=== PATIENT | female | born 1940 | race Caucasian/White ===

== ENCOUNTER 2016-08-23 17:13 | Emergency (ER) | payer OTHER, MEDICARE ==
[~2016-08-23] VITALS: Ht 160 cm; Wt 78.9 kg
[~2016-08-23 17:13] MED LIST: ADVIL200 M2 PO; ALTACE10 M2 PO; CENTRUM COMPLE1 EACH PO; EYE VITAMIN-MI1 EACH PO; LANTUS100 UNIT/1 SC; LASIX20 M1 PO; LASIX40 M1 PO; METFORMIN HCL1000 M1 PO; MUCINEX600 M1 PO; SYMBICORT 16010.2 GM INH; SYNTHROID150 MCG PO; VITAMIN D31000 UNI1 PO
--- NOTE | 2016-08-23 17:43 | ED UPPER/LOWER EXTREMITY COMPL ---
History of Present Illness General Chief Complaint: Lower Extremity Injury Stated Complaint: L TOE NAIL INFECTED/ SWOLLEN L LEG Source: patient Exam Limitations: no limitations Allergies Coded Allergies: oxycodone (From PERCOCET) (Intermediate, NAUSEA 08/23/16) Reconcile Medications Budesonide/Formoterol Fumarate (Symbicort 160-4.5 Mcg Inhaler) 10.2 GM HFA.AER.AD 2 PUF INH BID COPD (Reported) Cholecalciferol (Vitamin D3) (Vitamin D3) 1,000 UNIT CAPSULE 1 CAP PO DAILY SUPPLEMENT (Reported) Doxycycline Hyclate 100 MG TABLET 1 TAB PO BID toe infection Furosemide (Lasix) 40 MG TABLET 1 TAB PO DAILY [facility] Guaifenesin (Mucinex) 600 MG TAB.ER.12H 1 TAB PO BID Mucus plug Insulin-Lantus (Lantus) 100 UNIT/1 ML VIAL 24 UNIT SC QPM DIABETES (Reported) Levothyroxine Sodium (Synthroid) 150 MCG TABLET 1 TAB PO DAILY THYROID ( Reported) Metformin HCl 1,000 MG TABLET 1 TAB PO BID DIABETES (Reported) Ramipril (Altace) 10 MG CAPSULE 1 CAP PO QPM BP (Reported) Vit A/C/E AC/Znox/Cupric Oxide (Eye Vitamin-Minerals Tablet) 1 EACH TABLET 1 TAB PO BID SUPPLEMENT (Reported) Triage Note: PT TO ED WITH C/O LOWER LEG EDEMA, LEFT WORSE ALSO C/O TOENAIL COMING OFF ON LEFT FOOT. Triage Nurses Notes Reviewed? yes Onset: Abrupt Duration: day(s):, constant, getting worse Timing: recent history Severity: moderate, severe Pain/Injury Location: Left: Leg. No Modifying Factors: none HPI: 76-YEAR-OLD FEMALE COMES INTO EMERGENCY ROOM FOR FURTHER EVALUATION OF LEFT LEG SWELLING WELL infection to left toenail. Patient reports the toenail fell off and she's had some discharge. Patient reports that her entire leg is swollen. He denies any chest pain shortness of breath. Significant cardiac history with CHF as well as COPD. Denies being on any anticoagulants. Denies any fever chills. Patient saw her primary care doctor for here for further evaluation of possible cellulitis. Patient is on oxygen chronically 4 L. (ANGELY SINCLAIR) Vital Signs & Intake/Output Vital Signs & Intake/Output Vital Signs Date Time Temp Pulse Resp B/P Pulse O2 O2 Flow FiO2 Ox Delivery Rate 08/24 2155 102 20 76 Nasal 4.0L Cannula 08/23 2152 88 162/75 08/23 2128 97.1 97 20 140/65 08/236 84 Nasal 4.0L Cannula 08/23 1729 96.4 106 20 148/75 95 Nasal 4.0L Cannula Past History Travel History Traveled to [place] past 21 day No Medical History Any Pertinent Medical History? see below for history Neurological: NONE EENT: CATARACTS (R) MACULAR DEGENERATION (L) Cardiovascular: CHF, hypertension Respiratory: COPD Gastrointestinal: NONE Hepatic: NONE Renal: NONE Musculoskeletal: NONE Psychiatric: NONE Endocrine: diabetes, hypothyroidism Blood Disorders: NONE, IRON DEF/TAKES PROCRIT Cancer(s): NONE REAL ESTATE INTERN/Reproductive: NONE History of MRSA: No History of VRE: No History of CDIFF: No Surgical History Surgical History: cholecystectomy, hip replacement Psychosocial History Who do you live with Patient/Self Services at Home Oxygen What is your primary language Tajik Tobacco Use: Quit >30 days ago ETOH Use: denies use Illicit Drug Use: denies illicit drug use Family History Family History, If Any: MOTHER (Diabetes mellitus Stroke in 70s). SISTER (Diabetes mellitus). Hx Contributory? No (ANGELY SINCLAIR) Review of Systems Review of Systems Constitutional: Reports: no symptoms. EENTM: Reports: no symptoms. Respiratory: Reports: no symptoms. Cardiovascular: Reports: no symptoms. Gastrointestinal/Abdominal: Reports: no symptoms. Genitourinary: Reports: no symptoms. Musculoskeletal: Reports: no symptoms. Skin: Reports: see HPI. Neurological/Psychological: Reports: no symptoms. Hematologic/Endocrine: Reports: no symptoms. Immunological: Reports: no symptoms. All Other Systems: Reviewed and Negative (ANGELY SINCLAIR) Physical Exam Physical Exam General Appearance: well developed/nourished, no apparent distress, alert, awake Head: atraumatic Eyes: Bilateral: normal appearance. Ears, Nose, Throat: normal ENT inspection, hearing grossly normal Neck: normal inspection, supple Cardiovascular/Respiratory: normal breath sounds, regular rate/rhythm, no respiratory distress, tachycardia Gastrointestinal: soft Back: normal inspection Neurologic/Tendon: normal sensation, normal motor functions, normal tendon functions, responds to pain, no evidence tendon injury, no pulse deficit Skin: intact, normal color, warm/dry Lymphatic: no anterior cervical dominick (ANGELY SINCLAIR) Progress Differential Diagnosis: arterial insufficiency, cellulitis, CHF, compartment syndrome, contusion, dislocation, DVT, fracture, gout, septic arthritis, sprain, tendon injury, pulmonary embolism, CHF, NH, Comments: 08/23/2016 6:53:44 PM Apparently the nurse noticed that when she moved she had desatted to the high 60s on for 4 L of oxygen. Patient denies any complaints of chest pain or shortness of breath still. Patient's O2 saturation monitor now is in the low 80s. She reports that she normally runs in the high 80s. Nurse reports that there was a good waveform with the O2 saturation in the high 60s initially and she bumped her up to 5 L. Due to the fact that the patient has swelling in the leg pulmonary embolism is currently on the differential diagnosis in waiting on ultrasound to come back 08/23/2016 10:21:23 PM There is no evidence of pulmonary embolism. Patient can follow-up with primary care doctor. Patient was seen and evaluated by Dr. gomez. Patient is chronically short of breath with chronic hypoxia. She does not feel short of breath beyond her baseline at this time and does not appear to be in any type of wrist or distress. Case management set up for some home health aide. Patient referred to pulmonology. Return if any other concerns worsening symptoms. Patient was told to double up on her Lasix for 3 days but then to resume normal dose for fluid in left lower leg. There is no evidence of DVT. Patient understands and agrees with plan of care. Shared decision making. Patient does not want to stay here in the hospital. Patient reevaluated multiple times here in the emergency room and continued to remain in no apparent distress. (ANGELY SINCLAIR) Plan of Care: Orders Procedure Date/time Status Heart Healthy Diet 08/24 B Active TROPONIN LEVEL 08/23 1822 Complete COMPREHENSIVE METABOLIC PANEL 08/23 1822 Complete CBC WITHOUT DIFFERENTIAL 08/23 1822 Complete B-TYPE NATRIURETIC PEP (BNP) 08/23 1822 Complete EKG 08/23 1822 Active Laboratory Tests 08/23/16 1827: Anion Gap 11, Estimated GFR 40 L, BUN/Creatinine Ratio 25.4 H, Glucose 95, Calcium 9.8, Total Bilirubin 0.9, AST 23, ALT 29, Alkaline Phosphatase 80, Troponin I < 0.01, Hsi-A-Cdwaqsbjhvs Pept 62060 H, Total Protein 6.9, Albumin 4.0, Globulin 2.9, Albumin/Globulin Ratio 1.4, CBC w Diff NO MAN DIFF REQ, RBC 3.29 L, MCV 105.9 H, MCH 33.5 H, RDW 21.2 H, MPV 8.8, Gran % 77.4 H, Lymphocytes % 10.8 L, Monocytes % 7.3, Eosinophils % 3.5, Basophils % 1.0, Absolute Granulocytes 5.8, Absolute Lymphocytes 0.8 L, Absolute Monocytes 0.5, Absolute Eosinophils 0.3, Absolute Basophils 0.1, PUBS MCHC 31.6 L Departure Departure Disposition: STILL A PATIENT Condition: Stable Clinical Impression Primary Impression: Leg swelling Secondary Impressions: Chronic respiratory failure with hypoxia, Toe infection Referrals: MERRICK MAHMOOD,MARIA ESTHER WILLIS MD,BRAD Holloway (PCP/Family) ESTELLE SANTACRUZ MD Additional Instructions: Take doxycycline as prescribed. Increase her Lasix to 20 mg twice a day for the next 3 days. Contact her trouble lineman primary care doctor. Follow-up with farmworker brooder farm provided. Return to the emergency room immediately if any shortness of breath chest pain. Return if any other concerns worsening symptoms. Dr. Santacruz his farmworker brooder farm. Dr. Walters is magazine repairer. Warm soaks with Epsom salts with toe. Please go over all results of today's visit with your primary care doctor. Contact your primary care doctor to let them know you were here in the emergency room. There may be nonspecific findings which may not be related to your visit today here in the emergency room but may require further evaluation and chronic monitoring by your primary care doctor. If you had a laceration today the chance of foreign body always remains. You should follow-up with your primary care doctor for recheck in 3-5 days for a wound check. If you had an x-ray done there is a chance that a fracture could have been missed on initial read and you should follow-up with your primary care doctor for repeat x-rays if symptoms persist. If your blood pressure was elevated here in the emergency room please have rechecked by her primary care doctor within the next 48 hours by your primary care doctor. If you were prescribed a narcotic here in the emergency room or any type of controlled substances you're not allowed to drive while taking this medication or operate any type of heavy machinery. Narcotics can make you feel lightheaded dizziness nausea and can cause constipation. You may need to pick up operator a stool softener. Thank you for choosing [facility] emergency room. Please return to the emergency room immediately if you have any other concerns worsening of symptoms. Departure Forms: Customer Survey General Discharge Information Prescriptions: Current Visit Scripts Doxycycline Hyclate 1 TAB PO BID #14 TAB (ANGELY SINCLAIR) PA/TELETYPE INSTALLER Co-Sign Statement Statement: ED Attending supervision documentation- [X] I saw and evaluated the patient. I have also reviewed all the pertinent lab results and diagnostic results. I agree with the findings and the plan of care as documented in the PA's/TELETYPE INSTALLER's documentation. [X] I have reviewed the ED Record and agree with the PA's/TELETYPE INSTALLER's documentation. [] Additions or exceptions (if any) to the PAs/TELETYPE INSTALLER's note and plan are summarized below: [] (EDYTA THOMPSON,CYNTHIA)
[2016-08-23 18:40] LABS: ABSOLUTE BASOPHIL COUNT 0.1 /CUMM (0.0-0.2); ABSOLUTE EOSINOPHIL COUNT 0.3 /CUMM (0.0-0.7); ABSOLUTE GRANULOCYTE CT 5.8 /CUMM (1.4-6.5); ABSOLUTE LYMPH COUNT 0.8 /CUMM (1.2-3.4); ABSOLUTE MONOCYTE COUNT 0.5 /CUMM (0.10-0.60); EOSINOPHIL % 3.5 % (0-5); GRANULOCYTE % 77.4 % (42.2-75.2); HEMATOCRIT 34.9 % (37-47); MEAN CORPUSCULAR HGB 33.5 PG (27.0-31.0); MEAN CORPUSCULAR HGB CONC 31.6 G/DL (33.0-37.0); MEAN CORPUSCULAR VOLUME 105.9 FL (81.0-99.0); MEAN PLATELET VOLUME 8.8 FL (7.4-10.4); PLATELET COUNT 243 /CUMM (130-400); RBC DISTRIBUTION WIDTH 21.2 % (11.5-14.5); RED BLOOD CELL CT 3.29 /CUMM (4.20-5.40); WHITE BLOOD CELL COUNT 7.5 /CUMM (4.8-10.8)
--- NOTE | 2016-08-23 18:47 | RADIOLOGY REPORT ---
EXAMINATION: XR PORTABLE CHEST CLINICAL INFORMATION: Shortness of breath. COMPARISON: Chest x-ray 10/29/[address] chest 11/03/2015 TECHNIQUE: Portable AP portable view of the chest was obtained. 6:27 PM FINDINGS: Lungs are clear. No pulmonary vascular congestion. No infiltrate or pleural effusion. The heart size is normal. The cardiac and mediastinal contours are normal. There are calcifications of the thoracic aorta. There are multilevel degenerative changes of dorsal spine. IMPRESSION: No acute abnormality of the chest.
--- NOTE | 2016-08-23 19:37 | ULTRASOUND REPORT ---
EXAMINATION: BILATERAL TRIPLEX SCANNING OF THE LOWER EXTREMITIES CLINICAL INFORMATION: Lower extremity swelling. COMPARISON: None. TECHNIQUE: Color-flow triplex imaging with spectral analysis and compression Doppler were performed on the lower extremities. FINDINGS: Respiratory variation, normal compression and augmented flow are noted throughout the lower extremities. The visualized common femoral vein, superficial femoral vein, profunda femoral vein, popliteal vein and mid calf peroneal and posterior tibial venous segments show no evidence of deep venous thrombosis. There is no Hernandez's cyst. IMPRESSION: Normal triplex scan without evidence of deep venous thrombosis involving the lower extremities.
--- NOTE | 2016-08-23 21:24 | CT SCAN REPORT ---
EXAMINATION: CT ANGIOGRAM OF THE CHEST WITH AND WITHOUT CONTRAST (CT PULMONARY ANGIOGRAM FOR PE) CLINICAL INFORMATION: Hypoxia COMPARISON: CT chest 11/03/2015 TECHNIQUE: Prior to contrast administration, noncontrast localization images were obtained. Subsequently, multidetector volumetric imaging was performed from the thoracic inlet to below the diaphragms following the administration of 87 mL Optiray 350 intravenous contrast. No contrast reaction reported Sagittal, coronal, and MIP oblique sagittal reformatted images were obtained on the CT workstation, uploaded to PACS, and reviewed. Total exam dose-length product 509.83 mGy-cm FINDINGS: QUALITY OF STUDY/CONTRAST BOLUS: Satisfactory. PULMONARY ARTERIES: No central or segmental pulmonary emboli. THORACIC AORTA: Atherosclerotic vascular wall calcifications of aorta without aneurysm. LUNG: No focal consolidation, nodules or masses. PLEURA: No pleural effusion or pneumothorax. MEDIASTINUM: No change in the 1.4 cm precarinal lymph node since prior CAT scan. Subcentimeter lymph nodes at the AP window and right hilum unchanged since prior study. No evidence of septal bowing or right heart strain. CHEST WALL/AXILLA: No axillary or internal mammary lymphadenopathy. OSSEOUS STRUCTURES: Multilevel degenerative change of the spine with endplate spurs UPPER ABDOMEN: Spleen is prominent measuring 15 cm AP. 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 IMPRESSION: 1. No evidence of pulmonary embolism. No acute abnormality CT chest. 2. Stable borderline enlarged mediastinal lymph nodes. 3. 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
[2016-08-23] MEDS ORDERED: DOXYCYCLINE HY100 M4 PO (21:37)
[2016-08-23 21:53] VITALS: BP 162/75
--- NOTE | 2016-08-24 11:55 | NUR ---
08/24 CASE MGMT- CALL FROM [facility] REQUESTING PT PCP NOT CORRECT- SPOKE WITH PT AND CONFIRMED PT PCP IS COLLIN WILLIS IN [facility], [facility] JENNY MADE AWARE.
== END 2016-08-23 22:36 ==
LOC: ERH 17:13
PROVIDERS: Physician Assistant Medical
DX: L08.9 Local infection of the skin and subcutaneous tissue, unspecified (principal); M79.89 Other specified soft tissue disorders; J96.11 Chronic respiratory failure with hypoxia; Z87.891 Personal history of nicotine dependence
CPT/HCPCS: 93005; 93010; 93970

== ENCOUNTER 2016-10-19 18:36 | Inpatient (IN) | payer OTHER, MEDICARE ==
[~2016-10-19] VITALS: Ht 160 cm; Wt 78.9 kg
[~2016-10-19 18:36] MED LIST changes: +DOXYCYCLINE HY100 M4 PO
--- NOTE | 2016-10-19 18:45 | NUR ---
PT BIBA FROM HOME C/O GENERALIZED WEAKNESS AND POOR PO INTAKE SINCE YESTERDAY. C/O CHILLS, RIGORS, AND FEELING SOB ON EXERTION. PMH OF COPD, IS ON 4L NC AT BASELINE. FINGERSTICK BY EMS 108. HAS PRE HOSP 20G RFA. O2 SAT 80% ON EMS ARRIVAL ON BASELINE 4L. RECEIVED DUO NEB WHILE ENROUTE, O2 SAT 90-92% DURING TREATMENT. O2 SAT 86% ON 4L NC AFTER TREATMENT. O2 INCREASED TO 6L/MIN, O2 SAT TO 89-90%. TEMP 99.6. PT SPEAKING IN FULL SENTENCES. PT DENIES PAIN.
--- NOTE | 2016-10-19 19:08 | NUR ---
O2 SAT 91% ON 6L/NC. PT TO XRAY VIA STRETCHER
[2016-10-19 19:12] LABS: ABSOLUTE BASOPHIL COUNT 0 /CUMM (0.0-0.2); ABSOLUTE EOSINOPHIL COUNT 0.2 /CUMM (0.0-0.7); ABSOLUTE GRANULOCYTE CT 16.2 /CUMM (1.4-6.5); ABSOLUTE LYMPH COUNT 0.5 /CUMM (1.2-3.4); ABSOLUTE MONOCYTE COUNT 0.5 /CUMM (0.10-0.60); BASOPHIL % 0 % (0.0-2.0); HEMATOCRIT 33.8 % (37-47); MEAN CORPUSCULAR HGB 34.8 PG (27.0-31.0); MEAN CORPUSCULAR HGB CONC 32.8 G/DL (33.0-37.0); MEAN CORPUSCULAR VOLUME 106.1 FL (81.0-99.0); MEAN PLATELET VOLUME 9.8 FL (7.4-10.4); PLATELET COUNT 187 /CUMM (130-400); RBC DISTRIBUTION WIDTH 21.8 % (11.5-14.5); RED BLOOD CELL CT 3.18 /CUMM (4.20-5.40); WHITE BLOOD CELL COUNT 17.3 /CUMM (4.8-10.8)
--- NOTE | 2016-10-19 19:22 | NUR ---
PT RETURNED FROM XRAY. DR PUGA IN TO EVAL PT
[2016-10-19 19:26] LABS: GRANULOCYTE % 93.5 % (42.2-75.2)
--- NOTE | 2016-10-19 19:33 | RADIOLOGY REPORT ---
EXAMINATION: XR CHEST CLINICAL INFORMATION: Shortness of breath. COMPARISON: CTA chest 08/23/2016. TECHNIQUE: PA and lateral views of the chest were obtained. FINDINGS: PA and lateral views of the chest demonstrates subtle opacities within the right lung base. Developing infiltrates cannot be excluded. No pleural effusions or pneumothoraces are identified. Cardiomediastinal contours are within normal limits. Soft tissues are unremarkable. No acute osseous abnormality is identified. IMPRESSION: Sagittal airspace opacities within the right lung base. Developing infection cannot be excluded in the appropriate clinical setting.
[2016-10-19] MEDS ORDERED: PROCRIT10000 UNIT (19:44)
[2016-10-19] MEDS ORDERED: ICAPS TABLET1 EACH PO (19:45)
[2016-10-19] MEDS ORDERED: HYDROCORTISO453.6 G2 TOP (19:45)
[2016-10-19] MEDS ORDERED: VITAMIN D31000 UNI1 PO (19:46)
[2016-10-19] MEDS ORDERED: LANTUS SOL100 UNIT/1 SC (19:46)
[2016-10-19] MEDS ORDERED: LASIX20 M1 PO (19:46)
[2016-10-19] MEDS ORDERED: SYNTHROID150 MCG PO (19:47)
[2016-10-19] MEDS ORDERED: METRONIDAZOLE60 GM TOP (19:48)
[2016-10-19] MEDS ORDERED: ACETAMINOPHEN500 M4 PO (19:50)
--- NOTE | 2016-10-19 19:52 | NUR ---
CRITICAL TEST RESULTS [id number] ASHANTI MURRAY 76 F TESTS AND RESULTS: TROPONIN 0.37 Results received and read back by: DAGO PONCE Results received date and time: 10/19/161951 The following provider was notified of the results, and read the results back: DR. PUGA Notified date and time: 10/19/16 at 1952
--- NOTE | 2016-10-19 20:00 | NUR ---
PT MEDICATED WITH ROCEPHIN, FOLLOWED BY ZITHRO INFUSION. PT AWARE A URINE SAMPLE IS NEEDED. DR PUGA AT BEDSIDE TO DISCUSS LAB RESULTS AND POC. PT TO BE ADMITTED
--- NOTE | 2016-10-19 20:10 | NUR ---
FAMILY MEMBER CALLED THIS RN AND LISA LOZA INTO ROOM. PT REPORTS "FACE FEELING FLUSHED" S/P ADMINISTRATION OF ABX. AZITHROMYCIN INFUSION STOPPED BY LISA LOZA. PT DENIES CHEST TIGHTNESS, THROAT TIGHTNESS, TINGLING IN MOUTH. DENIES DIFFICULTY BREATHING. NO S/S ALLERGIC RXN NOTED. NO RASH/HIVES NOTED. PT SPEAKING IN FULL CLEAR SENTENCES. CALLBELL IN REACH. AWARE. POC: IV ABX TO BE SWITCHED TO DOXY INSTEAD
--- NOTE | 2016-10-19 20:16 | ED DYSPNEA/ASTHMA COMPLAINT ---
History of Present Illness General Chief Complaint: Dyspnea (COPD, CHF, Other) Stated Complaint: BIBA SOB Source: patient, family, old records, EMS Exam Limitations: no limitations Vital Signs & Intake/Output Vital Signs & Intake/Output Vital Signs Date Time Temp Pulse Resp B/P B/P Pulse O2 O2 Flow FiO2 Mean Ox Delivery Rate 10/19 2045 98 92 Venti Mask 55% 10/20 2035 85 Nasal 6.0L Cannula 10/19 2021 99.5 99 20 149/64 90 Nasal 6.0L Cannula 10/19 1910 91 Nasal 6.0L Cannula 10/19 1844 99.6 104 28 140/66 89 Nasal 6.0L Cannula Allergies Coded Allergies: oxycodone (From PERCOCET) (Intermediate, NAUSEA 08/23/16) Reconcile Medications Acetaminophen 500 MG TABLET 2 TAB PO BID PAIN (Reported) B2/Vit A,C & E/Lut/Zeaxanth/Mn (Icaps Tablet) 3,300-200 TABLET.ER 1 TAB PO BID SUPPLEMENT (Reported) Budesonide/Formoterol Fumarate (Symbicort 160-4.5 Mcg Inhaler) 10.2 GM HFA.AER.AD 2 PUF INH BID COPD (Reported) Cholecalciferol (Vitamin D3) (Vitamin D3) 1,000 UNIT CAPSULE 1 CAP PO DAILY SUPPLEMENT (Reported) Epoetin Dipesh (Procrit) (Unknown Strength) VIAL (Unknown Dose) Q2W RBC ( Reported) Furosemide (Lasix) 20 MG TABLET 1 TAB PO DAILY DIURETIC (Reported) Hydrocortisone 2.5 % CREAM..G. 1 AUGUSTIN TOP PRN ITCHING (Reported) apply to affected area(s) Insulin Glargine,Hum.rec.anlog (Lantus Solostar) 100 UNIT/ML (3 ML) INSULN.PEN 24 UNIT SC QPM DM (Reported) Levothyroxine Sodium (Synthroid) 150 MCG TABLET 1 TAB PO DAILY THYROID ( Reported) Metformin HCl 1,000 MG TABLET 1 TAB PO BID DIABETES (Reported) Metronidazole 1 % GEL..GRAM. 1 AUGUSTIN TOP DAILY FACE (Reported) Ramipril (Altace) 10 MG CAPSULE 1 CAP PO QPM BP (Reported) Triage Note: PT BIBA FROM HOME C/O GENERALIZED WEAKNESS AND POOR PO INTAKE SINCE YESTERDAY. C/O CHILLS, RIGORS, AND FEELING SOB ON EXERTION. PMH OF COPD, IS ON 4L NC AT BASELINE. FINGERSTICK BY EMS 108. HAS PRE HOSP 20G RFA. O2 SAT 80% ON EMS ARRIVAL ON BASELINE 4L. RECEIVED DUO NEB WHILE ENROUTE, O2 SAT 90-92% DURING TREATMENT. O2 SAT 86% ON 4L NC AFTER TREATMENT. O2 INCREASED TO 6L/MIN, O2 SAT TO 89-90%. TEMP 99.6. PT SPEAKING IN FULL SENTENCES. DENIES COUGH. PT DENIES PAIN. Triage Nurses Notes Reviewed? yes Onset: SEVERAL DAYS Duration: day(s):, constant, continues in ED, getting worse Timing: recent history Severity: severe Activities at Onset: none Prior Episodes/Possible Cause: occasional episodes Modifying Factors: Worsens With: movement. Associated Symptoms: cough, loss of appetite, weakness LMP (ages 10-50): post menopausal : No Patient currently breastfeeds: No HPI: Several days prior to admission patient developed decreased appetite progressive shortness of breath dyspnea on exertion with a weight gain of 5 pounds. 1 day prior to admission she developed episodes of shaking chills nausea. She denies fever chest pain vomiting diarrhea abdominal pain headache dysuria rash bleeding. Past History Travel History Traveled to [place] past 21 day No Medical History Any Pertinent Medical History? see below for history Neurological: NONE EENT: CATARACTS (R) MACULAR DEGENERATION (L) Cardiovascular: CHF, hypertension Respiratory: COPD Gastrointestinal: NONE Hepatic: NONE Renal: nephrolithiasis Musculoskeletal: NONE Psychiatric: NONE Endocrine: diabetes, hypothyroidism Blood Disorders: NONE, IRON DEF/TAKES PROCRIT Cancer(s): NONE SANDER AND BUFFER/Reproductive: NONE History of MRSA: No History of VRE: No History of CDIFF: No Surgical History Surgical History: cholecystectomy, hip replacement Psychosocial History Who do you live with Patient/Self Services at Home Oxygen What is your primary language Croatian Tobacco Use: Quit >30 days ago ETOH Use: denies use Illicit Drug Use: denies illicit drug use Family History Family History, If Any: MOTHER (Diabetes mellitus Stroke in 70s). SISTER (Diabetes mellitus). Hx Contributory? No Review of Systems Review of Systems Constitutional: Reports: see HPI, chills, malaise, weakness. EENTM: Reports: no symptoms. Respiratory: Reports: see HPI, cough, short of breath. Cardiovascular: Reports: no symptoms. GI: Reports: no symptoms. Genitourinary: Reports: no symptoms. Musculoskeletal: Reports: no symptoms. Skin: Reports: no symptoms. Neurological/Psychological: Reports: no symptoms. Hematologic/Endocrine: Reports: no symptoms. Immunologic/Allergic: Reports: no symptoms. All Other Systems: Reviewed and Negative Physical Exam Physical Exam General Appearance: well developed/nourished, alert, awake, moderate distress, obese Head: atraumatic, normal appearance Eyes: Bilateral: normal appearance, PERRL, EOMI. Ears, Nose, Throat: normal pharynx, normal ENT inspection, dry mucous membranes Neck: normal inspection, supple, full range of motion, no midline tenderness Respiratory: chest non-tender, decreased breath sounds, crackles, respiratory distress Cardiovascular: regular rate/rhythm, normal peripheral pulses, norml femoral pulses equa Peripheral Pulses: 4+ carotid (R), 4+ carotid (L) Gastrointestinal: normal bowel sounds, soft, non-tender, no organomegaly Extremities: normal inspection (pitting L>R), normal range of motion, pedal edema Neurologic/Psych: no motor/sensory deficits, awake, alert, oriented x 3, 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 Yes ASA ordered for poss ACS? Yes-ordered Severe Sepsis Present: No Septic Shock Present: No Pneumonia Severity Index PSI Screen: PSI Screen: Response Value CHF History yes 10 Renal Disease History yes 10 BUN > 29 yes 20 Total 40 Subtotal (Add Patient's Age): 76 Subtotal (-10 if Female): 10 Pneumonia Severity Indx Total: 106 CURB-65 CURB-65 Response Value Blood Urea Nitrogen>/=20mg/dL yes 1 Age >/= 65 yes 1 Total 2 Progress Differential Diagnosis: AMI, CHF, COPD, pneumonia Plan of Care: Orders Procedure Date/time Status Regular Diet 10/20 B Active ARTERIAL BLOOD GAS (GEN) 10/19 2048 Active Patient Data 10/19 2044 Active OXYGEN SETUP (GEN) 10/19 1936 Active Saline Lock 10/19 1936 Active Admit to inpatient 10/19 1936 Active Vital Signs 10/19 1936 Active Activity/Ambulation 10/19 1936 Active Code Status 10/19 1936 Active Add-on Test (ER Only) 10/19 1928 Active BLOOD CULTURE 10/19 1928 Active URINALYSIS 10/19 1928 Active TROPONIN LEVEL 10/19 1858 Complete MAGNESIUM 10/19 1858 Complete COMPREHENSIVE METABOLIC PANEL 10/19 1858 Complete CBC WITHOUT DIFFERENTIAL 10/19 1858 Complete B-TYPE NATRIURETIC PEP (BNP) 10/20 1855 Complete EKG 10/19 184 Active Current Medications Sig/Wei Start time Last Medication Dose Stop Time Status Admin Sodium Chloride 1,000 ML ONCE ONE 10/19 2014 AC 10/19 (Normal Saline 0.9%) 10/20 Laboratory Tests 10/19/161855: Anion Gap 15, Estimated GFR 26 L, BUN/Creatinine Ratio 29.5 H, Glucose 106 H, Calcium 8.6, Magnesium 1.7, Total Bilirubin 2.3 H, AST 37 H, ALT 43, Alkaline Phosphatase 136 H, Troponin I 0.37 *H, Rni-S-Cprjjvuinwy Pept 80833 H, Total Protein 6.9, Albumin 3.7, Globulin 3.2, Albumin/Globulin Ratio 1.2, CBC w Diff NO MAN DIFF REQ, RBC 3.18 L, MCV 106.1 H, MCH 34.8 H, RDW 21.8 H, MPV 9.8, Gran % 93.5 H, Lymphocytes % 2.7 L, Monocytes % 2.8, Eosinophils % 1.0, Basophils % 0 L, Absolute Granulocytes 16.2 H, Absolute Lymphocytes 0.5 L, Absolute Monocytes 0.5, Absolute Eosinophils 0.2, Absolute Basophils 0, PUBS MCHC 32.8 L Microbiology 10/19 1940 BLOOD: Blood Culture - RECD 10/19 1914 BLOOD: Blood Culture - RECD Diagnostic Imaging: Viewed by Me: Radiology Read. Discussed w/RAD: Radiology Read. CXR Impression: Sagittal airspace opacities within the right lung base. Developing infection cannot be excluded in the appropriate clinical setting. Initial ED EKG: normal axis, normal intervals, normal p-waves, normal QRS complex, rate (sinus tachycardia), no ST T wave changes Prior EKG: unchanged Rhythm Strip: sinus tachycardia Comments: D/W Dr. Barber Departure Departure Time of Disposition: 2011 Disposition: STILL A PATIENT Condition: Stable Clinical Impression Primary Impression: Pneumonia Qualifiers: Pneumonia type: due to unspecified organism Laterality: right Lung location: lower lobe of lung Qualified Code: J18.1 - Lobar pneumonia, unspecified organism Secondary Impressions: Acute on chronic renal insufficiency, COPD exacerbation, Demand ischemia of myocardium, Pedal edema Referrals: UNKNOWN (PCP) Departure Forms: Customer Survey General Discharge Information Admission Note Spoke With: BANDAR BENITEZ MD Documentation of Exam: Documentation of any treatments & extenuating circumstances including Concerns Regarding Discharge (functional status, medication knowledge or non-compliance, living conditions, etc.) that warrant an admission rather than observation: Supplemental oxygen cardiac monitoring serial lab exam serial EKG medication adjustment IV antibiotics beta Agonist nebs physical therapy continuing care discharge planning Critical Care Note Critical Care Note Critical Care Time: 30-74 min (40)
--- NOTE | 2016-10-19 20:33 | NUR ---
RT AT BEDSIDE FOR ALBUTEROL NEB
--- NOTE | 2016-10-19 20:45 | NUR ---
PT PLACED ON 55% VM AFTER ALBUTEROL NEB. O2 SAT 92% HR 98
--- NOTE | 2016-10-19 20:59 | NUR ---
RESP CALLED FOR ABG
--- NOTE | 2016-10-19 21:13 | NUR ---
ABG DONE BY RT. HOUSE STAFF AT BEDSIDE.
--- NOTE | 2016-10-19 21:14 | History & Physical ---
KHOI ESTEBAN MD 10/19/162112: General Information and HPI MD Statement: I have seen and personally examined ASHANTI BAJWA and documented this H&P. The patient is a 76 year old F who presented with a patient stated chief complaint of shortness of breath. Source of Information: patient, family Exam Limitations: no limitations History of Present Illness: Ms. Bajwa is a pleasant 76 year old female with PMH hypertension, hyperlipidemia, COPD on 5 L continuous NC, type 2 diabetes mellitus on insulin, hypothyroidism, stage III B chronic kidney disease, combined systolic and diastolic heart failure and severe pulmonary hypertension who presents to the [facility] ED with chief complaint of sudden onset generalized weakness and shortness of breath on exertion. According to the patient, she is normally very active and requires no help when performing her activities of daily living. However, her symptoms of weakness and shortness of breath started abruptly at 11 AM, progressed rapidly and were associated with chills, rigors, cough productive of minimal sputum, nausea, recent 5 pound weight gain and diarrhea over the last few days. There is no report of sick contacts, chest pain, fever, dizziness, confusion, sore throat, wheezing, abdominal pain, dysuria or constipation. Patient follows with her PCP Dr. Sami MD in [place], a court interpreter in [place], a pot room supervisor Dr. Delvin MD for chronic anemia requiring epoetin injections every 2 weeks and a building construction supervisor Dr. Nat MD in [place] for her COPD. Patient reports she has never been intubated during a COPD exacerbation . However, she was admitted to [facility] about 1 year ago and discharged on 11/05/15 for acute combined systolic, diastolic heart failure with mild troponin elevation and COPD exacerbation. Since this discharge, she has a visiting nurse at her house a few times a week. Family history is significant for a mother with diabetes who had a stroke in her 70s and a sister with diabetes mellitus. Allergies/Medications Compliance With Home Meds: GOOD Past History Travel History Traveled to [place] past 21 day No Medical History Neurological: NONE EENT: CATARACTS (R) MACULAR DEGENERATION (L) Cardiovascular: CHF, hypertension Respiratory: COPD Gastrointestinal: NONE Hepatic: NONE Renal: nephrolithiasis Musculoskeletal: NONE Psychiatric: NONE Endocrine: diabetes, hypothyroidism Blood Disorders: NONE, IRON DEF/TAKES PROCRIT Cancer(s): NONE HEALTH DATA ADMINISTRATOR/Reproductive: NONE History of MRSA: No History of VRE: No History of CDIFF: No Surgical History Surgical History: cholecystectomy, hip replacement Past Family/Social History Family History Relations & Conditions if any MOTHER (Diabetes mellitus Stroke in 70s). SISTER (Diabetes mellitus). Psychosocial History Services at Home: Oxygen Primary Language: [place] Islander Smoking Status: Former Smoker ETOH Use: denies use Illicit Drug Use: denies illicit drug use Functional Ability ADLs Independent: dressing, eating, toileting, bathing. IADLs Independent: shopping, housework, finances, food prep, telephone, transportation , medication admin. Review of Systems Review of Systems Constitutional: Reports: chills, malaise. Denies: fever. EENTM: Denies: visual changes, nasal congestion. Cardiovascular: Reports: peripheral edema. Denies: chest pain, palpitations. Respiratory: Reports: cough, short of breath. GI: Reports: diarrhea, nausea. Genitourinary: Denies: hematuria. Musculoskeletal: Denies: back pain. Skin: Denies: rash. Neurological/Psychological: Denies: confusion, headache. Hematologic/Endocrine: Denies: bruising, bleeding. Immunologic/Allergic: Denies: splenectomy. All Other Systems: Reviewed and Negative Exam & Diagnostic Data Last 24 Hrs of Vital Signs/I&O Vital Signs Date Time Temp Pulse Resp B/P B/P Pulse O2 O2 Flow FiO2 Mean Ox Delivery Rate 10/19 2246 92 Venti Mask 55% 10/19 2200 99.8 99 20 140/63 92 Venti Mask 55% 10/196 98 92 Venti Mask 55% 10/20 2035 85 Nasal 6.0L Cannula 10/19 2021 99.5 99 20 149/64 90 Nasal 6.0L Cannula 10/19 1911 91 Nasal 6.0L Cannula 10/19 1845 99.6 104 28 140/66 89 Nasal 6.0L Cannula Intake & Output 10/20 0800 0505 0000 10/19 1600 Intake Total 0 Output Total Balance 0 Intake, Oral 0 Patient 174 lb Weight Weight Reported by Patient Measurement Method Physical Exam General Appearance Alert, Oriented X3, Cooperative, No Acute Distress Skin No Significant Lesion Skin Temp/Moisture Exam: Warm/Dry Sepsis Skin Exam (color): Normal for Ethnicity HEENT Atraumatic, PERRLA, EOMI, Slightly dry mucous membranes Neck Supple, +2 Carotid Pulse wo Bruit Lymphatic Cervical nl Cardiovascular Normal S1, Normal S2, Tachycardic, no murmurs appreciated Lungs Patient on ventimask without overt respiratory distress. End expiratory wheezing and decreased breath sounds bilateral bases Abdomen Normal Bowel Sounds, Soft, No Tenderness Neurological Normal Speech, Normal Tone Extremities 1+ edema RLE (chronic s/p knee injury) Vascular Pulses Symmetrical Sepsis Peripheral Pulse Location: Dorsalis Pedis Sepsis Peripheral Pulse Exam: Normal Sepsis Cap Refill Exam: <2 Sec Last 24 Hrs of Labs/Fabian: Laboratory Tests 10/19/162104: pH 7.35, pCO2 37, pO2 68 L, HCO3 20 L, ABG O2 Sat (Measured) 90.0 L, P-50 ( Temp Corrected) N, Carboxyhemoglobin 1.4 L, O2 Concentration % 55%, Temperature 99.5, O2 Delivery Method V/M, Phlebotomy Draw Site RIGHT RADIAL 10/19/16 1856: Anion Gap 15, Estimated GFR 26 L, BUN/Creatinine Ratio 29.5 H, Glucose 106 H, Calcium 8.6, Magnesium 1.7, Total Bilirubin 2.3 H, AST 37 H, ALT 43, Alkaline Phosphatase 136 H, Troponin I 0.37 *H, [id number] Pept 37247 H, Total Protein 6.9, Albumin 3.7, Globulin 3.2, Albumin/Globulin Ratio 1.2, CBC w Diff NO MAN DIFF REQ, RBC 3.18 L, MCV 106.1 H, MCH 34.8 H, RDW 21.8 H, MPV 9.8, Gran % 93.5 H, Lymphocytes % 2.7 L, Monocytes % 2.8, Eosinophils % 1.0, Basophils % 0 L, Absolute Granulocytes 16.2 H, Absolute Lymphocytes 0.5 L, Absolute Monocytes 0.5, Absolute Eosinophils 0.2, Absolute Basophils 0, PUBS MCHC 32.8 L Microbiology 10/19 2357 URINE ROUT: Legionella Antigen - ORD 10/19 2357 URINE ROUT: Streptococcus pneumoniae Antigen (M - ORD 10/19 2357 LOWER RESP: Respiratory Culture - ORD 10/19 2357 LOWER RESP: Gram Stain - ORD 10/19 194 BLOOD: Blood Culture - RECD 10/19 1914 BLOOD: Blood Culture - RECD Diagnostic Data EKG Results Sinus tachycardia, HR 104 bpm, QTC 442, no new changes from prior EKG. CXR Results IMPRESSION: Sagittal airspace opacities within the right lung base. Developing infection cannot be excluded in the appropriate clinical setting. Assessment/Plan Assessment: Ms. Bajwa is a pleasant 76 year old female with PMH hypertension, hyperlipidemia, COPD on 5 L continuous NC, type 2 diabetes mellitus on insulin, hypothyroidism, stage III B chronic kidney disease, combined systolic and diastolic heart failure and severe pulmonary hypertension who presents to the [facility] ED with shortness of breath on exertion, chills, rigors, decreased oral intake, cough minimally productive of sputum, nausea and diarrhea for about 1 day. In the ED: Vital signs showed T 99.5, HR 104, RR 28, BP 149/64, and O2 saturation of 89% on 6 L NC. Labs were significant for WBC 17.3, 93.5% granulocytes, macrocytic anemia 11.1/33.8 with MCV 106.1, Plt 187, K 5.3, BUN/ cre 56/1.9 (baseline cre 1.2-1.4), TBili 2.3, AST 37, ALT 43, Alk phos 136, trop 0.37, proBNP 26445. ABG showed pH 7.35, pCO2 37, pO2 68, HCO3 20. CXR showed sagittal airspace opacities in right lung pace. EKG showed ST HR 104 bpm, QTC 442, no new changes. Patient is admitted to the general medicine floor and the following is the management: 1. Acute on chronic hypoxic respiratory failure secondary to likely right lower lobe pneumonia with sepsis * Sepsis criteria met with leukocytosis, tachypnea, tachycardia and source of infection (PNA) * Continue current venti mask to maintain O2 saturation >90-92% * Continue IV ceftriaxone and IV doxycycline for antibiotic coverage (as patient had adverse reaction to azithromycin and it was discontinued while the patient was in the ED) * Follow up blood cultures, LRC, urine for legionella/strep * Follow up and trend lactic acid * Patient s/p 1 L NS in the ED, continue IV fluids with NS at 50 cc/h per sepsis protocol * Repeat ABG in AM to monitor respiratory status * Low threshold to use high flow nasal cannula * Mucinex BID * Scheduled albuterol, TRC eval 2. Elevated troponins * Elevated troponins in setting of acute hypoxic respiratory failure likely represent demand ischemia * However, trend troponin/EKG x 3 * Cardio consult in AM * Echo pending, f/u results 3. Acute on chronic renal insufficiency * Possibly 2/2 dehydration/decreased oral intake and sepsis on the setting of chronic renal insufficiency * 1 bag of 1,000 mL NS at 50 cc/h * Caution with hydration as patient has history of combined systolic/diastolic heart failure * Follow up repeat BEP in AM * Hold ramipril 4. Hyperkalemia * Likely secondary to acute on chronic kidney injury * Continue IV hydration * Follow up repeat labs in AM 5. Chronic macrocytic anemia * Follow up b12, folate, thiamine 6. Diabetes mellitus * Accuchecks TIDACHS * NSS with 24 U SC levemir QPM 7. Hypothyroidism * Continue synthroid 0.15 mg PO daily AC FULL CODE DVTP: Heparin SC CC2 diet Mild pain pathway As Ranked By This Provider Problem List: 1. Sepsis 2. Acute on chronic renal insufficiency 3. Pneumonia Qualifiers Pneumonia type: due to unspecified organism Laterality: right Lung location: lower lobe of lung Qualified Code: J18.1 - Lobar pneumonia, unspecified organism 4. Hyperkalemia 5. Acute and chronic respiratory failure Core Measures/Miscellaneous Acute Coronary Syndrome ACS Diagnosis: No Cerebrovascular Accident CVA/TIA Diagnosis: No Congestive Heart Failure CHF Diagnosis: No Venous Thromboembolism VTE Risk Factors: Acute medical illness, Age > 40, Obesity No [facility] VTE prophylaxis d/t: No contraindications No VTE Pharm Prophylaxis d/t: No contraindications VTE Diagnosis: No VTE Type: NONE VTE Confirmed by (Test): NONE Severe Sepsis Severe Sepsis Present: No Septic Shock Septic Shock Present: No Miscellaneous Documentation [facility] Primary Care Physician: Dr. Sami MD in [place] Patient sees these Specialists PCP: Dr. Sami MD in [place] Research And Evaluation Manager: in [place] Supervising Law Enforcement Analyst: Dr. Delvin MD for chronic anemia Radioisotope Technologist Dr. Nat MD in [place] Level of Patient Care: Telemetry CARMEN [facility] 10/20/16 0217: General Information and HPI Allergies/Medications Allergies: Coded Allergies: azithromycin (Intermediate, FLUSHED 10/19/16) oxycodone (From PERCOCET) (Intermediate, NAUSEA 08/23/16) Home Med list Acetaminophen 500 MG TABLET 2 TAB PO BID PAIN (Reported) B2/Vit A,C & E/Lut/Zeaxanth/Mn (Icaps Tablet) 3,300-200 TABLET.ER 1 TAB PO BID SUPPLEMENT (Reported) Budesonide/Formoterol Fumarate (Symbicort 160-4.5 Mcg Inhaler) 10.2 GM HFA.AER.AD 2 PUF INH BID COPD (Reported) Cholecalciferol (Vitamin D3) (Vitamin D3) 1,000 UNIT CAPSULE 1 CAP PO DAILY SUPPLEMENT (Reported) Epoetin Dipesh (Procrit) (Unknown Strength) VIAL (Unknown Dose) Q2W RBC ( Reported) Furosemide (Lasix) 20 MG TABLET 1 TAB PO DAILY PRN LEG SWELLING (Reported) Hydrocortisone 2.5 % CREAM..G. 1 AUGUSTIN TOP PRN ITCHING (Reported) apply to affected area(s) Insulin Glargine,Hum.rec.anlog (Lantus Solostar) 100 UNIT/ML (3 ML) INSULN.PEN 24 UNIT SC QPM DM (Reported) Levothyroxine Sodium (Synthroid) 150 MCG TABLET 1 TAB PO DAILY THYROID ( Reported) Metformin HCl 1,000 MG TABLET 1 TAB PO BID DIABETES (Reported) Metronidazole 1 % GEL..GRAM. 1 AUGUSTIN TOP DAILY FACE (Reported) Ramipril (Altace) 10 MG CAPSULE 1 CAP PO QPM BP (Reported) Resident Review Statement Resident Statement: examined this patient, discussed with research intern, agreed with research intern Other Findings: Problem List: * Acute on chronic Hypoxic Respiratory failure 2/2 Community Acquired Pneumonia * Elevated troponins, probably 2/2 demand-supply mismatch 2/2 CAP * Combined HFpEF and HFrEF * Hypothyroidism * Diabetes Mellitus * New allergy to Azithromycin * Hypertension Plan: * Admit to telemetry * Patient was given Ceftriaxone and Doxycycline in the ED. Continue the same for now. Blood cultures, urine cultures, urinary strep and legionella. Ns 50 ml/ hr x 2 bags * Trend trops and EKG * Continue home LT4, Levemir. Start Novolog sliding scale with fingersticks. * Cardiology consult in AM. ECHO's have been read by Dr. Borges. * Repeat ABG in AM * Echocardiogram * Pain Pathway: Tylenol PRN * DVT PPx: Heparin SubQ * Code Status: Full Code BANDAR BENITEZ 10/20/16 0610: Attending MD Review Statement Attending Statement Attending MD Statement: examined this patient, discuss w/resident/PA/COMPUTER APPLICATIONS DEVELOPER, agreed w/resident/PA/COMPUTER APPLICATIONS DEVELOPER, discussed with family, reviewed EMR data (avail), reviewed images, amended to note Attending Assessment/Plan: CC: Worsening of shortness of breath, chills PMH: DM, HTN, HLD, COPD on 4 L NC at home, hypothyroidism, heart failure, chronic anemia requiring Epogen Patient came to ER for sudden onset weakness, lethargy, shortness of breath. It was associated with chills, rigors, minimum productive cough. Vitals: BP max 99.6, tachycardic, tachypneic, blood pressure 140/66, saturating 89% on 4 L on arrival, improved up to 92% on Ventimask. On exam: A O 3, cooperative, moderate distress but patient appears comfortable, neck supple, JVD normal, no lymphadenopathy, mucosa dry, no focal neurological deficit, no dependent edema, no obvious skin rashes or inflammation CVS: S1-S2, RRR. RS: Markedly decreased air entry, minimum crackles on right base. Abdomen: Soft, NT, ND, bowel sounds present. Peripheral pulses perfusion normal Labs: WBC 17.3, neutrophils 93%, hemoglobin 11.1, MCV 106, platelet 187, potassium 5.3, BUN 56, creatinine 1.9, glucose 106, lactate 1.6, bilirubin 2.3, direct Mar[place]ruz 1.5, AST 37, proBNP 57951, troponin 0.37 AB.35/37/68/20 on 55% Ventimask CXR: Sagittal airspace opacities within the right lung base. Developing infection cannot be excluded in the appropriate clinical setting. A and P Patient comes with acute worsening of shortness of breath, chills, rigors, temperature is minimally elevated but patient has tachycardia, tachypnea, significant leukocytosis and chest x-ray suggestive of right-sided infiltrate in this clinical setting is most likely community-acquired pneumonia. Patient is severely hypoxic, probably secondary to underlying severe COPD patient is currently on 4-5 L nasal cannula at baseline, less likely secondary to pulmonary embolism. If clinical suspicion exist consider VQ scan. Elevated troponin appear to be secondary to demand, elevated proBNP appears to be secondary to acute on chronic kidney injury, patient does not have any signs of heart failure on examination, in fact she appears dehydrated. + Acute hypoxic respiratory failure + Community-acquired pneumonia + Acute on chronic kidney injury + Elevated troponin + History of DM, HTN, HLD, COPD, hypothyroidism, HF, pulmonary hypertension - Admit on telemetry - Continue gentle hydration, 50 mL/ hr for 1 L - Scheduled and when necessary albuterol nebulization - Continue Ventimask overnight, try to wean off to nasal cannula tomorrow according to clinical improvement - Continue doxycycline and ceftriaxone IV - Sputum culture urine strep antigen - Continue Mucinex 600 by mouth twice a day - Trend EKG, troponin - Trend lactate - 2-D echo in a.m. - Cardiology consult - Sliding scale insulin for diabetes - Continue her home medications from tomorrow hold metformin and ramipril
--- NOTE | 2016-10-19 21:22 | NUR ---
PT BED ASSIGNMENT 180-1
--- NOTE | 2016-10-20 06:12 | Admission Certification ---
Admission Certification Certification Statement - As attending physician, I certify that at the time of - admission, based on clinical presentation, severity of - symptoms, need for further diagnostic testing and - therapeutic interventions, and risk of adverse outcomes - without in-hospital treatment, in my clinical assessment, - this patient requires an acute hospital stay for a minimum - of two nights or longer. I have also considered psychsocial - factors such as support system, advanced age, financial - issues, cognitive issues, and failed out-patient treatments, - past re-admission history, safety of patient, and lack of - compliance as applicable. Specific rationale supporting this admission is: Acute hypoxic respiratory failure, community-acquired pneumonia, elevated troponin
--- NOTE | 2016-10-20 07:11 | PN- Housestaff ---
See Addendum Subjective Follow-up For: Sepsis, secondary to pneumonia Complaints: no complaints Tele-Events Since Last Visit: Sinus rhythm, heart rate ranging from 93-96. Subjective: I followed up and examined the patient. She is resting comfortably in bed, not in distress, does not have any complaints, is using additional oxygen via mask, telemetry events noted as above, otherwise no overnight events. Review of Systems Constitutional: Reports: no symptoms. Objective Last 24 Hrs of Vital Signs/I&O Vital Signs Date Time Temp Pulse Resp B/P B/P Pulse O2 O2 Flow FiO2 Mean Ox Delivery Rate 10/20 1558 98.0 94 16 122/72 87 Nasal Cannula 10/20 0856 Nasal 7.0L Cannula 10/20 0823 97.5 16 128/68 88 Venti Mask 10/19 2246 92 Venti Mask 55% 10/19 2201 99.8 99 20 140/63 92 Venti Mask 55% 10/19 2046 98 92 Venti Mask 55% 10/19 2036 85 Nasal 6.0L Cannula 10/19 202 99.5 99 20 149/64 90 Nasal 6.0L Cannula 10/19 1911 91 Nasal 6.0L Cannula 10/19 1845 99.6 104 28 140/66 89 Nasal 6.0L Cannula Intake & Output 10/20 1600 10/20 0800 10/20 0000 Intake Total 400 0 Output Total 450 Balance -50 0 Intake, IV 400 Intake, Oral 0 Output, Urine 450 Patient 78.925 kg Weight Weight Reported by Patient Measurement Method Physical Exam General Appearance: Alert, Oriented X3, Cooperative, No Acute Distress, on additional oxygen via mask Other Physical Findings: Skin No Significant Lesion Skin Temp/Moisture Exam: Warm/Dry HEENT Atraumatic, PERRLA, EOMI, Slightly dry mucous membranes Neck Supple, +2 Carotid Pulse wo Bruit Lymphatic Cervical nl Cardiovascular Normal S1, Normal S2, Tachycardic, no murmurs appreciated Lungs Patient on ventimask without overt respiratory distress. End expiratory wheezing and decreased breath sounds bilateral bases Abdomen Normal Bowel Sounds, Soft, No Tenderness Neurological Normal Speech, Normal Tone Extremities 1+ edema RLE (chronic s/p knee injury) Vascular Pulses Symmetrical Current Medications: Current Medications Sig/Wei Start time Last Medication Dose Route Stop Time Status Admin Acetaminophen 650 MG Q6P PRN 10/20 0145 AC 10/20 PO 0421 Albuterol Sulfate 3 ML Q8 10/20 1400 DC INH Albuterol Sulfate 3 ML EVERY 4 HRS/AWAKE 10/20 0915 AC 10/20 INH 1619 Albuterol Sulfate 3 ML ONCE ONE 10/19 2030 DC 10/19 INH 10/19 Aspirin 0 .STK-MED ONE 10/20 2019 DC PO Aspirin 325 MG ONCE ONE 10/19 2014 DC / PO 10/19 Azithromycin 500 MG ONCE ONE 10/19 1944 DC 10/19 Sodium Chloride 250 ML IV 10/19 Ceftriaxone Sodium 1,000 MG 10/20 AC IV Ceftriaxone Sodium 0 .STK-MED ONE 10/19 1948 DC .ROUTE Ceftriaxone Sodium 1,000 MG ONCE ONE 10/19 1944 DC 10/19 IV 10/19 Doxycycline Hyclate 100 MG Q12 10/20 1000 DC 10/20 Sodium Chloride 100 ML IV 111 Doxycycline Hyclate 100 MG ONCE ONE 10/19 213 DC 10/19 Sodium Chloride 100 ML IV 10/19 223 2210 Guaifenesin 600 MG Q12 10/20 1000 AC 10/20 PO 1116 Heparin Sodium 5,000 UNIT Q8 10/20 0600 AC 10/20 (Porcine) SC 1437 Insulin Aspart 0 TIDAC 10/20 0800 AC 10/20 SC 1240 Insulin Detemir 24 UNITS QPM 10/20 2200 AC SC Levothyroxine Sodium 0.15 MG DAILY AC 10/20 0700 AC 10/20 PO 1241 Magnesium Oxide 400 MG ONE ONE 10/20 1515 DC PO 10/20 1516 Sodium Chloride 1,000 ML .Q20H 10/19 2345 AC 10/20 IV 10/20 1944 0030 Sodium Chloride 1,000 ML ONCE ONE 10/19 2014 DC 10/19 IV 10/20 Last 24 Hrs of Lab/Fabian Results Last 24 Hrs of Labs/Mics: Laboratory Tests 10/20/16 1045: pH 7.35, pCO2 44, pO2 60 L, HCO3 24, ABG O2 Sat (Measured) 87.0 L, Carboxyhemoglobin 0.9 L, O2 Concentration % 7L, O2 Delivery Method NC, Phlebotomy Draw Site RIGHT RADIAL 10/20/16 0800: Troponin I Cancelled 10/20/16 0717: Whole Bld Vitamin B1 Pending 10/20/16 0641: Anion Gap 10, Estimated GFR 26 L, BUN/Creatinine Ratio 32.1 H, Lactic Acid 1.0 , Phosphorus 4.8 H, Magnesium 1.9, Troponin I 0.32 *H, Triglycerides 94, Cholesterol 85, LDL Cholesterol, Calc 42 L, HDL Cholesterol 25 L, Cholesterol/ HDL Ratio 3, Vitamin B12 > 1000 H, Folate 12.8, CBC w Diff MAN DIFF ORDERED, RBC 2.82 L, MCV 106.4 H, MCH 35.0 H, RDW 21.0 H, MPV 10.4, Gran % 93.6 H, Lymphocytes % 1.5 L, Monocytes % 4.2, Eosinophils % 0.6, Basophils % 0.1, Absolute Granulocytes 12.1 H, Segmented Neutrophils 91 H, Band Neutrophils 6 H, Absolute Lymphocytes 0.2 L, Lymphocytes 1 L, Monocytes 2, Absolute Monocytes 0.5, Absolute Eosinophils 0.1, Absolute Basophils 0, Platelet Estimate ADEQUATE, Polychromasia 1+, Poikilocytosis 1+, Anisocytosis 1+, Macrocytic Cells 1+, PUBS MCHC 32.8 L 10/20/16 0210: Troponin I 0.37 *H 10/19/165: pH 7.35, pCO2 37, pO2 68 L, HCO3 20 L, ABG O2 Sat (Measured) 90.0 L, P-50 ( Temp Corrected) N, Carboxyhemoglobin 1.4 L, O2 Concentration % 55%, Temperature 99.5, O2 Delivery Method V/M, Phlebotomy Draw Site RIGHT RADIAL 10/19/16 1856: Anion Gap 15, Estimated GFR 26 L, BUN/Creatinine Ratio 29.5 H, Glucose 106 H, Lactic Acid 1.6, Calcium 8.6, Magnesium 1.7, Total Bilirubin 2.3 H, Direct Bilirubin 1.5 H, AST 37 H, ALT 43, Alkaline Phosphatase 136 H, Troponin I 0.37 *H, Xfz-F-Vonpnkrvilu Pept 10109 H, Total Protein 6.9, Albumin 3.7, Globulin 3.2, Albumin/Globulin Ratio 1.2, CBC w Diff NO MAN DIFF REQ, RBC 3.18 L, MCV 106.1 H, MCH 34.8 H, RDW 21.8 H, MPV 9.8, Gran % 93.5 H, Lymphocytes % 2.7 L, Monocytes % 2.8, Eosinophils % 1.0, Basophils % 0 L, Absolute Granulocytes 16.2 H, Absolute Lymphocytes 0.5 L, Absolute Monocytes 0.5, Absolute Eosinophils 0.2, Absolute Basophils 0, PUBS MCHC 32.8 L Microbiology 10/20 1714 URINE ROUT: Urine Culture - RECD 10/20 1714 URINE ROUT: Legionella Antigen - COMP 10/20 1714 URINE ROUT: Streptococcus pneumoniae Antigen (M - COMP 10/20 145 NASOPHARYN: Influenza Virus A & B Rapid Smear - COMP 10/19 2357 URINE ROUT: Legionella Antigen - CAN Cancelled: NO CLEAR TOP TUBE RECEIVED IN MICRO 10/19 2357 URINE ROUT: Streptococcus pneumoniae Antigen (M - CAN Cancelled: NO CLEAR TOP TUBE RECEIVED IN MICRO 10/19 2357 LOWER RESP: Respiratory Culture - CAN Cancelled: SPECIMEN NOT RECEIVED IN LABORATORY 10/19 2357 LOWER RESP: Gram Stain - CAN Cancelled: SPECIMEN NOT RECEIVED IN LABORATORY 10/19 1940 BLOOD: Blood Culture - RES GRAM NEGATIVE RODS 10/19 1914 BLOOD: Blood Culture - RES GRAM NEGATIVE RODS Assessment/Plan Assessment: Ms. Bajwa is a pleasant 76 year old female with PMH hypertension, hyperlipidemia, COPD on 5 L continuous NC, type 2 diabetes mellitus on insulin, hypothyroidism, stage III B chronic kidney disease, combined systolic and diastolic heart failure and severe pulmonary hypertension who presents to the [facility] ED with shortness of breath on exertion, chills, rigors, decreased oral intake, cough minimally productive of sputum, nausea and diarrhea for about 1 day. In the ED: Vital signs showed T 99.5, HR 104, RR 28, BP 149/64, and O2 saturation of 89% on 6 L NC. Labs were significant for WBC 17.3, 93.5% granulocytes, macrocytic anemia 11.1/33.8 with MCV 106.1, Plt 187, K 5.3, BUN/ cre 56/1.9 (baseline cre 1.2-1.4), TBili 2.3, AST 37, ALT 43, Alk phos 136, trop 0.37, proBNP 31737. ABG showed pH 7.35, pCO2 37, pO2 68, HCO3 20. CXR showed sagittal airspace opacities in right lung pace. EKG showed ST HR 104 bpm, QTC 442, no new changes. Patient is admitted to the general medicine floor and the following is the management: 1. Acute on chronic hypoxic respiratory failure secondary to likely right lower lobe pneumonia with sepsis * Sepsis criteria met with leukocytosis, tachypnea, tachycardia and source of infection (PNA) * Continue current venti mask to maintain O2 saturation >90-92% * Continue IV ceftriaxone and IV doxycycline for antibiotic coverage (as patient had adverse reaction to azithromycin and it was discontinued while the patient was in the ED) * Follow up blood cultures: currently showing gram-negative rods, LRC, urine for legionella/strep, and curine culture * Repeat ABG for respiratory status did not show much improvement so high flow nasal canula requested, else via mask, but not NC * continue Mucinex BID * continue scheduled albuterol, TRC eval 2. Elevated troponins * Elevated troponins in setting of acute hypoxic respiratory failure likely represent demand ischemia * trending down now and stopped following. * Cardio consult appreciated. * Echo shows EF 40-45%, mild global hypokinesis, right ventricular systolic pressure estimated at 47 mmHg. 3. Acute on chronic renal insufficiency * Possibly 2/2 dehydration/decreased oral intake and sepsis on the setting of chronic renal insufficiency * patient can have fluids/food by mouth, so finishing one bag of saline ordered yesterday * Caution with hydration as patient has history of combined systolic/diastolic heart failure * Follow up repeat BEP in AM * Hold ramipril 4. Hyperkalemia * Likely secondary to acute on chronic kidney injury * Continue IV hydration for this bag, then PO * Follow up repeat labs in AM 5. Chronic macrocytic anemia * Follow up b12, folate normal * f/u thiamine 6. Diabetes mellitus * Accuchecks TIDACHS * NSS with 24 U SC levemir QPM 7. Hypothyroidism * Continue synthroid 0.15 mg PO daily AC FULL CODE DVTP: Heparin SC CC2 diet Mild pain pathway Problem List: 1. Acute and chronic respiratory failure 2. PNA (pneumonia) 3. Acute on chronic renal insufficiency 4. COPD exacerbation 5. Demand ischemia of myocardium 6. Elevated troponin Pain Ratin Pain Location: - Pain Goal: Pain 4 or less Pain Plan: prn Tomorrow's Labs & Rationales: CBC, BEP
[2016-10-20 07:54] LABS: ABSOLUTE BASOPHIL COUNT 0 /CUMM (0.0-0.2); ABSOLUTE EOSINOPHIL COUNT 0.1 /CUMM (0.0-0.7); ABSOLUTE GRANULOCYTE CT 12.1 /CUMM (1.4-6.5); ABSOLUTE LYMPH COUNT 0.2 /CUMM (1.2-3.4); ABSOLUTE MONOCYTE COUNT 0.5 /CUMM (0.10-0.60); BASOPHIL % 0.1 % (0.0-2.0); EOSINOPHIL % 0.6 % (0-5); GRANULOCYTE % 93.6 % (42.2-75.2); MEAN CORPUSCULAR HGB CONC 32.8 G/DL (33.0-37.0); MEAN CORPUSCULAR VOLUME 106.4 FL (81.0-99.0); MEAN PLATELET VOLUME 10.4 FL (7.4-10.4); PLATELET COUNT 170 /CUMM (130-400); RED BLOOD CELL CT 2.82 /CUMM (4.20-5.40); WHITE BLOOD CELL COUNT 12.9 /CUMM (4.8-10.8)
[2016-10-20 08:23] VITALS: BP 128/68
--- NOTE | 2016-10-20 09:42 | Cons- Cardiology ---
General Information and HPI Consulting Request Date of Consult: 10/20/16 Requested By: SIMEON GONZALEZ MD Reason for Consult: Elevated troponins Source of Information: patient, old records Exam Limitations: no limitations History of Present Illness: Ms Bajwa is a 76 y/o lady with a PMH of HFrEF/stage I diastolic dysfunction/ severe pulmonary HTN: (echo 10/31/15 LVEF 45-50% w/ global hypokinessis, RVSP 95mmHg), hypertension, diabetes, hypothyroidism, chronic anemia, COPD on home O2 , macular degeneration, cataracts was admitted with complaints of new sudden onset generalized weakness and shortness of breath associated with chills, mildly productive cough, nausea, diarrhea and 5 pound weight gain. She endorsed recent exertion on Sunday/Sunday walking up and down stairs 6 times which normally does once a week. She denies any recent sick contacts or travel. VS on admission: BP 140/66, HR 104, RR 20, SPO2 89% 6L NC, T 99.6 Pertinent PE findings on admission: Slightly dry mucous membranes, normal S1/S2, tachycardic. On Ventimask with an extruded wheezing, decreased breath sounds bilaterally. 1+ right lower extremity edema chronic S/P knee injury. Pertinent labs on admission: WBC 17.3, H&H 11.8/33.8, MCV 106.1, potassium 5.3, BUN/CR 56/1.9, proBNP 33,700 Serial troponins: 0.37/0.37/0.32 AB.35/37/68/20 Admission EKG: Sinus tachycardia, HR 104 bpm, QTC 442 Admission CXR: Sagittal airspace opacities within the right lung base. Developing infection cannot be excluded in the appropriate clinical setting. PCP: Dr. Gallardo ([place]) [employer] [place] Sports Editor: Dr. Johns [employer] Worker: Dr. Gibbs Overnight events: She reports persistent exertional dyspnea while at rest this time. She denies any fevers, chills, chest pain, palpitations, nausea, abdominal pain, diarrhea, dysuria. Allergies/Medications Allergies: Coded Allergies: azithromycin (Intermediate, FLUSHED 10/19/16) oxycodone (From PERCOCET) (Intermediate, NAUSEA 08/23/16) Home Med List: Acetaminophen 500 MG TABLET 2 TAB PO BID PAIN (Reported) B2/Vit A,C & E/Lut/Zeaxanth/Mn (Icaps Tablet) 3,300-200 TABLET.ER 1 TAB PO BID SUPPLEMENT (Reported) Budesonide/Formoterol Fumarate (Symbicort 160-4.5 Mcg Inhaler) 10.2 GM HFA.AER.AD 2 PUF INH BID COPD (Reported) Cholecalciferol (Vitamin D3) (Vitamin D3) 1,000 UNIT CAPSULE 1 CAP PO DAILY SUPPLEMENT (Reported) Epoetin Dipesh (Procrit) (Unknown Strength) VIAL (Unknown Dose) Q2W RBC ( Reported) Furosemide (Lasix) 20 MG TABLET 1 TAB PO DAILY PRN LEG SWELLING (Reported) Hydrocortisone 2.5 % CREAM..G. 1 AUGUSTIN TOP PRN ITCHING (Reported) apply to affected area(s) Insulin Glargine,Hum.rec.anlog (Lantus Solostar) 100 UNIT/ML (3 ML) INSULN.PEN 24 UNIT SC QPM DM (Reported) Levothyroxine Sodium (Synthroid) 150 MCG TABLET 1 TAB PO DAILY THYROID ( Reported) Metformin HCl 1,000 MG TABLET 1 TAB PO BID DIABETES (Reported) Metronidazole 1 % GEL..GRAM. 1 AUGUSTIN TOP DAILY FACE (Reported) Ramipril (Altace) 10 MG CAPSULE 1 CAP PO QPM BP (Reported) Review of Systems Review of Systems Constitutional: Reports: see HPI. EENTM: Reports: no symptoms. Cardiovascular: Reports: see HPI. Respiratory: Reports: see HPI. GI: Reports: no symptoms. Genitourinary: Reports: no symptoms. Musculoskeletal: Reports: no symptoms. Past History Travel History Traveled to [place] past 21 day No Medical History Blood Transfusion Hx: No Neurological: NONE EENT: CATARACTS (R) MACULAR DEGENERATION (L) Cardiovascular: CHF, hypertension Respiratory: COPD Gastrointestinal: NONE Hepatic: NONE Renal: nephrolithiasis Musculoskeletal: NONE Psychiatric: NONE Endocrine: diabetes, hypothyroidism Blood Disorders: NONE, IRON DEF/TAKES PROCRIT Cancer(s): NONE HEEL SEAT POUNDER/Reproductive: NONE Surgical History Surgical History: cholecystectomy, hip replacement Family History Relations & Conditions If Any: MOTHER (Diabetes mellitus Stroke in 70s). SISTER (Diabetes mellitus). Psychosocial History Services at Home: Oxygen Primary Language: Kazakh Smoking Status: Former Smoker ETOH Use: denies use Illicit Drug Use: denies illicit drug use Functional Ability ADLs Independent: dressing, eating, toileting, bathing. IADLs Independent: shopping, housework, finances, food prep, telephone, transportation , medication admin. Exam & Diagnostic Data Vital Signs and I&O Vital Signs Date Time Temp Pulse Resp B/P B/P Pulse O2 O2 Flow FiO2 Mean Ox Delivery Rate 10/20 0856 Nasal 7.0L Cannula 10/20 822 97.5 16 128/68 88 Venti Mask 10/19 2246 92 Venti Mask 55% 10/19 2200 99.8 99 20 140/63 92 Venti Mask 55% 10/19 2045 98 92 Venti Mask 55% 10/19 203 85 Nasal 6.0L Cannula 10/19 2021 99.5 99 20 149/64 90 Nasal 6.0L Cannula 10/19 191 91 Nasal 6.0L Cannula 10/19 184 99.6 104 28 140/66 89 Nasal 6.0L Cannula Intake & Output 10/20 0810/20 0000 10/19 1600 10/19 0000 Intake Total 400 0 Output Total 450 Balance -50 0 Intake, IV 400 Intake, Oral 0 Output, Urine 450 Patient 174 lb Weight Weight Reported by Patient Measurement Method Physical Exam General Appearance: no apparent distress, comfortable Head: normal appearance Eyes: Bilateral: EOMI. Ears, Nose, Throat: normal pharynx, normal ENT inspection, hearing grossly normal Neck: supple Cardiovascular: regular rate/rhythm, 1+ pitting edema bilateral lower extremities Gastrointestinal: normal bowel sounds, soft, non-tender Extremities: 1+ pitting edema BL LE Labs/Fabian Results: Laboratory Tests 10/20 10/20 10/20 1045 0800 0717 Blood Gas pH (7.35 - 7.45 PH) 7.35 pCO2 (35 - 45 TORR) 44 pO2 (80 - 100 TORR) 60 L HCO3 (21 - 28 MEQ/L) 24 ABG O2 Sat (Measured) (>96.0 %) 87.0 L Carboxyhemoglobin (1.5 - 5.0 %) 0.9 L O2 Concentration % 7L O2 Delivery Method NC Chemistry Troponin I Cancelled Whole Bld Vitamin B1 Pending Miscellaneous Phlebotomy Draw Site RIGHT RADIAL 10/20 10/20 0641 0210 Chemistry Sodium (137 - 145 mmol/L) 140 Potassium (3.5 - 5.1 mmol/L) 5.1 Chloride (98 - 107 mmol/L) 105 Carbon Dioxide (22 - 30 mmol/L) 24 Anion Gap (5 - 16) 10 BUN (7 - 17 mg/dL) 61 H Creatinine (0.5 - 1.0 mg/dL) 1.9 H Estimated GFR (>60 ml/min) 26 L BUN/Creatinine Ratio (7 - 25 %) 32.1 H Lactic Acid (0.7 - 2.1 mmol/L) 1.0 Phosphorus (2.5 - 4.5 mg/dL) 4.8 H Troponin I (< 0.11 ng/ml) 0.32 *H 0.37 *H Vitamin B12 (239 - 931 pg/mL) > 1000 H Folate (2.76 - 20.0 ng/mL) 12.8 Hematology CBC w Diff MAN DIFF ORDERED WBC (4.8 - 10.8 /CUMM) 12.9 H RBC (4.20 - 5.40 /CUMM) 2.82 L Hgb (12.0 - 16.0 G/DL) 9.9 L Hct (37 - 47 %) 30.0 L MCV (81.0 - 99.0 FL) 106.4 H MCH (27.0 - 31.0 PG) 35.0 H RDW (11.5 - 14.5 %) 21.0 H Plt Count (130 - 400 /CUMM) 170 MPV (7.4 - 10.4 FL) 10.4 Gran % (42.2 - 75.2 %) 93.6 H Lymphocytes % (20.5 - 51.1 %) 1.5 L Monocytes % (1.7 - 9.3 %) 4.2 Eosinophils % (0 - 5 %) 0.6 Basophils % (0.0 - 2.0 %) 0.1 Absolute Granulocytes (1.4 - 6.5 /CUMM) 12.1 H Segmented Neutrophils (42.2 - 75.2 %) 91 H Band Neutrophils (0.0 - 5.0 %) 6 H Absolute Lymphocytes (1.2 - 3.4 /CUMM) 0.2 L Lymphocytes (20.5 - 51.1 %) 1 L Monocytes (1.7 - 9.3 %) 2 Absolute Monocytes (0.10 - 0.60 /CUMM) 0.5 Absolute Eosinophils (0.0 - 0.7 /CUMM) 0.1 Absolute Basophils (0.0 - 0.2 /CUMM) 0 Platelet Estimate (ADEQUATE) ADEQUATE Polychromasia 1+ Poikilocytosis 1+ Anisocytosis 1+ Macrocytic Cells 1+ PUBS MCHC (33.0 - 37.0 G/DL) 32.8 L 10/19 10/19 2109 1856 Blood Gas pH (7.35 - 7.45 PH) 7.35 pCO2 (35 - 45 TORR) 37 pO2 (80 - 100 TORR) 68 L HCO3 (21 - 28 MEQ/L) 20 L ABG O2 Sat (Measured) (>96.0 %) 90.0 L P-50 (Temp Corrected) N Carboxyhemoglobin (1.5 - 5.0 %) 1.4 L O2 Concentration % 55% Temperature (97.0 - 100.0 FARH) 99.5 O2 Delivery Method V/M Chemistry Sodium (137 - 145 mmol/L) 138 Potassium (3.5 - 5.1 mmol/L) 5.3 H Chloride (98 - 107 mmol/L) 101 Carbon Dioxide (22 - 30 mmol/L) 23 Anion Gap (5 - 16) 15 BUN (7 - 17 mg/dL) 56 H Creatinine (0.5 - 1.0 mg/dL) 1.9 H Estimated GFR (>60 ml/min) 26 L BUN/Creatinine Ratio (7 - 25 %) 29.5 H Glucose (65 - 99 mg/dL) 106 H Lactic Acid (0.7 - 2.1 mmol/L) 1.6 Calcium (8.4 - 10.2 mg/dL) 8.6 Magnesium (1.6 - 2.3 mg/dL) 1.7 Total Bilirubin (0.2 - 1.3 mg/dL) 2.3 H Direct Bilirubin (< 0.4 mg/dL) 1.5 H AST (14 - 36 U/L) 37 H ALT (9 - 52 U/L) 43 Alkaline Phosphatase (<127 U/L) 136 H Troponin I (< 0.11 ng/ml) 0.37 *H [id number] Pept (<125 pg/mL) 94062 H Total Protein (6.3 - 8.2 g/dL) 6.9 Albumin (3.5 - 5.0 g/dL) 3.7 Globulin (1.9 - 4.2 gm/dL) 3.2 Albumin/Globulin Ratio (1.1 - 2.2 %) 1.2 Hematology CBC w Diff NO MAN DIFF REQ WBC (4.8 - 10.8 /CUMM) 17.3 H RBC (4.20 - 5.40 /CUMM) 3.18 L Hgb (12.0 - 16.0 G/DL) 11.1 L Hct (37 - 47 %) 33.8 L MCV (81.0 - 99.0 FL) 106.1 H MCH (27.0 - 31.0 PG) 34.8 H RDW (11.5 - 14.5 %) 21.8 H Plt Count (130 - 400 /CUMM) 187 MPV (7.4 - 10.4 FL) 9.8 Gran % (42.2 - 75.2 %) 93.5 H Lymphocytes % (20.5 - 51.1 %) 2.7 L Monocytes % (1.7 - 9.3 %) 2.8 Eosinophils % (0 - 5 %) 1.0 Basophils % (0.0 - 2.0 %) 0 L Absolute Granulocytes (1.4 - 6.5 /CUMM) 16.2 H Absolute Lymphocytes (1.2 - 3.4 /CUMM) 0.5 L Absolute Monocytes (0.10 - 0.60 /CUMM) 0.5 Absolute Eosinophils (0.0 - 0.7 /CUMM) 0.2 Absolute Basophils (0.0 - 0.2 /CUMM) 0 PUBS MCHC (33.0 - 37.0 G/DL) 32.8 L Miscellaneous Phlebotomy Draw Site RIGHT RADIAL 10/19 1230 Urines Urinalysis LIGHT H Urine Color (YEL,AMB,STR) YEL Urine Clarity (CLEAR) HAZY H Urine pH (5.0 - 8.0) 5.5 Ur Specific [place] (1.001 - 1.035) 1.025 Urine Protein (NEG,<30 MG/DL) 100 H Urine Ketones (NEG) NEG Urine Nitrite (NEG) NEG Urine Bilirubin (NEG) NEG Urine Urobilinogen (0.1 - 1.0 EU/dl) 1.0 Ur Leukocyte Esterase (NEG) LARGE H Ur Microscopic SEDIMENT EXAMINED Urine RBC (0 - 5 /HPF) 5-10 H Urine WBC (0 - 2 /HPF) 50-75 H Ur Epithelial Cells (NONE,FEW) FEW Urine Bacteria (NEG/NONE) PACKD H Urine Hemoglobin (NEG) SMALL H Urine Glucose (N MG/DL) NEG Diagnostic Data CXR Results Sagittal airspace opacities within the right lung base. Developing infection cannot be excluded in the appropriate clinical setting. Assessment/Plan Assessment/Plan 76 y/o lady with a PMH of HFrEF/stage I diastolic dysfunction/severe pulmonary HTN: (echo 10/31/15 LVEF 45-50% w/ global hypokinessis, RVSP 95mmHg), hypertension, diabetes, hypothyroidism, chronic anemia, COPD on home O2, macular degeneration, cataracts was admitted with complaints of new sudden onset generalized weakness and shortness of breath associated with chills, mildly productive cough, nausea, diarrhea and 5 pound weight gain. List: 1. Elevated troponins: Likely type II 2. Elevated proBNP 3. HFrEF (echo 10/31/15 LVEF 45-50% w/ global hypokinessis) 4. Severe pulmonary hypertension (RVSP 95mmHg) 5. SIRS criteria: Leukocytosis, tachycardia, tachypnea 6. COPD with hypoxia 7. Acute on chronic kidney disease Recommendations: * Transient elevation in troponins likely secondary to demand ischemia in the setting of infection/pneumonia * Elevated proBNP: Follow-up repeat echocardiogram to assess LVEF, RVSP and valvular function * In the setting of her respiraqotyr status will defer starting any beta howie agents at this time * Patients currently not on a statin. Check lipid profile for ASCVD classification * Follow-up magnesium level and supplement > 2.0 * Consult Acknowledgment - Thank you for your consult request.
[2016-10-20 15:58] VITALS: BP 122/72
--- NOTE | 2016-10-20 18:01 | ECHOCARDIOGRAM REPORT ---
ASHANTI MURRAY Age: 76 : 1940 Gender: F Exam Date: 10/20/2016 10:18 Exam Location: 1 [address] Ht (in): 63 Wt (lb): 174 BSA: 1.90 BP: 140 / 63 Ordering Physician: KHOI ESTEBAN MD Referring Physician: KHOI ESTEBAN MD Technologist: Manny Mancuso [facility] Room Number: 180-1 Indications: Heart failure, unspecified Rhythm: Sinus Technical Quality: Fair FINDINGS Left Ventricle Normal size left ventricle. Normal left ventricular wall thickness. Mildly decreased left ventricular systolic function. Left ventricular ejection fraction is estimated at 40-45%. Mild global hypokinesis. Right Ventricle Right ventricular dilatation. Reduced right ventricular global systolic function. Right Atrium Mild right atrial dilatation. Left Atrium Normal left atrial size. Mitral Valve Mitral valve thickened. Mild mitral regurgitation. Aortic Valve Diffuse thickening (sclerosis) of the aortic valve cusps without reduced excursion. No aortic stenosis. No aortic regurgitation. Tricuspid Valve Tricuspid valve not well visualized, grossly normal. Moderate tricuspid regurgitation. Right ventricular systolic pressure estimated to be elevated at 47 mmHg. Pulmonic Valve Pulmonic valve not well visualized, grossly normal. Mild pulmonic regurgitation. Pericardium No pericardial effusion. Great Vessels Normal size aortic root. CONCLUSIONS Normal size left ventricle. Mildly decreased left ventricular systolic function. Left ventricular ejection fraction is estimated at 40-45%. Right ventricular dilatation. Reduced right ventricular global systolic function. Mild right atrial dilatation. Mild mitral regurgitation. Moderate tricuspid regurgitation. Right ventricular systolic pressure estimated to be elevated at 47 mmHg. Mild pulmonic regurgitation. Mild global hypokinesis. Edmundo Borges M.D. (Electronically Signed) Final Date: 20 Oct 2016 18:00 MEASUREMENTS (Male / Female) Normal Values 2D ECHO LV Diastolic Diameter PLAX 4.8 cm 4.2 - 5.9 / 3.9 - 5.3 cm LV Systolic Diameter PLAX 3.6 cm 2.1 - 4.0 cm LV Fractional Shortening PLAX 25.0 % 25 - 46 % LV Ejection Fraction 2D Teich 49.4 % IVS Diastolic Thickness 0.8 cm LVPW Diastolic Thickness 1.1 cm LV Relative Wall Thickness 0.4 RV Internal Dim ED PLAX 3.8 cm 1.9 - 3.8 cm LVOT Diameter 2.0 cm Aortic Root Diameter 3.2 cm LA Systolic Diameter LX 3.7 cm 3.0 - 4.0 / 2.7 - 3.8 cm Ascending Aorta Diameter 2.9 cm DOPPLER AV Peak Velocity 150.0 cm/s AV Peak Gradient 9.0 mmHg AV Mean Velocity 98.9 cm/s AV Mean Gradient 5.0 mmHg AV Velocity Time Integral 30.6 cm LVOT Peak Velocity 89.5 cm/s LVOT Peak Gradient 3.2 mmHg LVOT Mean Velocity 65.3 cm/s LVOT Mean Gradient 2.0 mmHg LVOT Velocity Time Integral 22.9 cm LVOT Stroke Volume 71.9 cm AV Area Cont Eq vti 2.4 cm AV Area Cont Eq pk 1.9 cm MV Peak Velocity 129.0 cm/s MV Peak Gradient 6.7 mmHg MV Mean Velocity 79.5 cm/s MV Mean Gradient 3.0 mmHg Mitral E Point Velocity 106.0 cm/s Mitral A Point Velocity 119.0 cm/s Mitral E to A Ratio 0.9 MV PHT Velocity 119.0 cm/s MV Deceleration [place] 589.0 cm/s MV Pressure Half Time 60.6 ms MV Area PHT 3.6 cm MV Deceleration Time 190.0 ms MR Peak Velocity 546.5 cm/s MR Peak Gradient 119.5 mmHg MR ERO PISA 0.2 cm MR Regurgitant Volume PISA 29.2 cm TR Peak Velocity 376.0 cm/s TR Peak Gradient 56.6 mmHg Right Atrial Pressure 10.0 mmHg Pulmonary Artery Systolic Pressu 66.6 mmHg Right Ventricular Systolic Press 66.6 mmHg PV Peak Velocity 91.0 cm/s PV Peak Gradient 3.3 mmHg PV Mean Velocity 63.8 cm/s PV Mean Gradient 2.0 mmHg PV Velocity Time Integral 18.6 cm LV E' Lateral Velocity 12.9 cm/s Mitral E to LV E' Lateral Ratio 8.2 LV E' Septal Velocity 8.2 cm/s Mitral E to LV E' Septal Ratio 12.9
[2016-10-21 00:17] VITALS: BP 130/60
[2016-10-21 07:56] VITALS: BP 138/62
--- NOTE | 2016-10-21 08:48 | PN- Housestaff ---
GÉNESIS THOMPSON,[facility] [place] 10/21/16 0848: Subjective Follow-up For: Acute on chronic hypoxemic respiratory failure Gram-negative sepsis secondary to UTI Mild troponin elevation HFrEF EVANS on CKD stage 3B Tele-Events Since Last Visit: Normal sinus rhythm HR 80-85 Run of SVT to 120s at 5:30 AM Subjective: Blood glucose was 53 this morning,it had improved to 150-200 range at lunch time. Patient seen and examined this morning. She is sitting comfortably in chair. She feels much stronger today. She complains of a dry cough and pain in her left flank with coughing. Shortness of breath is stable. She denies chest pain or palpitations. She remains on 10 L NC. Later in the day around 11:40 AM, patient complained of feeling week and needing to lie down. She desatted to 85% on 10 L NC and was placed on 12 L. She was evaluated by marine meteorologist Dr. Kumar and transferred to the ICU according to his recommendations. Review of Systems Constitutional: Reports: see HPI. Objective Last 24 Hrs of Vital Signs/I&O Vital Signs Date Time Temp Pulse Resp B/P B/P Pulse O2 O2 Flow FiO2 Mean Ox Delivery Rate 10/21 2146 88 18 125/80 / 2000 98.7 100 20 150/70 91 Nasal 70% Cannula 10/21 1650 95 Nasal 75% Cannula / 1600 94 Nasal 75% Cannula / 1600 98.9 92 20 140/64 95 Nasal 75% Cannula / 1330 98.5 97 20 138/60 95 Nasal 75% Cannula / 1243 88 Nasal Cannula 10/21 1220 89 Nasal Cannula 10/21 1140 92 132/56 85 Nasal 10L Cannula / 0800 90 Nasal 10L Cannula /06 0756 97.7 90 16 138/62 90 Nasal 10L Cannula / 0752 92 Nasal 10L Cannula / 0017 98.4 99 20 130/60 90 Nasal 10L Cannula / 0000 Nasal 10L Cannula Intake & Output 05/06 1600 05/06 0800 05/06 0000 Intake Total 400 100 100 Output Total 400 500 300 Balance 0 -400 -200 Intake, Oral 400 100 100 Number 0 Bowel Movements Output, Urine 400 500 300 Physical Exam General Appearance: Alert, Oriented X3, No Acute Distress HEENT: Atraumatic, Mucous Membr. moist/pink Cardiovascular: Regular Rate, Normal S1, Normal S2, No Murmurs, Gallops, Rubs Lungs: Diminished Bibasilar Breath Sounds Abdomen: Soft, No Tenderness, Positive Bowel Sounds Extremities: Bilateral Lower Extremities with 1+ Pitting Edema Current Medications: Current Medications Sig/Wei Start time Last Medication Dose Route Stop Time Status Admin Acetaminophen 650 MG .STK-MED ONE 10/21 08 DC PO 10/21 0830 Acetaminophen 650 MG Q6P PRN 10/20 0145 AC 10/21 PO 1839 Albuterol Sulfate 3 ML EVERY 4 HRS/AWAKE 10/20 0915 AC 10/21 INH 2205 Ceftazidime 1,000 MG 1600 10/21 1600 AC 10/21 IV 183 Ceftriaxone Sodium 1,000 MG 2000 10/20 2000 DC 10/20 IV 2000 Guaifenesin 600 MG Q12 10/20 1000 AC 10/21 PO 2200 Heparin Sodium 5,000 UNIT Q8 10/20 06 AC 10/21 (Porcine) SC 215 Insulin Aspart 0 TIDAC 10/20 0800 AC 10/21 SC 202 Insulin Detemir 24 UNITS QPM 10/20 2200 AC 10/21 SC 215 Levothyroxine Sodium 0.15 MG DAILY AC 10/20 0700 AC 10/21 PO 0532 Omeprazole 20 MG DAILY AC 10/21 1730 AC 10/21 PO 1839 Patient Medication 1 UNIT ONE NR 10/21 1730 AL Teaching ED 10/21 1800 Tamsulosin HCl 0.4 MG ONCE ONE 10/21 2029 DC 10/21 PO 10/21 2030 214 Last 24 Hrs of Lab/Fabian Results Last 24 Hrs of Labs/Mics: Laboratory Tests 10/21/16 1930: Anion Gap 13, Estimated GFR 34 L, Glucose 133 H, Calcium 7.9 L, Phosphorus 3.6, Magnesium 2.2, Total Bilirubin 1.2, AST 31, ALT 44, Albumin 3.2 L, PT 13.8 H, INR 1.32 H, D-Dimer 909 H, CBC w Diff NO MAN DIFF REQ, RBC 3.07 L, MCV 106.4 H, MCH 34.3 H, RDW 22.0 H, MPV 10.7 H, Gran % 85.5 H, Lymphocytes % 4.1 L, Monocytes % 8.7, Eosinophils % 1.6, Basophils % 0.1, Absolute Granulocytes 9.1 H, Absolute Lymphocytes 0.4 L, Absolute Monocytes 0.9 H, Absolute Eosinophils 0.2, Absolute Basophils 0, PUBS MCHC 32.3 L 10/21/16 1920: Urinalysis LIGHT H, Urine Color YEL, Urine Clarity CLEAR, Urine pH 6.0, Ur Specific [place] 1.020, Urine Protein 100 H, Urine Ketones NEG, Urine Nitrite NEG, Urine Bilirubin NEG, Urine Urobilinogen 0.2, Ur Leukocyte Esterase SMALL H , Ur Microscopic SEDIMENT EXAMINED, Urine RBC 1-3, Urine WBC 5-10 H, Ur Epithelial Cells FEW, Urine Bacteria RARE H, Urine Hemoglobin TRACE-INTACT, Urine Glucose NEG 10/21/16 0605: Anion Gap 13, Estimated GFR 34 L, BUN/Creatinine Ratio 40.7 H, Total Bilirubin 1.2, Direct Bilirubin 0.9 H, AST 27, ALT 38, Alkaline Phosphatase 176 H, CBC w Diff MAN DIFF ORDERED, RBC 2.92 L, MCV 105.7 H, MCH 34.3 H, RDW 22.0 H, MPV 10.7 H, Gran % 87.0 H, Lymphocytes % 3.9 L, Monocytes % 7.0, Eosinophils % 1.9, Basophils % 0.2, Absolute Granulocytes 9.0 H, Segmented Neutrophils 60, Band Neutrophils 28 H, Absolute Lymphocytes 0.4 L, Lymphocytes 6 L, Monocytes 4, Absolute Monocytes 0.7 H, Eosinophils 2, Absolute Eosinophils 0.2, Absolute Basophils 0, Polychromasia 1+, Poikilocytosis 1+, Anisocytosis 2+, Macrocytic Cells 3+, PUBS MCHC 32.5 L UCx (10/20/16): Negative Urinary Strep pneumo and Legionella antigen (10/20/16): Negative Rapid flu (10/20/16): Negative Assessment/Plan Assessment: 76 y/o F with PMHx of COPD on 5 L NC, HFrEF and CKD stage 3B who is admitted for acute on chronic hypoxemic respiratory failure and sepsis. #Acute on chronic hypoxemic respiratory failure: Although, originally felt to be secondary to pneumonia in the setting of sepsis and CXR with subtle opacities within the right lung base, later pneumonia was felt to be unlikely as sepsis was attributed to UTI in light of urinalysis significant for pyuria and doxycycline was discontinued. Urinary Strep pneumo and Legionella antigen negative. ABG from yesterday significant for hypoxemia with pO2 of 60%. Desatted acutely this morning and had to be placed on 12 L NC. * Transfer to ICU and obtain CRCU consult. * Check stat CXR to evaluate for acute changes. * Continue to provide supplemental oxygen as needed to keep SpO2 >92%. #Gram-negative sepsis: [place] to be secondary to UTI in light of pyuria. UCx negative. Afebrile and without leukocytosis on day 2 of IV ceftriaxone. * Continue ceftriaxone 1 g IV daily. #Mild troponin elevation: Likely demand ischemia in the setting of respiratory failure and sepsis. ECHO this admission with LVEF estimated 40-45% and mild global hypokinesis. * Cardiology following. Appreciate their recs. * Further work-up planned after stabilization of respiratory status. #Insulin-dependent T2DM: * Continue Levemir 24 U SQ QPM. * Accu-checks and medium dose sliding scale insulin TIDAC. * Monitor blood sugars closely given hypoglycemia this morning. #EVANS on CKD stage 3B: Cr improved to 1.5 today. * Continue to monitor lytes and kidney function. * Avoid nephrotoxic medications. Diet: Consistent Carbohydrate 2 with 2 g Na Restriction DVT PPx: HSQ and ALPs CODE: FULL Problem List: 1. Acute and chronic respiratory failure with hypoxia 2. Gram negative sepsis 3. UTI (urinary tract infection) 4. Acute renal failure superimposed on stage 3 chronic kidney disease 5. HFrEF (heart failure with reduced ejection fraction) 6. Elevated troponin 7. Insulin dependent type 2 diabetes mellitus Pain Ratin Pain Location: N/A Pain Goal: Remain pain free Pain Plan: Tylenol 650 mg PO Q6H Tomorrow's Labs & Rationales: CBC and ICU bundle (ICU patient) NIELS PARKER MD 10/21/16 1447: Attending MD Review Statement Attending Statement Attending MD Statement: examined this patient, discuss w/resident/PA/CERTIFIED HOME HEALTH AIDE, agreed w/resident/PA/CERTIFIED HOME HEALTH AIDE, reviewed EMR data (avail), discussed with nursing, discussed with case mgmt, amended to note Attending Assessment/Plan: Patient seen and examined. Lying in bed not in acute respiratory distress however she was requiring 10 L of oxygen for supplementation. She reports that her baseline is 5 L of oxygen at home. It is noted that she was in the Ventimask yesterday morning. He denies chest pain. Denies palpitations. Examination she has no jugular venous distention. She has diminished breath sounds in the bases bilaterally. She has 1+ pedal edema bilaterally. She is afebrile with stable blood pressure. Blood cultures are growing gram- negative rods. Urine cultures negative so far. She denies any abdominal pain and has no tenderness on exam. This afternoon she desaturated further saturating 80% on 10 L of high flow oxygen. Case was discussed with marine meteorologist Dr. Compa Rivera recommended transferring the patient to the intensive care unit for further management. Problems: 1. Sepsis secondary to gram-negative bacteremia 2. Questionable pneumonia. Initial chest x-ray was abnormal however repeat chest x-ray today did not showed subtle findings noted on the initial x-ray. 3. Abnormal troponins 4. Acute on chronic hypoxic respiratory failure 5. Acute on chronic renal insufficiency 6. Diabetes mellitus Plan: -Current chest imaging does not clearly explain the degree of her acute on chronic respiratory failure. -Check d-dimer. If elevated will consider VQ scan to rule out pulmonary embolism. -Follow-up on recommendations of Dr. Compa Velasquez MD of the pulmonary service. -Continue IV antibiotictherapy with ceftriaxone. Obtain ID consult. -Renal function has improved and is currently stable. Continue to monitor.
[2016-10-21 09:07] LABS: ABSOLUTE BASOPHIL COUNT 0 /CUMM (0.0-0.2); ABSOLUTE EOSINOPHIL COUNT 0.2 /CUMM (0.0-0.7); ABSOLUTE LYMPH COUNT 0.4 /CUMM (1.2-3.4); ABSOLUTE MONOCYTE COUNT 0.7 /CUMM (0.10-0.60); BASOPHIL % 0.2 % (0.0-2.0); EOSINOPHIL % 1.9 % (0-5); HEMATOCRIT 30.9 % (37-47); MEAN CORPUSCULAR HGB 34.3 PG (27.0-31.0); MEAN CORPUSCULAR HGB CONC 32.5 G/DL (33.0-37.0); MEAN CORPUSCULAR VOLUME 105.7 FL (81.0-99.0); MEAN PLATELET VOLUME 10.7 FL (7.4-10.4); PLATELET COUNT 151 /CUMM (130-400); RED BLOOD CELL CT 2.92 /CUMM (4.20-5.40); WHITE BLOOD CELL COUNT 10.3 /CUMM (4.8-10.8)
[2016-10-21 11:40] VITALS: BP 132/56
--- NOTE | 2016-10-21 13:22 | NUR ---
NURSING NOTE; PT C/O FEELING WEAK AND NEEDING TO LIE DOWN AT 1140. BP CHECKLED 132/56. O2 SAT 85% ON 10L WITH OXIMISER. RT MADE AWARE. O2 INCREASED TO 12L. AT 1220 O2 SATS 89%. PT EVALUATED BY DR ALEJANDRA. PLAN IS FOR TRANSFER TO ICU FOR CLOSER MONITORING. RT AWARE. PATIENT NOTIFIED FAMILY MEMBER. REPORT GIVEN TO RN.
[2016-10-21 13:30] VITALS: BP 138/60
--- NOTE | 2016-10-21 14:42 | RADIOLOGY REPORT ---
EXAMINATION: XR PORTABLE CHEST CLINICAL INFORMATION: COPD, pneumonia, hypoxia, shortness of breath COMPARISON: 10/19/2016 and 08/23/2016 chest x-rays as well as 08/23/[address] scan TECHNIQUE: Portable AP view of the chest was obtained. FINDINGS: Stable cardiomediastinal silhouette. The pulmonary vascularity is within normal limits. Lungs are clear. The subtle opacities seen on 10/19/2016 chest x-ray are not clearly appreciated on current exam. Stable blunting of the left lateral costophrenic angle, could represent pleural thickening. No pneumothorax. IMPRESSION: Stable chest x-ray without acute cardiopulmonary findings.
--- NOTE | 2016-10-21 14:45 | PN- Cardiology ---
Subjective Subjective: The patient reports that her shortness of breath is improving. Coughing. No chest pain. No palpitations. No diaphoresis. Objective Vital Signs and I&Os Vital Signs Date Time Temp Pulse Resp B/P B/P Pulse O2 O2 Flow FiO2 Mean Ox Delivery Rate 10/21 1243 88 Nasal Cannula 10/21 1220 89 Nasal Cannula 10/21 1140 92 132/56 85 Nasal 10L Cannula 10/21 0800 90 Nasal 10L Cannula 10/21 0756 97.7 90 16 138/62 90 Nasal 10L Cannula 10/21 0752 92 Nasal 10L Cannula / 0017 98.4 99 20 130/60 90 Nasal 10L Cannula 10/21 0000 Nasal 10L Cannula 10/20 2020 92 Nasal 10L Cannula 10/20 1600 90 Nasal 10L Cannula 10/20 1558 98.0 94 16 122/72 87 Nasal Cannula Intake & Output 10/21 1600 10/21 0800 05/ 0000 10/20 1600 10/20 0800 10/20 0000 Intake Total 692 098 7181 400 0 Output Total 500 300 300 450 Balance -400 -200 700 -50 0 Intake, IV 400 400 Intake, Oral 100 100 600 0 Number 0 Bowel Movements Output, Urine 500 300 300 450 Patient 174 lb Weight Weight Reported by Patient Measurement Method Physical Exam: Gen: NAD HEENT: normal Lungs: clear to auscultation, normal resp. effort Heart: RRR, S1, S2, no murmurs Abdomen: Soft, nontender, no masses Extremities: 1+ edema Neuro: Alert and oriented x 3, cranial nerves intact Current Medications: Current Medications Sig/Wei Start time Last Medication Dose Route Stop Time Status Admin Acetaminophen 650 MG Q6P PRN 10/20 0145 AC 10/21 PO 0828 Albuterol Sulfate 3 ML EVERY 4 HRS/AWAKE 10/20 0915 AC 10/21 INH 1143 Ceftriaxone Sodium 1,000 MG 2000 10/20 2000 AC 05 IV 2000 Doxycycline Hyclate 100 MG Q12 10/20 1000 DC 10/20 Sodium Chloride 100 ML IV 1117 Guaifenesin 600 MG Q12 10/20 1000 AC / PO 0828 Heparin Sodium 5,000 UNIT Q8 10/20 0600 AC 10/21 (Porcine) SC 0532 Insulin Aspart 0 TIDAC 10/20 0800 AC 10/21 SC 1241 Insulin Detemir 24 UNITS QPM 10/20 2200 AC 10/20 SC 2132 Levothyroxine Sodium 0.15 MG DAILY AC 10/20 0700 AC 10/21 PO 0532 Magnesium Oxide 400 MG ONE ONE 10/20 1515 DC 10/20 PO 10/20 1516 1825 Sodium Chloride 1,000 ML .Q20H 10/19 2345 DC 10/20 IV 10/20 1944 0030 Results Last 48 Hrs of Labs/Mics: Laboratory Tests 10/21/16 0605: Anion Gap 13, Estimated GFR 34 L, BUN/Creatinine Ratio 40.7 H, CBC w Diff MAN DIFF ORDERED, RBC 2.92 L, MCV 105.7 H, MCH 34.3 H, RDW 22.0 H, MPV 10.7 H, Gran % 87.0 H, Lymphocytes % 3.9 L, Monocytes % 7.0, Eosinophils % 1.9, Basophils % 0.2, Absolute Granulocytes 9.0 H, Segmented Neutrophils 60, Band Neutrophils 28 H, Absolute Lymphocytes 0.4 L, Lymphocytes 6 L, Monocytes 4, Absolute Monocytes 0.7 H, Eosinophils 2, Absolute Eosinophils 0.2, Absolute Basophils 0, Polychromasia 1+, Poikilocytosis 1+, Anisocytosis 2+, Macrocytic Cells 3+, PUBS MCHC 32.5 L 10/20/16 1045: pH 7.35, pCO2 44, pO2 60 L, HCO3 24, ABG O2 Sat (Measured) 87.0 L, Carboxyhemoglobin 0.9 L, O2 Concentration % 7L, O2 Delivery Method NC, Phlebotomy Draw Site RIGHT RADIAL 10/20/16 0800: Troponin I Cancelled 10/20/16 0717: Whole Bld Vitamin B1 Pending 10/20/16 0641: Anion Gap 10, Estimated GFR 26 L, BUN/Creatinine Ratio 32.1 H, Lactic Acid 1.0 , Phosphorus 4.8 H, Magnesium 1.9, Troponin I 0.32 *H, Triglycerides 94, Cholesterol 85, LDL Cholesterol, Calc 42 L, HDL Cholesterol 25 L, Cholesterol/ HDL Ratio 3, Vitamin B12 > 1000 H, Folate 12.8, CBC w Diff MAN DIFF ORDERED, RBC 2.82 L, MCV 106.4 H, MCH 35.0 H, RDW 21.0 H, MPV 10.4, Gran % 93.6 H, Lymphocytes % 1.5 L, Monocytes % 4.2, Eosinophils % 0.6, Basophils % 0.1, Absolute Granulocytes 12.1 H, Segmented Neutrophils 91 H, Band Neutrophils 6 H, Absolute Lymphocytes 0.2 L, Lymphocytes 1 L, Monocytes 2, Absolute Monocytes 0.5, Absolute Eosinophils 0.1, Absolute Basophils 0, Platelet Estimate ADEQUATE, Polychromasia 1+, Poikilocytosis 1+, Anisocytosis 1+, Macrocytic Cells 1+, PUBS MCHC 32.8 L 10/20/16 0210: Troponin I 0.37 *H 10/19/16 2105: pH 7.35, pCO2 37, pO2 68 L, HCO3 20 L, ABG O2 Sat (Measured) 90.0 L, P-50 ( Temp Corrected) N, Carboxyhemoglobin 1.4 L, O2 Concentration % 55%, Temperature 99.5, O2 Delivery Method V/M, Phlebotomy Draw Site RIGHT RADIAL 10/19/16 1856: Anion Gap 15, Estimated GFR 26 L, BUN/Creatinine Ratio 29.5 H, Glucose 106 H, Lactic Acid 1.6, Calcium 8.6, Magnesium 1.7, Total Bilirubin 2.3 H, Direct Bilirubin 1.5 H, AST 37 H, ALT 43, Alkaline Phosphatase 136 H, Troponin I 0.37 *H, Jrx-H-Nbgnnacrjdr Pept 41011 H, Total Protein 6.9, Albumin 3.7, Globulin 3.2, Albumin/Globulin Ratio 1.2, CBC w Diff NO MAN DIFF REQ, RBC 3.18 L, MCV 106.1 H, MCH 34.8 H, RDW 21.8 H, MPV 9.8, Gran % 93.5 H, Lymphocytes % 2.7 L, Monocytes % 2.8, Eosinophils % 1.0, Basophils % 0 L, Absolute Granulocytes 16.2 H, Absolute Lymphocytes 0.5 L, Absolute Monocytes 0.5, Absolute Eosinophils 0.2, Absolute Basophils 0, PUBS MCHC 32.8 L Microbiology 10/20 1714 URINE ROUT: Legionella Antigen - COMP 10/20 1714 URINE ROUT: Streptococcus pneumoniae Antigen (M - COMP 10/20 1455 NASOPHARYN: Influenza Virus A & B Rapid Smear - COMP Recent Imaging Studies: Echocardiogram 10/20/16: Normal size left ventricle. Mildly decreased left ventricular systolic function. Left ventricular ejection fraction is estimated at 40-45%. Right ventricular dilatation. Reduced right ventricular global systolic function. Mild right atrial dilatation. Mild mitral regurgitation. Moderate tricuspid regurgitation. Right ventricular systolic pressure estimated to be elevated at 47 mmHg. Mild pulmonic regurgitation. Mild global hypokinesis. Chest x-ray: Sagittal airspace opacities within the right lung base. Developing infection cannot be excluded in the appropriate clinical setting. Assessment/Plan Assessment/Plan 1. Community Acquired pneumonia 2. Respiratory failure 3. Gram-negative sepsis 4. Mild troponin elevation, likely secondary to pneumonia and sepsis 5. Mild left ventricular systolic dysfunction Plan: * Antibiotic therapy as per the medical service * Further workup for positive troponins once clinically stable Continue telemetry? Yes
--- NOTE | 2016-10-21 14:55 | Cons- CRCU ---
LENNIE THOMPSON,[facility] 10/21/16 1454: General Information and HPI Consulting Request Date of Consult: 10/21/16 Requested By: Dr. Kumar Reason for Consult: Acute Hypoxic Respiratory Failure History of Present Illness: Ms. Bajwa is a 76 year old female with PMH of hypertension, hyperlipidemia, COPD on 5 L continuous NC, type 2 diabetes mellitus on insulin, hypothyroidism, stage III B chronic kidney disease, combined systolic and diastolic heart failure, severe pulmonary hypertension and history of kidney stones, who presents to the [facility] ED on 10/19/16 with chief complaint of sudden onset generalized weakness and shortness of breath on exertion associated with chills, cough with minimal sputum and nausea as well as loose stools for a few days. Denied any fever, abdominal pain, reports having IBS. Patient denied any URI symptoms before admission as well, no sick contacts and no ercent travels. No dysuria and no changes in the color and odor of urine. Reports a back pain on the left lower back on the hip for the past few days. In the ED she was also found to have elevated troponin, however with no chest pain, dizziness or papitation. She was initially admitted to telemetry with COPD exacerbation, and to rule out ACS. She has received treatment for possible pneumonia (ceftriaxone and doxycycline, as she has azithromycin allergy). She is also found to have UTI and gram negative bacteremia and was continued on ceftriaxone. Patient SO2iss found to be 85% this morning, she was put on high flow O2 and is transferred to the ICU for close monitoring and possible need for intubation. Allergies/Medications Allergies: Coded Allergies: azithromycin (Intermediate, FLUSHED 10/19/16) oxycodone (From PERCOCET) (Intermediate, NAUSEA 08/23/16) Home Med List: Acetaminophen 500 MG TABLET 2 TAB PO BID PAIN (Reported) B2/Vit A,C & E/Lut/Zeaxanth/Mn (Icaps Tablet) 3,300-200 TABLET.ER 1 TAB PO BID SUPPLEMENT (Reported) Budesonide/Formoterol Fumarate (Symbicort 160-4.5 Mcg Inhaler) 10.2 GM HFA.AER.AD 2 PUF INH BID COPD (Reported) Cholecalciferol (Vitamin D3) (Vitamin D3) 1,000 UNIT CAPSULE 1 CAP PO DAILY SUPPLEMENT (Reported) Epoetin Dipesh (Procrit) (Unknown Strength) VIAL (Unknown Dose) Q2W RBC ( Reported) Furosemide (Lasix) 20 MG TABLET 1 TAB PO DAILY PRN LEG SWELLING (Reported) Hydrocortisone 2.5 % CREAM..G. 1 AUGUSTIN TOP PRN ITCHING (Reported) apply to affected area(s) Insulin Glargine,Hum.rec.anlog (Lantus Solostar) 100 UNIT/ML (3 ML) INSULN.PEN 24 UNIT SC QPM DM (Reported) Levothyroxine Sodium (Synthroid) 150 MCG TABLET 1 TAB PO DAILY THYROID ( Reported) Metformin HCl 1,000 MG TABLET 1 TAB PO BID DIABETES (Reported) Metronidazole 1 % GEL..GRAM. 1 AUGUSTIN TOP DAILY FACE (Reported) Ramipril (Altace) 10 MG CAPSULE 1 CAP PO QPM BP (Reported) Current Medications: Current Medications Sig/Wei Start time Last Medication Dose Route Stop Time Status Admin Acetaminophen 650 MG Q6P PRN 10/20 0145 AC 05/ PO 0828 Albuterol Sulfate 3 ML EVERY 4 HRS/AWAKE 10/20 0915 AC 10/21 INH 1143 Ceftazidime 1,000 MG IQ8 10/21 1600 UNVr IV Ceftriaxone Sodium 1,000 MG 2000 10/20 2000 DC 10/20 IV 2000 Guaifenesin 600 MG Q12 10/20 1000 AC / PO 0828 Heparin Sodium 5,000 UNIT Q8 10/20 0600 AC 10/21 (Porcine) SC 0532 Insulin Aspart 0 TIDAC 10/20 0800 AC 10/21 SC 1241 Insulin Detemir 24 UNITS QPM 10/20 2200 AC 10/20 SC 2132 Levothyroxine Sodium 0.15 MG DAILY AC 10/20 0700 AC 05/ PO 0532 Magnesium Oxide 400 MG ONE ONE 10/20 1515 DC 05/ PO 10/20 1516 1825 Sodium Chloride 1,000 ML .Q20H 10/19 2345 DC / IV 10/20 1944 0030 Review of Systems Review of Systems Constitutional: Denies: chills, fever, weakness. EENTM: Reports: no symptoms. Cardiovascular: Denies: chest pain, orthopena, palpitations, peripheral edema. Respiratory: Denies: cough, short of breath, sputum production. GI: Denies: abdominal pain, changes in stool. Genitourinary: Denies: discharge, dysuria, hematuria. Musculoskeletal: Reports: back pain (left lower back). Skin: Reports: no symptoms. Neurological/Psychological: Reports: no symptoms. Hematologic/Endocrine: Reports: no symptoms. Past History Travel History Traveled to [place] past 21 day No Medical History Blood Transfusion Hx: No Neurological: NONE EENT: CATARACTS (R) MACULAR DEGENERATION (L) Cardiovascular: CHF, hypertension Respiratory: COPD Gastrointestinal: NONE Hepatic: NONE Renal: nephrolithiasis Musculoskeletal: NONE Psychiatric: NONE Endocrine: diabetes, hypothyroidism Blood Disorders: NONE, IRON DEF/TAKES PROCRIT Cancer(s): NONE HOSPICE FELLOW/Reproductive: NONE Surgical History Surgical History: cholecystectomy, hip replacement Family History Relations & Conditions If Any: MOTHER (Diabetes mellitus Stroke in 70s). SISTER (Diabetes mellitus). Psychosocial History Services at Home: Oxygen Primary Language: Estonian Smoking Status: Former Smoker ETOH Use: denies use Illicit Drug Use: denies illicit drug use Functional Ability ADLs Independent: dressing, eating, toileting, bathing. IADLs Independent: shopping, housework, finances, food prep, telephone, transportation , medication admin. Exam & Diagnostic Data Last 24 Hrs of Vital Signs/I&O Vital Signs Date Time Temp Pulse Resp B/P B/P Pulse O2 O2 Flow FiO2 Mean Ox Delivery Rate 10/21 1243 88 Nasal Cannula 10/21 1220 89 Nasal Cannula 10/21 1140 92 132/56 85 Nasal 10L Cannula 10/21 0800 90 Nasal 10L Cannula / 0756 97.7 90 16 138/62 90 Nasal 10L Cannula 10/21 0752 92 Nasal 10L Cannula 10/21 0017 98.4 99 20 130/60 90 Nasal 10L Cannula 10/21 0000 Nasal 10L Cannula 10/20 2020 92 Nasal 10L Cannula 10/20 1600 90 Nasal 10L Cannula 10/20 1558 98.0 94 16 122/72 87 Nasal Cannula Intake & Output 10/21 1600 05/06 0800 05/06 0000 Intake Total 100 100 Output Total 500 300 Balance -400 -200 Intake, Oral 100 100 Output, Urine 500 300 Physical Exam General Appearance: well developed/nourished, no apparent distress, alert, awake , comfortable, mild distress Head: atraumatic, normal appearance Eyes: Bilateral: normal appearance, PERRL, EOMI. Ears, Nose, Throat: normal pharynx, normal ENT inspection, hearing grossly normal Neck: normal inspection, supple, full range of motion Respiratory: chest non-tender, no respiratory distress, quiet respiration, lungs clear, decreased breath sounds, no wheezing or rhonchi Cardiovascular: regular rate/rhythm Peripheral Pulses: 2+ radial (R), 2+ radial (L), 2+ dorsalis pedis (R), 2+ dorsalis pedis (L) Gastrointestinal: normal bowel sounds, soft, non-tender Back: normal range of motion, no vertebral tenderness, no CVA tenderness Extremities: normal inspection, normal capillary refill, normal range of motion, no edema Assessment/Plan Impression/Plan: Ms. Bajwa is a pleasant 76 year old female with PMH hypertension, hyperlipidemia, COPD on 5 L continuous NC, type 2 diabetes mellitus on insulin, hypothyroidism, stage III B chronic kidney disease, combined systolic and diastolic heart failure, severe pulmonary hypertension, history of kidney stones in the past who presented to the [facility] ED with shortness of breath on exertion , chills, decreased oral intake, cough minimally productive of sputum, nausea for 1 day. Patient was admitted to telemetry initally, has received treatment for possible pneumonia and UTI, and was tranferred to the ICU today due to decreased SO2 of 85% requiring high flow oxygen through NC and for closer monitoring. Problem list and plan: Respiratory: Acute on chronic hypoxic respiratory failure * treated for possible pneumonia with ceftriaxone and doxycycline (allergic to azithromycin) on admission -met criteria for sepsis on admission with possible pulmonary source acording to CXR, required high flow O2 through NC * this am transferred to ICU as kept desaturating to 85% especially while talking * ABG this am indicates hypoxemia * Blood culture revealed G(-) rods, will follow sensitivities * Pulmonary/CRCU consult obtained this am * Switched ceftriaxone to ceftazidime per Dr. Simeon * continue Mucinex BID * continue scheduled albuterol, TRC/Nebs ID Sepsis of urologic origin * Urinanalysis suggesting UTI, however initially the CXR on admission also was suspicious for pneumonia and she received Ceftriaxone and Doxycycline. However blood culture came back positive for g(-) rods. * Patient also reports 3-4 days of left sided lower back pain. no CVA tenderness in the exam. Importantly, CT of [place] and pelvis shows obstructing 8 x 8 mm left ureter stone causing moderate to severe hydroureteronephrosis and left perinephric stranding. * Patient had mild elevation of Cong (T & D) and ALP, no fever and no abdominal pain, reported a few episodes of loose stool before admission which she attributed to her IBS. -Can continue on Ceftriaxone/Ceftazidime for gram negative coverage -Monitor for fever, if spikes will repeat blood culture -Will obtain ID consult in am -repeat CBC and LFT in am Cardiac Elevated troponins * Elevated troponins in setting of acute hypoxic respiratory failure likely represent demand ischemia, no chest pain reported, trending down now and stopped following. * Echo shows EF 40-45%, mild global hypokinesis, right ventricular systolic pressure estimated at 47 mmHg. * Cardiology is following and recommended further workup for positive troponins once clinically stable. Heme Chronic macrocytic anemia, folate within normal limits and B12 is elevated Other undrlying etiology is her CKD. Elevated INR and PTT. LFTs improving compared to admission. Patient also has Guiaiac (+) stool * f/u thiamine * f/u CBC and Coags Metabolic Acute on chronic renal insufficiency * Initially thought to be 2/2 dehydration/decreased oral intake and sepsis in the setting of chronic renal insufficiency. However, CT scan of abd/pelvis today reveald nephrolithiasis and left side hydronephrosis. * Consulted Urology (plz see event note), and followed recs * Caution with hydration as patient has history of combined systolic/diastolic heart failure, continued gentle hydration with NS IV 50 cc/hour * Follow up BEP in AM * Ramipril on hold Hyperkalemia * Likely secondary to acute on chronic kidney injury * Follow up repeat labs in AM Diabetes mellitus * Accuchecks TIDACHS * NSS with 24 U SC levemir QPM Hypothyroidism * Continue synthroid 0.15 mg PO daily AC FULL CODE DVTP: Heparin SC CC2 diet Mild pain pathway Consult Acknowledgment - Thank you for your consult request. LUC THOMPSON,[facility] 10/21/16 1646: Exam & Diagnostic Data Last 48 Hrs of Labs/Fabian: Laboratory Tests 10/21/16 0605: Anion Gap 13, Estimated GFR 34 L, BUN/Creatinine Ratio 40.7 H, CBC w Diff MAN DIFF ORDERED, RBC 2.92 L, MCV 105.7 H, MCH 34.3 H, RDW 22.0 H, MPV 10.7 H, Gran % 87.0 H, Lymphocytes % 3.9 L, Monocytes % 7.0, Eosinophils % 1.9, Basophils % 0.2, Absolute Granulocytes 9.0 H, Segmented Neutrophils 60, Band Neutrophils 28 H, Absolute Lymphocytes 0.4 L, Lymphocytes 6 L, Monocytes 4, Absolute Monocytes 0.7 H, Eosinophils 2, Absolute Eosinophils 0.2, Absolute Basophils 0, Polychromasia 1+, Poikilocytosis 1+, Anisocytosis 2+, Macrocytic Cells 3+, PUBS MCHC 32.5 L 10/20/16 1045: pH 7.35, pCO2 44, pO2 60 L, HCO3 24, ABG O2 Sat (Measured) 87.0 L, Carboxyhemoglobin 0.9 L, O2 Concentration % 7L, O2 Delivery Method NC, Phlebotomy Draw Site RIGHT RADIAL 10/20/16 0800: Troponin I Cancelled 10/20/16 0717: Whole Bld Vitamin B1 Pending 10/20/16 0641: Anion Gap 10, Estimated GFR 26 L, BUN/Creatinine Ratio 32.1 H, Lactic Acid 1.0 , Phosphorus 4.8 H, Magnesium 1.9, Troponin I 0.32 *H, Triglycerides 94, Cholesterol 85, LDL Cholesterol, Calc 42 L, HDL Cholesterol 25 L, Cholesterol/ HDL Ratio 3, Vitamin B12 > 1000 H, Folate 12.8, CBC w Diff MAN DIFF ORDERED, RBC 2.82 L, MCV 106.4 H, MCH 35.0 H, RDW 21.0 H, MPV 10.4, Gran % 93.6 H, Lymphocytes % 1.5 L, Monocytes % 4.2, Eosinophils % 0.6, Basophils % 0.1, Absolute Granulocytes 12.1 H, Segmented Neutrophils 91 H, Band Neutrophils 6 H, Absolute Lymphocytes 0.2 L, Lymphocytes 1 L, Monocytes 2, Absolute Monocytes 0.5, Absolute Eosinophils 0.1, Absolute Basophils 0, Platelet Estimate ADEQUATE, Polychromasia 1+, Poikilocytosis 1+, Anisocytosis 1+, Macrocytic Cells 1+, PUBS MCHC 32.8 L 10/20/16 0210: Troponin I 0.37 *H 10/19/16 2105: pH 7.35, pCO2 37, pO2 68 L, HCO3 20 L, ABG O2 Sat (Measured) 90.0 L, P-50 ( Temp Corrected) N, Carboxyhemoglobin 1.4 L, O2 Concentration % 55%, Temperature 99.5, O2 Delivery Method V/M, Phlebotomy Draw Site RIGHT RADIAL 10/19/16 1856: Anion Gap 15, Estimated GFR 26 L, BUN/Creatinine Ratio 29.5 H, Glucose 106 H, Lactic Acid 1.6, Calcium 8.6, Magnesium 1.7, Total Bilirubin 2.3 H, Direct Bilirubin 1.5 H, AST 37 H, ALT 43, Alkaline Phosphatase 136 H, Troponin I 0.37 *H, Oqs-[id number]-Nrzahrgvnlg Pept 35567 H, Total Protein 6.9, Albumin 3.7, Globulin 3.2, Albumin/Globulin Ratio 1.2, CBC w Diff NO MAN DIFF REQ, RBC 3.18 L, MCV 106.1 H, MCH 34.8 H, RDW 21.8 H, MPV 9.8, Gran % 93.5 H, Lymphocytes % 2.7 L, Monocytes % 2.8, Eosinophils % 1.0, Basophils % 0 L, Absolute Granulocytes 16.2 H, Absolute Lymphocytes 0.5 L, Absolute Monocytes 0.5, Absolute Eosinophils 0.2, Absolute Basophils 0, PUBS MCHC 32.8 L Microbiology 10/20 1714 URINE ROUT: Legionella Antigen - COMP 10/20 1714 URINE ROUT: Streptococcus pneumoniae Antigen (M - COMP 10/20 1455 NASOPHARYN: Influenza Virus A & B Rapid Smear - COMP Assessment/Plan Other Findings/Comments: Seen and examined independently Agree with above history and exam Sig data reviewed White count is 10.3 with a left shift. Patient has hemoglobin of 10. BUN was 61 creatinine is improved to 1.5 since admission. Initial creatinine is 1.9 and BUN was 66 her anion gap was 13 this morning Her AST ALT were elevated upon admission this has not been repeated I white count was 17,000 now down to 10.3 her MCV is elevated INR is 1.23 ABG done yesterday on 7 L showed PCO2 of 60 with a CO2 of of 44 Blood cultures grew gram-negative rods IMPRESSION this is a 76-year-old lady with chronic lung disease who is on oxygen at home and then uses inhalers, reduced ejection fraction with the significant pulmonary hypertension, now has Acute hypoxemic and hypercarbic respiratory failure appears to be related to combination of factors which includes combinational lung disease, significant COPD, reduced systolic function of the heart with mild fluid overload upon admission, sepsis with probable early ARDS. Pulmonary embolism also needs to be ruled out as she is significantly hypoxemic disproportionately worse than her physical finding Significant gram-negative sepsis with altered LFTs upon admission. Biliary sepsis versus intra-abdominal pathology also needs to be ruled out as a chest x- ray was not suggestive of significant coronary require pneumonia Chronic kidney disease with acute kidney injury upon admission which is slowly improving Significantly elevated proBNP with low ejection fraction upon admission which needs to be trended Chronic anemia patient has been on E [facility] rule out myelodysplasia Previous evaluation of pulmonary embolism has been negative Splenomegaly with varices in the left upper quadrant suggestive of bone marrow dysfunction Previous mediastinal lymphadenopathy which needs follow-up Elevated troponin rule out myocardial ischemia RECOMMENDATION * Change antibiotics to ceftazidime * Add liver enzymes with this morning's lab * Repeat blood work this evening including LFTs PT/INR * Check stool for guaiac * We'll get a CT of the chest without contrast and CT abdomen and pelvis to rule out any biliary pathology and obstructive jaundice * Lower extremity Doppler * If the stool guaiac is negative started on IV heparin until the lower extremity Doppler's done to rule out DVT. Patient may have pulmonary embolism but not a candidate for CTA at this present time * Sputum culture * Repeat urine culture * Gentle IV fluids * Keep nothing by mouth for now * Start by mouth PPI * Further plan depending on CT scan of the chest abdomen and pelvis. If she does have evidence of significant obstructive jaundice and biliary pathology a GI consult should be obtained. * Repeat urinalysis as well Patient is critically ill total time spent 50 minutes Consult Acknowledgment - Thank you for your consult request.
[2016-10-21 16:00] VITALS: BP 140/64
--- NOTE | 2016-10-21 19:11 | CT SCAN REPORT ---
EXAMINATION: CT CHEST ABDOMEN AND PELVIS WITHOUT CONTRAST CLINICAL INFORMATION: Gram-negative bacteremia COMPARISON: Chest CT scan dated 08/23/2016 TECHNIQUE: Multidetector volumetric CT imaging of the chest , abdomen and pelvis was done. Axial MIP volume rendering provided. Sagittal and coronal reformatted images were obtained. DLP: 779.25 mGy-cm FINDINGS: LUNGS: There is a small right sided pleural effusion with adjacent pulmonary opacity, which can represent atelectatic changes. Mild basilar atelectatic changes also seen at the left lung base. The lungs are otherwise clear. No left-sided pleural effusion. MEDIASTINUM: There is mild to moderate cardiomegaly, similar to the comparison exam. No pericardial effusion. Atherosclerotic calcifications of the left main coronary artery and LAD seen. Atherosclerotic calcifications of thoracic aorta also noted without aneurysmal dilatation. The pulmonary arteries are normal in diameter. The trachea and jessica are unremarkable. There are multiple mildly enlarged mediastinal lymph nodes. For example two adjacent 11 mm lower right paratracheal lymph nodes as seen on axial image 206 from series 4, and an 11 mm subcarinal lymph node as seen on axial image 220 from series 4. Evaluation for hilar adenopathy is limited due to lack of intravenous contrast. No axillary adenopathy seen. LIVER, GALLBLADDER, AND BILIARY TREE: There is mild hepatosplenomegaly. The noncontrast images demonstrate hepatic density within normal limits areas no intrahepatic biliary ductal dilatation. Prior cholecystectomy. PANCREAS: The noncontrast images of pancreas are unremarkable. SPLEEN: Mild splenomegaly. The spleen measures about 14.2 cm in longest diameter. ADRENAL GLANDS: Unremarkable. KIDNEYS AND URETERS: There is moderate to severe left-sided hydronephrosis and moderate dilatation of the proximal left ureter to the level of an 8 x 8 mm left ureter stone at the level of L5 vertebral body. This stone is better seen on coronal image 57 and axial image 84/127 from series 2. Moderate amount of left perinephric stranding also seen. The left ureter distal to this stone is decompressed. There is no right-sided hydronephrosis. There is a 12 mm indistinct right renal cortical hyperdensity with some punctate areas of calcific density, located in the lateral interpolar region of right kidney. No right renal stone. No right ureter stone. The right ureter is not dilated. BLADDER: The urinary bladder is empty. GASTROINTESTINAL TRACT: The stomach, duodenum and small bowel are unremarkable. Significant diverticular disease of sigmoid colon and left colon noted. No CT evidence of acute diverticulitis. There is mild circumferential thickening of rectal wall, which can be due to collapsed rectum. Clinical correlation suggested. The appendix is not visualized, however there are no inflammatory changes to suggest acute appendicitis. ABDOMINAL WALL: There is diffuse superficial soft tissue stranding, representing soft tissue edema. LYMPH NODES: Normal. VASCULAR: Atherosclerotic calcifications of abdominal aorta seen. No aneurysmal dilatation. PELVIC VISCERA: Evaluation of pelvic viscera is limited due to streak artifact from the left femoral prostheses. The uterus seems to be unremarkable. A small amount of pelvic free fluid present. OSSEOUS STRUCTURES: Multilevel degenerative changes of thoracic and lumbar spine noted. Left femoral prosthesis in place. IMPRESSION: 1. A small right-sided pleural effusion and adjacent pulmonary opacity, which could represent atelectasis. Clinical evaluation for superimposed pneumonia is suggested. 2. Cardiomegaly. 3. Atherosclerosis and coronary artery disease. 4. Mildly enlarged mediastinal lymph nodes. 5. Obstructing 8 x 8 mm left ureter stone causing moderate to severe hydroureteronephrosis and left perinephric stranding. Considering clinical history of gram-negative bacteremia, the left-sided urinary obstruction could be the potential cause of the bacteremia. Clinical correlation is suggested. 6. Colon diverticulosis without evidence of acute diverticulitis. 7. A 12 mm indistinct right renal cortical hyperdense lesion. Consider further ultrasound evaluation. 8. Mild hepatosplenomegaly. 9. Presence of a small amount of pelvic free fluid, a small right-sided pleural effusion and subcutaneous edema can suggest anasarca.
[2016-10-21 20:00] VITALS: BP 150/70
--- NOTE | 2016-10-21 20:10 | Event Note ---
Event Note Event Note: Patient had a CT scan of the abdomen and pelvis this evening which shows obstructing 8 x 8 mm left ureter stone causing moderate to severe hydroureteronephrosis and left perinephric stranding. Patient is currently afebrile with WBC improving, patient does not have CVA tenderness but report left side lower back pain since 3-4 days ago. I talked to Dr. Phillips, Urology, on the phone. He will see the patient tomorrow am. Meanwhile recommended to give one dose of 0.4 mg flomax, watch for fever and hypotension, and do a KUB in am. If the patient does not pass the stone until tomorrow, he will do a lithotripsy in am. Patient is made NPO passed midnight.
[2016-10-21 21:01] LABS: ABSOLUTE BASOPHIL COUNT 0 /CUMM (0.0-0.2); ABSOLUTE EOSINOPHIL COUNT 0.2 /CUMM (0.0-0.7); ABSOLUTE GRANULOCYTE CT 9.1 /CUMM (1.4-6.5); ABSOLUTE LYMPH COUNT 0.4 /CUMM (1.2-3.4); ABSOLUTE MONOCYTE COUNT 0.9 /CUMM (0.10-0.60); BASOPHIL % 0.1 % (0.0-2.0); EOSINOPHIL % 1.6 % (0-5); HEMATOCRIT 32.7 % (37-47); MEAN CORPUSCULAR HGB 34.3 PG (27.0-31.0); MEAN CORPUSCULAR HGB CONC 32.3 G/DL (33.0-37.0); MEAN CORPUSCULAR VOLUME 106.4 FL (81.0-99.0); MEAN PLATELET VOLUME 10.7 FL (7.4-10.4); PLATELET COUNT 159 /CUMM (130-400); RED BLOOD CELL CT 3.07 /CUMM (4.20-5.40); WHITE BLOOD CELL COUNT 10.7 /CUMM (4.8-10.8)
[2016-10-21 21:12] LABS: PT 13.8 SEC (9.4-12.5)
[2016-10-21 21:37] LABS: GRANULOCYTE % 85.5 % (42.2-75.2)
[2016-10-22] VITALS: BP 140/80
--- NOTE | 2016-10-22 02:25 | NUR ---
0000 PATIENT RECEIVED ALERT AND ORIENTED X3, DENIES C/O PAIN BUT DOES ADMIT TO CONTINUOUS "DULL SORENESS" 2/10 LEFT FLANK, SKIN PINK, WARM AND DRY, GLAZE CARRIER SINUS WITHOUT ECTOPY, HEART RATE HIGH 80'S TO LOW 90'S/MIN, ABDOMEN SOFT, +BS, RECEIVING O2 VIA HIGH FLOW NC AT 70%- CONTINUOUS O2 SAT 90 TO 92%, NO S/S OF RESPIRATORY DISTRESS NOTED, BREATHE SOUNDS MILD RHONCHI UPPER SUMMERS, DIMINISHED BREATHE SOUNDS LOWER SUMMERS, PATIENT AWARE OF NPO STATUS AFTER MIDNIGHT FOR POSSIBLE PROCEDURE IN AM 0030 OOB TO COMMODE WITH ASSIST TO VOID- DOES DESAT TO MID-80'S WITH EXERTION, RETURNS TO 90% AFTER SEVERAL MINUTES OF REST
--- NOTE | 2016-10-22 03:06 | NUR ---
0235 PATIENT AWAKE, NOW C/O LEFT FLANK PAIN INCREASED TO 01/25- DR ROBBINS NOTIFIED, PATIENT TO RECEIVE TOREDOL DOSE ORDERED
[2016-10-22 04:00] VITALS: BP 120/70
[2016-10-22 05:08] LABS: ABSOLUTE BASOPHIL COUNT 0.1 /CUMM (0.0-0.2); ABSOLUTE EOSINOPHIL COUNT 0.2 /CUMM (0.0-0.7); ABSOLUTE GRANULOCYTE CT 8.5 /CUMM (1.4-6.5); ABSOLUTE LYMPH COUNT 0.5 /CUMM (1.2-3.4); ABSOLUTE MONOCYTE COUNT 0.8 /CUMM (0.10-0.60); BASOPHIL % 0.6 % (0.0-2.0); GRANULOCYTE % 85.2 % (42.2-75.2); MEAN CORPUSCULAR HGB 34.7 PG (27.0-31.0); MEAN CORPUSCULAR HGB CONC 32.8 G/DL (33.0-37.0); MEAN CORPUSCULAR VOLUME 105.7 FL (81.0-99.0); PLATELET COUNT 126 /CUMM (130-400); RBC DISTRIBUTION WIDTH 21.3 % (11.5-14.5); RED BLOOD CELL CT 2.61 /CUMM (4.20-5.40)
[2016-10-22 05:16] LABS: PT 14.3 SEC (9.4-12.5); PTT 38 SEC (25-37)
[2016-10-22 05:30] LABS: HEMATOCRIT 27.6 % (37-47)
[2016-10-22 05:40] LABS: WHITE BLOOD CELL COUNT 9.9 /CUMM (4.8-10.8)
--- NOTE | 2016-10-22 06:52 | PN- Resident CRCU ---
KATERYNA THOMPSON,[facility] 10/22/16 0652: Subjective HPI/CRCU Issues: Ms. Bajwa was seen and examined this morning. She is resting comfortably in bed. Has no significant complaints. States her breathing is remarkably better compared overnight. States she is in no active pain. She denies any fever, chills, nausea, vomiting. Continues to be on high flow oxygen. Her nephew was at bedside. Currently NPO awaiting procedure with Dr Phillips. 24 Hour Events: Patient had a CT scan of the abdomen and pelvis this evening which shows obstructing 8 x 8 mm left ureter stone causing moderate to severe hydroureteronephrosis and left perinephric stranding. Objective Vital Signs & I&O Last 8 Hrs of Vitals and I&O: T: 99.4 MN: 88 BP: 120/70 Pulse Ox: 91 NC 70% Exam General Appearance: well developed/nourished, no apparent distress, comfortable Respiratory: crackles Cardiovascular: regular rate/rhythm Gastrointestinal: normal bowel sounds, soft, non-tender Extremities: normal inspection, normal capillary refill, normal range of motion, no edema Cranial Nerves: normal hearing, normal speech Skin: intact, normal color Current Medications: Current Medications Sig/Wei Start time Last Medication Dose Route Stop Time Status Admin Acetaminophen 650 MG .STK-MED ONE 10/21 1842 DC PO 10/21 1843 Acetaminophen 650 MG Q6P PRN 10/20 0145 AC 10/21 PO 1839 Albuterol Sulfate 3 ML EVERY 4 HRS/AWAKE 10/20 0915 AC 10/22 INH 1252 Ceftazidime 1,000 MG 1600 10/21 1600 DC 10/21 IV 1839 Ceftriaxone Sodium 2,000 MG DAILY 10/22 0930 AC 10/22 IV 1043 Ceftriaxone Sodium 1,000 MG 2000 10/20 2000 DC 10/20 IV 2000 Dextrose/Sodium 1,000 ML ONCE ONE 10/225 AC 10/22 Chloride IV 10/22 Guaifenesin 600 MG Q12 10/20 1000 AC / PO 220 Heparin Sodium 5,000 UNIT Q8 10/20 06 DC 10/21 (Porcine) SC 215 Insulin Aspart 0 TIDAC 10/20 0800 AC 10/21 SC 202 Insulin Detemir 24 UNITS QPM 10/20 2200 AC 10/21 SC 215 Ketorolac 15 MG ONCE ONE 10/22 0245 DC 10/22 Tromethamine IV 10/22 0246 0252 Levothyroxine Sodium 0.15 MG DAILY AC 10/20 0700 AC 10/22 PO 06 Omeprazole 20 MG DAILY AC 10/21 1730 DC 10/22 PO 0626 Pantoprazole Sodium 40 MG DAILY 10/22 1111 AC IV Patient Medication 1 UNIT ONE NR 10/21 1730 DC Teaching ED 10/21 1800 Tamsulosin HCl 0.4 MG ONCE ONE 10/21 2030 DC 10/21 PO 10/21 Miscellaneous Findings: SERVICE DATE: 10/22/16 EXAM TYPE: US - US-EXT BILAT VENOUS DOPPLER EXAMINATION: BILATERAL LOWER EXTREMITY VENOUS ULTRASOUND CLINICAL INFORMATION: Difficulty breathing. Evaluate for DVT. COMPARISON: Bilateral lower extremity venous Doppler ultrasound dated 08/23/2016. TECHNIQUE: Doppler spectral analysis and color flow Doppler imaging was performed of the lower extremities. Compression and augmentation maneuvers were performed. FINDINGS: The right and left common femoral vein, greater saphenous vein takeoff, femoral vein, and popliteal vein are normally compressible with normal augmentation responses and phasic changes seen with Doppler imaging. The midcalf peroneal and posterior tibial veins are patent as well. No popliteal cyst is seen. Soft tissue edema is seen in the left popliteal fossa. IMPRESSION: No evidence of deep venous thrombosis in the right or left lower extremity. DICTATED BY: JESSICA THOMPSON,KORI Hilton Impression/Plan Impression/Problem List Impression: Ms. Bajwa is a pleasant 76 year old female with PMH hypertension, hyperlipidemia, COPD on 5 L continuous NC, type 2 diabetes mellitus on insulin, hypothyroidism, stage III B chronic kidney disease, combined systolic and diastolic heart failure, severe pulmonary hypertension, history of kidney stones in the past who presented to the [place] ED with shortness of breath on exertion , chills, decreased oral intake, cough minimally productive of sputum, nausea for 1 day. Patient was admitted to telemetry initally, has received treatment for possible pneumonia and UTI, and was tranferred to the ICU due to decreased SO2 of 85% requiring high flow oxygen through NC and for closer monitoring. Problem list and plan: Respiratory: Acute on chronic hypoxic respiratory failure * treated for possible pneumonia with ceftriaxone and doxycycline (allergic to azithromycin) on admission -met criteria for sepsis on admission with possible pulmonary source acording to CXR, required high flow O2 through NC * Blood culture revealed G(-) rods, sensitive to Ceftriaxone. * Pulmonary/CRCU consult obtained this am * Continue Ceftriaxone, * continue Mucinex BID * continue scheduled albuterol, TRC/Nebs ID Sepsis of urologic origin * Urinanalysis suggesting UTI, however initially the CXR on admission also was suspicious for pneumonia and she received Ceftriaxone. * However blood culture came back positive for g(-) rods. * Patient also reports 3-4 days of left sided lower back pain. no CVA tenderness in the exam. Importantly, CT of [place] and pelvis shows obstructing 8 x 8 mm left ureter stone causing moderate to severe Hydroureteronephrosis and left perinephric stranding. * Patient had mild elevation of Cong (T & D) and ALP, no fever and no abdominal pain, reported a few episodes of loose stool before admission which she attributed to her IBS. -Continue on Ceftriaxone for gram negative coverage -Monitor for fever, if spikes will repeat blood culture -repeat CBC and LFT in am Cardiac Elevated troponins * Elevated troponins in setting of acute hypoxic respiratory failure likely represent demand ischemia, no chest pain reported, trending down now and stopped following. * Echo shows EF 40-45%, mild global hypokinesis, right ventricular systolic pressure estimated at 47 mmHg. * Cardiology is following and recommended further workup for positive troponins once clinically stable. Heme Chronic macrocytic anemia, folate within normal limits and B12 is elevated Other undrlying etiology is her CKD. Elevated INR and PTT. LFTs improving compared to admission. Patient also has Guiaiac (+) stool * f/u thiamine * f/u CBC and Coags Metabolic Gram-negative sepsis with pansensitive Escherichia coli due to obstructive uropathy and evidence of an 8 mm stone causing hydronephrosis. * Initially thought to be 2/2 dehydration/decreased oral intake and sepsis in the setting of chronic renal insufficiency. However, CT scan of abd/pelvis today reveald nephrolithiasis and left side hydronephrosis. * Patient is currently NPO and Awaiting to go to the OR. * Stent placement with Dr. Phillips. * Caution with hydration as patient has history of combined systolic/diastolic heart failure, continued gentle hydration with NS IV 50 cc/hour * Follow up BEP in AM * Ramipril on hold Hyperkalemia * Likely secondary to acute on chronic kidney injury * Follow up repeat labs in AM Diabetes mellitus * Accuchecks TIDACHS * NSS with 24 U SC levemir QPM * FS-->165-->117 Hypothyroidism * Continue synthroid 0.15 mg PO daily AC FULL CODE DVTP: Heparin SC CC2 diet Mild pain pathway Problem List: 1. Insulin dependent type 2 diabetes mellitus 2. UTI (urinary tract infection) 3. Gram negative sepsis 4. Acute and chronic respiratory failure with hypoxia 5. Elevated troponin 6. Chronic respiratory failure with hypoxia 7. HFrEF (heart failure with reduced ejection fraction) Pain Ratin Tomorrow's Labs & Rationales: CBC Icu Bundle Plan DVT/Prophylaxis: pharmacological LUC THOMPSON,[facility] 10/22/16 0923: Attending MD Review Statement Attending Sign Off Attending Cosign Statement: I have: examined this patient, reviewed [facility] EMR data, personally reviewd images, discussd w/resident/PA/BOOKSTORE CLERK, discussed mgmt plan w/bola, discussed mgmt plan w/CM, discussed mgmt plan w/pt, agreed w/resident/PA/BOOKSTORE CLERK. Other Findings: Seen and examined independently Events and data reviewed CT abdomen did show obstructive stone with hydronephrosis causing her to have gram-negative sepsis Abdominal pain reduced Patient is little more tachypneic still requiring 70% high flow oxygen Heart rate is 80 Chest showed crackles Heart S1-S2 was heard Abdominal exam boom tender painful Significant edema Lower extremity Doppler unremarkable CT abdomen IMPRESSION: 1. A small right-sided pleural effusion and adjacent pulmonary opacity, which could represent atelectasis. Clinical evaluation for superimposed pneumonia is suggested. 2. Cardiomegaly. 3. Atherosclerosis and coronary artery disease. 4. Mildly enlarged mediastinal lymph nodes. 5. Obstructing 8 x 8 mm left ureter stone causing moderate to severe hydroureteronephrosis and left perinephric stranding. Considering clinical history of gram-negative bacteremia, the left-sided urinary obstruction could be the potential cause of the bacteremia. Clinical correlation is suggested. 6. Colon diverticulosis without evidence of acute diverticulitis. 7. A 12 mm indistinct right renal cortical hyperdense lesion. Consider further ultrasound evaluation. 8. Mild hepatosplenomegaly. 9. Presence of a small amount of pelvic free fluid, a small right-sided pleural effusion and subcutaneous edema can suggest anasarca. IMPRESSION This is a 76-year-old lady with chronic lung disease who is on oxygen at home and inhalers, reduced ejection fraction with the significant pulmonary hypertension, now has Acute hypoxemic and hypercarbic respiratory failure appears to be related to combination of factors which includes combinational lung disease, significant COPD, reduced systolic function of the heart with mild fluid overload upon admission, sepsis with probable early ARDS. Significant gram-negative sepsis pansensensitive ecoli, due to 8 mm stone with obstructive uropathy with hydronephrosis, causing sepsis now with slightly reducing blood pressure, thrombocytopenia suggestive of ongoing sepsis Chronic kidney disease with acute kidney injury upon admission which is slowly improving Significantly elevated proBNP with low ejection fraction upon admission Chronic anemia patient has been on epo before Heme positive stool with chronic anemia Splenomegaly with varices in the left upper quadrant suggestive of bone marrow dysfunction Previous mediastinal lymphadenopathy which needs follow-up Elevated troponin rule out myocardial ischemia RECOMMENDATION * Change antibiotics to high-dose ceftriaxone * Gentle IV fluids to avoid fluid overload. 50 mL per hour * Keep nothing by mouth for now, patient will be going to the operating room today for a stent * IV PPI * Follow sugars, cover with sliding scale insulin only if needed * When necessary morphine for pain and do not give any nonsteroidal anti- inflammatory Patient is critically ill total time spent 50 minutes
--- NOTE | 2016-10-22 07:41 | RADIOLOGY REPORT ---
EXAMINATION: XR KIDNEYS, URETER, BLADDER CLINICAL INDICATION: Left-sided flank pain. CT scan shows left ureteral stone. This is a follow-up. COMPARISON: CT scan of the abdomen and pelvis dated 10/21/2016. TECHNIQUE: AP supine view of the abdomen. FINDINGS: The left ureteral calcification seen on CT scan is not visualized on this KUB. In reviewing the section hand helper view of the abdomen performed during the prior CT scan, the calcification was not clearly visualized on the section hand helper view and may not be radiopaque. Some amorphous density is seen in the left lower paraspinal region, most consistent with bony hypertrophic changes and overlying bowel gas. A small phlebolith is seen in the left lower pelvis. Right upper quadrant rosa are present from prior cholecystectomy. Total left hip arthroplasty is partially included. Multilevel degenerative changes as seen in the spine. IMPRESSION: No radiopaque calculus seen.
[2016-10-22 08:00] VITALS: BP 108/52
--- NOTE | 2016-10-22 08:39 | NUR ---
0400 PATIENT SLEEPING SOUNDLY AFTER PAIN MED 0445 PATIENT AWAKENED FOR VS CHECK, STATES PAIN MED HAS EFFECTIVELY TREATED LEFT FLANK PAIN, DR ROBBINS MADE AWARE OF TEMPERATURE 99.4 THIS AM 0600 PORTABLE KUB XRAY DONE THIS AM 0630 PATIENT RESTING QUIETLY, SLEEPING IN NAPS, AWAITING AM MD ROUNDS
--- NOTE | 2016-10-22 09:16 | ULTRASOUND REPORT ---
EXAMINATION: BILATERAL LOWER EXTREMITY VENOUS ULTRASOUND CLINICAL INFORMATION: Difficulty breathing. Evaluate for DVT. COMPARISON: Bilateral lower extremity venous Doppler ultrasound dated 08/23/2016. TECHNIQUE: Doppler spectral analysis and color flow Doppler imaging was performed of the lower extremities. Compression and augmentation maneuvers were performed. FINDINGS: The right and left common femoral vein, greater saphenous vein takeoff, femoral vein, and popliteal vein are normally compressible with normal augmentation responses and phasic changes seen with Doppler imaging. The midcalf peroneal and posterior tibial veins are patent as well. No popliteal cyst is seen. Soft tissue edema is seen in the left popliteal fossa. IMPRESSION: No evidence of deep venous thrombosis in the right or left lower extremity.
[2016-10-22 12:00] VITALS: BP 110/48
--- NOTE | 2016-10-22 14:24 | Cons- Urology ---
General Information and HPI Consulting Request Date of Consult: 10/22/16 Reason for Consult: OBSTRUCTIVE HYDRONEPHROSIS With sepsis History of Present Illness: 76 yearold female diabetic with obesity hypertension , copd, admitted with hypoxia,demand ischemia. found to have gram neg rods in blood, developed left flank and cat scan revealed 8mm calculus in proximal left ureteer causing hydronephrosis placed on ceftaxidime with decreasing wbc, temp under 100 but this am had 90/50 bp fall treated for renolithiasis disease in past [facility] extracorporeal lithotripsy by dr. mota of [place] Allergies/Medications Allergies: Coded Allergies: azithromycin (Intermediate, FLUSHED 10/19/16) oxycodone (From PERCOCET) (Intermediate, NAUSEA 08/23/16) Home Med List: Acetaminophen 500 MG TABLET 2 TAB PO BID PAIN (Reported) B2/Vit A,C & E/Lut/Zeaxanth/Mn (Icaps Tablet) 3,300-200 TABLET.ER 1 TAB PO BID SUPPLEMENT (Reported) Budesonide/Formoterol Fumarate (Symbicort 160-4.5 Mcg Inhaler) 10.2 GM HFA.AER.AD 2 PUF INH BID COPD (Reported) Cholecalciferol (Vitamin D3) (Vitamin D3) 1,000 UNIT CAPSULE 1 CAP PO DAILY SUPPLEMENT (Reported) Epoetin Dipesh (Procrit) (Unknown Strength) VIAL (Unknown Dose) Q2W RBC ( Reported) Furosemide (Lasix) 20 MG TABLET 1 TAB PO DAILY PRN LEG SWELLING (Reported) Hydrocortisone 2.5 % CREAM..G. 1 AUGUSTIN TOP PRN ITCHING (Reported) apply to affected area(s) Insulin Glargine,Hum.rec.anlog (Lantus Solostar) 100 UNIT/ML (3 ML) INSULN.PEN 24 UNIT SC QPM DM (Reported) Levothyroxine Sodium (Synthroid) 150 MCG TABLET 1 TAB PO DAILY THYROID ( Reported) Metformin HCl 1,000 MG TABLET 1 TAB PO BID DIABETES (Reported) Metronidazole 1 % GEL..GRAM. 1 AUGUSTIN TOP DAILY FACE (Reported) Ramipril (Altace) 10 MG CAPSULE 1 CAP PO QPM BP (Reported) Past History Medical History Blood Transfusion Hx: No Neurological: NONE EENT: CATARACTS (R) MACULAR DEGENERATION (L) Cardiovascular: CHF, hypertension Respiratory: COPD Gastrointestinal: NONE Hepatic: NONE Renal: nephrolithiasis Musculoskeletal: NONE Psychiatric: NONE Endocrine: diabetes, hypothyroidism Blood Disorders: NONE, IRON DEF/TAKES PROCRIT Cancer(s): NONE EDUCATIONAL ADMINISTRATOR/Reproductive: NONE Surgical History Pertinent Surgical History: cholecystectomy, hip replacement Family History Relations & Conditions If Any: MOTHER (Diabetes mellitus Stroke in 70s). SISTER (Diabetes mellitus). Psychosocial History Services at Home: Oxygen Primary Language: Serbian Smoking Status: Former Smoker ETOH Use: denies use Illicit Drug Use: denies illicit drug use Functional Ability ADLs Independent: dressing, eating, toileting, bathing. IADLs Independent: shopping, housework, finances, food prep, telephone, transportation , medication admin. Assessment/Plan Assessment/Plan left ureterolithiasis with obstructing hydronephrosis, secondary sepsis and impending septic shock advise: cystosocpy, insertion left ureter stent to drain kidney today Consult Acknowledgment - Thank you for your consult request. Attending MD Review Statement Attending Statement Attending MD Statement: examined this patient Attending Assessment/Plan: carla campuzano md urology covering for dr. christensen
--- NOTE | 2016-10-22 14:28 | Operative Report ---
Operative/Inv Procedure Report Surgery Date: 10/22/16 Name of Procedure: cystoscopy with insertion left ureter stent Pre-Operative Diagnosis: left ureterolithiasis with sepssis Post-Operative Diagnosis: same Estimated Blood Loss: scant Surgeon/Community Health Educator: SIMEON Dailey MD Anesthesia: laryngeal mask airway Specimens: internal 24cm 6 kiswahili jj left ureter stent Operative/Procedure Note Findings: calculus in proximal left ureter
--- NOTE | 2016-10-22 14:35 | Procedure ---
Minor Surgical Procedure Note Date of Procedure: 10/22/16 Procedure Note: placed in lithotomy position; 22 thai cystoscope inserted into bladder;no bladder tumors or calculi; 6 thai open -ended ureter catheter inserted into distal left ureter. through it passed 0.035 glide wire up ureter curling in renal pelvis;cath removed ; over wire passed 24cm 6 thai jj ureter stent proximal end curling in renal pelvis; distal end curling in bladder under fluoroscopy control;appears to be 8mm calcified calculus in proximal left ureter at pelvic brim; wire,scope,pusher removed. attached to distal end stent is a 1 cm silk suture
[2016-10-22 16:00] VITALS: BP 108/48
[2016-10-22 18:55] LABS: ABSOLUTE BASOPHIL COUNT 0 /CUMM (0.0-0.2); ABSOLUTE EOSINOPHIL COUNT 0.1 /CUMM (0.0-0.7); ABSOLUTE GRANULOCYTE CT 8.7 /CUMM (1.4-6.5); ABSOLUTE LYMPH COUNT 0.5 /CUMM (1.2-3.4); ABSOLUTE MONOCYTE COUNT 0.4 /CUMM (0.10-0.60); BASOPHIL % 0.2 % (0.0-2.0); EOSINOPHIL % 1.5 % (0-5); GRANULOCYTE % 89.6 % (42.2-75.2); HEMATOCRIT 31.4 % (37-47); MEAN CORPUSCULAR HGB 34.2 PG (27.0-31.0); MEAN CORPUSCULAR HGB CONC 31.9 G/DL (33.0-37.0); MEAN CORPUSCULAR VOLUME 107.1 FL (81.0-99.0); MEAN PLATELET VOLUME 10.1 FL (7.4-10.4); PLATELET COUNT 131 /CUMM (130-400); RBC DISTRIBUTION WIDTH 22.3 % (11.5-14.5); RED BLOOD CELL CT 2.93 /CUMM (4.20-5.40); WHITE BLOOD CELL COUNT 9.7 /CUMM (4.8-10.8)
--- NOTE | 2016-10-22 19:01 | RADIOLOGY REPORT ---
EXAMINATION: XR KIDNEYS, URETER, BLADDER CLINICAL INDICATION: Cystoscopy and stent placement COMPARISON: KUB dated 10/22/2016 at 6:50 AM TECHNIQUE: Single fluoroscopic coned-down AP view of the lower pelvis was submitted. FINDINGS: Partial visualization of a catheter on the left side of pelvic cavity, likely a left ureter stent. Partial visualization of the left hip prosthesis. The bones and soft tissues are otherwise unremarkable. IMPRESSION: Left ureter stent.
[2016-10-22 20:00] VITALS: BP 94/40
[2016-10-23] VITALS: BP 105/46
[2016-10-23 05:43] LABS: ABSOLUTE BASOPHIL COUNT 0 /CUMM (0.0-0.2); ABSOLUTE EOSINOPHIL COUNT 0.4 /CUMM (0.0-0.7); ABSOLUTE GRANULOCYTE CT 6.4 /CUMM (1.4-6.5); ABSOLUTE LYMPH COUNT 0.8 /CUMM (1.2-3.4); BASOPHIL % 0.2 % (0.0-2.0); EOSINOPHIL % 4.9 % (0-5); GRANULOCYTE % 74.4 % (42.2-75.2); HEMATOCRIT 30.1 % (37-47); MEAN CORPUSCULAR HGB 33.4 PG (27.0-31.0); MEAN CORPUSCULAR HGB CONC 31.1 G/DL (33.0-37.0); MEAN CORPUSCULAR VOLUME 107.4 FL (81.0-99.0); MEAN PLATELET VOLUME 10.2 FL (7.4-10.4); PLATELET COUNT 123 /CUMM (130-400); RBC DISTRIBUTION WIDTH 22.5 % (11.5-14.5); RED BLOOD CELL CT 2.81 /CUMM (4.20-5.40); WHITE BLOOD CELL COUNT 8.6 /CUMM (4.8-10.8)
--- NOTE | 2016-10-23 07:04 | PN- Resident CRCU ---
Subjective HPI/CRCU Issues: Ms. Bajwa was seen and examined at bedside this AM. She is laying comfortably in bed without acute distress. She continues on high flow oxygen and her oxygen requirements remain high, though she reports her respiratory status is much improved since admission. Of note, lower extremity dopplers were negative for DVT. Patient is also post op from stent placement for obstructive uropathy, doing well without much pain. 24 Hour Events: T97.1-98.5, HR 72-92, RR 15-22, SBP 84-120, DBP 37-56, O2 sat 88-95% on high flow at 70-85%. As noted above, patient is post-op for left ureterolithiasis with sepsis where she ahd a cystoscopy and insertion of left ureteral stent. Objective Vital Signs & I&O Last 8 Hrs of Vitals and I&O: Intake & Output 10/23 1600 Intake Total Output Total Balance Patient 174 lb Weight Exam General Appearance: well developed/nourished, alert, awake, mild distress Head: atraumatic, normal appearance Ears, Nose, Throat: normal pharynx, hearing grossly normal Neck: normal inspection, supple Respiratory: Crackles, decreased breath sounds on bilateral bases, no accessory muscle use Cardiovascular: regular rate/rhythm Gastrointestinal: normal bowel sounds, soft, non-tender, Abdominal brusing noted. Extremities: normal inspection, Bilateral lower extremity edema noted Cranial Nerves: normal hearing, normal speech, PERRL Skin: intact, normal color Skin Temp/Moisture Exam: Warm/Dry Nutrition Nutrition: P.O. diet (Consistent carb 2) Current Medications: Current Medications Sig/Wei Start time Last Medication Dose Route Stop Time Status Admin Acetaminophen 1,000 MG .STK-MED ONE 10/22 121 DC IV 10/22 1218 Acetaminophen 650 MG Q6P PRN 10/20 0145 10/21 PO 1839 Albuterol Sulfate 3 ML EVERY 4 HRS/AWAKE 10/20 0915 AC 10/23 INH 0819 Ceftriaxone Sodium 2,000 MG DAILY 10/22 0830 AC 10/23 IV 1020 Dextrose/Sodium 1,000 ML ONCE ONE 10/22 0015 DC 10/22 Chloride IV 10/22 2013 012 Fentanyl Citrate 100 MCG .STK-MED ONE 10/22 1217 DC IM 10/22 1218 Furosemide 40 MG ONCE ONE 10/23 1030 DC 05/08 IV 10/23 1031 1033 Guaifenesin 600 MG Q12 10/20 1000 AC 10/23 PO 1020 Heparin Sodium 5,000 UNIT Q8 10/22 2200 CAN (Porcine) SC Hydromorphone HCl 2 MG .STK-MED ONE 10/22 1445 DC IM 10/22 1446 Insulin Aspart 0 TIDAC 10/20 0800 AC 10/21 SC 2021 Insulin Detemir 12 UNITS ONCE ONE 10/23 0130 DC 10/23 SC 10/23 0131 0125 Insulin Detemir 24 UNITS QPM 10/20 2200 AC 10/21 SC 2156 Levothyroxine Sodium 0.15 MG DAILY AC 10/20 0700 AC 10/23 PO 0659 Morphine Sulfate 1 MG Q6P PRN 10/23 1030 AC IV Omeprazole 40 MG DAILY AC 10/24 0700 AC PO Omeprazole 20 MG DAILY AC 10/21 1730 DC 10/22 PO 0626 Pantoprazole Sodium 40 MG DAILY 10/22 1111 DC 10/23 IV 1020 Patient Medication 1 UNIT 0700 10/24 0700 [facility] 10/24 0701 Patient Medication 1 UNIT ONE NR 10/23 1030 [facility] 10/23 1630 Patient Medication 1 UNIT ONE NR 10/23 1030 [facility] 10/23 1630 Results Cultures: Culture: Blood culture Date: 10/19/16 Isolate: Escherichia coli CXR Findings: IMPRESSION: Stable chest x-ray without acute cardiopulmonary findings. CT Scan Findings: Chest/abdomen/pelvis CT: IMPRESSION: 1. A small right-sided pleural effusion and adjacent pulmonary opacity, which could represent atelectasis. Clinical evaluation for superimposed pneumonia is suggested. 2. Cardiomegaly. 3. Atherosclerosis and coronary artery disease. 4. Mildly enlarged mediastinal lymph nodes. 5. Obstructing 8 x 8 mm left ureter stone causing moderate to severe hydroureteronephrosis and left perinephric stranding. Considering clinical history of gram-negative bacteremia, the left-sided urinary obstruction could be the potential cause of the bacteremia. Clinical correlation is suggested. 6. Colon diverticulosis without evidence of acute diverticulitis. 7. A 12 mm indistinct right renal cortical hyperdense lesion. Consider further ultrasound evaluation. 8. Mild hepatosplenomegaly. 9. Presence of a small amount of pelvic free fluid, a small right-sided pleural effusion and subcutaneous edema can suggest anasarca. ECHO Findings: CONCLUSIONS Normal size left ventricle. Mildly decreased left ventricular systolic function. Left ventricular ejection fraction is estimated at 40-45%. Right ventricular dilatation. Reduced right ventricular global systolic function. Mild right atrial dilatation. Mild mitral regurgitation. Moderate tricuspid regurgitation. Right ventricular systolic pressure estimated to be elevated at 47 mmHg. Mild pulmonic regurgitation. Mild global hypokinesis. US Findings: Venous doppler: IMPRESSION: No evidence of deep venous thrombosis in the right or left lower extremity. KUB: IMPRESSION: Left ureter stent. Impression/Plan Impression/Problem List Impression: Ms. Bajwa is a pleasant 76 year old female with PMH hypertension, hyperlipidemia, COPD on 5 L continuous NC, type 2 diabetes mellitus on insulin, hypothyroidism, stage III B chronic kidney disease, combined systolic and diastolic heart failure, severe pulmonary hypertension, history of kidney stones in the past who presented to the [facility] with shortness of breath on exertion , chills, decreased oral intake, cough minimally productive of sputum and nausea for one day. Patient was admitted to telemetry initally, has received treatment for possible pneumonia and UTI, and was tranferred to the ICU due to decreased oxygen saturation to 85% requiring high flow oxygen through NC and for closer monitoring. Below is the problem list and plan: Respiratory: 1. Acute on chronic hypoxic and hypercarbic respiratory failure * Likely 2/2 COPD, heart failure and sepsis of urological origin * Treated for possible pneumonia with ceftriaxone and doxycycline (allergic to azithromycin) on admission -met criteria for sepsis on admission with possible pulmonary source acording to CXR, required high flow O2 through NC * Blood culture revealed G(-) rods, sensitive to Ceftriaxone. * Pulmonary/CRCU consult appreciated * Continue Ceftriaxone 2 g daily, switch to ceftin 250 mg PO Q24 starting tomorrow * Continue Mucinex BID * Continue scheduled albuterol, TRC/Nebs * Follow up repeat CXR for today as patient has persisently high O2 demand ID 1. Sepsis of urologic origin * Urinanalysis suggesting UTI, however initially the CXR on admission also was suspicious for pneumonia and she received Ceftriaxone. * However blood culture came back positive for gram negative rods (pansensitive ecoli) * Patient also reports 3-4 days of left sided lower back pain. No CVA tenderness in the exam. Importantly, CT of [place] and pelvis shows obstructing 8 x 8 mm left ureter stone causing moderate to severe hydroureteronephrosis and left perinephric stranding. * Patient had mild elevation of Cong (T & D) and ALP, no fever and no abdominal pain, reported a few episodes of loose stool before admission which she attributed to her IBS. * Continue on Ceftriaxone for gram negative coverage * Patient post op from left ureteral stent placement, tolerated procedure well, follow uro rec's Cardiac 1. Elevated troponins * Elevated troponins in setting of acute hypoxic respiratory failure likely represent demand ischemia, no chest pain reported, have since trended down. * Echo shows EF 40-45%, mild global hypokinesis, right ventricular systolic pressure estimated at 47 mmHg. * Cardiology is following and recommended further workup for positive troponins once clinically stable. Discuss with cardio about adding low dose ASA. 2. Combined systolic and diastolic CHF * IV lasix 40 mg once today as patient appears edematous * Monitor renal function * Consider starting ASA, discuss with cardio Heme 1. Chronic macrocytic anemia * Consider 2/2 CKD * Folate within normal limits and B12 is elevated * Patient with Guiac (+) stool * Follow up daily CBC Metabolic 1. Gram-negative sepsis with pansensitive Escherichia coli due to obstructive uropathy and evidence of an 8 mm stone causing hydronephrosis. * Initially thought to be 2/2 dehydration/decreased oral intake and sepsis in the setting of chronic renal insufficiency. However, CT scan of abd/pelvis today reveald nephrolithiasis and left side hydronephrosis. * Patient is post op day 1 from left ureteral stent placement * IV morphine for pain * Continue IV antibiotics, switch to PO tomorrow (total 14 d PO antibiotics) * Caution with hydration as patient has history of combined systolic/diastolic heart failure, hold off fluids for now * Follow up BEP in AM * Ramipril on hold 2. Hyperkalemia * Likely secondary to acute on chronic kidney injury * WNL to 4.8 today * Follow up repeat labs in AM 3. Diabetes mellitus * Accuchecks TIDACHS * NSS with 24 U SC levemir QPM 4. Hypothyroidism * Continue synthroid 0.15 mg PO daily AC FULL CODE DVTP: Heparin SC CC2 diet Mild pain pathway Problem List: 1. Insulin dependent type 2 diabetes mellitus 2. Elevated troponin 3. HFrEF (heart failure with reduced ejection fraction) 4. Acute renal failure superimposed on stage 3 chronic kidney disease 5. Gram negative sepsis 6. UTI (urinary tract infection) 7. Acute and chronic respiratory failure with hypoxia 8. PNA (pneumonia) Pain Ratin Tomorrow's Labs & Rationales: CBC (monitor dropping H&H, monitor WBC in setting of gram negative septicemia) ICU bundle (renal dysfunction, follow electrolytes) Mag Plan DVT/Prophylaxis: pharmacological
[2016-10-23 08:00] VITALS: BP 105/45
--- NOTE | 2016-10-23 09:53 | PN- CRCU ---
Subjective HPI/Critical Care Issues: Doing a little better today Did go to the OR for a stent procedure for obstructive uropathy Continues to be significantly hypoxemic on 85% high flow Blood pressures slowly improving Afebrile this morning Heart rate around 85 Abdominal pain is reduce Urinating okay Review of symptoms otherwise unremarkable Objective Current Medications: Current Medications Sig/Wei Start time Last Medication Dose Route Stop Time Status Admin Acetaminophen 1,000 MG .STK-MED ONE 10/22 1217 DC IV 10/22 1218 Acetaminophen 650 MG Q6P PRN 10/20 0145 AC 10/21 PO 1839 Albuterol Sulfate 3 ML EVERY 4 HRS/AWAKE 10/20 0915 AC 10/23 INH 0819 Ceftriaxone Sodium 2,000 MG DAILY 10/22 09 AC 10/22 IV 1043 Dextrose/Sodium 1,000 ML ONCE ONE 10/22 0015 DC 10/22 Chloride IV 10/22 2013 012 Fentanyl Citrate 100 MCG .STK-MED ONE 10/22 1217 DC IM 10/22 1218 Guaifenesin 600 MG Q12 10/20 1000 AC 10/22 PO 2210 Heparin Sodium 5,000 UNIT Q8 10/22 2200 CAN (Porcine) SC Hydromorphone HCl 2 MG .STK-MED ONE 10/22 1445 DC IM 10/22 1446 Insulin Aspart 0 TIDAC 10/20 0800 10/21 SC 2021 Insulin Detemir 12 UNITS ONCE ONE 10/23 0130 DC 10/23 SC 10/23 0131 0125 Insulin Detemir 24 UNITS QPM 10/20 2200 AC 10/21 SC 2156 Levothyroxine Sodium 0.15 MG DAILY AC 10/20 0700 AC 10/23 PO 0659 Omeprazole 20 MG DAILY AC 10/21 1730 DC 10/22 PO 0626 Pantoprazole Sodium 40 MG DAILY 10/22 1111 AC IV Vital Signs & I&O Last 24 Hrs of Vitals and I&O: Vital Signs Date Time Temp Pulse Resp B/P B/P Pulse O2 O2 Flow FiO2 Mean Ox Delivery Rate 10/23 905 91 Nasal 85% Cannula 10/23 0512 91 Nasal 90% Cannula 10/23 0400 93 Nasal 85% Cannula 10/23 0240 92 Nasal 90% Cannula 10/23 0000 88 Nasal 85% Cannula 10/23 0000 97.3 86 16 105/46 88 Nasal 85% Cannula 05/07 2000 88 Nasal 80% Cannula 10/23 1999 98.4 86 18 94/40 86 Nasal 80% Cannula 10/22 1630 90 Nasal 75% Cannula 10/22 1630 90 Nasal 75% Cannula 10/23 1599 98.5 84 18 108/48 90 Nasal 75% Cannula 10/22 1200 90 Nasal 70% Cannula 10/22 1200 97.3 90 18 110/48 90 Nasal 70% Cannula 10/22 1200 91 Nasal 70% Cannula Intake & Output 10/23 0800 05 0000 Intake Total 50 900 Output Total 0 400 Balance 50 500 Intake, IV 0 500 Intake, Oral 50 400 Number 0 0 Bowel Movements Output, Urine 0 400 Patient 174 lb Weight Laboratory Tests 10/23 10/22 0518 1830 Chemistry Sodium (137 - 145 mmol/L) 139 138 Potassium (3.5 - 5.1 mmol/L) 4.8 4.7 Chloride (98 - 107 mmol/L) 106 106 Carbon Dioxide (22 - 30 mmol/L) 25 24 Anion Gap (5 - 16) 9 9 BUN (7 - 17 mg/dL) 66 H 64 H Creatinine (0.5 - 1.0 mg/dL) 1.8 H 1.5 H Estimated GFR (>60 ml/min) 27 L 34 L Glucose (65 - 99 mg/dL) 115 H 179 H Calcium (8.4 - 10.2 mg/dL) 7.3 L 7.5 L Phosphorus (2.5 - 4.5 mg/dL) 4.9 H 3.9 Magnesium (1.6 - 2.3 mg/dL) 2.3 2.1 Total Bilirubin (0.2 - 1.3 mg/dL) 0.9 1.4 H AST (14 - 36 U/L) 24 23 ALT (9 - 52 U/L) 48 45 Albumin (3.5 - 5.0 g/dL) 2.6 L 2.7 L Hematology CBC w Diff NO MAN DIFF REQ NO MAN DIFF REQ WBC (4.8 - 10.8 /CUMM) 8.6 9.7 RBC (4.20 - 5.40 /CUMM) 2.81 L 2.93 L Hgb (12.0 - 16.0 G/DL) 9.4 L 10.0 L Hct (37 - 47 %) 30.1 L 31.4 L MCV (81.0 - 99.0 FL) 107.4 H 107.1 H MCH (27.0 - 31.0 PG) 33.4 H 34.2 H RDW (11.5 - 14.5 %) 22.5 H 22.3 H Plt Count (130 - 400 /CUMM) 123 L 131 MPV (7.4 - 10.4 FL) 10.2 10.1 Gran % (42.2 - 75.2 %) 74.4 89.6 H Lymphocytes % (20.5 - 51.1 %) 8.9 L 4.8 L Monocytes % (1.7 - 9.3 %) 11.6 H 3.9 Eosinophils % (0 - 5 %) 4.9 1.5 Basophils % (0.0 - 2.0 %) 0.2 0.2 Absolute Granulocytes (1.4 - 6.5 /CUMM) 6.4 8.7 H Absolute Lymphocytes (1.2 - 3.4 /CUMM) 0.8 L 0.5 L Absolute Monocytes (0.10 - 0.60 /CUMM) 1.0 H 0.4 Absolute Eosinophils (0.0 - 0.7 /CUMM) 0.4 0.1 Absolute Basophils (0.0 - 0.2 /CUMM) 0 0 PUBS MCHC (33.0 - 37.0 G/DL) 31.1 L 31.9 L /07 05/06 0445 1930 Chemistry Sodium (137 - 145 mmol/L) 137 140 Potassium (3.5 - 5.1 mmol/L) 4.6 4.7 Chloride (98 - 107 mmol/L) 104 103 Carbon Dioxide (22 - 30 mmol/L) 24 25 Anion Gap (5 - 16) 9 13 BUN (7 - 17 mg/dL) 59 H 60 H Creatinine (0.5 - 1.0 mg/dL) 1.5 H 1.5 H Estimated GFR (>60 ml/min) 34 L 34 L Glucose (65 - 99 mg/dL) 111 H 133 H Calcium (8.4 - 10.2 mg/dL) 7.5 L 7.9 L Phosphorus (2.5 - 4.5 mg/dL) 3.5 3.6 Magnesium (1.6 - 2.3 mg/dL) 2.2 2.2 Total Bilirubin (0.2 - 1.3 mg/dL) 1.2 1.2 Direct Bilirubin (< 0.4 mg/dL) 0.8 H AST (14 - 36 U/L) 22 31 ALT (9 - 52 U/L) 44 44 Alkaline Phosphatase (<127 U/L) 170 H Albumin (3.5 - 5.0 g/dL) 2.5 L 3.2 L Coagulation PT (9.4 - 12.5 SEC) 14.3 H 13.8 H INR (0.90 - 1.19) 1.37 H 1.32 H APTT (25 - 37 SEC) 38 H D-Dimer (70 - 232 ng/ml) 909 H Hematology CBC w Diff NO MAN DIFF REQ NO MAN DIFF REQ WBC (4.8 - 10.8 /CUMM) 9.9 10.7 RBC (4.20 - 5.40 /CUMM) 2.61 L 3.07 L Hgb (12.0 - 16.0 G/DL) 9.1 L 10.5 L Hct (37 - 47 %) 27.6 L 32.7 L MCV (81.0 - 99.0 FL) 105.7 H 106.4 H MCH (27.0 - 31.0 PG) 34.7 H 34.3 H RDW (11.5 - 14.5 %) 21.3 H 22.0 H Plt Count (130 - 400 /CUMM) 126 L 159 MPV (7.4 - 10.4 FL) 10.0 10.7 H Gran % (42.2 - 75.2 %) 85.2 H 85.5 H Lymphocytes % (20.5 - 51.1 %) 4.5 L 4.1 L Monocytes % (1.7 - 9.3 %) 7.7 8.7 Eosinophils % (0 - 5 %) 2.0 1.6 Basophils % (0.0 - 2.0 %) 0.6 0.1 Absolute Granulocytes (1.4 - 6.5 /CUMM) 8.5 H 9.1 H Absolute Lymphocytes (1.2 - 3.4 /CUMM) 0.5 L 0.4 L Absolute Monocytes (0.10 - 0.60 /CUMM) 0.8 H 0.9 H Absolute Eosinophils (0.0 - 0.7 /CUMM) 0.2 0.2 Absolute Basophils (0.0 - 0.2 /CUMM) 0.1 0 PUBS MCHC (33.0 - 37.0 G/DL) 32.8 L 32.3 L 10/22 1919 Urines Urinalysis LIGHT H Urine Color (YEL,AMB,STR) YEL Urine Clarity (CLEAR) CLEAR Urine pH (5.0 - 8.0) 6.0 Ur Specific [place] (1.001 - 1.035) 1.020 Urine Protein (NEG,<30 MG/DL) 100 H Urine Ketones (NEG) NEG Urine Nitrite (NEG) NEG Urine Bilirubin (NEG) NEG Urine Urobilinogen (0.1 - 1.0 EU/dl) 0.2 Ur Leukocyte Esterase (NEG) SMALL H Ur Microscopic SEDIMENT EXAMINED Urine RBC (0 - 5 /HPF) 1-3 Urine WBC (0 - 2 /HPF) 5-10 H Ur Epithelial Cells (NONE,FEW) FEW Urine Bacteria (NEG/NONE) RARE H Urine Hemoglobin (NEG) TRACE-INTACT Urine Glucose (N MG/DL) NEG Microbiology Date/Time Procedure - Status Source Growth 10/21 192 Urine Culture - COMP URINE ROUT 10/21 1717 Respiratory Culture - CAN LOWER RESP Cancelled: SPECIMEN NOT RECEIVED IN LABORATORY 10/21 171 Gram Stain - CAN LOWER RESP Cancelled: SPECIMEN NOT RECEIVED IN LABORATORY 10/21 1427 Surveillance Culture - CAN GI Cancelled: SPECIMEN NOT RECEIVED IN LABORATORY 10/21 1330 Surveillance Culture - RECD UPPER RESP 10/20 171 Urine Culture - COMP URINE ROUT 10/20 171 Legionella Antigen - COMP URINE ROUT 10/20 1715 Streptococcus pneumoniae Antigen (M - COMP URINE ROUT 10/20 1455 Influenza Virus A & B Rapid Smear - COMP NASOPHARYN SIGNIFICANT DATA creatinine slightly worse today at 1.8 hemoglobin 9.4 white cells 8.6 platelets down to 07/10/1973 percent granulocytes urine culture unremarkable blood culture grew Escherichia coli pansensitive INR was 1.37 yesterday ABGs reviewed from before Impression/Plan Impression/Plan Impression/Plan: Chest showed crackles Heart S1-S2 was heard Abdominal exam tumbler tender painful Significant edema IMPRESSION This is a 76-year-old lady with chronic lung disease who is on oxygen at home and inhalers, reduced ejection fraction with the significant pulmonary hypertension, now has * Acute hypoxemic and hypercarbic respiratory failure appears to be related to combination of factors which includes combinational lung disease, significant COPD, reduced systolic function of the heart with mild fluid overload upon admission, sepsis of urological origin with probable early ARDS. * Significant gram-negative sepsis pansensensitive ecoli, due to 8 mm stone with obstructive uropathy with hydronephrosis, causing sepsis S/P Stent * Chronic kidney disease with acute kidney injury upon admission which is slowly improving * Significantly elevated proBNP with low ejection fraction upon admission * Chronic anemia patient has been on epo before, now with thrombocytopenia due to sepsis and pt does have macrocytosis and need to rule out myelodysplasia in the future * Heme positive stool with chronic anemia * Splenomegaly with varices in the left upper quadrant suggestive of bone marrow dysfunction * Previous mediastinal lymphadenopathy which needs follow-up * Elevated troponin rule out myocardial ischemia * Hypothyroid on supp RECOMMENDATION * Cont to ceftrixone and when able can change to po ceftin for a total abx of 14 days * DC ivf * IV lasix 40 mg today * Follow sugars, cover with sliding scale insulin only if needed * When necessary morphine for pain * Po ppi * Ask cardio for furher mgt of systolic heart disease etc, may need to go on low dose asa if tolerated.
[2016-10-23 12:00] VITALS: BP 110/50
--- NOTE | 2016-10-23 14:59 | RADIOLOGY REPORT ---
EXAMINATION: XR PORTABLE CHEST CLINICAL INFORMATION: To assess for any worsening of lung opacity. COMPARISON: X-ray Portable chest dated 10/21/2016, 08/23/2016. XR Chest dated 10/19/2016, 10/29/2015. TECHNIQUE: Portable AP semierect view of the chest was obtained. FINDINGS: The cardiomediastinal silhouette is within normal limits in size. Calcification of the aortic arch is seen. Lungs bilaterally are symmetrically mildly hyperinflated with hyperlucency of the upper lung zones. There are persistent patchy opacities seen in the right lung base and to a lesser extent in the left lung base, unchanged from prior exam, likely representing ongoing atelectasis/consolidation. No effusion or pneumothorax is seen. Bony structures are unremarkable. IMPRESSION: 1. No significant interval change in bibasilar opacities, right greater than left. 2. Underlying lung emphysema.
[2016-10-23 16:00] VITALS: BP 104/70
--- NOTE | 2016-10-23 18:04 | NUR ---
MONITOR SHOWING SEVERAL RUNS OF VTACH. PT IS REPORTING SEVERE BACK PAIN THAT CAME ON SUDDENLY. HOUSESTAFF NOTIFIED. STAT EKG DONE AND LABS DRAWN.
--- NOTE | 2016-10-23 18:57 | NUR ---
PT REPORTS PAIN HAS SUBSIDED SPONTANEOUSLY. EKG GIVEN TO HOUSE STAFF. LAB RESULTS ARE PENDING.
[2016-10-23 20:00] VITALS: BP 126/60
--- NOTE | 2016-10-23 21:36 | NUR ---
PATIENT ALERT.MONITOR SINUS RHYTHM AT RATE OF 96.CE=197/60. HIGH FLOW O2 AT 85%. O2 SAT=91%. NO DYSPNEA NOTED.PT DENIES SOB. DENIES PAIN.
--- NOTE | 2016-10-23 22:45 | PN- Cardiology ---
Subjective Subjective: Feeling well. SOB improving. No chest pain. No palp. Objective Vital Signs and I&Os Vital Signs Date Time Temp Pulse Resp B/P B/P Pulse O2 O2 Flow FiO2 Mean Ox Delivery Rate 10/24 1999 90 Nasal 85% Cannula 10/24 1999 98.4 96 22 126/60 90 Nasal 85% Cannula 10/23 1655 93 Nasal 85% Cannula 10/23 1600 91 Nasal 85% Cannula 10/23 1600 98.0 74 20 104/70 93 Nasal 85% Cannula 10/23 1200 93 Nasal 85% Cannula 10/23 1200 97.7 86 16 110/50 95 Nasal 40% Cannula 10/23 1151 93 Nasal 85% Cannula 10/23 0906 91 Nasal 85% Cannula 10/23 0800 97.4 86 20 105/45 92 Nasal 45% Cannula 10/23 0800 92 Nasal 85% Cannula 10/23 0512 91 Nasal 90% Cannula 10/23 0400 93 Nasal 85% Cannula 10/23 0240 92 Nasal 90% Cannula 10/23 0000 88 Nasal 85% Cannula 10/23 0000 97.3 86 16 105/46 88 Nasal 85% Cannula Intake & Output 10/23 1600 08 0800 05/08 0000 10/22 1600 10/22 0800 05 0000 Intake Total 1000 50 900 340 250 980 Output Total 1000 0 400 200 325 250 Balance 0 50 500 140 -75 730 Intake, IV 0 500 340 250 260 Intake, Oral 1000 50 400 0 720 Number 0 0 0 0 Bowel Movements Output, Urine 1000 0 400 200 325 250 Patient 174 lb Weight Physical Exam: Gen: NAD HEENT: normal Lungs: clear to auscultation, normal resp. effort Heart: RRR, S1, S2, no murmurs Abdomen: Soft, nontender, no masses Extremities: 1+ edema Neuro: Alert and oriented x 3, cranial nerves intact Current Medications: Current Medications Sig/Wei Start time Last Medication Dose Route Stop Time Status Admin Acetaminophen 650 MG Q6P PRN 10/20 0145 AC 10/21 PO 1839 Albuterol Sulfate 3 ML EVERY 4 HRS/AWAKE 10/20 0815 AC 10/23 INH 2100 Cabergoline 0.5 MG ONCE A WEEK 10/23 1315 DC PO Ceftriaxone Sodium 2,000 MG DAILY 10/22 0830 AC 10/23 IV 10/24 0000 1020 Cefuroxime Sodium 250 MG Q24 10/24 1000 AC PO Furosemide 40 MG ONCE ONE 10/23 1030 DC 10/23 IV 10/23 1031 1033 Guaifenesin 600 MG Q12 10/20 1000 AC 10/23 PO 2121 Insulin Aspart 0 TIDAC 10/20 0800 AC 10/23 SC 1247 Insulin Detemir 12 UNITS ONCE ONE 10/23 0130 DC 10/23 SC 10/23 0131 0125 Insulin Detemir 24 UNITS QPM 10/20 2200 AC 10/23 SC 2125 Levothyroxine Sodium 0.15 MG DAILY AC 10/20 0700 AC 10/23 PO 0659 Morphine Sulfate 1 MG Q6P PRN 10/23 1030 AC IV Non-Formulary 0 SEE ADMIN CRITERIA 10/23 1315 CAN Medication ANY Omeprazole 40 MG DAILY AC 10/24 07 AC PO Pantoprazole Sodium 40 MG DAILY 10/22 1111 DC 10/23 IV 1020 Patient Medication 1 UNIT 0700 10/24 07 Teaching ED 10/24 0701 Patient Medication 1 UNIT ONE NR 10/23 1030 [facility] ED 10/23 1630 Patient Medication 1 UNIT ONE NR 10/23 1030 [facility] ED 10/23 1630 Results Last 48 Hrs of Labs/Mics: Laboratory Tests 10/23/16 1820: Anion Gap 8, Estimated GFR 24 L, Glucose 99, Calcium 7.7 L, Phosphorus 5.2 H, Magnesium 2.4 H, Total Bilirubin 0.9, AST 26, ALT 47, Troponin I 0.08, Albumin 2.8 L 10/23/16 0518: Anion Gap 9, Estimated GFR 27 L, Glucose 115 H, Calcium 7.3 L, Phosphorus 4.9 H, Magnesium 2.3, Total Bilirubin 0.9, AST 24, ALT 48, Albumin 2.6 L, CBC w Diff NO MAN DIFF REQ, RBC 2.81 L, MCV 107.4 H, MCH 33.4 H, RDW 22.5 H, MPV 10.2, Gran % 74.4, Lymphocytes % 8.9 L, Monocytes % 11.6 H, Eosinophils % 4.9, Basophils % 0.2, Absolute Granulocytes 6.4, Absolute Lymphocytes 0.8 L, Absolute Monocytes 1.0 H, Absolute Eosinophils 0.4, Absolute Basophils 0, PUBS MCHC 31.1 L 10/22/16 1830: Anion Gap 9, Estimated GFR 34 L, Glucose 179 H, Calcium 7.5 L, Phosphorus 3.9 , Magnesium 2.1, Total Bilirubin 1.4 H, AST 23, ALT 45, Albumin 2.7 L, CBC w Diff NO MAN DIFF REQ, RBC 2.93 L, MCV 107.1 H, MCH 34.2 H, RDW 22.3 H, MPV 10.1, Gran % 89.6 H, Lymphocytes % 4.8 L, Monocytes % 3.9, Eosinophils % 1.5, Basophils % 0.2, Absolute Granulocytes 8.7 H, Absolute Lymphocytes 0.5 L, Absolute Monocytes 0.4, Absolute Eosinophils 0.1, Absolute Basophils 0, PUBS MCHC 31.9 L 10/22/16 0445: Anion Gap 9, Estimated GFR 34 L, Glucose 111 H, Calcium 7.5 L, Phosphorus 3.5 , Magnesium 2.2, Total Bilirubin 1.2, Direct Bilirubin 0.8 H, AST 22, ALT 44, Alkaline Phosphatase 170 H, Albumin 2.5 L, PT 14.3 H, INR 1.37 H, APTT 38 H , CBC w Diff NO MAN DIFF REQ, RBC 2.61 L, MCV 105.7 H, MCH 34.7 H, RDW 21.3 H, MPV 10.0, Gran % 85.2 H, Lymphocytes % 4.5 L, Monocytes % 7.7, Eosinophils % 2.0, Basophils % 0.6, Absolute Granulocytes 8.5 H, Absolute Lymphocytes 0.5 L, Absolute Monocytes 0.8 H, Absolute Eosinophils 0.2, Absolute Basophils 0.1, PUBS MCHC 32.8 L Assessment/Plan Assessment/Plan 1. Community Acquired pneumonia 2. Respiratory failure 3. Gram-negative sepsis 4. Mild troponin elevation, likely secondary to pneumonia and sepsis 5. Mild left ventricular systolic dysfunction Plan: * Antibiotic therapy as per the medical service * Further workup for positive troponins once clinically stable Continue telemetry? Yes
[2016-10-24] VITALS: BP 120/48
[2016-10-24 04:00] VITALS: BP 120/40
[2016-10-24 04:41] LABS: ABSOLUTE BASOPHIL COUNT 0 /CUMM (0.0-0.2); ABSOLUTE EOSINOPHIL COUNT 0.4 /CUMM (0.0-0.7); ABSOLUTE GRANULOCYTE CT 6.1 /CUMM (1.4-6.5); ABSOLUTE LYMPH COUNT 0.8 /CUMM (1.2-3.4); BASOPHIL % 0.4 % (0.0-2.0); GRANULOCYTE % 73.2 % (42.2-75.2); MEAN CORPUSCULAR HGB 33.8 PG (27.0-31.0); MEAN CORPUSCULAR HGB CONC 31.5 G/DL (33.0-37.0); MEAN CORPUSCULAR VOLUME 107.4 FL (81.0-99.0); MEAN PLATELET VOLUME 10.5 FL (7.4-10.4); PLATELET COUNT 161 /CUMM (130-400); RED BLOOD CELL CT 2.86 /CUMM (4.20-5.40); WHITE BLOOD CELL COUNT 8.4 /CUMM (4.8-10.8)
[2016-10-24 04:46] LABS: HEMATOCRIT 30.7 % (37-47)
--- NOTE | 2016-10-24 06:45 | PN- Resident CRCU ---
Subjective HPI/CRCU Issues: Patient seen and examined at bedside this AM. She reports she feels very weak and is even shaky while holding a cup to drink. She reports her respiratory status is status quo and has no change from yesterday. She denies fever, chills, chest pain or abdominal pain. 24 Hour Events: Patient is noted to have had 2 episodes of Vtach, one yesterday afternoon and one early this morning around 730 AM (7 beat). Electrolyte panel/trop/ekg yesterday evening showed slight hyperkalemia to 5.3, phos 5.1 and mag 2.4. This AM, she was noted to have stable K at 5.1 and phos/K of 5.1/2.4. Patient denied cardiac symptoms during these episodes. Will discuss further management with cardio. Patient noted to be hypoglycemic this AM to 64, asymptomatic and given juice. Will recheck FSG in 1 h. Vitals signs in the last 24 hours: T 97.4-99.4, HR 72-96, SBP 96-130, DBP 47-70, RR 16-20 and O2 90-95% on high flow. Afternoon update: Dr. Riley MD contacted in regards to persistently elevated creatinine and abdominal US showing persistent fullness of left renal collecting system. He suggested contacting Dr. Kit MD for further evaluation as she is now covering the case. He also suggested contacting nephrology as he believes increasing creatinine is not likely secondary to stent placement but a bilateral process. Objective Vital Signs & I&O Last 8 Hrs of Vitals and I&O: Intake & Output 10/24 1600 Intake Total 752 Output Total 400 Balance 352 Intake, IV 32 Intake, Oral 720 Number 0 Bowel Movements Output, Urine 400 Exam General Appearance: well developed/nourished, no apparent distress, alert, awake Head: atraumatic, normal appearance Ears, Nose, Throat: normal pharynx, hearing grossly normal Neck: normal inspection, supple Respiratory: Scattered crackles at the bilateral bases with decreased air movement Cardiovascular: regular rate/rhythm Gastrointestinal: normal bowel sounds, soft, non-tender Extremities: 1+bilateral lower extremity edema Cranial Nerves: normal hearing, PERRL Skin: intact, warm/dry Skin Temp/Moisture Exam: Warm/Dry Nutrition Nutrition: P.O. diet Current Medications: Current Medications Sig/Wei Start time Last Medication Dose Route Stop Time Status Admin Acetaminophen 650 MG Q6P PRN 10/20 0145 AC 10/21 PO 1839 Albuterol Sulfate 3 ML EVERY 4 HRS/AWAKE 10/20 0915 AC 10/24 INH 0852 Aspirin 81 MG DAILY 10/24 1007 CAN PO Aspirin 81 MG DAILY 10/24 1000 AC 10/24 PO 0931 Cabergoline 0.5 MG ONCE A WEEK 10/23 1315 DC PO Ceftriaxone Sodium 2,000 MG DAILY 10/22 0930 DC 10/23 IV 10/24 0000 1020 Cefuroxime Sodium 250 MG Q12 10/24 2200 AC PO Cefuroxime Sodium 250 MG Q24 10/24 1000 DC 10/24 PO 0841 Guaifenesin 600 MG Q12 10/20 1000 AC 10/24 PO 0841 Insulin Aspart 0 TIDAC 10/20 0800 AC 10/23 SC 1247 Insulin Detemir 18 UNITS QPM 10/24 2200 DC SC Insulin Detemir 10 UNITS QPM 10/24 2200 AC SC Insulin Detemir 24 UNITS QPM 10/20 2200 DC 10/23 SC 2125 Levothyroxine Sodium 0.15 MG DAILY AC 10/20 0700 AC 10/24 PO 0652 Metoprolol Tartrate 12.5 MG BID 10/24 1007 AC 10/24 PO 1111 Metoprolol Tartrate 6.25 MG BID 10/24 1000 CAN PO Morphine Sulfate 1 MG Q6P PRN 10/23 1030 DC IV Non-Formulary 0 SEE ADMIN CRITERIA 10/23 1315 CAN Medication ANY Omeprazole 20 MG DAILY AC 10/25 0700 AC PO Omeprazole 40 MG DAILY AC 10/24 0700 DC 10/24 PO 0652 Patient Medication 1 UNIT 0710/24 0700 DC 10/24 Teaching ED 10/24 0701 0652 Patient Medication 1 UNIT ONE NR 10/23 1030 DC Teaching ED 10/23 1630 Patient Medication 1 UNIT ONE NR 10/23 1030 DC Teaching ED 10/23 1630 CXR Findings: IMPRESSION: 1. No significant interval change in bibasilar opacities, right greater than left. 2. Underlying lung emphysema. Miscellaneous Findings: Venous doppler: IMPRESSION: No evidence of deep venous thrombosis in the right or left lower extremity. Impression/Plan Impression/Problem List Impression: Ms. Bajwa is a pleasant 76 year old female with PMH hypertension, hyperlipidemia, COPD on 5 L continuous NC, type 2 diabetes mellitus on insulin, hypothyroidism, stage III B chronic kidney disease, combined systolic and diastolic heart failure, severe pulmonary hypertension, history of kidney stones in the past who presented to the [place] ED with shortness of breath on exertion , chills, decreased oral intake, cough minimally productive of sputum and nausea for one day. Patient was admitted to telemetry initally, has received treatment for possible pneumonia and UTI, and was tranferred to the ICU due to decreased oxygen saturation to 85% requiring high flow oxygen through NC and for closer monitoring. Below is the problem list and plan: Respiratory: 1. Acute on chronic hypoxic and hypercarbic respiratory failure * Likely 2/2 combination of COPD, heart failure and sepsis of urological origin * Treated for possible pneumonia with ceftriaxone and doxycycline (allergic to azithromycin) on admission -met criteria for sepsis on admission with possible pulmonary source acording to CXR, required high flow O2 through NC * Blood culture revealed gram negative rods, sensitive to Ceftriaxone. * Switched patient to ceftin 250 mg PO Q12 starting today (dosed Q12 as instructed by Dr. Blanco MD) * Continue Mucinex BID * Continue scheduled albuterol, TRC/Nebs * Follow up repeat CXR Q48 hours or if clinically indicated * Continue high flow nasal cannula and BiPAP as needed ID 1. Sepsis of urologic origin * Urinanalysis suggesting UTI and blood culture came back positive for gram negative rods (pansensitive ecoli) * CT of [place] and pelvis showed obstructing 8 x 8 mm left ureter stone causing moderate to severe hydroureteronephrosis and left perinephric stranding. * Patient post op day 2 from left ureteral stent placement, tolerated procedure well, follow uro rec's * However, cre remains elevated at 2 today, will obtain bilateral renal US to rule out continued hydro/obstruction: if abnormal will contact Urology * Patient had mild elevation of Cong (T & D) and ALP, no fever and no abdominal pain, reported a few episodes of loose stool before admission which she attributed to her IBS. * Continue ceftin for a total of 14 d * F/U repeat UA/UCx today Cardiac 1. Elevated troponins * Elevated troponins in setting of acute hypoxic respiratory failure likely represent demand ischemia, no chest pain reported, have since trended down. * Echo shows EF 40-45%, mild global hypokinesis, right ventricular systolic pressure estimated at 47 mmHg. * Cardiology is following and will continue to follow recs * Started patient on ASA 81 mg PO daily and lopressor 12.5 mg PO BID today as patient had 2 episodes of ventricular tachycardia in the last 24 hours 2. Combined systolic and diastolic CHF * IV lasix 40 mg once yesterday as patient appears edematous * If renal US normal today, will consider redosing lasix this evening * Monitor renal function Heme 1. Chronic macrocytic anemia * Likely 2/2 CKD * Folate within normal limits and B12 is elevated * Patient with Guiac (+) stool, no pharm dvtp * Follow up daily CBC Metabolic 1. Gram-negative sepsis with pansensitive Escherichia coli due to obstructive uropathy and evidence of an 8 mm stone causing hydronephrosis. * Initially thought to be 2/2 dehydration/decreased oral intake and sepsis in the setting of chronic renal insufficiency. However, CT scan of abd/pelvis revealde nephrolithiasis and left side hydronephrosis. * Patient is post op day 2 from left ureteral stent placement * Continue PO antibiotics (total 14 d PO antibiotics) * Caution with hydration as patient has history of combined systolic/diastolic heart failure, hold off fluids for now * Follow up BEP in AM * Ramipril on hold 2. Hyperkalemia * Likely secondary to acute on chronic kidney injury * WNL to 5.1 today * Follow up repeat labs in AM 3. Diabetes mellitus * Accuchecks TIDACHS * NSS has been decreased to low dose sliding scale as she was hypoglycemic this AM * Levemir decreased to 10 U SC QPM 4. Hypothyroidism * Continue synthroid 0.15 mg PO daily AC FULL CODE DVTP: ALPS CC2 diet Mild pain pathway Problem List: 1. Elevated troponin 2. Hypoxemia 3. Demand ischemia of myocardium 4. Acute and chronic respiratory failure 5. Gram negative sepsis 6. HFrEF (heart failure with reduced ejection fraction) 7. Insulin dependent type 2 diabetes mellitus Pain Ratin Tomorrow's Labs & Rationales: CBC ICU lab bundle Plan DVT/Prophylaxis: pharmacological
--- NOTE | 2016-10-24 07:33 | NUR ---
7 BEAT V-TACH REPORTED TO DR. ESTEBAN (STRIP ON FLOW SHEET) DENIES C/P PALPITATIONS HR 106 BP 115/48 WILL CONTINUE TO CLOSELY MONITOR
[2016-10-24 08:00] VITALS: BP 122/52
--- NOTE | 2016-10-24 08:21 | NUR ---
AFEBRILE,A&OX3,VSS,DENIES PAIN,0800 F.S. 65 NO S/S HPO GL., OJ W/ SUGAR GIVEN,0810 F.S. 90;SET UP FOR BREAKFAST,HFNC 95% O2 SAT 91%, C/D LUNG SOUNDS,EXER SOB RECOVERS QUICKLY,SKIN INTACT,NO EDEMA,ALPS ON, CALL FOSTER W/I REACH WILL CONTINUE TO MONITOR
--- NOTE | 2016-10-24 10:47 | PN- CRCU ---
Subjective HPI/Critical Care Issues: She reports she feels very weak and is even shaky while holding a cup to drink. She reports her respiratory status is status quo and has no change from yesterday. She denies fever, chills, chest pain or abdominal pain. 24 Hour Events: Patient is noted to have had 2 episodes of Vtach, one yesterday afternoon and one early this morning around 730 AM (7 beat). Electrolyte panel/trop/ekg yesterday evening showed slight hyperkalemia to 5.3, phos 5.1 and mag 2.4. This AM, she was noted to have stable K at 5.1 and phos/K of 5.1/2.4. Patient denied cardiac symptoms during these episodes. Will discuss further management with cardio. Patient noted to be hypoglycemic this AM to 64, asymptomatic and given juice. Will recheck FSG in 1 h. Vitals signs in the last 24 hours: T 97.4-99.4, HR 72-96, SBP 96-130, DBP 47-70, RR 16-20 and O2 90-95% on high flow. Objective Current Medications: Current Medications Sig/Wei Start time Last Medication Dose Route Stop Time Status Admin Acetaminophen 650 MG Q6P PRN 10/20 0145 AC 10/21 PO 1839 Albuterol Sulfate 3 ML EVERY 4 HRS/AWAKE 10/20 0915 AC 10/24 INH 0852 Aspirin 81 MG DAILY 10/24 1007 CAN PO Aspirin 81 MG DAILY 10/24 1000 AC 10/24 PO 0931 Cabergoline 0.5 MG ONCE A WEEK 10/23 1315 DC PO Ceftriaxone Sodium 2,000 MG DAILY 10/22 0930 DC 10/23 IV 10/24 0000 1020 Cefuroxime Sodium 250 MG Q24 10/24 1000 AC 10/24 PO 0841 Guaifenesin 600 MG Q12 10/20 1000 AC 10/24 PO 0841 Insulin Aspart 0 TIDAC 10/20 0800 AC 10/23 SC 1247 Insulin Detemir 18 UNITS QPM 10/24 2200 AC SC Insulin Detemir 24 UNITS QPM 10/20 2200 DC 10/23 SC 2125 Levothyroxine Sodium 0.15 MG DAILY AC 10/20 0700 AC 10/24 PO 0652 Metoprolol Tartrate 12.5 MG BID 10/24 1007 AC PO Metoprolol Tartrate 6.25 MG BID 10/24 1000 CAN PO Morphine Sulfate 1 MG Q6P PRN 10/23 1030 AC IV Non-Formulary 0 SEE ADMIN CRITERIA 10/23 1315 CAN Medication ANY Omeprazole 20 MG DAILY AC 10/25 07 AC PO Omeprazole 40 MG DAILY AC 10/24 699 DC 10/24 PO 0652 Patient Medication 1 UNIT 0700 10/24 0700 DC 10/24 [facility] ED 10/24 0701 0652 Patient Medication 1 UNIT ONE NR 10/23 1030 DC [facility] ED 10/23 1630 Patient Medication 1 UNIT ONE NR 10/23 1030 DC [facility] ED 10/23 1630 Vital Signs & I&O Last 24 Hrs of Vitals and I&O: Vital Signs Date Time Temp Pulse Resp B/P B/P Pulse O2 O2 Flow FiO2 Mean Ox Delivery Rate 10/25 0752 91 Nasal 95% Cannula 10/25 799 91 Nasal 95% Cannula 10/25 799 98.3 85 22 122/52 91 Nasal 95% Cannula 10/24 0400 92 Nasal 95% Cannula 10/24 0400 99.4 82 18 120/40 97 10/24 0140 86 Nasal 95% Cannula 10/24 0000 90 Nasal 90% Cannula 10/24 0000 98.5 82 18 120/48 90 Nasal 90% Cannula 10/23 2000 90 Nasal 85% Cannula 10/23 2000 98.4 96 22 126/60 90 Nasal 85% Cannula 10/23 1655 93 Nasal 85% Cannula 10/23 1600 91 Nasal 85% Cannula 10/23 1600 98.0 74 20 104/70 93 Nasal 85% Cannula 10/23 1200 93 Nasal 85% Cannula 10/23 1200 97.7 86 16 110/50 95 Nasal 40% Cannula 10/23 1151 93 Nasal 85% Cannula Intake & Output 10/24 1600 10/24 0800 10/24 0000 Intake Total 400 460 Output Total 300 300 Balance 100 160 Intake, Oral 400 460 Output, Urine 300 300 Impression/Plan Impression/Plan Impression/Plan: Chest showed crackles Heart S1-S2 was heard Abdominal exam head still operator painful Significant edema IMPRESSION This is a 76-year-old lady with chronic lung disease who is on oxygen at home and inhalers, reduced ejection fraction with the significant pulmonary hypertension, now has * Acute hypoxemic and hypercarbic respiratory failure appears to be related to combination of factors which includes combinational lung disease, significant COPD, reduced systolic function of the heart with mild fluid overload upon admission, sepsis of urological origin with probable early ARDS. * Significant gram-negative sepsis pansensensitive ecoli, due to 8 mm stone with obstructive uropathy with hydronephrosis, causing sepsis S/P Stent * Chronic kidney disease with acute kidney injury upon admission which is slowly improving * Significantly elevated proBNP with low ejection fraction upon admission * Chronic anemia patient has been on epo before, now with thrombocytopenia due to sepsis and pt does have macrocytosis and need to rule out myelodysplasia in the future * Heme positive stool with chronic anemia * Splenomegaly with varices in the left upper quadrant suggestive of bone marrow dysfunction * Previous mediastinal lymphadenopathy which needs follow-up * Elevated troponin rule out myocardial ischemia * Hypothyroid on supp RECOMMENDATION * cont cefuroxime * Follow sugars, cover with sliding scale insulin only if needed, and reduce long acting insulin to 10 and increase if needed * Po ppi * Metoprolol 12.5 bid * Venodyne boots as she has hemepositive stool * OOB to chair * Abd ultrasound to eval for decompression of hydro if not ask urology if she would need a perc neph tube * Recheck bnp * Lasix later depending on the ultrasound
--- NOTE | 2016-10-24 13:39 | NUR ---
desat to 84% hfnc increased to 100% by rt w/o improvement awake alert oriented Dr. Sanon called to bedside blood gas ordered, patient placed on 100% NRB will continue to monitor
--- NOTE | 2016-10-24 14:06 | PN- Cardiology ---
Subjective Subjective: The patient was noted to have 2 episodes of nonsustained given her tachycardia last night. Low-dose metoprolol was started. No chest pain. She continues to be short of breath. No palpitations. No diaphoresis. Objective Vital Signs and I&Os Vital Signs Date Time Temp Pulse Resp B/P B/P Pulse O2 O2 Flow FiO2 Mean Ox Delivery Rate 10/24 1111 85 134/56 10/25 0752 91 Nasal 95% Cannula 10/25 799 91 Nasal 95% Cannula 10/25 799 98.3 85 22 122/52 91 Nasal 95% Cannula 10/24 0400 92 Nasal 95% Cannula 10/24 0400 99.4 82 18 120/40 97 10/24 0140 86 Nasal 95% Cannula 10/24 0000 90 Nasal 90% Cannula 10/24 0000 98.5 82 18 120/48 90 Nasal 90% Cannula 10/23 2000 90 Nasal 85% Cannula 10/24 1999 98.4 96 22 126/60 90 Nasal 85% Cannula 10/23 1655 93 Nasal 85% Cannula 10/23 1600 91 Nasal 85% Cannula 10/23 1600 98.0 74 20 104/70 93 Nasal 85% Cannula Intake & Output 10/24 1600 10/24 0800 10/24 0000 10/23 1600 10/23 0800 05 0000 Intake Total 945 513 4721 50 900 Output Total 589 155 7244 0 400 Balance 100 160 0 50 500 Intake, IV 0 500 Intake, Oral 281 699 3984 50 400 Number 0 0 Bowel Movements Output, Urine 469 833 2582 0 400 Patient 174 lb Weight Physical Exam: Gen: NAD HEENT: normal Lungs: clear to auscultation, normal resp. effort Heart: RRR, S1, S2, no murmurs Abdomen: Soft, nontender, no masses Extremities: 1+ edema Neuro: Alert and oriented x 3, cranial nerves intact Current Medications: Current Medications Sig/Wei Start time Last Medication Dose Route Stop Time Status Admin Acetaminophen 650 MG Q6P PRN 10/20 0145 AC 10/21 PO 1839 Albuterol Sulfate 3 ML EVERY 4 HRS/AWAKE 10/20 0915 AC 10/24 INH 1208 Aspirin 81 MG DAILY 10/24 1007 CAN PO Aspirin 81 MG DAILY 10/24 1000 AC 10/24 PO 0931 Cabergoline 0.5 MG ONCE A WEEK 10/23 1315 DC PO Ceftriaxone Sodium 2,000 MG DAILY 05/07 0930 DC 10/23 IV 10/24 0000 1020 Cefuroxime Sodium 250 MG Q12 10/24 2200 AC PO Cefuroxime Sodium 250 MG Q24 10/24 1000 DC 10/24 PO 0841 Furosemide 20 MG ONCE ONE 10/24 1400 DC 10/24 IV 10/24 1401 1401 Guaifenesin 600 MG Q12 10/20 1000 AC 10/24 PO 0841 Insulin Aspart 0 TIDAC 10/20 0800 AC 10/23 SC 1247 Insulin Detemir 18 UNITS QPM 10/24 2200 DC SC Insulin Detemir 10 UNITS QPM 10/24 2200 AC SC Insulin Detemir 24 UNITS QPM 10/20 2200 DC 10/23 SC 2125 Levothyroxine Sodium 0.15 MG DAILY AC 10/20 0700 AC 10/24 PO 0652 Metoprolol Tartrate 12.5 MG BID 10/24 1007 AC 10/24 PO 1111 Metoprolol Tartrate 6.25 MG BID 10/24 1000 CAN PO Morphine Sulfate 1 MG Q6P PRN 10/23 1030 DC IV Omeprazole 20 MG DAILY AC 10/25 0700 AC PO Omeprazole 40 MG DAILY AC 10/24 0700 DC 10/24 PO 0652 Patient Medication 1 UNIT 0700 10/24 0700 DC 10/24 Teaching ED 10/24 0701 0652 Patient Medication 1 UNIT ONE NR 10/23 1030 MS Teaching ED 10/23 1630 Patient Medication 1 UNIT ONE NR 10/23 1030 [facility] ED 10/23 1630 Results Last 48 Hrs of Labs/Mics: Laboratory Tests 10/24/16 1345: pH 7.23 *L, pCO2 61 *H, pO2 61 L, HCO3 25, ABG O2 Sat (Measured) 88.0 L, P-50 (Temp Corrected) N, Carboxyhemoglobin 0.2 L, O2 Concentration % 100%, O2 Delivery Method HFNC WITH 45L FLOW, Phlebotomy Draw Site LEFT RADIAL 10/24/16 1300: Urine Color Pending, Urine Clarity Pending, Urine pH Pending, Ur Specific [place] Pending, Urine Protein Pending, Urine Ketones Pending, Urine Nitrite Pending, Urine Bilirubin Pending, Urine Urobilinogen Pending, Ur Leukocyte Esterase Pending, Ur Microscopic SEDIMENT EXAMINED, Urine RBC Pending, Urine Hemoglobin Pending, Urine Glucose Pending 10/24/16 0400: Anion Gap 9, Estimated GFR 24 L, Glucose 70, Calcium 7.8 L, Phosphorus 5.1 H, Magnesium 2.4 H, Total Bilirubin 0.7, AST 21, ALT 33, Albumin 2.5 L, CBC w Diff NO MAN DIFF REQ, RBC 2.86 L, MCV 107.4 H, MCH 33.8 H, RDW 22.0 H, MPV 10.5 H, Gran % 73.2, Lymphocytes % 9.7 L, Monocytes % 11.7 H, Eosinophils % 5.0, Basophils % 0.4, Absolute Granulocytes 6.1, Absolute Lymphocytes 0.8 L, Absolute Monocytes 1.0 H, Absolute Eosinophils 0.4, Absolute Basophils 0, PUBS MCHC 31.5 L 10/24/16 0030: Anion Gap 10, Estimated GFR 24 L, Glucose 112 H, Calcium 7.6 L, Phosphorus 5.1 H, Magnesium 2.4 H, Total Bilirubin 0.6, AST 22, ALT 37, Pqj-M-Ovxxjzrlhfs Pept 69836 H, Albumin 2.6 L 10/23/16 1820: Anion Gap 8, Estimated GFR 24 L, Glucose 99, Calcium 7.7 L, Phosphorus 5.2 H, Magnesium 2.4 H, Total Bilirubin 0.9, AST 26, ALT 47, Troponin I 0.08, Albumin 2.8 L 10/23/16 0518: Anion Gap 9, Estimated GFR 27 L, Glucose 115 H, Calcium 7.3 L, Phosphorus 4.9 H, Magnesium 2.3, Total Bilirubin 0.9, AST 24, ALT 48, Albumin 2.6 L, CBC w Diff NO MAN DIFF REQ, RBC 2.81 L, MCV 107.4 H, MCH 33.4 H, RDW 22.5 H, MPV 10.2, Gran % 74.4, Lymphocytes % 8.9 L, Monocytes % 11.6 H, Eosinophils % 4.9, Basophils % 0.2, Absolute Granulocytes 6.4, Absolute Lymphocytes 0.8 L, Absolute Monocytes 1.0 H, Absolute Eosinophils 0.4, Absolute Basophils 0, PUBS MCHC 31.1 L 10/22/16 1830: Anion Gap 9, Estimated GFR 34 L, Glucose 179 H, Calcium 7.5 L, Phosphorus 3.9 , Magnesium 2.1, Total Bilirubin 1.4 H, AST 23, ALT 45, Albumin 2.7 L, CBC w Diff NO MAN DIFF REQ, RBC 2.93 L, MCV 107.1 H, MCH 34.2 H, RDW 22.3 H, MPV 10.1, Gran % 89.6 H, Lymphocytes % 4.8 L, Monocytes % 3.9, Eosinophils % 1.5, Basophils % 0.2, Absolute Granulocytes 8.7 H, Absolute Lymphocytes 0.5 L, Absolute Monocytes 0.4, Absolute Eosinophils 0.1, Absolute Basophils 0, PUBS MCHC 31.9 L Recent Imaging Studies: Chest x-ray: 1. No significant interval change in bibasilar opacities, right greater than left. 2. Underlying lung emphysema. Assessment/Plan Assessment/Plan 1. Community Acquired pneumonia 2. Respiratory failure 3. Gram-negative sepsis 4. Mild troponin elevation, likely secondary to pneumonia and sepsis 5. Mild left ventricular systolic dysfunction 6. Short runs of nonsustained atrial tachycardia Plan: * Antibiotic therapy as per the medical service * Further workup for positive troponins once clinically stable * Continue metoprolol 12.5 g by mouth twice a day Continue telemetry? Yes
--- NOTE | 2016-10-24 14:24 | RADIOLOGY REPORT ---
EXAMINATION: XR PORTABLE CHEST CLINICAL INFORMATION: O2 desaturation COMPARISON: 10/23/2016 TECHNIQUE: Portable portable AP view of the chest was obtained. FINDINGS: Cardiac silhouette remains at the upper limits of normal in size. Pulmonary vasculature is unchanged. There is persistent hazy opacification at the lung bases bilaterally, right greater than left. Effusion at the right lung base is slightly increased as compared to prior. No effusion or pneumothorax. Calcific atherosclerosis is present in the thoracic aorta. Osseous structures are unremarkable. IMPRESSION: Bibasilar opacities, slightly increased at the right lung base as compared to prior. These are likely due in large part to dependent atelectasis, though new consolidation is also possible.
[2016-10-24 16:00] VITALS: BP 118/52
--- NOTE | 2016-10-24 16:02 | ULTRASOUND REPORT ---
EXAMINATION: US RETROPERITONEAL COMPLETE (RENAL) CLINICAL INFORMATION: Status post stent placement for hydronephrosis with worsening creatinine level. Decreased urine output. COMPARISON: CT scan of the abdomen and pelvis dated 10/21/2016. TECHNIQUE: Real-time imaging of the kidneys and bladder. FINDINGS: Evaluation is limited by the patient's body habitus and portable bedside assessment. RIGHT KIDNEY: 12.0 x 7.1 x 7.2 cm (SAG x AP x TRV). The kidney is normal in size, contour, and echogenicity. Renal cortical thickness is normal. No calculi or focal parenchymal lesions. No hydronephrosis. LEFT KIDNEY: 11.9 x 5.4 x 5.1 cm (SAG x AP x TRV). The kidney is normal in size, contour, and echogenicity. Renal cortical thickness is decreased. The collecting system is poorly visualized and may be slightly distended, though not as distinctly seen as on the previous CT scan. No calculi or focal parenchymal lesions. BLADDER: Partially distended. Bilateral ureteral jets are not demonstrated. Prevoid bladder volume is 84.5 mL. Postvoid bladder volume was not assessed. IMPRESSION: 1. Persistent slight fullness of the left renal collecting system is seen. This may be improved when compared to prior CT scan, though confidence level is poor. 2. Right kidney grossly unremarkable. 3. Bladder only partially distended and unremarkable.
[2016-10-25] VITALS: BP 116/56
[2016-10-25 05:49] LABS: ABSOLUTE BASOPHIL COUNT 0 /CUMM (0.0-0.2); ABSOLUTE EOSINOPHIL COUNT 0.4 /CUMM (0.0-0.7); ABSOLUTE LYMPH COUNT 0.8 /CUMM (1.2-3.4); ABSOLUTE MONOCYTE COUNT 0.6 /CUMM (0.10-0.60); BASOPHIL % 0.5 % (0.0-2.0); EOSINOPHIL % 6.4 % (0-5); GRANULOCYTE % 72.9 % (42.2-75.2); HEMATOCRIT 28.9 % (37-47); MEAN CORPUSCULAR HGB 34.1 PG (27.0-31.0); MEAN CORPUSCULAR HGB CONC 32.3 G/DL (33.0-37.0); MEAN CORPUSCULAR VOLUME 105.4 FL (81.0-99.0); MEAN PLATELET VOLUME 9.6 FL (7.4-10.4); PLATELET COUNT 170 /CUMM (130-400); RBC DISTRIBUTION WIDTH 20.5 % (11.5-14.5); RED BLOOD CELL CT 2.74 /CUMM (4.20-5.40); WHITE BLOOD CELL COUNT 6.9 /CUMM (4.8-10.8)
--- NOTE | 2016-10-25 07:02 | PN- Resident CRCU ---
Subjective HPI/CRCU Issues: Patient seen and examined at bedside this AM. She is laying comfortably in bed and remains on BiPAP. Patient was noted to be lethargic yesterday evening around 430 PM at which time she had an ABG showing acidosis with elevated CO2 and hypoxemia. Since this time, she has been on BiPAP and ABGs checked periodically. Family at bedside as BiPAP placed and updated regarding clinical status. If any changes to be made they will be notified. 24 Hour Events: Patient transitioned to high flow nasal cannula during the day. Will use BiPAP PRN and BiPAP at night. Vital signs: T 97.6-98.3, HR 72-86, RR 17-32, BP 106-144/46-61, O2 sat 87-94% on high flow transitioned to BiPap. Objective Vital Signs & I&O Last 8 Hrs of Vitals and I&O: T 97.6-98.3, HR 72-86, RR 17-32, BP 106-144/46-61, O2 sat 87-94% on high flow transitioned to BiPap. Exam General Appearance: well developed/nourished, no apparent distress, awake, comfortable, obese Head: atraumatic, normal appearance Ears, Nose, Throat: normal ENT inspection, hearing grossly normal Neck: normal inspection, supple Respiratory: Decreased air movement, occasional crackles Cardiovascular: regular rate/rhythm Gastrointestinal: normal bowel sounds, soft, non-tender Extremities: Bilateral lower extremity edema Cranial Nerves: normal hearing, normal speech Skin: normal color, warm/dry Skin Temp/Moisture Exam: Warm/Dry Nutrition Nutrition: P.O. diet Current Medications: Current Medications Sig/Wei Start time Last Medication Dose Route Stop Time Status Admin Acetaminophen 650 MG Q6P PRN 10/20 0145 AC 10/21 PO 1839 Albuterol Sulfate 3 ML EVERY 4 HRS/AWAKE 10/20 0915 AC 10/25 INH 1206 Aspirin 81 MG DAILY 10/24 1000 AC 10/25 PO 1011 Cefuroxime Sodium 250 MG Q12 10/24 2200 AC 10/25 PO 1011 Guaifenesin 600 MG Q12 10/20 1000 AC 10/25 PO 1011 Insulin Aspart 0 TIDAC 10/20 0800 AC 10/23 SC 1247 Insulin Detemir 10 UNITS QPM 10/24 2200 AC 10/24 SC 2244 Levothyroxine Sodium 0.15 MG DAILY AC 10/20 07 AC 10/25 PO 0633 Melatonin 5 MG AT BEDTIME 10/24 2199 AC 10/24 PO 2244 Metoprolol Tartrate 12.5 MG BID 10/24 1007 AC 10/25 PO 1011 Omeprazole 20 MG DAILY AC 10/25 07 AC 10/25 PO 0633 Sodium Bicarbonate 650 MG BID 10/25 2199 AC PO ECHO Findings: CONCLUSIONS Normal size left ventricle. Mildly decreased left ventricular systolic function. Left ventricular ejection fraction is estimated at 40-45%. Right ventricular dilatation. Reduced right ventricular global systolic function. Mild right atrial dilatation. Mild mitral regurgitation. Moderate tricuspid regurgitation. Right ventricular systolic pressure estimated to be elevated at 47 mmHg. Mild pulmonic regurgitation. Mild global hypokinesis. US Findings: Renal US: IMPRESSION: 1. Persistent slight fullness of the left renal collecting system is seen. This may be improved when compared to prior CT scan, though confidence level is poor. 2. Right kidney grossly unremarkable. 3. Bladder only partially distended and unremarkable. Venous doppler: IMPRESSION: No evidence of deep venous thrombosis in the right or left lower extremity. Impression/Plan Impression/Problem List Impression: Ms. Bajwa is a pleasant 76 year old female with PMH hypertension, hyperlipidemia, COPD on 5 L continuous NC, type 2 diabetes mellitus on insulin, hypothyroidism, stage III B chronic kidney disease, combined systolic and diastolic heart failure, severe pulmonary hypertension, history of kidney stones in the past who presented to the [facility] ED with shortness of breath on exertion , chills, decreased oral intake, cough minimally productive of sputum and nausea for one day. Patient was admitted to telemetry initally, has received treatment for possible pneumonia and UTI, and was tranferred to the ICU due to decreased oxygen saturation to 85% requiring high flow oxygen and for closer monitoring. Below is the problem list and plan: Respiratory: 1. Acute on chronic hypoxic and hypercarbic respiratory failure * Likely 2/2 combination of COPD, heart failure and sepsis of urological origin * Treated for possible pneumonia with ceftriaxone and doxycycline (allergic to azithromycin) on admission -met criteria for sepsis on admission with possible pulmonary source acording to CXR, required high flow O2 through NC * Blood culture revealed gram negative rods, sensitive to Ceftriaxone. * Contnue PO ceftin 250 mg PO Q12y (dosed Q12 as instructed by Dr. Blanco MD) * Continue Mucinex BID * Continue scheduled albuterol, TRC/Nebs * Follow up repeat CXR Q48 hours or if clinically indicated * Continue high flow nasal cannula and BiPAP as needed * BiPAP PRN and at night ID 1. Gram-negative sepsis with pansensitive Escherichia coli due to obstructive uropathy and evidence of an 8 mm stone causing hydronephrosis. * Urinanalysis suggesting UTI and blood culture came back positive for gram negative rods (pansensitive ecoli) * CT of [place] and pelvis showed obstructing 8 x 8 mm left ureter stone causing moderate to severe hydroureteronephrosis and left perinephric stranding. * Patient post op day 3 from left ureteral stent placement, tolerated procedure well, follow uro rec's * Continue ceftin for a total of 14 d * F/U repeat UA/UCx Cardiac 1. Elevated troponins * Elevated troponins in setting of acute hypoxic respiratory failure likely represent demand ischemia, no chest pain reported, have since trended down. * Echo shows EF 40-45%, mild global hypokinesis, right ventricular systolic pressure estimated at 47 mmHg. * Cardiology is following and will continue to follow recs * Continue ASA 81 mg PO daily and lopressor 12.5 mg PO BID as patient had 2 episodes of ventricular tachycardia in the last 24 hours and noted systolic/ diastolic HF 2. Combined systolic and diastolic CHF * Lasix as needed for fluid overload * Monitor renal function with continued lasix use Heme 1. Chronic macrocytic anemia * Likely 2/2 CKD * Folate within normal limits and B12 is elevated * Patient with Guiac (+) stool, no pharm dvtp * Follow up daily CBC Metabolic 1. EVANS on CKD * Possibly secondary to initial sepsis * Nephro consult placed, follow up recommendations * Avoid nephrotoxins * Renal US 10/24 showed slight fullness of left renal collecting system with otherwise unremarkable findings * Use lasix with caution * Continue to hold ramipril * ICU bundle daily to monitor BUN/cre 2. Hyperkalemia * Likely secondary to acute on chronic kidney injury * Slightly elevated to 5.2 today * Follow up repeat labs in AM 3. Diabetes mellitus * Accuchecks TIDACHS * NSS has been decreased to low dose sliding scale * Levemir 10 U SC QPM 4. Hypothyroidism * Continue synthroid 0.15 mg PO daily AC FULL CODE DVTP: ALPS CC2 diet Mild pain pathway Problem List: 1. Elevated troponin 2. Hypoxemia 3. Demand ischemia of myocardium 4. Leg swelling 5. Insulin dependent type 2 diabetes mellitus 6. HFrEF (heart failure with reduced ejection fraction) 7. Acute renal failure superimposed on stage 3 chronic kidney disease 8. Gram negative sepsis 9. UTI (urinary tract infection) 10. Acute and chronic respiratory failure with hypoxia 11. PNA (pneumonia) 12. Hyperkalemia Pain Ratin Tomorrow's Labs & Rationales: CBC, ICU bundle Plan DVT/Prophylaxis: pharmacological
[2016-10-25 08:00] VITALS: BP 126/80
--- NOTE | 2016-10-25 09:45 | PN- Cardiology ---
Subjective Subjective: The patient remains on BiPAP. She denies any specific cardiac complaints. Objective Vital Signs and I&Os Vital Signs Date Time Temp Pulse Resp B/P B/P Pulse O2 O2 Flow FiO2 Mean Ox Delivery Rate 10/25 0803 77 93 10/25 0535 81 94 10/25 0400 92 BIPAP 90% 10/25 0311 79 92 10/25 0003 90 05 0000 91 BIPAP 90% 10/25 0000 97.9 74 22 116/56 91 BIPAP 90% 10/24 2245 85 123/61 05 2232 93 10/24 2000 95 BIPAP 90% 10/24 1932 92 10/24 1700 90 BIPAP 100% 10/24 1618 69 90 10/24 1600 87 BIPAP 100% 10/24 1600 98.0 81 19 118/52 87 BIPAP 100% 10/24 1415 78 90 10/24 1200 90 Nasal 95% Cannula 10/24 1111 85 134/56 Intake & Output 10/25 1600 10/25 0800 10/25 0000 10/24 1600 10/24 0800 05 0000 Intake Total 180 60 752 400 460 Output Total 400 425 400 300 300 Balance -220 -365 352 100 160 Intake, IV 32 Intake, Oral 180 60 720 400 460 Number 0 1 0 Bowel Movements Output, Urine 400 425 400 300 300 Current Medications: Current Medications Sig/Wei Start time Last Medication Dose Route Stop Time Status Admin Acetaminophen 650 MG Q6P PRN 10/20 0145 AC 10/21 PO 1839 Albuterol Sulfate 3 ML EVERY 4 HRS/AWAKE 10/20 0915 AC 10/25 INH 0805 Aspirin 81 MG DAILY 10/24 1007 CAN PO Aspirin 81 MG DAILY 10/24 1000 AC 10/24 PO 0931 Cefuroxime Sodium 250 MG Q12 10/24 2200 AC 10/24 PO 2244 Cefuroxime Sodium 250 MG Q24 10/24 1000 DC 10/24 PO 0841 Furosemide 20 MG ONCE ONE 10/24 1400 DC 10/24 IV 10/24 1401 1401 Guaifenesin 600 MG Q12 10/20 1000 AC / PO 2245 Insulin Aspart 0 TIDAC 10/20 0800 AC 10/23 SC 1247 Insulin Detemir 18 UNITS QPM 10/24 2200 DC SC Insulin Detemir 10 UNITS QPM 10/24 2200 AC 10/24 SC 2244 Levothyroxine Sodium 0.15 MG DAILY AC 10/20 0700 AC 10/25 PO 06 Melatonin 5 MG AT BEDTIME 10/24 2200 AC 10/24 PO 2243 Metoprolol Tartrate 12.5 MG BID 10/24 1007 AC 10/24 PO 224 Morphine Sulfate 1 MG Q6P PRN 10/23 1030 DC IV Omeprazole 20 MG DAILY AC 10/25 07 AC 10/25 PO 06 Results Last 48 Hrs of Labs/Mics: Laboratory Tests 10/25/16 0910: pH 7.27 *L, pCO2 56 H, pO2 115 H, HCO3 25, ABG O2 Sat (Measured) 97.0, P-50 ( Temp Corrected) N, Carboxyhemoglobin 0.4 L, O2 Concentration % 90%, Respiration Rate 22, O2 Delivery Method BIPAP, Vent Mode ST, Expiratory Pressure 6, Inspiratory Pressure 18, Phlebotomy Draw Site RIGHT RADIAL 10/25/16 0520: Anion Gap 8, Estimated GFR 31 L, Glucose 106 H, Calcium 8.1 L, Phosphorus 4.4 , Magnesium 2.4 H, Total Bilirubin 0.9, AST 17, ALT 40, Albumin 2.7 L, CBC w Diff NO MAN DIFF REQ, RBC 2.74 L, MCV 105.4 H, MCH 34.1 H, RDW 20.5 H, MPV 9.6, Gran % 72.9, Lymphocytes % 11.0 L, Monocytes % 9.2, Eosinophils % 6.4 H, Basophils % 0.5, Absolute Granulocytes 5.0, Absolute Lymphocytes 0.8 L, Absolute Monocytes 0.6, Absolute Eosinophils 0.4, Absolute Basophils 0, PUBS MCHC 32.3 L 10/25/16 0005: pH 7.29 *L, pCO2 53 H, pO2 65 L, HCO3 25, ABG O2 Sat (Measured) 91.0 L, P-50 (Temp Corrected) Y, Carboxyhemoglobin 0.1 L, O2 Concentration % 90%, Temperature 97.9, Respiration Rate 22, O2 Delivery Method VISION-FFM, Vent Mode ST, Expiratory Pressure 6, Inspiratory Pressure 18, Phlebotomy Draw Site RIGHT RADIAL 10/24/16 1945: pH 7.28 *L, pCO2 53 H, pO2 100, HCO3 25, ABG O2 Sat (Measured) 97.2, Carboxyhemoglobin 0.3 L, O2 Concentration % 100%, O2 Delivery Method BIPAP, Phlebotomy Draw Site LEFT RADIAL 10/24/16 1636: pH 7.25 *L, pCO2 55 H, pO2 67 L, HCO3 24, ABG O2 Sat (Measured) 90.0 L, Carboxyhemoglobin 0.3 L, O2 Concentration % 100%, O2 Delivery Method BIPAP, Phlebotomy Draw Site LEFT RADIAL 10/24/16 1345: pH 7.23 *L, pCO2 61 *H, pO2 61 L, HCO3 25, ABG O2 Sat (Measured) 88.0 L, P-50 (Temp Corrected) N, Carboxyhemoglobin 0.2 L, O2 Concentration % 100%, O2 Delivery Method HFNC WITH 45L FLOW, Phlebotomy Draw Site LEFT RADIAL 10/24/16 1300: Urine Color YEL, Urine Clarity TURBD H, Urine pH 6.0, Ur Specific [place] 1.025 , Urine Protein 100 H, Urine Ketones NEG, Urine Nitrite NEG, Urine Bilirubin NEG, Urine Urobilinogen 0.2, Ur Leukocyte Esterase MOD H, Ur Microscopic SEDIMENT EXAMINED, Urine RBC PACKD H, Urine WBC PACKD H, Urine Bacteria PACKD H, Urine Hemoglobin LARGE H, Urine Glucose NEG 10/24/16 0400: Anion Gap 9, Estimated GFR 24 L, Glucose 70, Calcium 7.8 L, Phosphorus 5.1 H, Magnesium 2.4 H, Total Bilirubin 0.7, AST 21, ALT 33, Albumin 2.5 L, CBC w Diff NO MAN DIFF REQ, RBC 2.86 L, MCV 107.4 H, MCH 33.8 H, RDW 22.0 H, MPV 10.5 H, Gran % 73.2, Lymphocytes % 9.7 L, Monocytes % 11.7 H, Eosinophils % 5.0, Basophils % 0.4, Absolute Granulocytes 6.1, Absolute Lymphocytes 0.8 L, Absolute Monocytes 1.0 H, Absolute Eosinophils 0.4, Absolute Basophils 0, PUBS MCHC 31.5 L 10/24/16 0030: Anion Gap 10, Estimated GFR 24 L, Glucose 112 H, Calcium 7.6 L, Phosphorus 5.1 H, Magnesium 2.4 H, Total Bilirubin 0.6, AST 22, ALT 37, Nbw-C-Ovqsmimdipt Pept 99650 H, Albumin 2.6 L 10/23/16 1820: Anion Gap 8, Estimated GFR 24 L, Glucose 99, Calcium 7.7 L, Phosphorus 5.2 H, Magnesium 2.4 H, Total Bilirubin 0.9, AST 26, ALT 47, Troponin I 0.08, Albumin 2.8 L Assessment/Plan Assessment/Plan Assessment: 1. Community Acquired pneumonia 2. Respiratory failure 3. Gram-negative sepsis 4. Mild troponin elevation, likely secondary to pneumonia and sepsis 5. Mild left ventricular systolic dysfunction 6. Short runs of nonsustained atrial tachycardia Recommendations: -Continue current management as per the medical/ICU team. -Continue current cardiac medications. -Please keep the patient on air sampling and monitoring for now. -Follow-up labs pending. Continue telemetry? Yes
--- NOTE | 2016-10-25 10:08 | PN- Pulmonary ---
Subjective HPI/Critical Care Issues: Patient seen and examined at bedside this AM. She is laying comfortably in bed and remains on BiPAP. Patient was noted to be lethargic yesterday evening around 430 PM at which time she had an ABG showing acidosis with elevated CO2 and hypoxemia. Since this time, she has been on BiPAP and ABGs checked periodically. Family at bedside as BiPAP placed and updated regarding clinical status. If any changes to be made they will be notified. 24 Hour Events: Vital signs: T 97.6-98.3, HR 72-86, RR 17-32, BP 106-144/46-61, O2 sat 87-94% on high flow transitioned to BiPap. Objective Current Medications: Current Medications Sig/Wei Start time Last Medication Dose Route Stop Time Status Admin Acetaminophen 650 MG Q6P PRN 10/20 0145 AC 10/21 PO 1839 Albuterol Sulfate 3 ML EVERY 4 HRS/AWAKE 10/20 0915 AC 10/25 INH 0805 Aspirin 81 MG DAILY 10/24 1007 CAN PO Aspirin 81 MG DAILY 10/24 1000 AC 10/24 PO 0931 Cefuroxime Sodium 250 MG Q12 10/24 2200 AC 10/24 PO 2244 Cefuroxime Sodium 250 MG Q24 10/24 1000 DC 10/24 PO 0841 Furosemide 20 MG ONCE ONE 10/24 1400 DC 10/24 IV 10/24 1401 1401 Guaifenesin 600 MG Q12 10/20 1000 AC 10/24 PO 2245 Insulin Aspart 0 TIDAC 10/20 0800 AC 10/23 SC 1247 Insulin Detemir 18 UNITS QPM 10/24 2200 DC SC Insulin Detemir 10 UNITS QPM 10/24 2200 AC 10/24 SC 2244 Levothyroxine Sodium 0.15 MG DAILY AC 10/20 0700 AC 10/25 PO 0633 Melatonin 5 MG AT BEDTIME 10/24 2200 AC 10/24 PO 2244 Metoprolol Tartrate 12.5 MG BID 10/24 1007 AC 10/24 PO 2245 Morphine Sulfate 1 MG Q6P PRN 10/23 1030 DC IV Omeprazole 20 MG DAILY AC 10/25 0700 AC 10/25 PO 0633 Vital Signs & I&O Last 24 Hrs of Vitals and I&O: Vital Signs Date Time Temp Pulse Resp B/P B/P Pulse O2 O2 Flow FiO2 Mean Ox Delivery Rate 10/25 0803 77 93 10/25 0535 81 94 10/25 0400 92 BIPAP 90% 10/25 0311 79 92 10/25 0003 90 10/25 0000 91 BIPAP 90% 10/25 0000 97.9 74 22 116/56 91 BIPAP 90% 10/24 2245 85 123/61 10/24 2232 93 10/24 2000 95 BIPAP 90% 10/24 1932 92 10/24 1700 90 BIPAP 100% 10/24 1618 69 90 10/24 1600 87 BIPAP 100% 10/24 1600 98.0 81 19 118/52 87 BIPAP 100% 10/24 1415 78 90 10/24 1200 90 Nasal 95% Cannula 10/24 1111 85 134/56 Intake & Output 10/25 1600 10/25 0800 10/25 0000 Intake Total 180 60 Output Total 400 425 Balance -220 -365 Intake, Oral 180 60 Number 0 1 Bowel Movements Output, Urine 400 425 ABG reviewed Impression/Plan Impression/Plan Impression/Plan: Chest showed crackles Heart S1-S2 was heard 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 Now on NIV as she did get worse on high flow * Improving Significant gram-negative sepsis pansensensitive ecoli, due to 8 mm stone with obstructive uropathy with hydronephrosis, causing sepsis S/P Stent * Chronic kidney disease with acute kidney injury upon admission which is slowly improving * Significantly elevated proBNP with low ejection fraction upon admission * Chronic anemia patient has been on epo before, now with thrombocytopenia due to sepsis and pt does have macrocytosis and need to rule out myelodysplasia in the future * Heme positive stool with chronic anemia * Myelodysplasia and MGUS with Splenomegaly, 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
[2016-10-25 16:00] VITALS: BP 118/56
[2016-10-26] VITALS: BP 117/61
--- NOTE | 2016-10-26 00:31 | NUR ---
PT AWAKE AND ALERT, DENIES PAIN AT THIS TIME. ON BIPAP AT 95% FIO2, SATURATION 90% LUNGS SOUND CLEAR. ABDOMEN SOFT, NORMOACTIVE BS. VOIDED TO 100ML OF CLEAR YELLOW URINE.
--- NOTE | 2016-10-26 04:20 | NUR ---
PT RESTLESS AND AGITATED. ATIVAN GTT AT 6MG/H. PATIENT'S LEGS OVER THE SIDERAILS AND KICKED ME ON MY ARMS AND ABDOMEN. REMAINE INTUBATED AT 30% FIO2.
[2016-10-26 05:44] LABS: ABSOLUTE BASOPHIL COUNT 0 /CUMM (0.0-0.2); ABSOLUTE EOSINOPHIL COUNT 0.4 /CUMM (0.0-0.7); ABSOLUTE GRANULOCYTE CT 4.6 /CUMM (1.4-6.5); ABSOLUTE LYMPH COUNT 0.8 /CUMM (1.2-3.4); ABSOLUTE MONOCYTE COUNT 0.6 /CUMM (0.10-0.60); BASOPHIL % 0.6 % (0.0-2.0); EOSINOPHIL % 6.4 % (0-5); GRANULOCYTE % 71.3 % (42.2-75.2); HEMATOCRIT 27.8 % (37-47); MEAN CORPUSCULAR HGB 34.3 PG (27.0-31.0); MEAN CORPUSCULAR HGB CONC 32.8 G/DL (33.0-37.0); MEAN CORPUSCULAR VOLUME 104.8 FL (81.0-99.0); MEAN PLATELET VOLUME 9.9 FL (7.4-10.4); PLATELET COUNT 189 /CUMM (130-400); RBC DISTRIBUTION WIDTH 21.2 % (11.5-14.5); RED BLOOD CELL CT 2.65 /CUMM (4.20-5.40); WHITE BLOOD CELL COUNT 6.5 /CUMM (4.8-10.8)
--- NOTE | 2016-10-26 06:50 | PN- Resident CRCU ---
Subjective HPI/CRCU Issues: Ms. Bajwa seen and examined at bedside this AM. She reports she feels slightly better and her respiratory status is improving. She used nocturnal BiPAP last night and tolerated it well. She currently denies fever, chills, chest pain, abdominal pain, nausea and vomiting. She reports her last BM was yesterday. 24 Hour Events: No overnight telemetry events. Vital signs: T 97.0-98.9, HR 66-100, RR 18-38, BP 109-135/46-69, O2 saturation 86-96% on High flow NC with BiPAP at night. Urine output last 24 hours: 1220 cc. Objective Vital Signs & I&O Last 8 Hrs of Vitals and I&O: T 97.0-98.9, HR 66-100, RR 18-38, BP 109-135/46-69, O2 saturation 86-96% on High flow NC with BiPAP at night. Exam General Appearance: well developed/nourished, no apparent distress, alert, awake , comfortable Head: atraumatic, normal appearance Ears, Nose, Throat: normal pharynx, hearing grossly normal Neck: normal inspection, supple Respiratory: Decreased air entry bilaterally without wheeze Cardiovascular: regular rate/rhythm Gastrointestinal: normal bowel sounds, soft, non-tender Extremities: Lower extremity edema Cranial Nerves: normal hearing, normal speech Skin: normal color, warm/dry Nutrition Nutrition: P.O. diet Current Medications: Current Medications Sig/Wei Start time Last Medication Dose Route Stop Time Status Admin Acetaminophen 650 MG Q6P PRN 10/20 0145 AC 10/21 PO 1839 Albuterol Sulfate 3 ML EVERY 4 HRS/AWAKE 10/20 0915 AC 10/26 INH 0820 Aspirin 81 MG DAILY 10/24 1000 AC 10/26 PO 0832 Cefuroxime Sodium 250 MG Q12 10/24 220 AC 10/25 PO 2203 Guaifenesin 600 MG Q12 10/20 1000 AC 10/26 PO 0832 Insulin Aspart 0 TIDAC 10/20 0800 AC 10/23 SC 1247 Insulin Detemir 10 UNITS QPM 10/24 2199 AC 10/25 SC 220 Levothyroxine Sodium 0.15 MG DAILY AC 10/20 0700 AC 10/26 PO 0606 Melatonin 5 MG AT BEDTIME 10/24 2199 AC 10/25 PO 2203 Metoprolol Tartrate 12.5 MG BID 10/24 1007 AC 10/26 PO 0832 Omeprazole 20 MG DAILY AC 10/25 0700 AC 10/26 PO 0605 Sodium Bicarbonate 650 MG BID 10/25 2200 AC 10/26 PO 0832 CXR Findings: FINDINGS: Mild hyperinflated lung field is present with persistent nonspecific airspace disease at right lower lobe, may represent infiltrate, atelectasis or combination thereof. The remainder of the lung chakraborty remain clear. The cardiac mediastinal silhouette is within normal limits. There is no evidence of any CHF identified. No pleural effusion seen. US Findings: Renal US: IMPRESSION: 1. Persistent slight fullness of the left renal collecting system is seen. This may be improved when compared to prior CT scan, though confidence level is poor. 2. Right kidney grossly unremarkable. 3. Bladder only partially distended and unremarkable. Impression/Plan Impression/Problem List Impression: Ms. Bajwa is a pleasant 76 year old female with PMH hypertension, hyperlipidemia, COPD on 5 L continuous NC, type 2 diabetes mellitus on insulin, hypothyroidism, stage III B chronic kidney disease, combined systolic and diastolic heart failure, severe pulmonary hypertension, history of kidney stones in the past who presented to the [place] ED with shortness of breath on exertion , chills, decreased oral intake, cough minimally productive of sputum and nausea for one day. Patient was admitted to telemetry initally, has received treatment for possible pneumonia and UTI, and was tranferred to the ICU due to decreased oxygen saturation to 85% requiring high flow oxygen and for closer monitoring. Below is the problem list and plan: Respiratory: 1. Acute on chronic hypoxic and hypercarbic respiratory failure * Likely 2/2 combination of COPD, heart failure and sepsis of urological origin * Treated for possible pneumonia with ceftriaxone and doxycycline (allergic to azithromycin) on admission -met criteria for sepsis on admission with possible pulmonary source acording to CXR, required high flow O2 through NC * Blood culture revealed gram negative rods, sensitive to Ceftriaxone. * Contnue PO ceftin 250 mg PO Q12 (dosed Q12 as instructed by Dr. Blanco MD) * Continue Mucinex BID * Continue scheduled albuterol, TRC/Nebs * Follow up repeat CXR Q48 hours or if clinically indicated (CXR from today shows no significant interval change) * Continue high flow nasal cannula and BiPAP PRN and at night ID 1. Gram-negative sepsis with pansensitive Escherichia coli due to obstructive uropathy and evidence of an 8 mm stone causing hydronephrosis. * Urinanalysis suggesting UTI and blood culture came back positive for gram negative rods (pansensitive ecoli) * Initial CT of [place] and pelvis showed obstructing 8 x 8 mm left ureter stone causing moderate to severe hydroureteronephrosis and left perinephric stranding. * Patient post op day 3 from left ureteral stent placement, tolerated procedure well, follow uro rec's * Continue ceftin for a total of 14 d * F/U repeat UA/UCx * Repeat CT scan today for f/u on 8 mm stone pending, follow up results Cardiac 1. Elevated troponins * Elevated troponins in setting of acute hypoxic respiratory failure likely represent demand ischemia, no chest pain reported, have since trended down. * Echo shows EF 40-45%, mild global hypokinesis, right ventricular systolic pressure estimated at 47 mmHg. * Cardiology is following and will continue to follow recs * Continue ASA 81 mg PO daily and lopressor 12.5 mg PO BID as patient had 2 episodes of ventricular tachycardia in the last 24 hours and noted systolic/ diastolic HF 2. Combined systolic and diastolic CHF * Lasix as needed for fluid overload * Monitor renal function with continued lasix use Heme 1. Chronic macrocytic anemia * Likely 2/2 CKD * Folate within normal limits and B12 is elevated * Patient with Guiac (+) stool, no pharm dvtp * Follow up daily CBC Metabolic 1. EVANS on CKD * Possibly secondary to initial sepsis * Improving, BUN/cre today of * Avoid nephrotoxins * Renal US 10/24 showed slight fullness of left renal collecting system with otherwise unremarkable findings * F/U repeat CT abdomen/pelvis today for stent placemet/stone * Continue to hold ramipril * ICU bundle daily to monitor BUN/cre 2. Hyperkalemia * Likely secondary to acute on chronic kidney injury * Slightly elevated to 5.3 today * Follow up repeat labs in AM 3. Diabetes mellitus * Accuchecks TIDACHS * NSS (low dose sliding scale) * Levemir 10 U SC QPM 4. Hypothyroidism * Continue synthroid 0.15 mg PO daily AC FULL CODE DVTP: ALPS CC2 diet Mild pain pathway Problem List: 1. Insulin dependent type 2 diabetes mellitus 2. Elevated troponin 3. HFrEF (heart failure with reduced ejection fraction) 4. Acute renal failure superimposed on stage 3 chronic kidney disease 5. UTI (urinary tract infection) 6. Gram negative sepsis 7. Acute and chronic respiratory failure with hypoxia 8. PNA (pneumonia) 9. Hyperkalemia Pain Ratin Tomorrow's Labs & Rationales: CBC (Anemia, monitor for leukocytosis in setting of UTI) ICU bundle (hyperkalemia, renal failure Plan DVT/Prophylaxis: pharmacological
[2016-10-26 08:00] VITALS: BP 118/58
--- NOTE | 2016-10-26 08:20 | RADIOLOGY REPORT ---
EXAMINATION: XR PORTABLE CHEST CLINICAL INFORMATION: Acute hypoxic respiratory failure. COMPARISON: Chest done on 10/24/2016. TECHNIQUE: Portable frontal view of the chest was obtained. FINDINGS: Mild hyperinflated lung field is present with persistent nonspecific airspace disease at right lower lobe, may represent infiltrate, atelectasis or combination thereof. The remainder of the lung chakraborty remain clear. The cardiac mediastinal silhouette is within normal limits. There is no evidence of any CHF identified. No pleural effusion seen. Overall, no significant change since prior study. IMPRESSION: No significant change since prior chest radiograph done on 10/24/2016.
--- NOTE | 2016-10-26 11:28 | PN- Cardiology ---
Subjective Subjective: Pulmonary status somewhat better. No current cardiac complaints. No chest pain. No palpitations. No syncope. Objective Vital Signs and I&Os Vital Signs Date Time Temp Pulse Resp B/P B/P Pulse O2 O2 Flow FiO2 Mean Ox Delivery Rate 10/26 0842 95 Nasal 80% Cannula 10/26 0832 80 20 118/58 10/26 0823 81 93 10/26 0559 77 95 10/26 0557 68 98 10/26 0400 91 BIPAP 90% 10/26 0327 76 94 10/26 0324 77 96 10/26 0011 71 89 10/26 0000 90 BIPAP 95% 10/26 0000 70 39 117/61 90 BIPAP 95% 10/25 2234 80 90 10/25 2203 87 130/63 10/25 1703 90 Nasal 95% Cannula 10/25 1600 88 Nasal 95% Cannula 10/25 1600 98.9 80 22 118/56 88 Nasal 95% Cannula 10/25 1452 BIPAP 90% 10/25 1200 90 Nasal 90% Cannula Intake & Output 10/26 1600 10/26 0800 10/26 0000 10/25 1600 10/25 0800 10/25 0000 Intake Total 100 400 720 180 60 Output Total 250 500 600 400 425 Balance -150 -100 120 -220 -365 Intake, Oral 100 400 720 180 60 Number 2 0 0 1 Bowel Movements Output, Urine 250 500 600 400 425 Physical Exam: Gen: NAD HEENT: normal Lungs: clear to auscultation, normal resp. effort Heart: RRR, S1, S2, no murmurs Abdomen: Soft, nontender, no masses Extremities: 1+ edema Neuro: Alert and oriented x 3, cranial nerves intact Current Medications: Current Medications Sig/Wei Start time Last Medication Dose Route Stop Time Status Admin Acetaminophen 650 MG Q6P PRN 10/20 0145 AC 10/21 PO 1839 Albuterol Sulfate 3 ML EVERY 4 HRS/AWAKE 10/20 0915 AC 10/26 INH 0820 Aspirin 81 MG DAILY 10/24 1000 AC 10/26 PO 0832 Cefuroxime Sodium 250 MG Q12 10/24 2199 AC 10/26 PO 1019 Guaifenesin 600 MG Q12 10/20 1000 AC 10/26 PO 0832 Insulin Aspart 0 TIDAC 10/20 0800 AC 10/23 SC 1247 Insulin Detemir 10 UNITS QPM 10/24 2199 AC 10/25 SC 2203 Levothyroxine Sodium 0.15 MG DAILY AC 10/20 07 AC 10/26 PO 0606 Melatonin 5 MG AT BEDTIME 10/24 2199 AC 10/25 PO 220 Metoprolol Tartrate 12.5 MG BID 10/24 1007 AC 10/26 PO 0832 Omeprazole 20 MG DAILY AC 10/25 07 AC 10/26 PO 0605 Sodium Bicarbonate 650 MG BID 10/25 2199 DC 10/26 PO 0832 Results Last 48 Hrs of Labs/Mics: Laboratory Tests 10/26/16 0327: Anion Gap 9, Estimated GFR 40 L, Glucose 112 H, Calcium 8.3 L, Phosphorus 3.7 , Magnesium 2.4 H, Total Bilirubin 0.9, AST 15, ALT 37, Albumin 2.8 L, CBC w Diff NO MAN DIFF REQ, RBC 2.65 L, MCV 104.8 H, MCH 34.3 H, RDW 21.2 H, MPV 9.9, Gran % 71.3, Lymphocytes % 12.6 L, Monocytes % 9.1, Eosinophils % 6.4 H, Basophils % 0.6, Absolute Granulocytes 4.6, Absolute Lymphocytes 0.8 L, Absolute Monocytes 0.6, Absolute Eosinophils 0.4, Absolute Basophils 0, PUBS MCHC 32.8 L 10/25/16 0910: pH 7.27 *L, pCO2 56 H, pO2 115 H, HCO3 25, ABG O2 Sat (Measured) 97.0, P-50 ( Temp Corrected) N, Carboxyhemoglobin 0.4 L, O2 Concentration % 90%, Respiration Rate 22, O2 Delivery Method BIPAP, Vent Mode ST, Expiratory Pressure 6, Inspiratory Pressure 18, Phlebotomy Draw Site RIGHT RADIAL 10/25/16 0520: Anion Gap 8, Estimated GFR 31 L, Glucose 106 H, Calcium 8.1 L, Phosphorus 4.4 , Magnesium 2.4 H, Total Bilirubin 0.9, AST 17, ALT 40, Albumin 2.7 L, CBC w Diff NO MAN DIFF REQ, RBC 2.74 L, MCV 105.4 H, MCH 34.1 H, RDW 20.5 H, MPV 9.6, Gran % 72.9, Lymphocytes % 11.0 L, Monocytes % 9.2, Eosinophils % 6.4 H, Basophils % 0.5, Absolute Granulocytes 5.0, Absolute Lymphocytes 0.8 L, Absolute Monocytes 0.6, Absolute Eosinophils 0.4, Absolute Basophils 0, PUBS MCHC 32.3 L 10/25/16 0005: pH 7.29 *L, pCO2 53 H, pO2 65 L, HCO3 25, ABG O2 Sat (Measured) 91.0 L, P-50 (Temp Corrected) Y, Carboxyhemoglobin 0.1 L, O2 Concentration % 90%, Temperature 97.9, Respiration Rate 22, O2 Delivery Method VISION-FFM, Vent Mode ST, Expiratory Pressure 6, Inspiratory Pressure 18, Phlebotomy Draw Site RIGHT RADIAL 10/24/16 1945: pH 7.28 *L, pCO2 53 H, pO2 100, HCO3 25, ABG O2 Sat (Measured) 97.2, Carboxyhemoglobin 0.3 L, O2 Concentration % 100%, O2 Delivery Method BIPAP, Phlebotomy Draw Site LEFT RADIAL 10/24/16 1636: pH 7.25 *L, pCO2 55 H, pO2 67 L, HCO3 24, ABG O2 Sat (Measured) 90.0 L, Carboxyhemoglobin 0.3 L, O2 Concentration % 100%, O2 Delivery Method BIPAP, Phlebotomy Draw Site LEFT RADIAL 10/24/16 1345: pH 7.23 *L, pCO2 61 *H, pO2 61 L, HCO3 25, ABG O2 Sat (Measured) 88.0 L, P-50 (Temp Corrected) N, Carboxyhemoglobin 0.2 L, O2 Concentration % 100%, O2 Delivery Method HFNC WITH 45L FLOW, Phlebotomy Draw Site LEFT RADIAL 10/24/16 1300: Urine Color YEL, Urine Clarity TURBD H, Urine pH 6.0, Ur Specific [place] 1.025 , Urine Protein 100 H, Urine Ketones NEG, Urine Nitrite NEG, Urine Bilirubin NEG, Urine Urobilinogen 0.2, Ur Leukocyte Esterase MOD H, Ur Microscopic SEDIMENT EXAMINED, Urine RBC PACKD H, Urine WBC PACKD H, Urine Bacteria PACKD H, Urine Hemoglobin LARGE H, Urine Glucose NEG Microbiology 10/24 1300 URINE ROUT: Urine Culture - COMP Recent Imaging Studies: Chest x-ray: No significant change since prior chest radiograph done on 10/24/2016. Assessment/Plan Assessment/Plan 1. Community-acquired pneumonia 2. Respiratory failure 3. Gram-negative sepsis 4. Mild troponin elevation, likely secondary to pneumonia and sepsis 5. Mild left ventricular systolic dysfunction 6. Short runs of nonsustained atrial tachycardia Plan: * Antibiotic therapy as per the medical service * Further workup for positive troponins once clinically stable * Continue metoprolol and aspirin Continue telemetry? Yes
--- NOTE | 2016-10-26 13:58 | PN- Pulmonary ---
Subjective HPI/Critical Care Issues: Ms. Gonsalesbox seen and examined at bedside this AM. She reports she feels slightly better and her respiratory status is improving. She used nocturnal BiPAP last night and tolerated it well. She currently denies fever, chills, chest pain, abdominal pain, nausea and vomiting. She reports her last BM was yesterday. 24 Hour Events: No overnight telemetry events. Vital signs: T 97.0-98.9, HR 66-100, RR 18-38, BP 109-135/46-69, O2 saturation 86-96% on High flow NC with BiPAP at night. Urine output l Objective Current Medications: Current Medications Sig/Wei Start time Last Medication Dose Route Stop Time Status Admin Acetaminophen 650 MG Q6P PRN 10/20 0145 AC 10/21 PO 1839 Albuterol Sulfate 3 ML EVERY 4 HRS/AWAKE 10/20 0915 AC 10/26 INH 1216 Aspirin 81 MG DAILY 10/24 1000 AC 10/26 PO 0832 Cefuroxime Sodium 250 MG Q12 10/24 2200 AC 10/26 PO 1019 Guaifenesin 600 MG Q12 10/20 1000 AC 10/26 PO 0832 Insulin Aspart 0 TIDAC 10/20 0800 AC 10/23 SC 1247 Insulin Detemir 10 UNITS QPM 10/24 2200 AC 10/25 SC 2203 Levothyroxine Sodium 0.15 MG DAILY AC 10/20 0700 AC 10/26 PO 0606 Melatonin 5 MG AT BEDTIME 10/24 2200 AC 10/25 PO 2203 Metoprolol Tartrate 12.5 MG BID 10/24 1007 AC 10/26 PO 0832 Omeprazole 20 MG DAILY AC 10/25 0700 AC 10/26 PO 0605 Sodium Bicarbonate 650 MG BID 10/25 2200 DC 10/26 PO 0832 Vital Signs & I&O Last 24 Hrs of Vitals and I&O: Vital Signs Date Time Temp Pulse Resp B/P B/P Pulse O2 O2 Flow FiO2 Mean Ox Delivery Rate 10/26 1145 92 Nasal 80% Cannula 10/26 0842 95 Nasal 80% Cannula 10/26 0832 80 20 118/58 10/26 0823 81 93 10/26 0559 77 95 10/26 0557 68 98 10/26 0400 91 BIPAP 90% 10/26 0327 76 94 10/26 0324 77 96 10/26 0011 71 89 10/26 0000 90 BIPAP 95% 10/26 0000 70 39 117/61 90 BIPAP 95% 10/25 2234 80 90 10/25 2203 87 130/63 10/25 1703 90 Nasal 95% Cannula 10/25 1600 88 Nasal 95% Cannula 10/25 1600 98.9 80 22 118/56 88 Nasal 95% Cannula 10/25 1452 BIPAP 90% Intake & Output 10/26 1600 10/26 0800 10/26 0000 Intake Total 100 400 Output Total 250 500 Balance -150 -100 Intake, Oral 100 400 Number 2 Bowel Movements Output, Urine 250 500 Impression/Plan Impression/Plan Impression/Plan: Chest showed crackles Heart S1-S2 was heard Abdominal exam silo tender painful Significant edema IMPRESSION This is a 76-year-old lady with chronic lung disease who is on oxygen at home and inhalers, reduced ejection fraction with the significant pulmonary hypertension, now has * Acute hypoxemic and hypercarbic respiratory failure appears to be related to combination of factors which includes combinational lung disease, significant COPD, reduced systolic function of the heart with mild fluid overload upon admission, sepsis of urological origin with probable early ARDS. 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
--- NOTE | 2016-10-26 14:14 | CT SCAN REPORT ---
EXAMINATION: CT ABDOMEN AND PELVIS WITHOUT CONTRAST CLINICAL INFORMATION: 76-year-old female with renal dysfunction. Suspected urolithiasis. COMPARISON: CT of the abdomen and pelvis done on 10/21/2016. TECHNIQUE: Multidetector volumetric imaging was performed from the superior aspect of the liver through the pubic symphysis. Sagittal and coronal reformatted images were obtained on the technologist's workstation. DLP: 839.20 mGy-cm FINDINGS: LUNG BASES: Bilateral small pleural effusions are noted (minimally increased on the right and new on the left), with underlying bibasilar compressive atelectatic changes. There is mild cardiomegaly present. LIVER, GALLBLADDER, AND BILIARY TREE: No discrete intrahepatic focal abnormality identified on this nonenhanced study. Postsurgical changes of prior cholecystectomy are noted. There is no intrahepatic or extrahepatic biliary ductal dilatation present. PANCREAS: 1.6 cm maximum dimension well-circumscribed hypodensity is noted, inseparable from the superior aspect of the distal part of the body of the pancreas, may represent an exophytic cyst, of uncertain etiology (see the yanez images). Follow-up MRI or CT scan, per pancreatic mass protocol may be considered, without and with intravenous contrast for further clarification, if clinically appropriate. The current evaluation is technically limited due to lack of contrast. SPLEEN: Unremarkable. ADRENAL GLANDS: Unremarkable. KIDNEYS AND URETERS: There is a punctate millimeter-sized radiodensity seen at the inferior anterior calyx of the right kidney consistent with a tiny nonobstructing calculus versus calcification. Subcentimeter likely hemorrhagic cyst is noted at the inferolateral cortex of the right kidney. Interval placement of a left-sided internal ureteric stent is noted with decompressed left renal collecting system. There is a 0.9 cm radiodensity seen within the inferior lateral calyx consistent with a nonobstructing calculus. A few other radiodensities are also noted measuring approximately 0.5 cm or smaller within the remainder of the calyxes consistent with nonobstructing calculi. The smaller calculi appear new since prior study. An exophytic stable left renal cortical cyst is noted at the inferior pole associated with mild peripheral rim calcifications, unchanged. BLADDER: Subtle apparent radiodensity is noted along the mid to inferior left lateral wall and adjacent part of the base of the urinary bladder. This is probably artifactual, from beam hardening artifact arising from the existing left hip prosthesis. Follow up direct visualization may be considered for further clarification, if clinically appropriate. Left-sided internal ureteric stent is noted, appears in good position between the left renal collecting system and the urinary bladder. GASTROINTESTINAL TRACT: Colonic diverticulosis-related changes are noted within the large bowel without any CT features of superimposed acute diverticulitis. The small bowel loops are decompressed. The stomach is decompressed. No significant change. The appendix is not visualized. ABDOMINAL WALL: Significant nonspecific subcutaneous edema pattern is noted predominately around the pelvis, otherwise unremarkable. LYMPH NODES: Normal. VASCULAR: Diffuse atherosclerotic changes are noted within the aorta and its branches, unchanged. PELVIC VISCERA: There is no pelvic mass present. There is no free fluid and/or free air present. OSSEOUS STRUCTURES: No suspicious lytic or sclerotic abnormality. IMPRESSION: 1. Bilateral small pleural effusions (minimally increased on the right, new on the left), with underlying bibasilar compressive atelectatic changes. 2. A 1.6 cm maximum dimension well-circumscribed hypodense, cystic abnormality is noted abutting the surface of the distal part of the body of the pancreas, may represent an exophytic cyst, of uncertain etiology. Evaluation is limited due to lack of contrast. Follow-up MRI or CT scan for pancreatic mass protocol may be considered without and with intravenous contrast for further clarification, if clinically appropriate. 3. Solitary punctate millimeter-sized radiodensity seen at the inferior anterior calyx of the right kidney consistent with a tiny nonobstructing calculus versus calcification. Subcentimeter likely hemorrhagic cyst along the inferolateral cortex of the right kidney. 4. Interval decompression of the left renal collecting system with interval placement of a left internal ureteric stent. There are multiple radiodensities identified within the left kidney consistent with nonobstructing renal calculi. 5. Subtle apparent radiodensities noted along the mid to inferior left lateral wall and adjacent part of the base of the urinary bladder, probably artifactual from beam hardening artifact arising from the existing left hip prosthesis. Follow-up direct visualization may be considered for further clarification, if clinically appropriate. The left internal ureteric stent is in good position. 6. Colonic diverticulosis without any CT features of superimposed acute diverticulitis. 7. Nonspecific subcutaneous edema pattern, appears slightly more pronounced since the prior study.
[2016-10-26 16:00] VITALS: BP 152/78
[2016-10-27] VITALS: BP 140/80
--- NOTE | 2016-10-27 00:20 | NUR ---
PT ALERT AND ORIENTED, DENIES PAIN AT THIS TIME.MANUAL CHARIS 140/80, NSR70'S. SATURATION 93% ON BIPAP AT 90% FIO2. LUNGS SOUND CLEAR.ABDOMEN SOFT, NORMOACTIVE BS. FERNÁNDEZ IN PLACE, ADEQUATE UO.
--- NOTE | 2016-10-27 04:13 | NUR ---
PT PLACES ON 100% NRB AT 0330, SATURATION 92-93%. EXERTIONAL SOB NOTED.
[2016-10-27 04:28] LABS: ABSOLUTE BASOPHIL COUNT 0.1 /CUMM (0.0-0.2); ABSOLUTE EOSINOPHIL COUNT 0.5 /CUMM (0.0-0.7); ABSOLUTE GRANULOCYTE CT 6.4 /CUMM (1.4-6.5); ABSOLUTE LYMPH COUNT 0.9 /CUMM (1.2-3.4); ABSOLUTE MONOCYTE COUNT 0.7 /CUMM (0.10-0.60); BASOPHIL % 0.7 % (0.0-2.0); EOSINOPHIL % 5.9 % (0-5); GRANULOCYTE % 74.1 % (42.2-75.2); HEMATOCRIT 28.5 % (37-47); MEAN CORPUSCULAR HGB 34.1 PG (27.0-31.0); MEAN CORPUSCULAR HGB CONC 32.6 G/DL (33.0-37.0); MEAN CORPUSCULAR VOLUME 104.6 FL (81.0-99.0); PLATELET COUNT 214 /CUMM (130-400); RBC DISTRIBUTION WIDTH 20.2 % (11.5-14.5); RED BLOOD CELL CT 2.72 /CUMM (4.20-5.40); WHITE BLOOD CELL COUNT 8.6 /CUMM (4.8-10.8)
--- NOTE | 2016-10-27 07:02 | PN- Resident CRCU ---
Subjective HPI/CRCU Issues: Ms. Bajwa seen and examined at bedside this AM. She is currently on a non- rebreather as she is not comfortably and refused high flow nasal cannula yesterday. She tolerated BiPAP during the night and her O2 saturations are holding above 88%. Patient admits to feeling weak/lethargic but otherwise denies fever, chills, chest pain, wheezing or abdominal pain. 24 Hour Events: Patient was noted to be tachypneic and slighty hypoxic yesterday afternoon at which time an ABG was done and showed normal pH to 7.37, pCO2 46, pO2 62, HCO3 26 and O2 sat 88% on 100% NRB. Vital signs over the last 24 hours: T 96.6-98.6, HR 68-93, RR 20-24, BP 119-156/54-92, O2 saturation 87-94% on NRB. Objective Vital Signs & I&O Last 8 Hrs of Vitals and I&O: T 96.6-98.6, HR 68-93, RR 20-24, BP 119-156/54-92, O2 saturation 87-94% on NRB. Exam General Appearance: well developed/nourished, no apparent distress, alert, awake , comfortable Head: atraumatic, normal appearance Ears, Nose, Throat: hearing grossly normal, moist mucus membranes Neck: normal inspection, supple Respiratory: chest non-tender, no respiratory distress, Decreased breath sound bilateral bases with occasional rhonchi Cardiovascular: regular rate/rhythm Gastrointestinal: normal bowel sounds, soft, non-tender Extremities: Bilateral lower extremity edema, improving Cranial Nerves: normal hearing, normal speech Skin: intact, warm/dry Skin Temp/Moisture Exam: Warm/Dry Nutrition Nutrition: P.O. diet Current Medications: Current Medications Sig/Wei Start time Last Medication Dose Route Stop Time Status Admin Acetaminophen 650 MG Q6P PRN 10/20 0145 AC 10/21 PO 1839 Albuterol Sulfate 3 ML EVERY 4 HRS/AWAKE 10/20 0915 AC 10/27 INH 0815 Aspirin 81 MG DAILY 10/24 1000 AC 10/26 PO 0832 Cefuroxime Sodium 250 MG Q12 10/24 2200 AC 10/26 PO 2112 Furosemide 20 MG ONCE ONE 10/26 1600 DC 10/26 IV 10/26 1601 1605 Guaifenesin 600 MG Q12 10/20 1000 AC 10/26 PO 2111 Insulin Aspart 0 TIDAC 10/20 0800 AC 10/26 SC 1758 Insulin Detemir 10 UNITS QPM 10/24 2199 AC 10/26 SC 211 Levothyroxine Sodium 0.15 MG DAILY AC 10/20 0700 AC 10/27 PO 06 Melatonin 5 MG AT BEDTIME 10/240 AC 10/26 PO 211 Metoprolol Tartrate 12.5 MG BID 10/24 1007 AC 10/26 PO 2111 Omeprazole 20 MG DAILY AC 10/25 0700 AC 10/27 PO 06 Sodium Bicarbonate 650 MG BID 10/25 2200 DC 10/26 PO 0832 CXR Findings: IMPRESSION: No significant change since prior chest radiograph done on 10/24/2016. CT Scan Findings: Abdomen/pelvis CT: IMPRESSION: 1. Bilateral small pleural effusions (minimally increased on the right, new on the left), with underlying bibasilar compressive atelectatic changes. 2. A 1.6 cm maximum dimension well-circumscribed hypodense, cystic abnormality is noted abutting the surface of the distal part of the body of the pancreas, may represent an exophytic cyst, of uncertain etiology. Evaluation is limited due to lack of contrast. Follow-up MRI or CT scan for pancreatic mass protocol may be considered without and with intravenous contrast for further clarification, if clinically appropriate. 3. Solitary punctate millimeter-sized radiodensity seen at the inferior anterior calyx of the right kidney consistent with a tiny nonobstructing calculus versus calcification. Subcentimeter likely hemorrhagic cyst along the inferolateral cortex of the right kidney. 4. Interval decompression of the left renal collecting system with interval placement of a left internal ureteric stent. There are multiple radiodensities identified within the left kidney consistent with nonobstructing renal calculi. 5. Subtle apparent radiodensities noted along the mid to inferior left lateral wall and adjacent part of the base of the urinary bladder, probably artifactual from beam hardening artifact arising from the existing left hip prosthesis. Follow-up direct visualization may be considered for further clarification, if clinically appropriate. The left internal ureteric stent is in good position. 6. Colonic diverticulosis without any CT features of superimposed acute diverticulitis. 7. Nonspecific subcutaneous edema pattern, appears slightly more pronounced since the prior study. Impression/Plan Impression/Problem List Impression: Ms. Bajwa is a pleasant 76 year old female with PMH hypertension, hyperlipidemia, COPD on 5 L continuous NC, type 2 diabetes mellitus on insulin, hypothyroidism, stage III B chronic kidney disease, combined systolic and diastolic heart failure, severe pulmonary hypertension, history of kidney stones in the past who presented to the [place] ED with shortness of breath on exertion , chills, decreased oral intake, cough minimally productive of sputum and nausea for one day. Patient was admitted to telemetry initally, has received treatment for possible pneumonia and UTI, and was tranferred to the ICU due to decreased oxygen saturation to 85% requiring high flow oxygen and for closer monitoring. Below is the problem list and plan: Respiratory: 1. Acute on chronic hypoxic and hypercarbic respiratory failure * Likely 2/2 combination of COPD, heart failure and sepsis of urological origin * Treated for possible pneumonia with ceftriaxone and doxycycline (allergic to azithromycin) on admission -met criteria for sepsis on admission with possible pulmonary source acording to CXR, required high flow O2 through NC * V/Q scan today, follow up results * Continue Mucinex BID * Continue scheduled albuterol, TRC/Nebs * Follow up repeat CXR Q48 hours or if clinically indicated (CXR from today shows no significant interval change) * Continue high flow nasal cannula and BiPAP PRN and at night * IV lasix 40 mg once today for fluid overload ID 1. Gram-negative sepsis with pansensitive Escherichia coli due to obstructive uropathy and evidence of an 8 mm stone causing hydronephrosis. * Urinanalysis suggesting UTI and blood culture came back positive for gram negative rods (pansensitive ecoli) * Initial CT of [place] and pelvis showed obstructing 8 x 8 mm left ureter stone causing moderate to severe hydroureteronephrosis and left perinephric stranding. * Patient had left ureteral stent placed, tolerated procedure well, will continue follow uro rec's * Continue PO ceftin 250 mg PO Q12 (dosed Q12 as instructed by Dr. Blanco MD) for UTI (day #4) * F/U repeat UA/UCx * Repeat CT scan yesterday showed interval decompression of left renal collecting system with multiple nonobstructing renal calculi Cardiac 1. Elevated troponins * Elevated troponins in setting of acute hypoxic respiratory failure likely represent demand ischemia, no chest pain reported, have since trended down. * Echo shows EF 40-45%, mild global hypokinesis, right ventricular systolic pressure estimated at 47 mmHg. * Cardiology is following and will continue to follow recs * Continue ASA 81 mg PO daily and lopressor 12.5 mg PO BID as patient had 2 episodes of ventricular tachycardia in the last 24 hours and noted systolic/ diastolic HF 2. Combined systolic and diastolic CHF * Lasix as needed for fluid overload * Monitor renal function with continued lasix use Heme 1. Chronic macrocytic anemia * Likely 2/2 CKD * Folate within normal limits and B12 is elevated * Patient with Guiac (+) stool, no pharm dvtp * Follow up daily CBC Metabolic 1. EVANS on CKD * Possibly secondary to initial sepsis with superimposed hydronephrosis * Improving, BUN/cre today of 64/1.1 * Avoid nephrotoxins * Continue to hold ramipril * ICU bundle daily to monitor BUN/cre 2. Hyperkalemia * Likely secondary to acute on chronic kidney injury * Normalized to 5.1 today * Follow up repeat labs in AM 3. Diabetes mellitus * Accuchecks TIDACHS * NSS (low dose sliding scale) * Levemir 10 U SC QPM 4. Hypothyroidism * Continue synthroid 0.15 mg PO daily AC Other 1. Cystic abnormality abutting distal body of pancreas * Follow up CT scan with pancreatic mass protocol once patient more stable or close follow up after discharge FULL CODE DVTP: ALPS CC2 diet Mild pain pathway Problem List: 1. Insulin dependent type 2 diabetes mellitus 2. Elevated troponin 3. HFrEF (heart failure with reduced ejection fraction) 4. Acute renal failure superimposed on stage 3 chronic kidney disease 5. UTI (urinary tract infection) 6. Gram negative sepsis 7. Acute and chronic respiratory failure with hypoxia 8. PNA (pneumonia) 9. Hyperkalemia Pain Ratin Tomorrow's Labs & Rationales: CBC (monitor for leukocytosis in setting of urosepsis) ICU bundle (EVANS on CKD) Plan DVT/Prophylaxis: pharmacological
[2016-10-27 08:00] VITALS: BP 142/74
--- NOTE | 2016-10-27 09:32 | PN- Pulmonary ---
Subjective HPI/Critical Care Issues: Doing about the same fatigued Persistant hypoxia CT abd noted Objective Current Medications: Current Medications Sig/Wei Start time Last Medication Dose Route Stop Time Status Admin Acetaminophen 650 MG Q6P PRN 10/20 0145 AC 10/21 PO 1839 Albuterol Sulfate 3 ML EVERY 4 HRS/AWAKE 10/20 0915 AC 10/27 INH 0815 Aspirin 81 MG DAILY 10/24 1000 AC 10/26 PO 0832 Cefuroxime Sodium 250 MG Q12 10/24 2200 AC 10/26 PO 211 Furosemide 20 MG ONCE ONE 10/26 1600 DC 10/26 IV 10/26 1601 1605 Guaifenesin 600 MG Q12 10/20 1000 AC 10/26 PO 211 Insulin Aspart 0 TIDAC 10/20 0800 AC 10/26 SC 175 Insulin Detemir 10 UNITS QPM 10/24 2200 AC 10/26 SC 211 Levothyroxine Sodium 0.15 MG DAILY AC 10/20 0700 AC 10/27 PO 0604 Melatonin 5 MG AT BEDTIME 10/24 2200 AC 10/26 PO 211 Metoprolol Tartrate 12.5 MG BID 10/24 1007 AC 10/26 PO 2112 Omeprazole 20 MG DAILY AC 10/25 0700 AC 10/27 PO 0604 Sodium Bicarbonate 650 MG BID 10/25 220 DC 10/26 PO 0832 Vital Signs & I&O Last 24 Hrs of Vitals and I&O: Vital Signs Date Time Temp Pulse Resp B/P B/P Pulse O2 O2 Flow FiO2 Mean Ox Delivery Rate 10/27 0815 88 Non 100% ReBreather 10/27 0400 93 Non 100% ReBreather 10/27 0323 76 97 10/27 0321 75 98 10/27 0047 80 94 10/27 0044 83 97 10/27 0000 93 BIPAP 90% 10/27 0000 96.6 75 20 140/80 93 BIPAP 90% 10/26 2200 82 92 10/27 2111 90 141/63 10/26 2000 90 Non 100% ReBreather 10/27 1999 93 Non 100% ReBreather 10/26 1600 87 Non 100% ReBreather 10/26 1600 98.6 88 22 152/78 86 Non 100% ReBreather 10/26 1435 92 Nasal 80% Cannula 10/26 1145 92 Nasal 80% Cannula Intake & Output 10/27 1600 10/27 0800 05/12 0000 Intake Total 100 492 Output Total 650 1750 Balance -550 -4797 Intake, IV 12 Intake, Oral 100 480 Output, Urine 650 1750 Impression/Plan Impression/Plan Impression/Plan: Chest showed crackles Heart S1-S2 was heard Abdominal exam hydrogenation still operator painful Significant edema IMPRESSION This is a 76-year-old lady with chronic lung disease who is on oxygen at home and inhalers, reduced ejection fraction with the significant pulmonary hypertension, now has * Acute hypoxemic and hypercarbic respiratory failure appears to be related to combination of factors which includes combinational lung disease, significant COPD, reduced systolic function of the heart with mild fluid overload upon admission, sepsis of urological origin with probable early ARDS. 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
[2016-10-27 12:00] VITALS: BP 140/70
--- NOTE | 2016-10-27 15:00 | NUR ---
TO VQ SCAN NUC MED AT 1330 VIA STRETCHER ON MONITOR, NSR IN 80'S, ON 100% NRB MASK. PATIENT ALERT ORIENTED X3. DESAT'D 82% ON NRB, RESPIRATORY BROUGHT DOWN HIGH FLOW OXYGEN, 100%, PATIENT INCREASED O2 SATURATION TO 92%. PATIENT TOLERATED TEST WELL. RETURNED TO ROOM AT 1500. PLACED ON HIGH FLOW 100%. PATIENT ALERT ORIENTED X3. NO COMPLAINTS. CALL FOSTER IN REACH.
--- NOTE | 2016-10-27 15:08 | NUCLEAR MEDICINE REPORT ---
EXAMINATION: NM LUNG SCAN V/Q CLINICAL INFORMATION: Hypoxia. COMPARISON: Chest x-ray most recent prior dated 10/26/2016 TECHNIQUE: Ventilation images obtained using 15 mCi xenon-133. Images obtained in the posterior projection during first breath, equilibrium and washout. Perfusion images obtained following intravenous administration of 4.3 mCi technetium 99m MAA. Images obtained in multiple projections. FINDINGS: Perfusion: There is no scintigraphic evidence of segmental or subsegmental perfusion defect. Mildly heterogeneous perfusion with slightly increased perfusion noted in the lung bases, left slightly greater than right. No suspicious defects. Ventilation: No focal defects. Fairly homogeneous ventilation on equilibrium images. There is retention of radiotracer within the left upper lobe on washout images. Recent chest x-ray demonstrates mildly hyperinflated left lung. IMPRESSION: 1. Very low probability for acute PE. 2. Retention of radiotracer on washout ventilation images consistent with underlying COPD.
[2016-10-27 16:00] VITALS: BP 124/70
[2016-10-28] VITALS: BP 126/61
[2016-10-28 05:19] LABS: ABSOLUTE BASOPHIL COUNT 0 /CUMM (0.0-0.2); ABSOLUTE EOSINOPHIL COUNT 0.6 /CUMM (0.0-0.7); ABSOLUTE LYMPH COUNT 1.1 /CUMM (1.2-3.4); ABSOLUTE MONOCYTE COUNT 0.6 /CUMM (0.10-0.60); BASOPHIL % 0.4 % (0.0-2.0); EOSINOPHIL % 5.4 % (0-5); GRANULOCYTE % 77.8 % (42.2-75.2); HEMATOCRIT 30.3 % (37-47); MEAN CORPUSCULAR HGB 33.8 PG (27.0-31.0); MEAN CORPUSCULAR HGB CONC 32.2 G/DL (33.0-37.0); MEAN CORPUSCULAR VOLUME 104.9 FL (81.0-99.0); MEAN PLATELET VOLUME 10.3 FL (7.4-10.4); PLATELET COUNT 234 /CUMM (130-400); RBC DISTRIBUTION WIDTH 20.1 % (11.5-14.5); RED BLOOD CELL CT 2.89 /CUMM (4.20-5.40); WHITE BLOOD CELL COUNT 10.3 /CUMM (4.8-10.8)
--- NOTE | 2016-10-28 07:10 | PN- Resident CRCU ---
Subjective HPI/CRCU Issues: Ms. Bajwa was seen and examined this morning. She is resting comfortably in bed. She continues to be on BiPAP overnight. States occasional discomfort with mask. She is alert and oriented 3. She is currently comfortable and endorses no issues. Patient denies any fever, chills, nausea, vomiting. 24 Hour Events: Patient went for a VQ scan yesterday which showed very low probability of an acute PE. Objective Vital Signs & I&O Last 8 Hrs of Vitals and I&O: Intake & Output 10/28 1600 Intake Total 744 Output Total 1250 Balance -506 Intake, IV 24 Intake, Oral 720 Output, Urine 1250 Exam General Appearance: well developed/nourished, no apparent distress, alert, awake Head: atraumatic, On BiPap Respiratory: rhonchi Cardiovascular: regular rate/rhythm Gastrointestinal: normal bowel sounds, soft, non-tender Extremities: normal inspection, no edema Cranial Nerves: normal hearing, normal speech Skin: intact, normal color Current Medications: Current Medications Sig/Wei Start time Last Medication Dose Route Stop Time Status Admin Acetaminophen 650 MG Q6P PRN 10/20 0145 AC 10/21 PO 1839 Albuterol Sulfate 3 ML EVERY 4 HRS/AWAKE 10/20 0915 AC 10/28 INH 0815 Aspirin 81 MG DAILY 10/24 1000 AC 10/28 PO 0956 Cefuroxime Sodium 250 MG Q12 10/24 2200 AC 10/28 PO 0956 Furosemide 40 MG ONCE ONE 10/28 0800 DC 10/28 IV 10/28 0801 0811 Guaifenesin 600 MG Q12 10/20 1000 AC 10/28 PO 0956 Insulin Aspart 0 TIDAC 10/20 0800 AC 10/28 SC 1158 Insulin Detemir 10 UNITS QPM 10/24 2200 AC 10/27 SC 2121 Levothyroxine Sodium 0.15 MG DAILY AC 10/20 0700 AC 10/28 PO 0603 Melatonin 5 MG AT BEDTIME 10/24 2200 AC 10/27 PO 2121 Metoprolol Tartrate 12.5 MG BID 10/24 1007 AC 10/28 PO 0956 Omeprazole 20 MG DAILY AC 10/25 0700 AC 10/28 PO 0602 Miscellaneous Findings: SERVICE DATE: 10/27/16- EXAM TYPE: NUC - LUNG SCAN (V/Q) IMPRESSION: 1. Very low probability for acute PE. 2. Retention of radiotracer on washout ventilation images consistent with underlying COPD. DICTATED BY: DAVID JOHNSON MD Impression/Plan Impression/Problem List Impression: Ms. Bajwa is a pleasant 76 year old female with PMH hypertension, hyperlipidemia, COPD on 5 L continuous NC, type 2 diabetes mellitus on insulin, hypothyroidism, stage III B chronic kidney disease, combined systolic and diastolic heart failure, severe pulmonary hypertension, history of kidney stones in the past who presented to the [facility] ED with shortness of breath on exertion , chills, decreased oral intake, cough minimally productive of sputum and nausea for one day. Patient was admitted to telemetry initally, has received treatment for possible pneumonia and UTI, and was tranferred to the ICU due to decreased oxygen saturation to 85% requiring high flow oxygen and for closer monitoring. Below is the problem list and plan: Respiratory: 1. Acute on chronic hypoxic and hypercarbic respiratory failure * Likely 2/2 combination of COPD, heart failure and sepsis of urological origin * Treated for possible pneumonia with ceftriaxone and doxycycline (allergic to azithromycin) on admission -met criteria for sepsis on admission with possible pulmonary source acording to CXR, required high flow O2 through NC * Continue Mucinex BID * Continue scheduled albuterol, TRC/Nebs * Follow up repeat CXR Q48 hours or if clinically indicated (CXR from today shows no significant interval change) * Continue high flow nasal cannula and BiPAP PRN and at night * IV lasix 40 mg once today. ID 1. Gram-negative sepsis with pansensitive Escherichia coli due to obstructive uropathy and evidence of an 8 mm stone causing hydronephrosis. * Urinanalysis suggesting UTI and blood culture came back positive for gram negative rods (pansensitive ecoli) * Initial CT of [place] and pelvis showed obstructing 8 x 8 mm left ureter stone causing moderate to severe hydroureteronephrosis and left perinephric stranding. * Patient had left ureteral stent placed, tolerated procedure well, will continue follow uro rec's * Continue PO ceftin 250 mg PO Q12 (dosed Q12 as instructed by Dr. Blanco MD) for UTI (day #5) * F/U repeat UA/UCx * Repeat CT scan showed interval decompression of left renal collecting system with multiple nonobstructing renal calculi Cardiac 1. Elevated troponins * Elevated troponins in setting of acute hypoxic respiratory failure likely represent demand ischemia, no chest pain reported, have since trended down. * Echo shows EF 40-45%, mild global hypokinesis, right ventricular systolic pressure estimated at 47 mmHg. * Cardiology is following and will continue to follow recs * Continue ASA 81 mg PO daily and lopressor 12.5 mg PO BID. 2. Combined systolic and diastolic CHF * Lasix as needed for fluid overload, IV 40mg administered at 10/28/2016. * Monitor renal function with continued lasix use Heme 1. Chronic macrocytic anemia * Likely 2/2 CKD * Folate within normal limits and B12 is elevated * Patient with Guiac (+) stool, no pharm dvtp * Follow up daily CBC Metabolic 1. EVANS on CKD * Possibly secondary to initial sepsis with superimposed hydronephrosis * Improving, BUN/cre today of 59/1.0 * Avoid nephrotoxins * Continue to hold ramipril * ICU bundle daily to monitor BUN/cre 2. Hyperkalemia * Likely secondary to acute on chronic kidney injury * Normalized to 5.0 today * Follow up repeat labs in AM 3. Diabetes mellitus * Accuchecks TIDACHS * NSS (low dose sliding scale) * Levemir 10 U SC QPM 4. Hypothyroidism * Continue synthroid 0.15 mg PO daily AC Other 1. Cystic abnormality abutting distal body of pancreas * Follow up CT scan with pancreatic mass protocol once patient more stable or close follow up after discharge * Patient today did express a hopeless picture owing to the fact that she feels that she is not getting better. She considered potentially cessation of all interventions. Her nephew was at bedside. We asked the patient to reconsider and Mrs. Bajwa said she would continue with current regiment in the hope that she does improve. We'll continue to monitor. FULL CODE DVTP: ALPS CC2 diet Mild pain pathway Problem List: 1. Insulin dependent type 2 diabetes mellitus 2. Elevated troponin 3. HFrEF (heart failure with reduced ejection fraction) 4. Acute renal failure superimposed on stage 3 chronic kidney disease 5. UTI (urinary tract infection) 6. Gram negative sepsis 7. Acute and chronic respiratory failure with hypoxia 8. PNA (pneumonia) 9. Hyperkalemia Pain Ratin Tomorrow's Labs & Rationales: CBC ICU Bundle Plan DVT/Prophylaxis: pharmacological
[2016-10-28 08:00] VITALS: BP 150/78
--- NOTE | 2016-10-28 13:08 | RADIOLOGY REPORT ---
EXAMINATION: XR PORTABLE CHEST CLINICAL INFORMATION: Hypoxia on high flow nasal cannula oxygen. Effusion. COMPARISON: CXR from 10/26/[address] from 10/26/2016. TECHNIQUE: Portable AP view of the chest was obtained. FINDINGS: Lungs are hyperexpanded and mid and upper lung zones are relatively lucent from emphysematous disease. The costophrenic sulci are slightly blunted from small pleural effusions. The hazy opacity at the right lung base likely represents a combination of the small effusion and basilar atelectasis. There is no overt pulmonary consolidation. Cardiac silhouette is mildly enlarged and central pulmonary vessels remain prominent. However, there is no acute interstitial pulmonary edema. Thoracic aorta is calcified. Bones appear diffusely osteopenic. IMPRESSION: 1. Pulmonary emphysema. 2. Small pleural effusions remain similar in size compared to the abdomen CT of 10/26/2016. 3. Cardiomegaly without acute pulmonary edema.
--- NOTE | 2016-10-28 13:47 | PN- CRCU ---
Subjective HPI/Critical Care Issues: The patient is awake and alert. She continues to have significant oxygen requirements. She remains on high flow oxygen. There were no overnight events. Objective Current Medications: Current Medications Sig/Wei Start time Last Medication Dose Route Stop Time Status Admin Acetaminophen 650 MG Q6P PRN 10/20 0145 AC 10/21 PO 1839 Albuterol Sulfate 3 ML EVERY 4 HRS/AWAKE 10/20 0915 AC 10/28 INH 1241 Aspirin 81 MG DAILY 10/24 1000 AC 10/28 PO 0956 Cefuroxime Sodium 250 MG Q12 10/24 2200 AC 10/28 PO 0956 Furosemide 40 MG ONCE ONE 10/28 0800 DC 10/28 IV 10/28 0801 0811 Guaifenesin 600 MG Q12 10/20 1000 AC 10/28 PO 0956 Insulin Aspart 0 TIDAC 10/20 0800 AC 10/28 SC 1158 Insulin Detemir 10 UNITS QPM 10/24 2200 AC 10/27 SC 2121 Levothyroxine Sodium 0.15 MG DAILY AC 10/20 0700 AC 10/28 PO 0603 Melatonin 5 MG AT BEDTIME 10/24 2200 AC 10/27 PO 2121 Metoprolol Tartrate 12.5 MG BID 10/24 1007 AC 10/28 PO 0956 Omeprazole 20 MG DAILY AC 10/25 0700 AC 10/28 PO 0602 Vital Signs & I&O Last 24 Hrs of Vitals and I&O: Vital Signs Date Time Temp Pulse Resp B/P B/P Pulse O2 O2 Flow FiO2 Mean Ox Delivery Rate 10/28 1200 Nasal 100% Cannula 10/28 0956 97 137/57 10/28 0815 96 Nasal 100% Cannula 10/28 0809 74 100 10/28 0800 BIPAP 85% 10/28 0800 97.5 88 22 150/78 99 BIPAP 85% 10/28 0523 86 95 10/28 0400 99 BIPAP 85% 10/28 0258 73 94 10/28 0048 76 97 10/28 0000 97.5 73 23 126/61 97 BIPAP 85% 10/28 0000 97 BIPAP 85% 10/27 2219 83 90 10/27 2121 88 134/70 10/27 2000 92 Nasal 100% Cannula 10/27 1652 90 Nasal 100% Cannula 10/27 1600 92 Nasal 100% Cannula 10/27 1600 98.0 83 21 124/70 92 Nasal 100% Cannula Intake & Output 10/28 1600 10/28 0800 10/28 0000 Intake Total 220 630 Output Total 600 650 Balance -380 -20 Intake, Oral 220 630 Output, Urine 600 650 Exam General Appearance: no apparent distress, awake, comfortable, obese Head: atraumatic, normal appearance Ears, Nose, Throat: normal ENT inspection Neck: normal inspection, supple Respiratory: decreased air movement, scattered crackles Cardiovascular: regular rate/rhythm Gastrointestinal: normal bowel sounds, soft, non-tender Extremities: Bilateral lower extremity edema Skin: normal color, warm/dry Skin Temp/Moisture Exam: Warm/Dry Results Last 24 Hrs of Lab Results: Laboratory Tests 10/28/16 0425: Anion Gap 9, Estimated GFR 54 L, Glucose 103 H, Calcium 8.6, Phosphorus 3.4, Magnesium 2.0, Total Bilirubin 0.9, AST 13 L, ALT 36, Albumin 2.9 L, CBC w Diff NO MAN DIFF REQ, RBC 2.89 L, MCV 104.9 H, MCH 33.8 H, RDW 20.1 H, MPV 10.3, Gran % 77.8 H, Lymphocytes % 10.3 L, Monocytes % 6.1, Eosinophils % 5.4 H, Basophils % 0.4, Absolute Granulocytes 8.0 H, Absolute Lymphocytes 1.1 L, Absolute Monocytes 0.6, Absolute Eosinophils 0.6, Absolute Basophils 0, PUBS MCHC 32.2 L Diagnostic Data CXR Findings: 1. Pulmonary emphysema. 2. Small pleural effusions remain similar in size compared to the abdomen CT of 10/26/2016. 3. Cardiomegaly without acute pulmonary edema. Impression/Plan Impression/Plan Impression/Plan: 1. Acute hypoxemic and hypercarbic respiratory failure secondary to multiple factors including chronic lung disease, severe COPD, reduced systolic function with fluid overload, and early ARDS. VQ scan shows low probability for PE. 2. Sepsis of urologic origin, blood cultures positive for Escherichia coli. 3. Chronic kidney disease with acute kidney injury, slowly improving. 4. Chronic anemia with thrombocytopenia due to sepsis. 5. Mild dysplasia with MGUS and splenomegaly. 6. Previous mediastinal lymphadenopathy which needs follow-up. 7. Elevated troponin. 8. Hypothyroidism. Recommendations: * Continue BiPAP, wean oxygen down for saturations greater than 92% rest. * Continue cefuroxime. * Continue to follow sugars, sliding scale insulin. * Give 1 additional dose of IV Lasix today, 40 mg. * Out of bed to chair, increase activity. * Incentive spirometry. * Continue nebs/total respiratory care. * Continue low-dose Lopressor. * Continue all supportive care. * Continue to monitor in the critical care unit.
[2016-10-28 16:00] VITALS: BP 132/64
--- NOTE | 2016-10-28 17:34 | NUR ---
@1600-THIS RN TOOK OVER CARE OF PT. PT ALERT AND ORIENTED X 3. FOLLOWS COMMANDS. ASSISTED PT BACK TO BED AT THIS TIME FROM CHAIR AND PT NOTED TO BECOME EXERT SOB, O2SAT 77%. PT RECOVERED TO 92% WITH [id number] AWARE. CONT ON HIFLO O2 100%. LUNGS DIM BS TO BASES. NONPROD COUGH. NEBS PER RT. NSR HR 80S. BP STABLE. DINNER TRAY PROVIDED, KUSH WELL. ACCUCHECK 102. NO COVERAGE PER SS. VOIDS IN BEDPAN APPROPRIATELY. SKIN INTACT, ALPS IN PLACE. GEL DSG NOTED TO BRIDGE OF NOSE FOR WHEN PLACED ON BIPAP-SKIN INTACT. CONT TO MONITOR CLOSELY. CALL FOSTER WITHIN REACH.
--- NOTE | 2016-10-28 23:15 | NUR ---
PT C/O LACK OF ENERGY. DOES GET GARDNER ON 100% NC. ENCOURAGEMENT GIVEN, A/O X 3 BOWEN COOPERATIVE WITH CARE.
[2016-10-29] VITALS: BP 118/53
[2016-10-29 05:37] LABS: ABSOLUTE BASOPHIL COUNT 0.1 /CUMM (0.0-0.2); ABSOLUTE EOSINOPHIL COUNT 0.5 /CUMM (0.0-0.7); ABSOLUTE GRANULOCYTE CT 9.1 /CUMM (1.4-6.5); ABSOLUTE LYMPH COUNT 0.7 /CUMM (1.2-3.4); ABSOLUTE MONOCYTE COUNT 0.8 /CUMM (0.10-0.60); BASOPHIL % 0.5 % (0.0-2.0); EOSINOPHIL % 4.6 % (0-5); GRANULOCYTE % 81.2 % (42.2-75.2); HEMATOCRIT 28.3 % (37-47); MEAN CORPUSCULAR HGB 33.6 PG (27.0-31.0); MEAN CORPUSCULAR HGB CONC 31.9 G/DL (33.0-37.0); MEAN CORPUSCULAR VOLUME 105.2 FL (81.0-99.0); MEAN PLATELET VOLUME 9.9 FL (7.4-10.4); RBC DISTRIBUTION WIDTH 20.4 % (11.5-14.5); RED BLOOD CELL CT 2.69 /CUMM (4.20-5.40); WHITE BLOOD CELL COUNT 11.2 /CUMM (4.8-10.8)
[2016-10-29 06:12] LABS: PLATELET COUNT 252 /CUMM (130-400)
[2016-10-29 08:00] VITALS: BP 122/70
--- NOTE | 2016-10-29 09:42 | NUR ---
@0800-PT AWAKE, ALERT. FOLLWS COMMANDS. DENIES PAIN AT THIS TIME. C/O SOB AT REST. CONT ON HIFLO O2 100%. O2SAT 88-90%. LABORED BREATHING NOTED. NEBS ADMINISTERED PER RT AT THSI TIME. NSR HR 80S. BP STABLE. MIN INTAKE ON BREAKFAST-TRAY HELD DUE TO POTENTIAL INTUBATION THIS AM. DR. PICHARDO AT BEDSIDE DISCUSSING OPTIONS DUE TO RESP DISTRESS. PT WOULD LIKE TO DISCUSS OPTIONS WITH HER FAMILY. KEEP PT NPO FOR NOW. SKIN INTACT. ALPS IN PLACE. GEL PAD NOTED TO BRIDGE OF NOSE DUE TO REDNESS FROM BIPAP MASK. ACCUCHECK 123-NO COVERAGE PER SS AT THIS TIME. @0900-FAMILY AT BEDSIDE AND UPDATED BY DR PICHARDO. PT WOULD LIKE TO WAIT FOR HER BROTHER TO ARRIVE AND WILL THEN MAKE DECISION REGARDING INTUBATION. PT PLACED ON BIPAP AT THIS TIME BY RT. RR 28, FIO2 90%, IPAP 18/EPAP 6. CONT TO MONITOR CLOSELY. CALL FOSTER WITHIN REACH.
--- NOTE | 2016-10-29 09:46 | PN- CRCU ---
Subjective HPI/Critical Care Issues: The patient is awake and alert. She appears in significant respiratory distress , noting she is using her accessory muscles for respiration. She remains on 100 %. Anytime the patient is moved, she desaturates down into the low 80s. She reports feeling significantly dyspneic at rest. Objective Current Medications: Current Medications Sig/Wei Start time Last Medication Dose Route Stop Time Status Admin Acetaminophen 650 MG Q6P PRN 10/20 0145 AC 10/21 PO 1839 Albuterol Sulfate 3 ML EVERY 4 HRS/AWAKE 10/20 0915 AC 10/29 INH 0801 Aspirin 81 MG DAILY 10/24 1000 AC 10/28 PO 0956 Cefuroxime Sodium 250 MG Q12 10/24 2200 DC 10/28 PO 2141 Guaifenesin 600 MG Q12 10/20 1000 AC 10/28 PO 2140 Insulin Aspart 0 TIDAC 10/20 0800 AC 10/28 SC 1158 Insulin Detemir 10 UNITS QPM 10/24 2200 AC 10/28 SC 2137 Levothyroxine Sodium 0.15 MG DAILY AC 10/20 0700 AC 10/29 PO 0549 Magnesium Oxide 400 MG ONE ONE 10/29 0745 DC PO 10/29 0746 Melatonin 5 MG AT BEDTIME 10/24 2200 AC 10/28 PO 2140 Metoprolol Tartrate 12.5 MG BID 10/24 1007 AC 10/28 PO 2141 Omeprazole 20 MG DAILY AC 10/25 0700 AC 10/29 PO 0549 Vital Signs & I&O Last 24 Hrs of Vitals and I&O: Vital Signs Date Time Temp Pulse Resp B/P B/P Pulse O2 O2 Flow FiO2 Mean Ox Delivery Rate 10/29 0818 92 Nasal 100% Cannula 10/29 0800 97.9 82 20 122/70 92 Nasal 100% Cannula 10/29 0800 92 Nasal 100% Cannula 10/29 0549 76 98 10/29 0412 94 BIPAP 90% 10/29 0327 72 92 10/29 0035 78 93 10/29 0000 96 BIPAP 85% 10/29 0000 98.0 86 22 118/53 96 Nasal 85% Cannula 10/28 2202 87 92 10/28 2141 92 121/73 10/28 2000 98 Nasal 100% Cannula 10/28 1613 93 Nasal 100% Cannula 10/28 1600 94 Nasal 100% Cannula 10/28 1600 97.8 90 26 132/64 95 Nasal 100% Cannula 10/28 1200 Nasal 100% Cannula 10/28 0956 97 137/57 Intake & Output 10/29 1600 10/29 0800 10/29 0000 Intake Total 200 340 Output Total 400 600 Balance -200 -260 Intake, Oral 200 340 Output, Urine 400 600 Exam General Appearance: no apparent distress, awake, comfortable, obese Head: atraumatic, normal appearance Ears, Nose, Throat: normal ENT inspection Neck: normal inspection, supple Respiratory: decreased air movement, scattered crackles Cardiovascular: regular rate/rhythm Gastrointestinal: normal bowel sounds, soft, non-tender Extremities: Bilateral lower extremity edema Skin: normal color, warm/dry Skin Temp/Moisture Exam: Warm/Dry Results Last 24 Hrs of Lab Results: Laboratory Tests 10/29/16 0520: Anion Gap 9, Estimated GFR 54 L, Glucose 126 H, Calcium 8.7, Phosphorus 3.2, Magnesium 1.9, Total Bilirubin 1.0, AST 11 L, ALT 28, Albumin 2.7 L, CBC w Diff NO MAN DIFF REQ, RBC 2.69 L, MCV 105.2 H, MCH 33.6 H, RDW 20.4 H, MPV 9.9, Gran % 81.2 H, Lymphocytes % 6.6 L, Monocytes % 7.1, Eosinophils % 4.6, Basophils % 0.5, Absolute Granulocytes 9.1 H, Absolute Lymphocytes 0.7 L, Absolute Monocytes 0.8 H, Absolute Eosinophils 0.5, Absolute Basophils 0.1, PUBS MCHC 31.9 L Impression/Plan Impression/Plan Impression/Plan: 1. Acute hypoxemic and hypercarbic respiratory failure secondary to multiple factors including chronic lung disease, severe COPD, reduced systolic function with fluid overload, and early ARDS. VQ scan shows low probability for PE. 2. Sepsis of urologic origin, blood cultures positive for Escherichia coli. 3. Chronic kidney disease with acute kidney injury, slowly improving. 4. Chronic anemia with thrombocytopenia due to sepsis. 5. Mild dysplasia with MGUS and splenomegaly. 6. Previous mediastinal lymphadenopathy which needs follow-up. 7. Elevated troponin. 8. Hypothyroidism. Recommendations: * Continue BiPAP, wean oxygen down for saturations greater than 92% rest. * Continue cefuroxime. * I have discussed the patient's deterioration in respiratory status with her and her family at length. Because she is on 100%, and has increased work of breathing, we are currently considering intubation and mechanical ventilation. The patient wants discussed this with her family prior to him, and we are awaiting arrival of her brother. The remainder of the family is at the bedside. * Continue to follow sugars, sliding scale insulin. * Continue negative fluid balance as per cardiology. * Out of bed to chair, increase activity. * Incentive spirometry. * Continue nebs/total respiratory care. * Continue low-dose Lopressor. * Continue all supportive care. * Continue to monitor in the critical care unit.
--- NOTE | 2016-10-29 11:05 | PN- Resident CRCU ---
See Addendum Subjective HPI/CRCU Issues: Follow-up for: - Acute hypoxic and hypercapnic respiratory failure - Sepsis secondary to UTI - EVANS on top of CKD - Anemia, thrombocytopenia - Hypothyroidism - Elevated troponin Patient was seen and examined this morning, she is lying comfortably in bed with BiPAP in place with saturation 93%. She is arousable to verbal stimulus and follow simple commands. She denied any chest pain, abdominal pain. Family is at bedside waiting for patient's brother for discussion about goals of care. 24 Hour Events: Temperature 98.1, MAXIMUM TEMPERATURE 98 Heart rate lowest 72, highest 94 sinus rhythm Blood pressure lowest 106/40, highest 149/78 On BiPAP saturating 95% Intake 1284, output 2350 Objective Vital Signs & I&O Last 8 Hrs of Vitals and I&O: 111 Exam General Appearance: awake, mild distress Head: atraumatic, normal appearance Ears, Nose, Throat: normal pharynx, normal ENT inspection Neck: normal inspection, supple, full range of motion Respiratory: decreased breath sounds Cardiovascular: regular rate/rhythm Gastrointestinal: normal bowel sounds, soft, non-tender Extremities: normal inspection, normal capillary refill, normal range of motion, bilaterallower extremity trace pedal edema Cranial Nerves: normal hearing, PERRL Skin: intact, normal color, warm/dry Current Medications: Current Medications Sig/Wei Start time Last Medication Dose Route Stop Time Status Admin Acetaminophen 650 MG Q6P PRN 10/20 0145 AC 10/21 PO 1839 Albuterol Sulfate 3 ML EVERY 4 HRS/AWAKE 10/20 0915 AC 10/29 INH 1215 Aspirin 81 MG DAILY 10/24 1000 AC 10/28 PO 0956 Cefuroxime Sodium 250 MG Q12 10/24 2200 DC 10/28 PO 2141 Guaifenesin 600 MG Q12 10/20 1000 AC 10/28 PO 2140 Insulin Aspart 0 TIDAC 10/20 0800 AC 10/28 SC 1158 Insulin Detemir 10 UNITS QPM 10/24 220 AC 10/28 SC 2137 Levothyroxine Sodium 0.15 MG DAILY AC 10/20 0700 AC 10/29 PO 0549 Magnesium Oxide 400 MG ONE ONE 10/29 0745 DC PO 10/29 0746 Melatonin 5 MG AT BEDTIME 10/240 AC 10/28 PO 2140 Metoprolol Tartrate 12.5 MG BID 10/24 1007 AC 10/28 PO 2141 Omeprazole 20 MG DAILY AC 10/25 0700 AC 10/29 PO 0549 Impression/Plan Impression/Problem List Impression: Ms. Bajwa is a pleasant 76 year old female with PMH hypertension, hyperlipidemia, COPD on 5 L continuous NC, type 2 diabetes mellitus on insulin, hypothyroidism, stage III B chronic kidney disease, combined systolic and diastolic heart failure, severe pulmonary hypertension, history of kidney stones in the past who presented to the [place] ED with shortness of breath on exertion , chills, decreased oral intake, cough minimally productive of sputum and nausea for one day. Patient was admitted to telemetry initally, has received treatment for possible pneumonia and UTI, and was tranferred to the ICU due to decreased oxygen saturation to 85% requiring high flow oxygen and for closer monitoring. Below is the problem list and plan: Respiratory: 1. Acute on chronic hypoxic and hypercarbic respiratory failure * Likely 2/2 combination of COPD, heart failure and sepsis of urological origin * Treated for possible pneumonia with ceftriaxone and doxycycline (allergic to azithromycin) on admission -met criteria for sepsis on admission with possible pulmonary source acording to CXR, required high flow O2 through NC * Chest x-ray on 10/28/16 revealed pulmonary emphysema with small pleural effusion similar to previous study, cardiomegaly without acute pulmonary edema * Continue Mucinex BID * Continue scheduled albuterol, TRC/Nebs * Continue high flow nasal cannula and BiPAP PRN and at night * Patient's respiratory status worsened today, discussion for intubation, K. Zakia Felipe MD had a meeting with family regarding goal of care, waiting for their decision ID 1. Gram-negative sepsis with pansensitive Escherichia coli due to obstructive uropathy and evidence of an 8 mm stone causing hydronephrosis. * Urinanalysis suggesting UTI and blood culture came back positive for gram negative rods (pansensitive ecoli) * Initial CT of [place] and pelvis showed obstructing 8 x 8 mm left ureter stone causing moderate to severe hydroureteronephrosis and left perinephric stranding. * Patient had left ureteral stent placed, tolerated procedure well, will continue follow uro rec's * Continue PO ceftin 250 mg PO Q12 (dosed Q12 as instructed by Dr. Blanco MD) for UTI (day #6) * Urine culture negative after 2 days of incubation * Repeat CT scan showed interval decompression of left renal collecting system with multiple nonobstructing renal calculi Cardiac 1. Elevated troponins * Elevated troponins in setting of acute hypoxic respiratory failure likely represent demand ischemia, no chest pain reported, have since trended down. * Echo shows EF 40-45%, mild global hypokinesis, right ventricular systolic pressure estimated at 47 mmHg. * Cardiology is following and will continue to follow recs * Continue ASA 81 mg PO daily and lopressor 12.5 mg PO BID. 2. Combined systolic and diastolic CHF * Patient had 2 doses of 40 mg IV Lasix on 10/27 and 10/28, keeping negative fluid balance * Kidney function 10/29 BUN/creatinine 55/1 Heme 1. Chronic macrocytic anemia * Likely 2/2 CKD * Folate within normal limits and B12 is elevated * Patient with Guiac (+) stool, no pharm dvtp * Follow up daily CBC Metabolic 1. EVANS on CKD * Possibly secondary to initial sepsis with superimposed hydronephrosis * Improving, BUN/cre * Avoid nephrotoxins * Continue to hold ramipril * ICU bundle daily to monitor BUN/cre 2. Hyperkalemia * Likely secondary to acute on chronic kidney injury * Went up again to 5.5 * Follow up repeat labs in AM 3. Diabetes mellitus * Accuchecks TIDACHS * NSS (low dose sliding scale) * Levemir 10 U SC QPM 4. Hypothyroidism * Continue synthroid 0.15 mg PO daily AC Other 1. Cystic abnormality abutting distal body of pancreas * Follow up CT scan with pancreatic mass protocol once patient more stable or close follow up after discharge FULL CODE DVTP: ALPS CC2 diet Mild pain pathway Problem List: 1. Elevated troponin 2. Acute and chronic respiratory failure with hypoxia 3. Hyperkalemia 4. Acute on chronic renal insufficiency Pain Ratin Tomorrow's Labs & Rationales: CBC, ICU bundle Plan DVT/Prophylaxis: pharmacological
[2016-10-29 16:00] VITALS: BP 110/48
--- NOTE | 2016-10-29 17:16 | NUR ---
@1600-PT RESTING COMF IN BED. BACK ON HIFLO FROM BIPAP. HIFLO 100%. O2SAT 92%-94% WITH DESATS TO 87% WITH ACTIVITY. IV SOLUMEDROL 40MG IV Q 8HRS STARTED-1ST DOSE ADMINISTERED AT THIS TIME. FAMILY REMAINS AT BEDSIDE. CALL FOSTER WITHIN REACH.
--- NOTE | 2016-10-29 19:33 | NUR ---
SLEEPING EASILY AWAKENED DENIES DISCOMFORT, O2 VIA NC AT 100% O2 SAT 86- 90%
[2016-10-30 00:06] VITALS: BP 100/50
--- NOTE | 2016-10-30 00:31 | NUR ---
PT RESTING COMFORTABLY MOST OF THE TIME, DOES GET GARDNER AND DESATURATES TO 75% WHEN USING BEDPAN, SLOWLY RECOVERS BACK TO 90%.
[2016-10-30 05:04] LABS: ABSOLUTE BASOPHIL COUNT 0 /CUMM (0.0-0.2); ABSOLUTE EOSINOPHIL COUNT 0 /CUMM (0.0-0.7); ABSOLUTE GRANULOCYTE CT 4.1 /CUMM (1.4-6.5); ABSOLUTE LYMPH COUNT 0.3 /CUMM (1.2-3.4); ABSOLUTE MONOCYTE COUNT 0.1 /CUMM (0.10-0.60); BASOPHIL % 0.2 % (0.0-2.0); EOSINOPHIL % 0.1 % (0-5); GRANULOCYTE % 91.1 % (42.2-75.2); HEMATOCRIT 25.1 % (37-47); MEAN CORPUSCULAR HGB CONC 32.6 G/DL (33.0-37.0); MEAN CORPUSCULAR VOLUME 104.4 FL (81.0-99.0); MEAN PLATELET VOLUME 10.2 FL (7.4-10.4); PLATELET COUNT 228 /CUMM (130-400); RBC DISTRIBUTION WIDTH 19.7 % (11.5-14.5); RED BLOOD CELL CT 2.41 /CUMM (4.20-5.40)
[2016-10-30 05:15] LABS: WHITE BLOOD CELL COUNT 4.5 /CUMM (4.8-10.8)
--- NOTE | 2016-10-30 07:09 | PN- Resident CRCU ---
Subjective HPI/CRCU Issues: Patient seen and examined at bedside this AM. She remains on BiPAP and believes her respiratory status has slightly improved since yesterday. She reports she slept well. She denies fever, chills, chest pain, abdominal pain, nausea and vomiting. She is amenable to getting out of bed to chair today. 24 Hour Events: Patient noted to be hyperkalemic to 6.1 today, given insulin with dextrose, calcium gluconate and kayexalate. Repeat ICU bundle at 8 AM. Telemetry events: Episodes of bradycardia but otherwise no events. Total intake 24 hours: 680 cc Total output: 700 cc Vital signs over the last 24 hours: T 97.6-98.8, HR 52-90, RR 20-28, BP 106-143/51-69, O2 89-100% on High flow and BiPAP. Objective Vital Signs & I&O Last 8 Hrs of Vitals and I&O: T 97.6-98.8, HR 52-90, RR 20-28, BP 106-143/51-69, O2 89-100% on High flow and BiPAP. Exam General Appearance: well developed/nourished, no apparent distress, alert, awake Head: atraumatic, normal appearance Ears, Nose, Throat: normal pharynx, hearing grossly normal Neck: normal inspection, supple Respiratory: Decreased air movement bilaterally, no wheezing Cardiovascular: regular rate/rhythm Gastrointestinal: normal bowel sounds, soft, non-tender, no organomegaly Extremities: normal inspection, normal capillary refill, Slight bilateral lower extremity edema Cranial Nerves: normal hearing, normal speech, PERRL Skin: normal color, warm/dry Nutrition Nutrition: P.O. diet Current Medications: Current Medications Sig/Wei Start time Last Medication Dose Route Stop Time Status Admin Acetaminophen 650 MG Q6P PRN 10/20 0145 AC 10/21 PO 1839 Albuterol Sulfate 3 ML EVERY 4 HRS/AWAKE 10/20 0915 AC 10/30 INH 0810 Aspirin 81 MG DAILY 10/24 1000 AC 10/30 PO 0921 Calcium Gluconate 1 GM ONCE ONE 10/30 06 DC 10/30 Sodium Chloride 100 ML IV 10/30 0659 0647 Dextrose 25 GM ONCE ONE 10/30 0645 DC IV 10/30 0646 Dextrose 25 GM ONCE ONE 10/30 06 DC 10/30 IV 10/30 0601 0646 Guaifenesin 600 MG Q12 10/20 1000 AC 10/30 PO 0921 Insulin Aspart 0 TIDAC 10/20 0800 AC 10/30 SC 0916 Insulin Detemir 10 UNITS QPM 10/24 2200 AC 10/29 SC 2114 Insulin Human Regular 10 UNITS ONCE ONE 10/30 0600 DC 10/30 IV 10/30 0601 0647 Levothyroxine Sodium 0.15 MG DAILY AC 10/20 0700 AC 10/30 PO 0610 Melatonin 5 MG AT BEDTIME 10/24 2200 AC 10/29 PO 2118 Methylprednisolone 40 MG Q8 10/29 1650 AC 10/30 IV 0610 Metoprolol Tartrate 12.5 MG BID 10/24 1007 AC 10/30 PO 0921 Omeprazole 20 MG DAILY AC 10/25 0700 AC 10/30 PO 0610 Sodium Polystyrene 60 ML ONCE ONE 10/30 06 DC 10/30 Sulfonate PO 10/30 0601 0647 CXR Findings: IMPRESSION: 1. Pulmonary emphysema. 2. Small pleural effusions remain similar in size compared to the abdomen CT of 10/26/2016. 3. Cardiomegaly without acute pulmonary edema. CT Scan Findings: Abdomen/Pelvis CT: 1. Bilateral small pleural effusions (minimally increased on the right, new on the left), with underlying bibasilar compressive atelectatic changes. 2. A 1.6 cm maximum dimension well-circumscribed hypodense, cystic abnormality is noted abutting the surface of the distal part of the body of the pancreas, may represent an exophytic cyst, of uncertain etiology. Evaluation is limited due to lack of contrast. Follow-up MRI or CT scan for pancreatic mass protocol may be considered without and with intravenous contrast for further clarification, if clinically appropriate. 3. Solitary punctate millimeter-sized radiodensity seen at the inferior anterior calyx of the right kidney consistent with a tiny nonobstructing calculus versus calcification. Subcentimeter likely hemorrhagic cyst along the inferolateral cortex of the right kidney. 4. Interval decompression of the left renal collecting system with interval placement of a left internal ureteric stent. There are multiple radiodensities identified within the left kidney consistent with nonobstructing renal calculi. 5. Subtle apparent radiodensities noted along the mid to inferior left lateral wall and adjacent part of the base of the urinary bladder, probably artifactual from beam hardening artifact arising from the existing left hip prosthesis. Follow-up direct visualization may be considered for further clarification, if clinically appropriate. The left internal ureteric stent is in good position. 6. Colonic diverticulosis without any CT features of superimposed acute diverticulitis. 7. Nonspecific subcutaneous edema pattern, appears slightly more pronounced since the prior study. ECHO Findings: CONCLUSIONS Normal size left ventricle. Mildly decreased left ventricular systolic function. Left ventricular ejection fraction is estimated at 40-45%. Right ventricular dilatation. Reduced right ventricular global systolic function. Mild right atrial dilatation. Mild mitral regurgitation. Moderate tricuspid regurgitation. Right ventricular systolic pressure estimated to be elevated at 47 mmHg. Mild pulmonic regurgitation. Mild global hypokinesis. Miscellaneous Findings: V/Q Scan: IMPRESSION: 1. Very low probability for acute PE. 2. Retention of radiotracer on washout ventilation images consistent with underlying COPD. Impression/Plan Impression/Problem List Impression: Ms. Bajwa is a pleasant 76 year old female with PMH hypertension, hyperlipidemia, COPD on 5 L continuous NC, type 2 diabetes mellitus on insulin, hypothyroidism, stage III B chronic kidney disease, combined systolic and diastolic heart failure, severe pulmonary hypertension, history of kidney stones in the past who presented to the [facility] ED with shortness of breath on exertion , chills, decreased oral intake, cough minimally productive of sputum and nausea for one day. Patient was admitted to telemetry initally, has received treatment for possible pneumonia and UTI, and was tranferred to the ICU due to decreased oxygen saturation to 85% requiring high flow oxygen and for closer monitoring. Below is the problem list and plan: Respiratory: 1. Acute on chronic hypoxic and hypercarbic respiratory failure * Likely 2/2 combination of COPD, heart failure and sepsis of urological origin * Treated for possible pneumonia with ceftriaxone and doxycycline (allergic to azithromycin) on admission -met criteria for sepsis on admission with possible pulmonary source acording to CXR, required high flow O2 through NC * V/Q scan negative for PE * Continue Mucinex BID, scheduled albuterol, TRC/Nebs * Follow up repeat CXR Q48 hours or if clinically indicated (CXR from today shows no significant interval change) * Continue high flow nasal cannula and BiPAP PRN/QHS * IV lasix PRN fluid overload, will give 40 mg today * IV solumedrol reduced to 40 mg daily starting tomorrow ID 1. Gram-negative sepsis with pansensitive Escherichia coli due to obstructive uropathy and evidence of an 8 mm stone causing hydronephrosis. * Urinalysis suggesting UTI and blood culture positive for gram negative rods ( pansensitive ecoli) * Initial CT of [place] and pelvis showed obstructing 8 x 8 mm left ureter stone causing moderate to severe hydroureteronephrosis and left perinephric stranding. * Patient had left ureteral stent placed, tolerated procedure well, will continue follow uro rec's * F/U CT scan showed interval decompression of left renal collecting system with multiple nonobstructing renal calculi * PO ceftin for 3 more days to complete 14 day course * F/U repeat UA/UCx * Latest urine culture negative for growth Cardiac 1. Elevated troponins * Elevated troponins in setting of acute hypoxic respiratory failure likely represent demand ischemia, no chest pain reported, have since trended down. * Echo shows EF 40-45%, mild global hypokinesis, right ventricular systolic pressure estimated at 47 mmHg. * Cardiology is following and will continue to follow recs * Continue ASA 81 mg PO daily and lopressor 12.5 mg PO BID as patient had 2 episodes of ventricular tachycardia in the last 24 hours and noted systolic/ diastolic HF 2. Combined systolic and diastolic CHF * Lasix as needed for fluid overload, will give 40 mg IV today * Monitor renal function with continued lasix use Heme 1. Chronic macrocytic anemia * Likely 2/2 CKD * Folate within normal limits and B12 is elevated * Patient with Guiac (+) stool, no pharm dvtp * Follow up daily CBC Metabolic 1. EVANS on CKD * Possibly secondary to initial sepsis with superimposed hydronephrosis * Improved, BUN/cre today of 60/1.2 * Avoid nephrotoxins * Continue to hold ramipril * ICU bundle daily to monitor BUN/cre 2. Hyperkalemia * Likely secondary to acute on chronic kidney injury * Again elevated to 6.1 today, patient s/p insulin with dextrose, calcium gluconate and kayexalate--> follow up K 5.3 * Follow up repeat labs in AM 3. Diabetes mellitus * Accuchecks TIDACHS * NSS (low dose sliding scale increased to medium dose today as patient was started on IV solumedrol and her FSGs were elevated) * Levemir 10 U SC QPM 4. Hypothyroidism * Continue synthroid 0.15 mg PO daily AC Other 1. Cystic abnormality abutting distal body of pancreas * Follow up CT scan with pancreatic mass protocol once patient more stable or close follow up after discharge FULL CODE DVTP: ALPS CC2 diet Mild pain pathway Problem List: 1. Elevated troponin 2. Demand ischemia of myocardium 3. COPD exacerbation 4. Acute on chronic renal insufficiency 5. PNA (pneumonia) 6. Acute and chronic respiratory failure with hypoxia 7. Gram negative sepsis 8. HFrEF (heart failure with reduced ejection fraction) 9. Insulin dependent type 2 diabetes mellitus 10. Acute renal failure superimposed on stage 3 chronic kidney disease Pain Ratin Tomorrow's Labs & Rationales: CBC (anemia, leukopenia) ICU bundle (Hyperkalemia, CKD) Plan DVT/Prophylaxis: pharmacological
--- NOTE | 2016-10-30 07:39 | NUR ---
A&OX3,DENIES PAIN AFEBRILE,F.S.283,REPEAT BLOOD DRAW DUE AT 0800, [id number],MFPVC, BIPAP 100% FIO2 O2 SAT 99%,DIMINISHED THROUGHOUT, DESATS 80'S,W/ TURNS, GENERALIZED,FACIAL,B/L LE EDEMA, RED BLANCHABLE BUTTOCKS,
--- NOTE | 2016-10-30 07:41 | NUR ---
LATE ENTRY POTASSIUM LEVEL REPORTED TO DR WATTERS, HAVING EPISODES OF BRADYCARDIA 50-72 BP STABLE iNSULIN 10U IVP, DEXTROSE 1 AMP, KAEXELATE PO GIVEN AND CALCIUM GLUCONATE IV HUNG. REMAINS ON BIPAP AT 100%.
[2016-10-30 07:47] VITALS: BP 144/72
--- NOTE | 2016-10-30 12:04 | PN- Cardiology ---
Subjective Subjective: The patient remains on BiPAP. She reports that her breathing feels somewhat better. No chest pain. No palpitations. No diaphoresis. No lightheadedness or dizziness. Objective Vital Signs and I&Os Vital Signs Date Time Temp Pulse Resp B/P B/P Pulse O2 O2 Flow FiO2 Mean Ox Delivery Rate 10/30 1042 81 88 10/30 0921 89 144/70 10/30 0815 96 Nasal 100% Cannula 10/30 0813 91 94 10/30 0747 95 BIPAP 100% 10/30 0747 97.0 76 144/72 95 BIPAP 100% 10/30 0556 63 92 10/30 0416 96 Nasal 100% Cannula 10/30 0346 66 91 10/30 0116 74 91 10/30 0006 91 Nasal 100% Cannula 10/30 0006 97.7 67 22 100/50 91 Nasal 100% Cannula 10/29 2151 82 90 10/29 2118 84 134/53 10/29 1929 90 Nasal 100% Cannula 10/29 1752 87 91 10/29 1632 96 Nasal 100% Cannula 10/29 1600 93 Nasal 100% Cannula 10/29 1600 98.7 92 23 110/48 93 Nasal 100% Cannula 10/29 1441 94 Nasal 100% Cannula 10/29 1419 73 95 10/29 1306 96 BIPAP 70% 10/29 1305 89 96 Intake & Output 10/30 1600 10/30 0800 10/30 0000 10/29 1600 10/29 0800 10/29 0000 Intake Total 200 300 180 200 340 Output Total 200 100 400 400 600 Balance 0 200 -220 -200 -260 Intake, IV 20 0 Intake, Oral 200 280 180 200 340 Number 1 0 Bowel Movements Output, Urine 200 100 400 400 600 Physical Exam: Gen: NAD HEENT: normal Lungs: Decreased air movement, scattered rhonchi, normal resp. effort Heart: RRR, S1, S2, no murmurs Abdomen: Soft, nontender, no masses Extremities: No clubbing, cyanosis, or edema. Neuro: Alert and oriented x 3, cranial nerves intact Current Medications: Current Medications Sig/Wei Start time Last Medication Dose Route Stop Time Status Admin Acetaminophen 650 MG Q6P PRN 10/20 0145 AC 10/21 PO 1839 Albuterol Sulfate 3 ML EVERY 4 HRS/AWAKE 10/20 914 AC 10/30 INH 1149 Aspirin 81 MG DAILY 10/24 1000 AC 10/30 PO 0921 Calcium Gluconate 1 GM ONCE ONE 10/30 06 DC 10/30 Sodium Chloride 100 ML IV 10/30 658 0647 Dextrose 25 GM ONCE ONE 10/30 644 DC IV 10/30 0646 Dextrose 25 GM ONCE ONE 10/30 0600 DC 10/30 IV 10/30 0601 0646 Guaifenesin 600 MG Q12 10/20 1000 AC 10/30 PO 0921 Insulin Aspart 0 TIDAC 10/20 0800 AC 10/30 SC 1143 Insulin Detemir 10 UNITS QPM 10/24 2200 AC 10/29 SC 2114 Insulin Human Regular 10 UNITS ONCE ONE 10/30 06 DC 10/30 IV 10/30 0601 0647 Levothyroxine Sodium 0.15 MG DAILY AC 10/20 0700 AC 10/30 PO 0610 Melatonin 5 MG AT BEDTIME 10/24 2200 AC 10/29 PO 2118 Methylprednisolone 40 MG Q8 10/29 1650 AC 10/30 IV 0610 Metoprolol Tartrate 12.5 MG BID 10/24 1007 AC 10/30 PO 0921 Omeprazole 20 MG DAILY AC 10/25 0700 AC 10/30 PO 0610 Sodium Polystyrene 60 ML ONCE ONE 10/30 599 DC 10/30 Sulfonate PO 10/30 0601 0647 Results Last 48 Hrs of Labs/Mics: Laboratory Tests 10/30/16 0810: Anion Gap 11, Estimated GFR 44 L, BUN/Creatinine Ratio 50.0 H 10/30/16 0410: Anion Gap 7, Estimated GFR 48 L, Glucose 248 H, Calcium 8.3 L, Phosphorus 3.9 , Magnesium 2.0, Total Bilirubin 0.6, AST 12 L, ALT 24, Albumin 2.6 L, CBC w Diff MAN DIFF ORDERED, RBC 2.41 L, MCV 104.4 H, MCH 34.0 H, RDW 19.7 H, MPV 10.2, Gran % 91.1 H, Lymphocytes % 7.2 L, Monocytes % 1.4 L, Eosinophils % 0.1, Basophils % 0.2, Absolute Granulocytes 4.1, Segmented Neutrophils 85 H, Band Neutrophils 4, Absolute Lymphocytes 0.3 L, Lymphocytes 7 L, Monocytes 4, Absolute Monocytes 0.1 L, Absolute Eosinophils 0, Absolute Basophils 0, Platelet Estimate ADEQUATE, Polychromasia 1+, Hypochromic-Microcytic 1+, Poikilocytosis 2+, Basophilic Stippling SLIGHT, Anisocytosis 1+, Macrocytic Cells 1+, Ovalocytes 1+, Stomatocytes FEW, Elliptocytes 1+, PUBS MCHC 32.6 L, Fld Total RBCs Counted 100 10/29/16 0520: Anion Gap 9, Estimated GFR 54 L, Glucose 126 H, Calcium 8.7, Phosphorus 3.2, Magnesium 1.9, Total Bilirubin 1.0, AST 11 L, ALT 28, Albumin 2.7 L, CBC w Diff NO MAN DIFF REQ, RBC 2.69 L, MCV 105.2 H, MCH 33.6 H, RDW 20.4 H, MPV 9.9, Gran % 81.2 H, Lymphocytes % 6.6 L, Monocytes % 7.1, Eosinophils % 4.6, Basophils % 0.5, Absolute Granulocytes 9.1 H, Absolute Lymphocytes 0.7 L, Absolute Monocytes 0.8 H, Absolute Eosinophils 0.5, Absolute Basophils 0.1, PUBS MCHC 31.9 L Recent Imaging Studies: 1. Pulmonary emphysema. 2. Small pleural effusions remain similar in size compared to the abdomen CT of 10/26/2016. 3. Cardiomegaly without acute pulmonary edema. Assessment/Plan Assessment/Plan 1. Community-acquired pneumonia 2. Respiratory failure 3. Gram-negative sepsis 4. Mild troponin elevation, likely secondary to pneumonia and sepsis 5. Mild left ventricular systolic dysfunction 6. Short runs of nonsustained atrial tachycardia 7. Chronic HFrEF, with mild acute exacerbation 8. Chronic kidney disease, improved Plan: * Would give 40 mg of IV Lasix today. * Monitor input and output. * Is about profile daily. * Further workup for positive troponins once clinically stable Continue telemetry? Yes
--- NOTE | 2016-10-30 13:48 | PN- Pulmonary ---
Subjective HPI/Critical Care Issues: She reports that her breathing feels somewhat better. No chest pain. No palpitations. No diaphoresis. No lightheadedness or dizziness. Objective Current Medications: Current Medications Sig/Wei Start time Last Medication Dose Route Stop Time Status Admin Acetaminophen 650 MG Q6P PRN 10/20 0145 AC 10/21 PO 1839 Albuterol Sulfate 3 ML EVERY 4 HRS/AWAKE 10/20 0915 AC 10/30 INH 1149 Aspirin 81 MG DAILY 10/24 1000 AC 10/30 PO 0921 Calcium Gluconate 1 GM ONCE ONE 10/30 06 DC 10/30 Sodium Chloride 100 ML IV 10/30 0659 0647 Dextrose 25 GM ONCE ONE 10/30 0645 DC IV 10/30 0646 Dextrose 25 GM ONCE ONE 10/30 06 DC 10/30 IV 10/30 0601 0646 Furosemide 40 MG ONCE ONE 10/30 1300 DC 10/30 IV 10/30 1301 1259 Guaifenesin 600 MG Q12 10/20 1000 AC 10/30 PO 0921 Insulin Aspart 0 TIDAC 10/20 0800 AC 10/30 SC 1143 Insulin Detemir 10 UNITS QPM 10/24 2200 AC 10/29 SC 2114 Insulin Human Regular 10 UNITS ONCE ONE 10/30 0600 DC 10/30 IV 10/30 0601 0647 Levothyroxine Sodium 0.15 MG DAILY AC 10/20 0700 AC 10/30 PO 0610 Melatonin 5 MG AT BEDTIME 10/24 2200 AC 10/29 PO 2118 Methylprednisolone 40 MG Q8 10/29 1650 AC 10/30 IV 1259 Metoprolol Tartrate 12.5 MG BID 10/24 1007 AC 10/30 PO 0921 Omeprazole 20 MG DAILY AC 10/25 0700 AC 10/30 PO 0610 Sodium Polystyrene 60 ML ONCE ONE 10/30 06 DC 10/30 Sulfonate PO 10/30 0601 0647 Vital Signs & I&O Last 24 Hrs of Vitals and I&O: Vital Signs Date Time Temp Pulse Resp B/P B/P Pulse O2 O2 Flow FiO2 Mean Ox Delivery Rate 10/30 1200 91 BIPAP 100% 10/30 1042 81 88 10/30 0921 89 144/70 10/30 0815 96 Nasal 100% Cannula 10/30 0813 91 94 10/30 0747 95 BIPAP 100% 10/30 0747 97.0 76 144/72 95 BIPAP 100% 10/30 0556 63 92 10/30 0416 96 Nasal 100% Cannula 10/30 0346 66 91 10/30 0116 74 91 10/30 0006 91 Nasal 100% Cannula 10/30 0006 97.7 67 22 100/50 91 Nasal 100% Cannula 10/29 2151 82 90 10/29 2118 84 134/53 10/29 1929 90 Nasal 100% Cannula 10/29 1752 87 91 10/29 1632 96 Nasal 100% Cannula 10/29 1600 93 Nasal 100% Cannula 10/29 1600 98.7 92 23 110/48 93 Nasal 100% Cannula 10/29 1441 94 Nasal 100% Cannula 10/29 1419 73 95 Intake & Output 10/30 1600 10/30 0800 10/30 0000 Intake Total 200 300 Output Total 200 100 Balance 0 200 Intake, IV 20 Intake, Oral 200 280 Number 1 Bowel Movements Output, Urine 200 100 Impression/Plan Impression/Plan Impression/Plan: Chest showed crackles Heart S1-S2 was heard Abdominal exam record press tender painful Significant edema IMPRESSION This is a 76-year-old lady with chronic lung disease who is on oxygen at home and inhalers, reduced ejection fraction with the significant pulmonary hypertension, now has * Acute hypoxemic and hypercarbic respiratory failure appears to be related to combination of factors which includes combinational lung disease, significant COPD, reduced systolic function of the heart with mild fluid overload upon admission, sepsis of urological origin with probable early ARDS. Now on steroids * Improving Significant gram-negative sepsis pansensensitive ecoli, due to 8 mm stone with obstructive uropathy with hydronephrosis, causing sepsis S/P Stent * Chronic kidney disease with acute kidney injury upon admission which is slowly improving * Significantly elevated proBNP with low ejection fraction upon admission * Chronic anemia patient has been on epo before, now with thrombocytopenia due to sepsis and pt does have macrocytosis and need to rule out myelodysplasia in the future * Heme positive stool with chronic anemia * Myelodysplasia and MGUS with Splenomegaly, 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 * Previous mediastinal lymphadenopathy which needs follow-up * Elevated troponin upon admission * Hypothyroid on supp RECOMMENDATION * COnt high flow and use bipap prn at night * cont cefuroxime, rx should be for two weeks total * Follow sugars, cover with sliding scale insulin only if needed, cont long acting insulin * Po ppi * Metoprolol 12.5 bid * Venodyne boots as she has hemepositive stool * OOB to chair * IV lasix daily * REduce steroids to 60 mg total today and 40 in am * Rpt cxr in am Pt is critically ill
[2016-10-30 15:37] VITALS: BP 118/53
[2016-10-31] VITALS: BP 118/60
--- NOTE | 2016-10-31 00:19 | NUR ---
PT ON BIPAP AT 100% FIO2, SATURATION 96%. LUNGS SOUND CLEAR, EXERTIONAL SOB. DENIES PAIN AT THIS TIME.
[2016-10-31 05:13] LABS: ABSOLUTE BASOPHIL COUNT 0 /CUMM (0.0-0.2); ABSOLUTE EOSINOPHIL COUNT 0 /CUMM (0.0-0.7); ABSOLUTE GRANULOCYTE CT 5.2 /CUMM (1.4-6.5); ABSOLUTE LYMPH COUNT 0.5 /CUMM (1.2-3.4); ABSOLUTE MONOCYTE COUNT 0.3 /CUMM (0.10-0.60); BASOPHIL % 0 % (0.0-2.0); EOSINOPHIL % 0.1 % (0-5); GRANULOCYTE % 87.1 % (42.2-75.2); HEMATOCRIT 24.3 % (37-47); MEAN CORPUSCULAR HGB 34.2 PG (27.0-31.0); MEAN CORPUSCULAR HGB CONC 32.7 G/DL (33.0-37.0); MEAN CORPUSCULAR VOLUME 104.5 FL (81.0-99.0); MEAN PLATELET VOLUME 10.3 FL (7.4-10.4); PLATELET COUNT 242 /CUMM (130-400); RBC DISTRIBUTION WIDTH 19.3 % (11.5-14.5); RED BLOOD CELL CT 2.33 /CUMM (4.20-5.40)
--- NOTE | 2016-10-31 06:47 | NUR ---
SB 45, PT ASYMPTOMATIC. DR ABRAMS AWARE.
--- NOTE | 2016-10-31 07:01 | PN- Resident CRCU ---
See Addendum Subjective HPI/CRCU Issues: Patient seen and examined at bedside this AM. She was laying comfortably in bed on BiPAP. She reports she is feeling stronger and her respiratory status is improving. She mentions that she urinated a lot yesterday in response to the lasix. She is willing to go out of bed to chair today as she feels well. 24 Hour Events: filter tank tender helper showed bradycardia (lowest HR 43 bpm), otherwise she remained in NSR without overnight events. Vital signs last 24 hours: T 97.1-98.4, HR 43-97, RR 18-23, BP 100-151/51-94, O2 85-97% on high flow nasal cannula switched to BiPAP at night. Total intake last 24 hours: 1265 cc Total output last 24 hours: 1550 cc Objective Vital Signs & I&O Last 8 Hrs of Vitals and I&O: T 97.1-98.4, HR 43-97, RR 18-23, BP 100-151/51-94, O2 85-97% on high flow nasal cannula switched to BiPAP at night. Exam General Appearance: well developed/nourished, no apparent distress, alert, awake , comfortable Head: atraumatic, normal appearance Ears, Nose, Throat: normal pharynx, hearing grossly normal, moist mucus membranes Neck: normal inspection, full range of motion Respiratory: Decreased breath sounds bilateral bases without overt wheezing Cardiovascular: regular rate/rhythm Gastrointestinal: normal bowel sounds, soft, non-tender Extremities: normal inspection, normal capillary refill Cranial Nerves: normal hearing, normal speech Skin: normal color, warm/dry Skin Temp/Moisture Exam: Warm/Dry Nutrition Nutrition: P.O. diet Current Medications: Current Medications Sig/Wei Start time Last Medication Dose Route Stop Time Status Admin Acetaminophen 650 MG Q6P PRN 10/20 0145 AC 10/21 PO 1839 Albuterol Sulfate 3 ML EVERY 4 HRS/AWAKE 10/20 0915 AC 10/31 INH 0854 Aspirin 81 MG DAILY 10/24 1000 AC 10/31 PO 0916 Cefuroxime Sodium 250 MG Q12 10/30 2200 AC 10/31 PO 11/02 1001 0916 Furosemide 40 MG ONCE ONE 10/31 1015 DC 10/31 IV 10/31 1016 1024 Furosemide 40 MG ONCE ONE 10/30 1300 DC 10/30 IV 10/30 1301 1259 Guaifenesin 600 MG Q12 10/20 1000 AC 10/31 PO 09 Insulin Aspart 0 TIDAC 10/20 0800 AC 10/31 SC 07 Insulin Detemir 10 UNITS QPM 10/24 2200 AC 10/30 SC 2056 Levothyroxine Sodium 0.15 MG DAILY AC 10/20 0700 AC 10/31 PO 06 Melatonin 5 MG AT BEDTIME 10/24 2200 AC 10/30 PO 2056 Methylprednisolone 40 MG DAILY 10/31 1000 AC 10/31 IV 0916 Methylprednisolone 20 MG ONCE ONE 10/30 1415 DC 10/30 IV 10/30 1416 1439 Methylprednisolone 40 MG Q8 10/29 1650 DC 10/30 IV 1259 Metoprolol Tartrate 12.5 MG BID 10/24 1007 DC 10/30 PO 2057 Omeprazole 20 MG DAILY AC 10/25 0700 AC 10/31 PO 06 Impression/Plan Impression/Problem List Impression: Ms. Bajwa is a pleasant 76 year old female with PMH hypertension, hyperlipidemia, COPD on 5 L continuous NC, type 2 diabetes mellitus on insulin, hypothyroidism, stage III B chronic kidney disease, combined systolic and diastolic heart failure, severe pulmonary hypertension, history of kidney stones in the past who presented to the [place] ED with shortness of breath on exertion , chills, decreased oral intake, cough minimally productive of sputum and nausea for one day. Patient was admitted to telemetry initally, has received treatment for possible pneumonia and UTI, and was tranferred to the ICU due to decreased oxygen saturation to 85% requiring high flow oxygen and for closer monitoring. Below is the problem list and plan: Respiratory: 1. Acute on chronic hypoxic and hypercarbic respiratory failure * Likely 2/2 combination of COPD, heart failure and sepsis of urological origin * Treated for possible pneumonia with ceftriaxone and doxycycline (allergic to azithromycin) on admission -met criteria for sepsis on admission with possible pulmonary source acording to CXR, required high flow O2 through NC * V/Q scan negative for PE * Continue Mucinex BID, scheduled albuterol, TRC/Nebs * Follow up repeat CXR Q48 hours or if clinically indicated (CXR from today shows no significant interval change) * Continue high flow nasal cannula and BiPAP PRN/QHS * IV lasix PRN fluid overload, will give 40 mg again today * IV solumedrol reduced to 40 mg daily today ID 1. Gram-negative sepsis with pansensitive Escherichia coli due to obstructive uropathy and evidence of an 8 mm stone causing hydronephrosis. * Urinalysis suggesting UTI and blood culture positive for gram negative rods ( pansensitive ecoli) * Initial CT of [place] and pelvis showed obstructing 8 x 8 mm left ureter stone causing moderate to severe hydroureteronephrosis and left perinephric stranding. * Patient had left ureteral stent placed, tolerated procedure well, will continue follow uro rec's * Repeat CT scan showed interval decompression of left renal collecting system with multiple nonobstructing renal calculi * PO ceftin for 2 more days to complete 14 day course * Latest urine culture negative for growth Cardiac 1. Elevated troponins * Elevated troponins in setting of acute hypoxic respiratory failure likely represent demand ischemia, no chest pain reported, have since trended down. * Echo shows EF 40-45%, mild global hypokinesis, right ventricular systolic pressure estimated at 47 mmHg. * Cardiology is following and will continue to follow recs * Continue ASA 81 mg PO daily and hold lopressor 12.5 mg PO BID for now in the setting of bradycardia 2. Combined systolic and diastolic CHF * Lasix as needed for fluid overload, will give 40 mg IV today * Monitor renal function with continued lasix use Heme 1. Chronic macrocytic anemia * Likely 2/2 CKD * Folate within normal limits and B12 is elevated * Patient with Guiac (+) stool, no pharm dvtp * Follow up daily CBC Metabolic 1. EVANS on CKD * Possibly secondary to initial sepsis with superimposed hydronephrosis * Avoid nephrotoxins * Continue to hold ramipril * ICU bundle daily to monitor BUN/cre 2. Hyperkalemia * Likely secondary to acute on chronic kidney injury * Follow up repeat labs in AM 3. Diabetes mellitus * Accuchecks TIDACHS * NSS (low dose sliding scale increased to medium dose yesterday as patient was started on IV solumedrol and her FSGs were elevated) * Levemir 10 U SC QPM 4. Hypothyroidism * Continue synthroid 0.15 mg PO daily AC Other 1. Cystic abnormality abutting distal body of pancreas * Follow up CT scan with pancreatic mass protocol once patient more stable or close follow up after discharge FULL CODE DVTP: ALPS CC2 diet Mild pain pathway Problem List: 1. Insulin dependent type 2 diabetes mellitus 2. Elevated troponin 3. HFrEF (heart failure with reduced ejection fraction) 4. Acute renal failure superimposed on stage 3 chronic kidney disease 5. UTI (urinary tract infection) 6. Gram negative sepsis 7. PNA (pneumonia) 8. Hyperkalemia 9. Acute and chronic respiratory failure with hypoxia Pain Ratin Tomorrow's Labs & Rationales: ICU bundle (renal dysfunction) CBC (anemia) Plan DVT/Prophylaxis: pharmacological
--- NOTE | 2016-10-31 07:02 | RADIOLOGY REPORT ---
EXAMINATION: CHEST 1 VIEW CLINICAL INFORMATION: Respiratory failure. On BiPAP. COMPARISON: Multiple prior exams are reviewed. The most recent is from October 28, 2016. TECHNIQUE: An AP view of the chest is provided. FINDINGS: The cardiac silhouette is stable. The mediastinal and hilar contours are unremarkable. There are no pneumothoraces. There are small bilateral pleural effusions with mild bibasilar atelectasis. There are no consolidations. The osseous structures are unremarkable. IMPRESSION: Small bilateral pleural effusions with mild bibasilar atelectasis.
--- NOTE | 2016-10-31 07:34 | NUR ---
@0730-PT AWAKE/ALERT. ORIENTED X 3. FOLLOWS COMMANDS. CONT ON BIPAP, FIO2 100%, RR 22. AWAITING RT ASSESS THIS AM AND PLACEMENT BACK TO [facility]. PT STATES BREATHING FEELS IMPROVED AT THIS TIME. IV SOLU DAILY. DIM BS TO BASES. NO COUGH NOTED. NSR PACS. SUMEET 50S NOTED INTERMITTENTLY. BP STABLE. DENIES CP. AWAITING C2 DIET. ABD SOFT. +BS. BEDPAN PROVIDED NEEDED. SKIN INTACT WITH REDDENED BUT BLANCHABLE BUTTOCKS AND GEL PAD DSG TO BRIDGE OF NOSE FOR BIPAP. ACCUCHECK 218-COVERED WITH NOVOLOG SS. CONT TO MONITOR CLOSELY, CALL FOSTER WITHIN REACH.
[2016-10-31 07:49] VITALS: BP 110/60
--- NOTE | 2016-10-31 10:29 | NUR ---
@1000-IV LASIX 40MG ADMINISTERED AT THIS TIME ORD. SETUP FOR MOUTH CARE. CONT TO MONITOR CLOSELY. PLACED ON HIFLO BY RT 100% AT 0930.
--- NOTE | 2016-10-31 12:17 | NUR ---
@1200-PT RESTING COMF IN BED. SETUP FOR LUNCH. ACCUCHECK 297-REPORTED ELEVATED BLOOD SUGARS TO HOUSESTAFF. LEVIMIR DOSE INCREASED. CONT ON HIFLO 100%-O2SAT 88-94%. DESATS WITH ACTIVITY. PT INC OF LARGE AMTS OF URINE AND SEMILIQ BROWN STOOL. BUTTOCKS REDDENED-CREAM APPLIED. SIZEWISE MATTRESS ORD. GEL PAD CONT TO BRIDGE OF NOSE FOR BIPAP USE. CALL FOSTER WITHIN REACH.
--- NOTE | 2016-10-31 13:22 | NUR ---
@1315-PT ASSISTED OOB TO CHAIR AFTET BEDPAN USE. PT AMBUALTED WITH WALKER AND ASSIST X 2, KUSH WELL. PT DESATED TO 78%. PT DENIES SOB. LABORED BREATHING NOTED. PT RECUPERATED TO 94% WITHIN 5 MIN. PT RESTING COMF IN BED. RECIEVING NEBS PER RT. CALL FOSTER WITHIN REACH.
--- NOTE | 2016-10-31 13:25 | NUR ---
WOUND CARE: DISCUSSED SKIN INTEGRITY WITH PTS NURSE - UNABLE TO ASSESS PT AT PRESENT TIME - STAFF REPORT PT HAD AREA OF ERYTHEMA TO BRIDGE OF NOSE SECONDARY TO BIPAP USE WHICH IS IMPROVING SIGNIFICANTLY WTIH USE OF GEL PAD - PT CURRENTLY USING BIPAP AT HS - BUTTOCKS BLANCHABLE ERYTEMA NOTED - SKIN INTACT - PT PRESENTLY GETTING MOISTURE BARRIER QS PRN - CONT CURRENT WOUND CARE PER FACILTY GUIDELINES FOR STAGE 1 PRESSURE INJURIES PLEASE - REPORT DETERIORATION TO [facility] STAFF
[2016-10-31 16:00] VITALS: BP 126/62
[2016-11-01] VITALS: BP 130/80
--- NOTE | 2016-11-01 00:15 | NUR ---
PT WAS AWAKE AND ALERT, DENIES PAIN AT THIS TIME. ON HIGH FLOW O2, SATURATION 90%, LUNGS SOUND CLEAR. ABDOMEN NORMOACTIVE BS. SOB WITH EXERTION.
[2016-11-01 04:27] LABS: ABSOLUTE BASOPHIL COUNT 0.3 /CUMM (0.0-0.2); ABSOLUTE EOSINOPHIL COUNT 0.3 /CUMM (0.0-0.7); ABSOLUTE GRANULOCYTE CT 6.6 /CUMM (1.4-6.5); ABSOLUTE LYMPH COUNT 0.9 /CUMM (1.2-3.4); ABSOLUTE MONOCYTE COUNT 0.3 /CUMM (0.10-0.60); BASOPHIL % 3.1 % (0.0-2.0); EOSINOPHIL % 3.4 % (0-5); GRANULOCYTE % 79.7 % (42.2-75.2); HEMATOCRIT 27.1 % (37-47); MEAN CORPUSCULAR HGB 33.6 PG (27.0-31.0); MEAN CORPUSCULAR HGB CONC 32.9 G/DL (33.0-37.0); MEAN PLATELET VOLUME 10.3 FL (7.4-10.4); PLATELET COUNT 274 /CUMM (130-400); RED BLOOD CELL CT 2.66 /CUMM (4.20-5.40); WHITE BLOOD CELL COUNT 8.3 /CUMM (4.8-10.8)
--- NOTE | 2016-11-01 06:49 | PN- Resident CRCU ---
Subjective HPI/CRCU Issues: Patient seen and examined at bedside this AM. She was resting comfortably in bed and reports she feels better than yesterday. She reports she tolerated out of bed to chair well and will attempt to do that again today. She is eating well. 24 Hour Events: Vital signs last 24 hours: T 96.2-98.3, HR 63-96 bpm, RR 16-26 bpm, BP 110-141/51-72, O2 89-96% on 100% high flow alternating with 100% BiPAP. Patient currently titrated down to 75% FiO2 and doing well. Total input last 24 hours: 1190 cc Total output: 2060 cc Objective Vital Signs & I&O Last 8 Hrs of Vitals and I&O: T 96.2-98.3, HR 63-96 bpm, RR 16-26 bpm, BP 110-141/51-72, O2 89-96% on 100% high flow alternating with 100% BiPAP. Patient currently titrated down to 75% FiO2 and doing well. Exam General Appearance: well developed/nourished, no apparent distress, alert, awake , comfortable Head: atraumatic, normal appearance Ears, Nose, Throat: normal ENT inspection, hearing grossly normal, moist mucus membranes Neck: normal inspection, no midline tenderness, No JVD Respiratory: normal breath sounds, chest non-tender, no respiratory distress Cardiovascular: regular rate/rhythm Gastrointestinal: normal bowel sounds, soft, non-tender Extremities: normal inspection, normal capillary refill Cranial Nerves: normal hearing, normal speech Skin: intact, warm/dry Current Medications: Current Medications Sig/Wei Start time Last Medication Dose Route Stop Time Status Admin Acetaminophen 650 MG Q6P PRN 10/20 0145 AC 10/21 PO 1839 Albuterol Sulfate 3 ML EVERY 4 HRS/AWAKE 10/20 0915 AC 11/01 INH 1222 Aspirin 81 MG DAILY 10/24 1000 AC 11/01 PO 0926 Cefuroxime Sodium 250 MG Q12 10/30 2200 AC 11/01 PO 11/02 1001 0926 Furosemide 40 MG ONCE ONE 11/01 0845 DC 11/01 IV 11/01 0846 0926 Guaifenesin 600 MG Q12 10/20 1000 AC 11/01 PO 0926 Insulin Aspart 0 TIDAC 10/20 0800 AC 11/01 SC 1148 Insulin Detemir 18 UNITS QPM 10/31 2199 AC 10/31 SC 2224 Levothyroxine Sodium 0.15 MG DAILY AC 10/20 0700 AC 11/01 PO 0621 Melatonin 5 MG AT BEDTIME 10/24 2200 AC 10/31 PO 2225 Methylprednisolone 40 MG DAILY 10/31 1000 AC 11/01 IV 0926 Metoprolol Tartrate 12.5 MG BID 11/01 1046 AC 11/01 PO 1246 Omeprazole 20 MG DAILY AC 10/25 0700 AC 11/01 PO 0621 Impression/Plan Impression/Problem List Impression: Ms. Bajwa is a pleasant 76 year old female with PMH hypertension, hyperlipidemia, COPD on 5 L continuous NC, type 2 diabetes mellitus on insulin, hypothyroidism, stage III B chronic kidney disease, combined systolic and diastolic heart failure, severe pulmonary hypertension, history of kidney stones in the past who presented to the [place] ED with shortness of breath on exertion , chills, decreased oral intake, cough minimally productive of sputum and nausea for one day. Patient was admitted to telemetry initally, has received treatment for possible pneumonia and UTI, and was tranferred to the ICU due to decreased oxygen saturation to 85% requiring high flow oxygen and for closer monitoring. Below is the problem list and plan: Respiratory: 1. Acute on chronic hypoxic and hypercarbic respiratory failure * Likely 2/2 combination of COPD, heart failure and sepsis of urological origin * Treated for possible pneumonia with ceftriaxone and doxycycline (allergic to azithromycin) on admission -met criteria for sepsis on admission with possible pulmonary source acording to CXR, required high flow O2 through NC * V/Q scan negative for PE * Continue Mucinex BID, scheduled albuterol, TRC/Nebs * Follow up repeat CXR Q48 hours or if clinically indicated (CXR from today shows no significant interval change) * Continue high flow nasal cannula and BiPAP PRN/QHS, currently titrating down at 75% FiO2, goal FiO2 tomorrow 50-60% * IV lasix PRN fluid overload, will give 40 mg again today * IV solumedrol reduced to 40 mg daily, wheezing much improved * Patient will greatly benefit from inpatient pulmonary rehab, discussed transfer to [place], will follow up with case management for this issue ID 1. Gram-negative sepsis with pansensitive Escherichia coli due to obstructive uropathy and evidence of an 8 mm stone causing hydronephrosis. * Urinalysis suggesting UTI and blood culture positive for gram negative rods ( pansensitive ecoli) * Initial CT of [place] and pelvis showed obstructing 8 x 8 mm left ureter stone causing moderate to severe hydroureteronephrosis and left perinephric stranding. * Patient had left ureteral stent placed, tolerated procedure well, will continue follow uro rec's * Repeat CT scan showed interval decompression of left renal collecting system with multiple nonobstructing renal calculi * PO ceftin for 1 more day to complete 14 day course * Latest urine culture negative for growth Cardiac 1. Elevated troponins * Elevated troponins in setting of acute hypoxic respiratory failure likely represent demand ischemia, no chest pain reported, have since trended down. * Echo shows EF 40-45%, mild global hypokinesis, right ventricular systolic pressure estimated at 47 mmHg. * Cardiology is following and will continue to follow recs * Continue ASA 81 mg PO daily and restarted lopressor 12.5 mg PO BID as patient no longer bradycardic 2. Combined systolic and diastolic CHF * Lasix as needed for fluid overload, will give 40 mg IV today * Monitor renal function with continued lasix use Heme 1. Chronic macrocytic anemia * Likely 2/2 CKD * Folate within normal limits and B12 is elevated * Patient with Guiac (+) stool, no pharm dvtp * Follow up daily CBC Metabolic 1. EVANS on CKD * Possibly secondary to initial sepsis with superimposed hydronephrosis * Avoid nephrotoxins * Continue to hold ramipril * ICU bundle daily to monitor BUN/cre 2. Hyperkalemia * Likely secondary to acute on chronic kidney injury * Follow up repeat labs in AM 3. Diabetes mellitus * Accuchecks TIDACHS * NSS (medium dose) * Levemir 18 U SC QPM 4. Hypothyroidism * Continue synthroid 0.15 mg PO daily AC Other 1. Cystic abnormality abutting distal body of pancreas * Follow up CT scan with pancreatic mass protocol once patient more stable or close follow up after discharge FULL CODE DVTP: ALPS CC2 diet Mild pain pathway Problem List: 1. Insulin dependent type 2 diabetes mellitus 2. Elevated troponin 3. HFrEF (heart failure with reduced ejection fraction) 4. UTI (urinary tract infection) 5. Gram negative sepsis 6. Acute renal failure superimposed on stage 3 chronic kidney disease 7. Acute and chronic respiratory failure with hypoxia 8. PNA (pneumonia) 9. Hyperkalemia Pain Ratin Tomorrow's Labs & Rationales: CBC (anemia, monitor for leukocytosis) ICU bundle (renal dysfunction, electrolyte disturbance) Plan DVT/Prophylaxis: pharmacological
[2016-11-01 08:00] VITALS: BP 122/64
--- NOTE | 2016-11-01 10:01 | PN- CRCU ---
Subjective HPI/Critical Care Issues: Patient seen and examined at bedside this AM. She was resting comfortably in bed and reports she feels better than yesterday. She reports she tolerated out of bed to chair well and will attempt to do that again today. She is eating well. 24 Hour Events: Vital signs last 24 hours: T 96.2-98.3, HR 63-96 bpm, RR 16-26 bpm, BP 110-141/51-72, O2 89-96% on 100% high flow alternating with 100% BiPAP. Total input last 24 hours: 1190 cc Total output: 2060 cc Objective Current Medications: Current Medications Sig/Wei Start time Last Medication Dose Route Stop Time Status Admin Acetaminophen 650 MG Q6P PRN 10/20 0145 AC 10/21 PO 1839 Albuterol Sulfate 3 ML EVERY 4 HRS/AWAKE 10/20 0915 AC 11/01 INH 0816 Aspirin 81 MG DAILY 10/24 1000 AC 10/31 PO 0916 Cefuroxime Sodium 250 MG Q12 10/30 2200 AC 10/31 PO 11/02 1001 2223 Furosemide 40 MG ONCE ONE 11/01 0845 DC IV 11/01 0846 Furosemide 40 MG ONCE ONE 10/31 1015 DC 10/31 IV 10/31 1016 1024 Guaifenesin 600 MG Q12 10/20 1000 AC 10/31 PO 2225 Insulin Aspart 0 TIDAC 10/20 0800 AC 10/31 SC 1647 Insulin Detemir 18 UNITS QPM 10/31 2200 AC 10/31 SC 2224 Insulin Detemir 10 UNITS QPM 10/24 2200 DC 10/30 SC 205 Levothyroxine Sodium 0.15 MG DAILY AC 10/20 0700 AC 11/01 PO 0621 Melatonin 5 MG AT BEDTIME 10/24 2200 AC 10/31 PO 2225 Methylprednisolone 40 MG DAILY 10/31 1000 AC 10/31 IV 0916 Metoprolol Tartrate 12.5 MG BID 10/24 1007 DC 10/30 PO 205 Omeprazole 20 MG DAILY AC 10/25 0700 AC 11/01 PO 0621 Laboratory Tests 11/01 11/01 0440 0400 Chemistry Sodium (137 - 145 mmol/L) 138 Potassium (3.5 - 5.1 mmol/L) 4.9 Chloride (98 - 107 mmol/L) 100 Carbon Dioxide (22 - 30 mmol/L) 29 Anion Gap (5 - 16) 9 BUN (7 - 17 mg/dL) 76 H Creatinine (0.5 - 1.0 mg/dL) 1.1 H Estimated GFR (>60 ml/min) 48 L Glucose (65 - 99 mg/dL) 168 H Calcium (8.4 - 10.2 mg/dL) 8.7 Phosphorus (2.5 - 4.5 mg/dL) 4.3 Magnesium (1.6 - 2.3 mg/dL) 2.0 Total Bilirubin (0.2 - 1.3 mg/dL) 0.7 AST (14 - 36 U/L) 13 L ALT (9 - 52 U/L) 37 Albumin (3.5 - 5.0 g/dL) 3.0 L Hematology CBC w Diff NO MAN DIFF REQ WBC (4.8 - 10.8 /CUMM) 8.3 RBC (4.20 - 5.40 /CUMM) 2.66 L Hgb (12.0 - 16.0 G/DL) 8.9 L Hct (37 - 47 %) 27.1 L MCV (81.0 - 99.0 FL) 102.0 H MCH (27.0 - 31.0 PG) 33.6 H RDW (11.5 - 14.5 %) 19.0 H Plt Count (130 - 400 /CUMM) 274 MPV (7.4 - 10.4 FL) 10.3 Gran % (42.2 - 75.2 %) 79.7 H Lymphocytes % (20.5 - 51.1 %) 10.5 L Monocytes % (1.7 - 9.3 %) 3.3 Eosinophils % (0 - 5 %) 3.4 Basophils % (0.0 - 2.0 %) 3.1 H Absolute Granulocytes (1.4 - 6.5 /CUMM) 6.6 H Absolute Lymphocytes (1.2 - 3.4 /CUMM) 0.9 L Absolute Monocytes (0.10 - 0.60 /CUMM) 0.3 Absolute Eosinophils (0.0 - 0.7 /CUMM) 0.3 Absolute Basophils (0.0 - 0.2 /CUMM) 0.3 PUBS MCHC (33.0 - 37.0 G/DL) 32.9 L 16 0400 Chemistry Sodium (137 - 145 mmol/L) 139 Potassium (3.5 - 5.1 mmol/L) 4.9 Chloride (98 - 107 mmol/L) 103 Carbon Dioxide (22 - 30 mmol/L) 27 Anion Gap (5 - 16) 9 BUN (7 - 17 mg/dL) 67 H Creatinine (0.5 - 1.0 mg/dL) 1.3 H Estimated GFR (>60 ml/min) 40 L Glucose (65 - 99 mg/dL) 206 H Calcium (8.4 - 10.2 mg/dL) 8.4 Phosphorus (2.5 - 4.5 mg/dL) 4.9 H Magnesium (1.6 - 2.3 mg/dL) 2.0 Ferritin (11.1 - 264 ng/mL) 473.0 H Total Bilirubin (0.2 - 1.3 mg/dL) 0.6 AST (14 - 36 U/L) 10 L ALT (9 - 52 U/L) 35 Albumin (3.5 - 5.0 g/dL) 2.6 L TSH (0.270 - 4.200 uIU/mL) 0.108 L Free T4 (0.78 - 2.44 ng/dL) 1.53 Hematology CBC w Diff MAN DIFF ORDERED WBC (4.8 - 10.8 /CUMM) 6.0 RBC (4.20 - 5.40 /CUMM) 2.33 L Hgb (12.0 - 16.0 G/DL) 8.0 L Hct (37 - 47 %) 24.3 L MCV (81.0 - 99.0 FL) 104.5 H MCH (27.0 - 31.0 PG) 34.2 H RDW (11.5 - 14.5 %) 19.3 H Plt Count (130 - 400 /CUMM) 242 MPV (7.4 - 10.4 FL) 10.3 Gran % (42.2 - 75.2 %) 87.1 H Lymphocytes % (20.5 - 51.1 %) 7.9 L Monocytes % (1.7 - 9.3 %) 4.9 Eosinophils % (0 - 5 %) 0.1 Basophils % (0.0 - 2.0 %) 0 L Absolute Granulocytes (1.4 - 6.5 /CUMM) 5.2 Segmented Neutrophils (42.2 - 75.2 %) 71 Band Neutrophils (0.0 - 5.0 %) 9 H Absolute Lymphocytes (1.2 - 3.4 /CUMM) 0.5 L Lymphocytes (20.5 - 51.1 %) 12 L Monocytes (1.7 - 9.3 %) 7 Absolute Monocytes (0.10 - 0.60 /CUMM) 0.3 Absolute Eosinophils (0.0 - 0.7 /CUMM) 0 Absolute Basophils (0.0 - 0.2 /CUMM) 0 Metamyelocytes (0.0 - 1.0 %) 1 Platelet Estimate (ADEQUATE) ADEQUATE Polychromasia 1+ Hypochromic-Microcytic 1+ Poikilocytosis 1+ Basophilic Stippling 1+ Anisocytosis 1+ Ovalocytes 1+ PUBS MCHC (33.0 - 37.0 G/DL) 32.7 L Vital Signs & I&O Last 24 Hrs of Vitals and I&O: Vital Signs Date Time Temp Pulse Resp B/P B/P Pulse O2 O2 Flow FiO2 Mean Ox Delivery Rate 11/01 0808 76 97 11/01 0800 98 BIPAP 100% 11/01 0800 97.2 73 20 122/64 98 BIPAP 100% 11/01 0532 63 93 11/01 0400 94 BIPAP 100% 11/01 0211 78 90 11/01 0027 89 89 11/01 0000 90 Nasal Cannula 11/01 0000 80 18 130/80 92 Nasal Cannula 10/31 2000 90 Nasal 100% Cannula 10/31 1655 83 Nasal 100% Cannula 10/31 1600 90 Nasal 100% Cannula 10/31 1600 97.7 19 126/62 90 Nasal 100% Cannula 10/31 1200 90 Nasal 100% Cannula Intake & Output 11/01 1600 11/01 0800 11/01 0000 Intake Total 200 300 Output Total 600 550 Balance -400 -250 Intake, Oral 200 300 Number 1 Bowel Movements Output, Urine 600 550 Impression/Plan Impression/Plan Impression/Plan: Chest showed crackles Heart S1-S2 was heard Abdominal exam mix mill tender painful Significant edema IMPRESSION This is a 76-year-old lady with chronic lung disease who is on oxygen at home and inhalers, reduced ejection fraction with the significant pulmonary hypertension, now has * Improving Acute hypoxemic and hypercarbic respiratory failure appears to be related to combination of factors which includes combinational lung disease, significant COPD, reduced systolic function of the heart with mild fluid overload upon admission, sepsis of urological origin with probable early ARDS. 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
--- NOTE | 2016-11-01 13:31 | Discharge Summary ---
See Addendum Visit Information Visit Dates Admission Date: 10/19/16 Discharge Date: 11/02/16 Hospital Course Course Attending Physician: LUC THOMPSON,ERLIN Walden Primary Care Physician: UNKNOWN Hospital Course: This is a 76-year-old lady who is medical issues include hypertension, hyperlipidemia, COPD with 5 L home oxygen dependence, type 2 diabetes, hypothyroidism, chronic kidney disease, combined systolic and diastolic heart failure, severe pulmonary hypertension, previous history of kidney stones presented to the emergency room initially with a chief complaint of shortness of breath, fevers and chills. She was initially admitted to the cardiac telemetry floor for acute hypoxic respiratory failure thought to be secondary to COPD exacerbation and community-acquired pneumonia and was subsequently transferred to the ICU because of increasing oxygen demands. She was also found to have an 8 x 8 mm obstructing stone causing hydronephrosis of the left kidney secondary to which she underwent cystoscopy with left ureteral stent placement. The following issues were addressed during the course of the hospitalization. 1. Acute hypoxic respiratory failure- patient does have underlying COPD with 5 L home oxygen requirements. She was initially placed on ceftriaxone and doxycycline. Her blood cultures grew gram-negative rods (Escherichia coli). Antibiotics were then changed to ceftazidime and subsequently switched to cefuroxime to finish a two-week course of antibiotics. She continued to require high amount of FiO2 requiring mostly 70-100% via HFNC and BiPAP intermittently. She was then started on doxycycline for presumed bronchitis of which she completed the course. Lastly, she was initiated on bactrim which was discontinued after one dose as it caused hyperkalemia. Patient continued to show no improvement in respiratory function and on 11/16/16 she decided to transition care to hospice. She was discharged to hospice on the afternoon of 11/16/16. 2. Hydronephrosis- she does have a history of renal stones with a remote history of lithotripsy. She did complain of some flank pain and a CAT scan of the abdomen pelvis did show hydronephrosis with left ureteral obstruction secondary to a stone. An urgent urology consultation was obtained with Dr. Lionel Lin. On August 22, Dr. Lin took her to the operating room for cystoscopy and a left ureteral stent placement. X-ray post-procedure showed satisfactory placement of the stent. She was scheduled to follow up with Dr. Angela Pantoja (urologist) as an outpatient regarding the removal of the stent. 3. Positive troponins- troponins peaked at 0.37, cardiology consultation was obtained. This was thought to be secondary to demand ischemia and also secondary to acute renal failure. Her echocardiogram did show an ejection fraction of 40-45% which is stable when compared to previous. 4. Acute kidney injury on chronic kidney disease- she does have a baseline creatinine of around 1.3. Upon admission, her creatinine was found to be 1.9, she was given IV fluid hydration. Her renal function did improve, the bump in creatinine was thought to be secondary to obstruction. Her renal function again increased towards the end of her admission and both lisinopril and lasix were discontinued to prevent worsening of this. 5. Acute on chronic systolic and diastolic heart failure- she did receive IV fluid boluses secondary impending septic shock from an obstructed ureteral stone and gram-negative bacteremia. She was given IV Lasix to achieve a net negative fluid balance which was continued during most of her stay until her renal function was noted to decline. 6. Hypertension- during the course of her admission secondary to the gram- negative bacteremia she was at times hypotensive and bradycardic, thus her beta howie was held. Subsequently she did have improvement in her hemodynamics and the beta howie was reintroduced. It was then increased to 25 mg PO BID as she was brief, intermittent episodes of atrial tachycardia. 7. Diabetes mellitus- while in the hospital she was placed on diabetic diet, Accu-Checks and insulin sliding scale. 8. DVT Prophylaxis: ALPS (no pharmacological DVT prophylaxis as she was guiac + on admission) 9. Code Status: Initially full code, transitioned to DNR/DNI and then transitioned to hospice. Allergies: Coded Allergies: azithromycin (Intermediate, DYSPNEA 11/03/16) oxycodone (From PERCOCET) (Intermediate, NAUSEA 08/23/16) Disposition Summary Disposition Principal Diagnosis: 1. Urosepsis 2. Acute on chronic hyppoxic respiratory failure Additional Diagnosis: 1. Positive troponins 2. EVANS on CKD 3. Systolic and distolic heart failure with fluid overload 4. DM 5. Severe sepsis Discharge Disposition: hospice - medical facilit Discharge Instructions General Discharge Information Code Status: Hospice Patient's Diet: Consistent carbohydrate diet Patient's Activity: As tolerated Follow-Up Instructions/Appts: As per hospice care. Medications at Discharge Discharge Medications: Stop taking the following medications: Ramipril (Altace) 10 MG CAPSULE ORAL Every night Epoetin Dipesh (Procrit) (Unknown Strength) VIAL EVERY 2 WEEKS Metronidazole (Metronidazole) 1 % GEL..GRAM. On the skin DAILY Qty = 60 Continue taking these medications: Metformin HCl (Metformin HCl) 1,000 MG TABLET 1 Tablet ORAL TWICE DAILY Comments: NOT GIVEN Budesonide/Formoterol Fumarate (Symbicort 160-4.5 Mcg Inhaler) 10.2 GM HFA.AER.AD 2 Puff Inhale through mouth TWICE DAILY Comments: GIVEN 11/05/15 @ 0930 Hydrocortisone (Hydrocortisone) 2.5 % CREAM..G. 1 Application On the skin as needed for ITCHING Instructions: apply to affected area(s) B2/Vit A,C & E/Lut/Zeaxanth/Mn (Icaps Tablet) 3,300-200 TABLET.ER 1 Tablet ORAL TWICE DAILY Furosemide (Lasix) 20 MG TABLET 1 Tablet ORAL DAILY as needed for LEG SWELLING Cholecalciferol (Vitamin D3) (Vitamin D3) 1,000 UNIT CAPSULE 1 Capsule ORAL DAILY Insulin Glargine,Hum.rec.anlog (Lantus Solostar) 100 UNIT/ML (3 ML) INSULN.PEN 24 Unit Inject into fatty tissue Every night Levothyroxine Sodium (Synthroid) 150 MCG TABLET 1 Tablet ORAL DAILY Acetaminophen (Acetaminophen) 500 MG TABLET 2 Tablet ORAL TWICE DAILY Start taking the following new medications: Metoprolol Tartrate (Metoprolol Tartrate) 25 MG TABLET 12.5 Milligram ORAL TWICE DAILY Qty = 60 No Refills Aspirin (Aspirin*) 81 MG TAB.CHEW 81 Milligram ORAL DAILY Qty = 30 No Refills Copies To: ANGELA PANTOJA MD; ERLIN CALLE MD; ÁLVARO THOMPSON,JOYCE Attending Review Statement Documenting Attending: LUC THOMPSON,ERLIN Walden
--- NOTE | 2016-11-01 14:24 | Patient Discharge Instructions ---
Discharge Instructions General Discharge Information You were seen/treated for: Sepsis secondary to urinary tract infection Renal stone requiring stent placement COPD exacerbation with respiratory failure You had these procedures: Ureteral stent placement Special Instructions: Please follow up with PCP within 7 days of discharge/ Please follow up with rehabilitation services aide wtihin 1 week of discharge; urologist and tooling engineer within 2 weeks of discharge. Please take all medications as directed. Please follow up with PCP to discuss cystic abnormality of distal body of pancreas and follow up for this. Diet Recommended Diet: Diabetic Activity Activity Self Limited: Yes Acute Coronary Syndrome Inclusion Criteria At DC or during hospital stay patient has or had the following: ACS DIAGNOSIS Yes Discharge Core Measures Meds if any: Prescribed or Continued at Discharge Aspirin Yes Beta-Bailey Yes Statin Yes Meds if any: NOT Prescribed or Continued at Discharge Congestive Heart Failure Inclusion Criteria At DC or during hospital stay patient has or had the following: CHF DIAGNOSIS Yes Discharge Core Measures Meds if any: Prescribed or Continued at Discharge Meds if any: NOT Prescribed or Continued at Discharge Cerebrovascular accident Inclusion Criteria At DC or during hospital stay patient has or had the following: CVA/TIA Diagnosis No Discharge Core Measures Meds if any: Prescribed or Continued at Discharge Meds if any: NOT Prescribed or Continued at Discharge Venous thromboembolism Inclusion Criteria VTE Diagnosis No VTE Type NONE VTE Confirmed by (Test) NONE Discharge Core Measures - Per Current guidelines, there needs to be overlap - treatment for the first 5 days of Warfarin therapy. - If discharged on Warfarin prior to 5 days of - overlap therapy, the patient will need to be - assessed for post discharge needs including - *Post discharge parental anticoagulation - *Warfarin and/or parental anticoagulation education - *Follow up date to check INR post discharge At least 5 days overlap therapy as Inpatient No Meds if any: Prescribed or Continued at Discharge Note: Overlap Therapy is Warfarin and Anticoagulant Meds if any: NOT Prescribed or Continued at Discharge
[2016-11-01 16:00] VITALS: BP 130/72
[2016-11-01 20:00] VITALS: BP 144/65
[2016-11-02] VITALS: BP 122/61
[2016-11-02 04:00] VITALS: BP 148/56
[2016-11-02 04:54] LABS: ABSOLUTE BASOPHIL COUNT 0 /CUMM (0.0-0.2); ABSOLUTE EOSINOPHIL COUNT 0.5 /CUMM (0.0-0.7); ABSOLUTE GRANULOCYTE CT 5.7 /CUMM (1.4-6.5); ABSOLUTE LYMPH COUNT 0.8 /CUMM (1.2-3.4); ABSOLUTE MONOCYTE COUNT 0.4 /CUMM (0.10-0.60); BASOPHIL % 0.2 % (0.0-2.0); EOSINOPHIL % 6.3 % (0-5); GRANULOCYTE % 76.9 % (42.2-75.2); HEMATOCRIT 27.5 % (37-47); MEAN CORPUSCULAR HGB 34.3 PG (27.0-31.0); MEAN CORPUSCULAR VOLUME 103.7 FL (81.0-99.0); MEAN PLATELET VOLUME 10.3 FL (7.4-10.4); PLATELET COUNT 252 /CUMM (130-400); RBC DISTRIBUTION WIDTH 19.1 % (11.5-14.5); RED BLOOD CELL CT 2.65 /CUMM (4.20-5.40); WHITE BLOOD CELL COUNT 7.4 /CUMM (4.8-10.8)
--- NOTE | 2016-11-02 06:56 | PN- Resident CRCU ---
Subjective HPI/CRCU Issues: Patient seen and examined at bedside this AM. She was laying comfortably in bed on BPAP with saturations 93%. Patient tolerated out of bed to chair well yesterday and is slowly regaining her strength. She continues to deny chest pain , wheezing, abdominal pain, nausea and vomiting. 24 Hour Events: Discussion with case management regarding discharge disposition. Patient will greatly benefit from pulmonary rehab and case management has reached out to [place] for this purpose. Patient will need to have FiO2 requirements lower, close to 50-60%, for discharge to this facility. Will continue to titrate FiO2 down today along with having her out of bed to chair. Telemetry events: NO overnight events Vital signs last 24 hours: T 97.0-98.2, HR 64-98, RR 18-26, BP 122-150/56-77, O2 saturation 80-98% on High flow 80-100% alternating with BiPAP only at night. Total input last 24 hours: 1400 cc Total output last 24 hours: 2100 cc Objective Vital Signs & I&O Last 8 Hrs of Vitals and I&O: T 97.0-98.2, HR 64-98, RR 18-26, BP 122-150/56-77, O2 saturation 80-98% on High flow 80-100% alternating with BiPAP only at night. Exam General Appearance: well developed/nourished, no apparent distress, alert, awake , comfortable Head: atraumatic, normal appearance Ears, Nose, Throat: normal pharynx, normal ENT inspection, hearing grossly normal Neck: normal inspection, full range of motion Respiratory: normal breath sounds, Decreased breath sounds bilateral bases Cardiovascular: regular rate/rhythm Gastrointestinal: normal bowel sounds, soft, non-tender Extremities: normal inspection, no edema Cranial Nerves: normal hearing, normal speech Skin: normal color, warm/dry Nutrition Nutrition: P.O. diet Current Medications: Current Medications Sig/Wei Start time Last Medication Dose Route Stop Time Status Admin Acetaminophen 650 MG Q6P PRN 10/20 0145 AC 10/21 PO 1839 Albuterol Sulfate 3 ML EVERY 4 HRS/AWAKE 10/20 0915 AC 11/02 INH 0814 Aspirin 81 MG DAILY 10/24 1000 AC 11/01 PO 0926 Cefuroxime Sodium 250 MG Q12 10/30 2200 AC 11/01 PO 11/02 1001 2133 Furosemide 40 MG ONCE ONE 11/01 0845 DC 11/01 IV 11/01 0846 0926 Guaifenesin 600 MG Q12 10/20 1000 AC 11/01 PO 2132 Insulin Aspart 0 TIDAC 10/20 0800 AC 11/01 SC 1636 Insulin Detemir 18 UNITS QPM 10/31 2200 AC 11/01 SC 2135 Levothyroxine Sodium 0.15 MG DAILY AC 10/20 0700 AC 11/02 PO 0653 Magnesium Oxide 400 MG ONE ONE 11/02 0715 DC PO 11/02 0716 Melatonin 5 MG AT BEDTIME 10/24 2200 AC 11/01 PO 2132 Methylprednisolone 40 MG DAILY 10/31 1000 AC 11/01 IV 0926 Metoprolol Tartrate 12.5 MG BID 11/01 1046 AC 11/01 PO 213 Omeprazole 20 MG DAILY AC 10/25 0700 AC 11/02 PO 0653 Impression/Plan Impression/Problem List Impression: Ms. Bajwa is a pleasant 76 year old female with PMH hypertension, hyperlipidemia, COPD on 5 L continuous NC, type 2 diabetes mellitus on insulin, hypothyroidism, stage III B chronic kidney disease, combined systolic and diastolic heart failure, severe pulmonary hypertension, history of kidney stones in the past who presented to the [place] ED with shortness of breath on exertion , chills, decreased oral intake, cough minimally productive of sputum and nausea for one day. Patient was admitted to telemetry initally, has received treatment for possible pneumonia and UTI, and was tranferred to the ICU due to decreased oxygen saturation to 85% requiring high flow oxygen and for closer monitoring. Below is the problem list and plan: Respiratory: 1. Acute on chronic hypoxic and hypercarbic respiratory failure * Likely 2/2 combination of COPD, heart failure and sepsis of urological origin * Treated for possible pneumonia with ceftriaxone and doxycycline (allergic to azithromycin) on admission -met criteria for sepsis on admission with possible pulmonary source acording to CXR, required high flow O2 through NC * V/Q scan negative for PE * Continue Mucinex BID, scheduled albuterol, TRC/Nebs * Follow up repeat CXR Q48 hours or if clinically indicated (CXR from today shows no significant interval change) * Continue high flow nasal cannula and try to wean BiPAP QHS, currently titrating down FiO2, goal FiO2 50-60% * PO lasix 40 mg BID * IV solumedrol reduced to 40 mg for 2 more days * Patient will greatly benefit from inpatient pulmonary rehab, discussed transfer to [place], will follow up with case management for this issue ID 1. Gram-negative sepsis with pansensitive Escherichia coli due to obstructive uropathy and evidence of an 8 mm stone causing hydronephrosis. * Urinalysis suggesting UTI and blood culture positive for gram negative rods ( pansensitive ecoli) * Initial CT of [place] and pelvis showed obstructing 8 x 8 mm left ureter stone causing moderate to severe hydroureteronephrosis and left perinephric stranding. * Patient had left ureteral stent placed, tolerated procedure well, will continue follow uro rec's * Repeat CT scan showed interval decompression of left renal collecting system with multiple nonobstructing renal calculi * PO ceftin to complete 14 d course today * Latest urine culture negative for growth Cardiac 1. Elevated troponins * Elevated troponins in setting of acute hypoxic respiratory failure likely represent demand ischemia, no chest pain reported, have since trended down. * Echo shows EF 40-45%, mild global hypokinesis, right ventricular systolic pressure estimated at 47 mmHg. * Cardiology is following and will continue to follow recs * Continue ASA 81 mg PO daily and lopressor 12.5 mg PO BID 2. Combined systolic and diastolic CHF * Lasix as needed for fluid overload, will give 40 mg PO BID starting today * Monitor renal function with continued lasix use Heme 1. Chronic macrocytic anemia * Likely 2/2 CKD * Folate within normal limits and B12 is elevated * Patient with Guiac (+) stool, no pharm dvtp * Follow up daily CBC Metabolic 1. EVANS on CKD * Possibly secondary to initial sepsis with superimposed hydronephrosis * Avoid nephrotoxins * Will restart ramipril today * ICU bundle daily to monitor BUN/cre 2. Hyperkalemia * Likely secondary to acute on chronic kidney injury * Follow up repeat labs in AM 3. Diabetes mellitus * Accuchecks TIDACHS * NSS (medium dose) * Levemir increased to home dose of 24 U SC QPM today 4. Hypothyroidism * Continue synthroid 0.15 mg PO daily AC Other 1. Cystic abnormality abutting distal body of pancreas * Follow up CT scan with pancreatic mass protocol once patient more stable or close follow up after discharge FULL CODE DVTP: ALPS CC2 diet Mild pain pathway Problem List: 1. Insulin dependent type 2 diabetes mellitus 2. Elevated troponin 3. HFrEF (heart failure with reduced ejection fraction) 4. Acute renal failure superimposed on stage 3 chronic kidney disease 5. UTI (urinary tract infection) 6. Gram negative sepsis 7. Acute and chronic respiratory failure with hypoxia 8. PNA (pneumonia) 9. Hyperkalemia Pain Ratin Tomorrow's Labs & Rationales: CBC (anemia) ICU bundle (hyperkalemia, renal dysfunction) Plan DVT/Prophylaxis: pharmacological Code Status: Full Code
[2016-11-02 08:00] VITALS: BP 136/58
--- NOTE | 2016-11-02 09:43 | PN- Pulmonary ---
Subjective HPI/Critical Care Issues: Patient seen and examined at bedside this AM. She was laying comfortably in bed on BPAP with saturations 93%. Patient tolerated out of bed to chair well yesterday and is slowly regaining her strength. She continues to deny chest pain , wheezing, abdominal pain, nausea and vomiting. 24 Hour Events: Discussion with case management regarding discharge disposition. Patient will greatly benefit from pulmonary rehab and case management has reached out to [place] for this purpose. Patient will need to have FiO2 requirements lower, close to 50-60%, for discharge to this facility. Will continue to titrate FiO2 down today along with having her out of bed to chair. Telemetry events: NO overnight events Objective Current Medications: Current Medications Sig/Wei Start time Last Medication Dose Route Stop Time Status Admin Acetaminophen 650 MG Q6P PRN 10/20 0145 AC 10/21 PO 1839 Albuterol Sulfate 3 ML EVERY 4 HRS/AWAKE 10/20 0915 AC 11/02 INH 0814 Aspirin 81 MG DAILY 10/24 1000 AC 11/01 PO 0926 Cefuroxime Sodium 250 MG Q12 10/30 2200 AC 11/01 PO 11/02 1001 2133 Guaifenesin 600 MG Q12 10/20 1000 AC 11/01 PO 2132 Insulin Aspart 0 TIDAC 10/20 0800 AC 11/01 SC 1636 Insulin Detemir 18 UNITS QPM 10/31 2200 AC 11/01 SC 2135 Levothyroxine Sodium 0.15 MG DAILY AC 10/20 0700 AC 11/02 PO 0653 Magnesium Oxide 400 MG ONE ONE 11/02 0715 DC PO 11/02 0716 Melatonin 5 MG AT BEDTIME 10/24 2200 AC 11/01 PO 2132 Methylprednisolone 40 MG DAILY 10/31 1000 AC 11/01 IV 0926 Metoprolol Tartrate 12.5 MG BID 11/01 1046 AC 11/01 PO 2133 Omeprazole 20 MG DAILY AC 10/25 0700 AC 11/02 PO 0653 Vital Signs & I&O Last 24 Hrs of Vitals and I&O: Vital Signs Date Time Temp Pulse Resp B/P B/P Pulse O2 O2 Flow FiO2 Mean Ox Delivery Rate 11/02 0824 94 Nasal 100% Cannula 11/02 0815 80 92 11/02 0552 68 96 11/02 0400 98 BIPAP 100% 11/02 0400 97.9 72 22 148/56 98 BIPAP 100% 11/02 0319 65 93 11/02 0033 75 97 11/02 0000 92 BIPAP 100% 11/02 0000 97.4 76 20 122/61 92 BIPAP 100% 11/01 2251 83 87 11/01 2133 92 139/72 11/02 1999 97.9 95 22 144/65 91 Nasal 95% Cannula 11/02 1999 91 Nasal 95% Cannula 11/01 1743 86 Nasal 100% Cannula 11/01 1600 89 95% 11/01 1600 98.2 90 18 130/72 89 95% 11/01 1246 97.2 76 20 122/64 11/01 1223 92 Nasal 80% Cannula 11/01 1056 BIPAP 90% 11/01 1052 BIPAP 90% Intake & Output 11/02 1600 11/02 0800 11/02 0000 Intake Total 240 360 Output Total 350 850 Balance -110 -490 Intake, IV 0 0 Intake, Oral 240 360 Number 0 1 Bowel Movements Output, Urine 350 850 Impression/Plan Impression/Plan Impression/Plan: Chest showed crackles Heart S1-S2 was heard Abdominal exam cutter tender painful Significant edema IMPRESSION This is a 76-year-old lady with chronic lung disease who is on oxygen at home and inhalers, reduced ejection fraction with the significant pulmonary hypertension, now has * Improving Acute hypoxemic and hypercarbic respiratory failure appears to be related to combination of factors which includes combinational lung disease, significant COPD, reduced systolic function of the heart with mild fluid overload upon admission, sepsis of urological origin with probable early ARDS. Now on steroids * REsolved Significant gram-negative sepsis pansensensitive ecoli, due to 8 mm stone with obstructive uropathy with hydronephrosis, causing sepsis S/P Stent * Improving Chronic kidney disease with acute kidney injury upon admission which is slowly improving * Significantly elevated proBNP with low ejection fraction upon admission * Chronic anemia patient has been on epo before, now with thrombocytopenia due to sepsis and pt does have macrocytosis and need to rule out myelodysplasia in the future * Heme positive stool with chronic anemia * Myelodysplasia and MGUS with Splenomegaly, 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
--- NOTE | 2016-11-02 12:27 | PN- Cardiology ---
Subjective Subjective: Sitting comfortably in a chair. SOB improving. No CP. No palpitations. No diaphoresis. No nausea. Objective Vital Signs and I&Os Vital Signs Date Time Temp Pulse Resp B/P B/P Pulse O2 O2 Flow FiO2 Mean Ox Delivery Rate 11/02 1046 98 110/70 11/02 0824 94 Nasal 100% Cannula 11/02 0815 80 92 11/02 0552 68 96 11/02 0400 98 BIPAP 100% 11/02 0400 97.9 72 22 148/56 98 BIPAP 100% 11/02 0319 65 93 11/02 0033 75 97 11/02 0000 92 BIPAP 100% 11/02 0000 97.4 76 20 122/61 92 BIPAP 100% 11/01 2251 83 87 11/01 2133 92 139/72 11/02 1999 97.9 95 22 144/65 91 Nasal 95% Cannula 11/01 2000 91 Nasal 95% Cannula 11/01 1743 86 Nasal 100% Cannula 11/01 1600 89 95% 11/01 1600 98.2 90 18 130/72 89 95% 11/01 1246 97.2 76 20 122/64 Intake & Output 11/02 1600 11/02 0800 11/02 0000 11/01 1600 11/01 0800 11/01 0000 Intake Total 240 360 800 200 300 Output Total 350 850 900 600 550 Balance -110 -490 -100 -400 -250 Intake, IV 0 0 Intake, Oral 240 360 800 200 300 Number 0 1 1 Bowel Movements Output, Urine 350 850 900 600 550 Physical Exam: Gen: NAD HEENT: normal Lungs: Decreased air movement, scattered rhonchi, normal resp. effort Heart: RRR, S1, S2, no murmurs Abdomen: Soft, nontender, no masses Extremities: No clubbing, cyanosis, or edema. Neuro: Alert and oriented x 3, cranial nerves intact Current Medications: Current Medications Sig/Wei Start time Last Medication Dose Route Stop Time Status Admin Acetaminophen 650 MG Q6P PRN 10/20 0145 AC 10/21 PO 1839 Albuterol Sulfate 3 ML EVERY 4 HRS/AWAKE 10/20 0915 AC 11/02 INH 1130 Aspirin 81 MG DAILY 10/24 1000 AC 11/02 PO 1045 Cefuroxime Sodium 250 MG Q12 10/30 2200 DC 11/02 PO 11/02 1001 1046 Furosemide 40 MG 7:30 AM, & 4:30 PM 11/02 1630 CAN IV Furosemide 40 MG 7:30 AM, & 4:30 PM 11/02 1630 AC PO Guaifenesin 600 MG Q12 10/20 1000 AC 11/02 PO 1046 Insulin Aspart 0 TIDAC 10/20 0800 AC 11/01 SC 1636 Insulin Detemir 24 UNITS QPM 11/02 2200 AC SC Insulin Detemir 18 UNITS QPM 10/31 2200 DC 11/01 SC 2135 Levothyroxine Sodium 0.15 MG DAILY AC 10/20 0700 AC 11/02 PO 0653 Lisinopril 10 MG DAILY 11/02 1024 AC PO Magnesium Oxide 400 MG ONE ONE 11/02 0715 DC 11/02 PO 11/02 0716 1045 Melatonin 5 MG AT BEDTIME 10/24 2200 AC 11/01 PO 2132 Methylprednisolone 40 MG DAILY 10/31 1000 AC 11/02 IV 11/04 0000 1046 Metoprolol Tartrate 12.5 MG BID 11/01 1046 AC 11/02 PO 1046 Omeprazole 20 MG DAILY AC 10/25 0700 AC 11/02 PO 0653 Results Last 48 Hrs of Labs/Mics: Laboratory Tests 11/02/16 0425: Anion Gap 9, Estimated GFR 54 L, Glucose 126 H, Calcium 8.6, Phosphorus 4.1, Magnesium 1.9, Total Bilirubin 0.8, AST 18, ALT 35, Albumin 3.1 L, CBC w Diff NO MAN DIFF REQ, RBC 2.65 L, MCV 103.7 H, MCH 34.3 H, RDW 19.1 H, MPV 10.3, Gran % 76.9 H, Lymphocytes % 10.6 L, Monocytes % 6.0, Eosinophils % 6.3 H, Basophils % 0.2, Absolute Granulocytes 5.7, Absolute Lymphocytes 0.8 L, Absolute Monocytes 0.4, Absolute Eosinophils 0.5, Absolute Basophils 0, PUBS MCHC 33.0 11/01/16 0440: Anion Gap 9, Estimated GFR 48 L, Glucose 168 H, Calcium 8.7, Phosphorus 4.3, Magnesium 2.0, Total Bilirubin 0.7, AST 13 L, ALT 37, Albumin 3.0 L 11/01/16 0400: CBC w Diff NO MAN DIFF REQ, RBC 2.66 L, MCV 102.0 H, MCH 33.6 H, RDW 19.0 H, MPV 10.3, Gran % 79.7 H, Lymphocytes % 10.5 L, Monocytes % 3.3, Eosinophils % 3.4, Basophils % 3.1 H, Absolute Granulocytes 6.6 H, Absolute Lymphocytes 0.9 L, Absolute Monocytes 0.3, Absolute Eosinophils 0.3, Absolute Basophils 0.3, PUBS MCHC 32.9 L Assessment/Plan Assessment/Plan 1. Community-acquired pneumonia 2. Respiratory failure 3. Gram-negative sepsis 4. Mild troponin elevation, likely secondary to pneumonia and sepsis 5. Mild left ventricular systolic dysfunction 6. Short runs of nonsustained atrial tachycardia 7. Chronic HFrEF, with mild acute exacerbation 8. Chronic kidney disease, improved Plan: * Lasix 40 mg by mouth twice a day * Antibiotic therapy as per the medical team. * Monitor electrolytes and renal function. Continue telemetry? Yes
[2016-11-02 20:00] VITALS: BP 120/52
[2016-11-03] VITALS: BP 120/66
--- NOTE | 2016-11-03 01:35 | NUR ---
PATIENT IA A/O X3, PERRLA, MOVES ALL THE LIMBS, FOLLWOS COMMAND, DENIES ANY PIAN. VITAL SIGNS ARE STABLE. BREATHING VIA HIGH FLOW NC AR 95%, LUNG HAS DIMINISHED AIR ENTRY ON BOTH LUNG SUMMERS, SATURATION IS AT 88 TO 92%, NOTED TO HAVE EXERTIONAL SOB AND SATS DOWN TO 78% ON EXERTION AND GOES BACK TO 88 TO 90. ABDOMEN IS ROUND, SOFT, HAS GOOD BOWEL SOUNDS, HAS MODERATE SMOUNT OF BM YELLOWISH COLOR, SOFT STOOL. ABLE TO VOID USING BEDPAN. SKIN INTACT AND NO BROKEN SKIN. AT 24OO, RT INFORMED THAT PATIENT DESATING AT 70'S, RT SEEN THE PATIENT, RT SAID PER DR. SANTACRUZ.... O2 SAT 86 AND ABOVE IS ACCEPTABLE. CURRENT O2 SAT NOW IS 88%, PATIET IS SLEEPING COMFORTABLY, NOT IN DISTRESS, VITAL SIGNS ARE STABLE.
[2016-11-03 04:00] VITALS: BP 128/60
[2016-11-03 04:29] LABS: ABSOLUTE BASOPHIL COUNT 0 /CUMM (0.0-0.2); ABSOLUTE EOSINOPHIL COUNT 0.7 /CUMM (0.0-0.7); ABSOLUTE GRANULOCYTE CT 8.1 /CUMM (1.4-6.5); ABSOLUTE LYMPH COUNT 0.8 /CUMM (1.2-3.4); ABSOLUTE MONOCYTE COUNT 0.4 /CUMM (0.10-0.60); BASOPHIL % 0.1 % (0.0-2.0); EOSINOPHIL % 6.6 % (0-5); GRANULOCYTE % 80.8 % (42.2-75.2); HEMATOCRIT 26.8 % (37-47); MEAN CORPUSCULAR HGB CONC 31.8 G/DL (33.0-37.0); MEAN CORPUSCULAR VOLUME 103.7 FL (81.0-99.0); MEAN PLATELET VOLUME 9.4 FL (7.4-10.4); PLATELET COUNT 241 /CUMM (130-400); RBC DISTRIBUTION WIDTH 18.6 % (11.5-14.5); RED BLOOD CELL CT 2.58 /CUMM (4.20-5.40)
--- NOTE | 2016-11-03 07:37 | PN- Resident CRCU ---
Subjective HPI/CRCU Issues: Patient seen and examined at bedside this AM. She was laying comfortably in bed in no acute distress without complaint. Patient reports she has discussed with case management about going to [place] for pulmonary rehabilitation. She is amenable and agreeable to this. We will continue titrating down her FiO2 today. 24 Hour Events: Telemetry events: No overnight telemetry events. Vital signs last 24 hours: T 97.0-98.1, HR 68-100 bpm, BP 120-144/50-70, RR 16-36, O2 88-100% on 95% high flow with BiPAP at night. Total input last 24 hours: 1330 cc Total output last 24 hours: 3090 cc Objective Vital Signs & I&O Last 8 Hrs of Vitals and I&O: T 97.0-98.1, HR 68-100 bpm, BP 120-144/50-70, RR 16-36, O2 88-100% on 95% high flow with BiPAP at night. Exam General Appearance: well developed/nourished, no apparent distress, alert, awake , comfortable Head: atraumatic, normal appearance Ears, Nose, Throat: normal pharynx, normal ENT inspection, hearing grossly normal Neck: normal inspection, full range of motion Respiratory: normal breath sounds, chest non-tender, IMproving aeration of bilateral lung chakraborty Cardiovascular: regular rate/rhythm Gastrointestinal: normal bowel sounds, soft, non-tender, no organomegaly Extremities: normal inspection, no edema Cranial Nerves: normal hearing, normal speech, PERRL Skin: normal color, warm/dry Nutrition Nutrition: P.O. diet Current Medications: Current Medications Sig/Wei Start time Last Medication Dose Route Stop Time Status Admin Acetaminophen 650 MG Q6P PRN 10/20 0145 AC 10/21 PO 1839 Albuterol Sulfate 3 ML EVERY 4 HRS/AWAKE 10/20 0915 AC 11/03 INH 0835 Aspirin 81 MG DAILY 10/24 1000 AC 11/03 PO 1023 Furosemide 40 MG 7:30 AM, & 4:30 PM 11/02 1630 AC 11/03 PO 1022 Guaifenesin 600 MG Q12 10/20 1000 AC 11/03 PO 1023 Insulin Aspart 0 TIDAC 10/20 0800 AC 11/02 SC 1702 Insulin Detemir 24 UNITS QPM 11/02 2200 AC 11/02 SC 2150 Levothyroxine Sodium 0.15 MG DAILY AC 10/20 0700 AC 11/03 PO 0607 Lisinopril 10 MG DAILY 11/02 1024 AC 11/03 PO 1022 Melatonin 5 MG AT BEDTIME 10/24 2200 AC 11/02 PO 2151 Methylprednisolone 40 MG DAILY 10/31 1000 AC 11/03 IV 11/04 0000 1022 Metoprolol Tartrate 12.5 MG BID 11/01 1046 AC 11/03 PO 1023 Omeprazole 20 MG DAILY AC 10/25 0700 AC 11/03 PO 0607 Impression/Plan Impression/Problem List Impression: Ms. Bajwa is a pleasant 76 year old female with PMH hypertension, hyperlipidemia, COPD on 5 L continuous NC, type 2 diabetes mellitus on insulin, hypothyroidism, stage III B chronic kidney disease, combined systolic and diastolic heart failure, severe pulmonary hypertension, history of kidney stones in the past who presented to the [facility] ED with shortness of breath on exertion , chills, decreased oral intake, cough minimally productive of sputum and nausea for one day. Patient was admitted to telemetry initally, has received treatment for possible pneumonia and UTI, and was tranferred to the ICU due to decreased oxygen saturation to 85% requiring high flow oxygen and for closer monitoring. Below is the problem list and plan: Respiratory: 1. Acute on chronic hypoxic and hypercarbic respiratory failure * Likely 2/2 combination of COPD, heart failure and sepsis of urological origin * Treated for possible pneumonia with ceftriaxone and doxycycline (allergic to azithromycin) on admission -met criteria for sepsis on admission with possible pulmonary source acording to CXR, required high flow O2 through NC * V/Q scan negative for PE * Continue Mucinex BID, scheduled albuterol, TRC/Nebs * Follow up repeat CXR Q48 hours or if clinically indicated * Continue high flow nasal cannula and try to wean BiPAP QHS, currently titrating down FiO2, goal FiO2 50-60% * PO lasix 40 mg BID started yesterday, tolerating well with net negative fluid balance * IV solumedrol 40 mg for 1 more day * Patient will greatly benefit from inpatient pulmonary rehab, discussed transfer to [place], will follow up with case management for this issue ID 1. Gram-negative sepsis with pansensitive Escherichia coli due to obstructive uropathy and evidence of an 8 mm stone causing hydronephrosis. * Urinalysis suggesting UTI and blood culture positive for gram negative rods ( pansensitive ecoli) * Initial CT of [place] and pelvis showed obstructing 8 x 8 mm left ureter stone causing moderate to severe hydroureteronephrosis and left perinephric stranding. * Patient had left ureteral stent placed, tolerated procedure well, will continue follow uro rec's * Repeat CT scan showed interval decompression of left renal collecting system with multiple nonobstructing renal calculi * PO ceftin 14 day course completed * Latest urine culture negative for growth Cardiac 1. Elevated troponins * Elevated troponins in setting of acute hypoxic respiratory failure likely represent demand ischemia, no chest pain reported, have since trended down. * Echo shows EF 40-45%, mild global hypokinesis, right ventricular systolic pressure estimated at 47 mmHg. * Cardiology is following and will continue to follow recs * Continue ASA 81 mg PO daily and lopressor 12.5 mg PO BID, tolerating well 2. Combined systolic and diastolic CHF * 40 mg PO lasix BID * Monitor renal function with continued lasix use * Follow up with cardiology within 1 week after discharge Heme 1. Chronic macrocytic anemia * Likely 2/2 CKD * Folate within normal limits and B12 is elevated * Patient with Guiac (+) stool, no pharm dvtp * Follow up daily CBC Metabolic 1. EVANS on CKD * Possibly secondary to initial sepsis with superimposed hydronephrosis * Avoid nephrotoxins * Tolerating lisinopril well which was restarted yesterday * ICU bundle daily to monitor BUN/cre 2. Hyperkalemia * Likely secondary to acute on chronic kidney injury * Follow up repeat labs in AM 3. Diabetes mellitus * Accuchecks TIDACHS * NSS (medium dose) * Continue home dose levemir 24 U SC QPM today 4. Hypothyroidism * Continue synthroid 0.15 mg PO daily AC Other 1. Cystic abnormality abutting distal body of pancreas * Follow up CT scan with pancreatic mass protocol once patient more stable or close follow up after discharge FULL CODE DVTP: ALPS CC2 diet Mild pain pathway Problem List: 1. Insulin dependent type 2 diabetes mellitus 2. Elevated troponin 3. HFrEF (heart failure with reduced ejection fraction) 4. Acute renal failure superimposed on stage 3 chronic kidney disease 5. UTI (urinary tract infection) 6. Gram negative sepsis 7. Acute and chronic respiratory failure with hypoxia 8. Hyperkalemia Pain Ratin Tomorrow's Labs & Rationales: CBC (anemia) ICU bundle (hyperkalemia, renal dysfunction) Plan DVT/Prophylaxis: mechanical Code Status: Full Code
[2016-11-03 08:00] VITALS: BP 114/74
--- NOTE | 2016-11-03 12:14 | PN- Cardiology ---
Subjective Subjective: Shortness of breath improving. No chest pain. No palpitations. No diaphoresis. Objective Vital Signs and I&Os Vital Signs Date Time Temp Pulse Resp B/P B/P Pulse O2 O2 Flow FiO2 Mean Ox Delivery Rate 11/03 1036 98 Nasal 100% Cannula 11/03 1023 60 114/74 11/03 1022 60 114/74 11/03 0831 73 99 11/03 0800 9 Nasal 100% Cannula 11/03 0800 97.4 68 18 114/74 98 Nasal 100% Cannula 11/03 0521 71 90 11/03 0400 90 Nasal 95% Cannula 11/03 0400 97.8 68 17 128/60 90 Nasal 95% Cannula 11/03 0314 78 85 11/03 0126 88 Nasal 100% Cannula 11/03 0000 89 Nasal 95% Cannula 11/03 0000 98.1 85 18 120/66 89 Nasal 95% Cannula 11/02 2151 97.9 84 18 138/66 11/02 2000 90 Nasal 95% Cannula 11/03 1999 97.9 98 36 120/52 90 Nasal 95% Cannula 11/02 1702 80 120/70 11/02 1626 89 Nasal 100% Cannula 11/02 1514 90 Nasal 75% Cannula 11/02 1435 92 Nasal 90% Cannula Intake & Output 11/03 1600 11/03 0800 11/03 0000 11/02 1600 11/02 0800 11/02 0000 Intake Total 200 490 640 240 360 Output Total 0987 857 1474 350 850 Balance -960 -320 -460 -110 -490 Intake, IV 0 0 Intake, Oral 200 490 640 240 360 Number 1 0 1 Bowel Movements Output, Urine 3705 490 4851 350 850 Physical Exam: Gen: NAD HEENT: normal Lungs: Decreased air movement, scattered rhonchi, normal resp. effort Heart: RRR, S1, S2, no murmurs Abdomen: Soft, nontender, no masses Extremities: No clubbing, cyanosis, or edema. Neuro: Alert and oriented x 3, cranial nerves intact Current Medications: Current Medications Sig/Wei Start time Last Medication Dose Route Stop Time Status Admin Acetaminophen 650 MG Q6P PRN 10/20 0145 AC 10/21 PO 1839 Albuterol Sulfate 3 ML EVERY 4 HRS/AWAKE 10/20 0915 AC 11/03 INH 0835 Aspirin 81 MG DAILY 10/24 1000 AC 11/03 PO 1023 Furosemide 40 MG 7:30 AM, & 4:30 PM 11/02 1630 AC 11/03 PO 1022 Guaifenesin 600 MG Q12 10/20 1000 AC 11/03 PO 1023 Insulin Aspart 0 TIDAC 10/20 0800 AC 11/02 SC 1702 Insulin Detemir 24 UNITS QPM 11/02 2200 AC 11/02 SC 2150 Levothyroxine Sodium 0.15 MG DAILY AC 10/20 0700 AC 11/03 PO 0607 Lisinopril 10 MG DAILY 11/02 1024 AC 11/03 PO 1022 Melatonin 5 MG AT BEDTIME 10/24 2200 AC 11/02 PO 2151 Methylprednisolone 40 MG DAILY 10/31 1000 AC 11/03 IV 11/04 0000 1022 Metoprolol Tartrate 12.5 MG BID 11/01 1046 AC 11/03 PO 1023 Omeprazole 20 MG DAILY AC 10/25 0700 AC 11/03 PO 0607 Results Last 48 Hrs of Labs/Mics: Laboratory Tests 11/03/16 0330: Anion Gap 10, Estimated GFR 48 L, Glucose 179 H, Calcium 8.7, Phosphorus 3.9, Magnesium 1.9, Total Bilirubin 0.8, AST 16, ALT 37, Albumin 3.1 L, CBC w Diff NO MAN DIFF REQ, RBC 2.58 L, MCV 103.7 H, MCH 33.0 H, RDW 18.6 H, MPV 9.4, Gran % 80.8 H, Lymphocytes % 8.5 L, Monocytes % 4.0, Eosinophils % 6.6 H, Basophils % 0.1, Absolute Granulocytes 8.1 H, Absolute Lymphocytes 0.8 L, Absolute Monocytes 0.4, Absolute Eosinophils 0.7, Absolute Basophils 0, PUBS MCHC 31.8 L 11/02/16 0425: Anion Gap 9, Estimated GFR 54 L, Glucose 126 H, Calcium 8.6, Phosphorus 4.1, Magnesium 1.9, Total Bilirubin 0.8, AST 18, ALT 35, Albumin 3.1 L, CBC w Diff NO MAN DIFF REQ, RBC 2.65 L, MCV 103.7 H, MCH 34.3 H, RDW 19.1 H, MPV 10.3, Gran % 76.9 H, Lymphocytes % 10.6 L, Monocytes % 6.0, Eosinophils % 6.3 H, Basophils % 0.2, Absolute Granulocytes 5.7, Absolute Lymphocytes 0.8 L, Absolute Monocytes 0.4, Absolute Eosinophils 0.5, Absolute Basophils 0, PUBS MCHC 33.0 Assessment/Plan Assessment/Plan 1. Community-acquired pneumonia 2. Respiratory failure 3. Gram-negative sepsis 4. Mild troponin elevation, likely secondary to pneumonia and sepsis 5. Mild left ventricular systolic dysfunction 6. Short runs of nonsustained atrial tachycardia 7. Chronic HFrEF, with mild acute exacerbation 8. Chronic kidney disease, improved Plan: * Continue by mouth Lasix * Continue other cardiac medications. * Follow up in one week after discharge. Continue telemetry? Yes
--- NOTE | 2016-11-03 13:27 | PN- Pulmonary ---
Subjective HPI/Critical Care Issues: Patient seen and examined at bedside this AM. She was laying comfortably in bed in no acute distress without complaint. Patient reports she has discussed with case management about going to [facility] for pulmonary rehabilitation. She is amenable and agreeable to this. We will continue titrating down her FiO2 today. 24 Hour Events: Telemetry events: No overnight telemetry events. Vital signs last 24 hours: T 97.0-98.1, HR 68-100 bpm, BP 120-144/50-70, RR 16-36, O2 88-100% on 95% high flow with BiPAP at night. Total input last 24 hours: 1330 cc Total output last 24 hours: 3090 cc Objective Current Medications: Current Medications Sig/Wei Start time Last Medication Dose Route Stop Time Status Admin Acetaminophen 650 MG Q6P PRN 10/20 0145 AC 10/21 PO 1839 Albuterol Sulfate 3 ML EVERY 4 HRS/AWAKE 10/20 0915 AC 11/03 INH 1312 Aspirin 81 MG DAILY 10/24 1000 AC 11/03 PO 1023 Furosemide 40 MG 7:30 AM, & 4:30 PM 11/02 1630 AC 11/03 PO 1022 Guaifenesin 600 MG Q12 10/20 1000 AC 11/03 PO 1023 Insulin Aspart 0 TIDAC 10/20 0800 AC 11/02 SC 1702 Insulin Detemir 24 UNITS QPM 11/02 2200 AC 11/02 SC 2150 Levothyroxine Sodium 0.15 MG DAILY AC 10/20 0700 AC 11/03 PO 0607 Lisinopril 10 MG DAILY 11/02 1024 AC 11/03 PO 1022 Melatonin 5 MG AT BEDTIME 10/24 2200 AC 11/02 PO 2151 Methylprednisolone 40 MG DAILY 10/31 1000 AC 11/03 IV 11/04 0000 1022 Metoprolol Tartrate 12.5 MG BID 11/01 1046 AC 11/03 PO 1023 Omeprazole 20 MG DAILY AC 10/25 0700 AC 11/03 PO 0607 Vital Signs & I&O Last 24 Hrs of Vitals and I&O: Vital Signs Date Time Temp Pulse Resp B/P B/P Pulse O2 O2 Flow FiO2 Mean Ox Delivery Rate 11/03 1036 98 Nasal 100% Cannula 11/03 1023 60 114/74 11/03 1022 60 114/74 11/03 0831 73 99 11/03 0800 9 Nasal 100% Cannula 11/03 0800 97.4 68 18 114/74 98 Nasal 100% Cannula 11/03 0521 71 90 11/03 0400 90 Nasal 95% Cannula 11/03 0400 97.8 68 17 128/60 90 Nasal 95% Cannula 11/03 0314 78 85 11/03 0126 88 Nasal 100% Cannula 11/03 0000 89 Nasal 95% Cannula 11/03 0000 98.1 85 18 120/66 89 Nasal 95% Cannula 11/02 2151 97.9 84 18 138/66 11/02 2000 90 Nasal 95% Cannula 11/03 1999 97.9 98 36 120/52 90 Nasal 95% Cannula 11/02 1702 80 120/70 11/02 1626 89 Nasal 100% Cannula 11/02 1514 90 Nasal 75% Cannula 11/02 1435 92 Nasal 90% Cannula Intake & Output 11/03 1600 11/03 0800 11/03 0000 Intake Total 200 490 Output Total 1160 810 Balance -960 -320 Intake, Oral 200 490 Output, Urine 1160 810 Laboratory Tests 11/03 11/02 0330 0425 Chemistry Sodium (137 - 145 mmol/L) 140 139 Potassium (3.5 - 5.1 mmol/L) 5.2 H 5.2 H Chloride (98 - 107 mmol/L) 102 102 Carbon Dioxide (22 - 30 mmol/L) 28 29 Anion Gap (5 - 16) 10 9 BUN (7 - 17 mg/dL) 73 H 78 H Creatinine (0.5 - 1.0 mg/dL) 1.1 H 1.0 Estimated GFR (>60 ml/min) 48 L 54 L Glucose (65 - 99 mg/dL) 179 H 126 H Calcium (8.4 - 10.2 mg/dL) 8.7 8.6 Phosphorus (2.5 - 4.5 mg/dL) 3.9 4.1 Magnesium (1.6 - 2.3 mg/dL) 1.9 1.9 Total Bilirubin (0.2 - 1.3 mg/dL) 0.8 0.8 AST (14 - 36 U/L) 16 18 ALT (9 - 52 U/L) 37 35 Albumin (3.5 - 5.0 g/dL) 3.1 L 3.1 L Hematology CBC w Diff NO MAN DIFF REQ NO MAN DIFF REQ WBC (4.8 - 10.8 /CUMM) 10.0 7.4 RBC (4.20 - 5.40 /CUMM) 2.58 L 2.65 L Hgb (12.0 - 16.0 G/DL) 8.5 L 9.1 L Hct (37 - 47 %) 26.8 L 27.5 L MCV (81.0 - 99.0 FL) 103.7 H 103.7 H MCH (27.0 - 31.0 PG) 33.0 H 34.3 H RDW (11.5 - 14.5 %) 18.6 H 19.1 H Plt Count (130 - 400 /CUMM) 241 252 MPV (7.4 - 10.4 FL) 9.4 10.3 Gran % (42.2 - 75.2 %) 80.8 H 76.9 H Lymphocytes % (20.5 - 51.1 %) 8.5 L 10.6 L Monocytes % (1.7 - 9.3 %) 4.0 6.0 Eosinophils % (0 - 5 %) 6.6 H 6.3 H Basophils % (0.0 - 2.0 %) 0.1 0.2 Absolute Granulocytes (1.4 - 6.5 /CUMM) 8.1 H 5.7 Absolute Lymphocytes (1.2 - 3.4 /CUMM) 0.8 L 0.8 L Absolute Monocytes (0.10 - 0.60 /CUMM) 0.4 0.4 Absolute Eosinophils (0.0 - 0.7 /CUMM) 0.7 0.5 Absolute Basophils (0.0 - 0.2 /CUMM) 0 0 PUBS MCHC (33.0 - 37.0 G/DL) 31.8 L 33.0 Impression/Plan Impression/Plan Impression/Plan: Chest showed crackles Heart S1-S2 was heard Abdominal exam hose tender painful Significant edema IMPRESSION This is a 76-year-old lady with chronic lung disease who is on oxygen at home and inhalers, reduced ejection fraction with the significant pulmonary hypertension, now has * Persistant Acute hypoxemic and hypercarbic respiratory failure appears to be related to combination of factors which includes combinational lung disease, significant COPD, reduced systolic function of the heart with mild fluid overload upon admission, sepsis of urological origin with probable early ARDS. Now on steroids * REsolved Significant gram-negative sepsis pansensensitive ecoli, due to 8 mm stone with obstructive uropathy with hydronephrosis, causing sepsis S/P Stent * Improving Chronic kidney disease with acute kidney injury upon admission which is slowly improving * Significantly elevated proBNP with low ejection fraction upon admission * Chronic anemia patient has been on epo before, now with thrombocytopenia due to sepsis and pt does have macrocytosis and need to rule out myelodysplasia in the future * Heme positive stool with chronic anemia * Myelodysplasia and MGUS with Splenomegaly, 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
[2016-11-03 16:00] VITALS: BP 130/60
--- NOTE | 2016-11-03 16:39 | CT SCAN REPORT ---
EXAMINATION: CT CHEST WITHOUT CONTRAST CLINICAL INFORMATION: 76-year-old female with persistent shortness of breath and increased oxygen demands. COMPARISON: Chest CT from 11/03/2015, 08/23/2016 and 10/21/2016. TECHNIQUE: Multidetector volumetric CT imaging of the chest was performed. Axial MIP volume rendering provided. Sagittal and coronal reformatted images were obtained. DLP: 448 mGy-cm FINDINGS: LUNGS AND PLEURA: There is extensive centrilobular emphysema. There are several old noncalcified nodules of < 0.3 cm size in the right lung apex, unchanged compared to 11/03/2015. There is chronic, subtle groundglass attenuation in centrilobular areas of both lungs. Question whether there is history of chronic cigarette smoking, which could cause respiratory bronchiolitis. Centrilobular opacities have worsened, however, and this includes involvement of the anterior segment of the right upper lobe, middle lobe, lingula and both lower lobes. An old calcified granuloma is present within the lateral segment of the right middle lobe. A trace right pleural effusion has decreased in size compared to 10/21/2016. MEDIASTINUM: Mild cardiomegaly. The left anterior descending thoracic aorta is calcified. There is atherosclerotic calcification of the thoracic aorta without aneurysm. No pericardial effusion. The esophagus and thyroid gland are unremarkable. LYMPHATICS: No axillary lymphadenopathy. The clustered right paratracheal lymph nodes individually measure less than 1 cm short axis dimension. There are 1.2 cm and 1.5 cm AP dimension precarinal lymph nodes, increased in size compared to 10/21/2016. 1.1 cm AP subcarinal lymph node is also increased in size. No bulky hilar lymphadenopathy. However, evaluation for hilar adenopathy is suboptimal on this noncontrast examination. UPPER ABDOMEN: Status post cholecystectomy. The visualized left renal cortex is diffusely atrophied and there are multiple calyceal calcifications/stones. Mild dilatation of the left intrarenal collecting system with ureteral stent in place. There are diverticula of the visualized colon. OSSEOUS STRUCTURES: No acute findings in the degenerated spine. IMPRESSION: 1. Pulmonary emphysema. 2. Centrilobular groundglass opacities in both lungs have worsened compared to 10/21/2016. This likely represents infectious bronchiolitis. 3. The precarinal/subcarinal lymphadenopathy has increased compared to 10/21/2016. 4. Mild cardiomegaly without pulmonary edema. Trace right pleural effusion has decreased in size compared to 10/21/2016.
--- NOTE | 2016-11-03 18:11 | NUR ---
PT REMAINS ALERT AND ORIENTED. SHE HAS BEEN HIGHFLOW DEPENDENT AT 100% THROUGHOUT THE DAY. SHE WAS TRANSFERRED TO CT ON 100%NRB THIS AFTERNOON AND WAS SIGNIFICANTLY SOB DURING THE TRIP AND UPON RETURNING TO THE ICU.
--- NOTE | 2016-11-03 19:49 | NUR ---
PT A/OX3, FOLLOWS COMMANDS. DENIES ANY PAIN AT PRESENT. CLEAR BREATH SOUNDS ANTERIORLY, DIMINISHED BREATH SOUNDS POSTERIORLY. PT SOB AT REST, WILL ACCEPT 02 SATS 88% AND ABOVE. NO COUGH NOTED AT PRESENT. SEE FLOW SHEET FOR VS, 02 SATS, I/O'S. PT ON ORDERED Q4 VS. MONITOR SHOWS NSR WITH OCC PVS'S AT PRESENT. BP STABLE AT PRESENT. ABD SOFT, NONTENDER, NONDISTENDED, POSITIVE BOWEL SOUNDS. VOIDS. SKIN INTACT
[2016-11-03 19:52] VITALS: BP 146/82
--- NOTE | 2016-11-03 20:19 | NUR ---
PT DESATURATED DOWN TO 78% WITHOUT ANY ACTIVITY-PT HAD JUST STARTED IV ZITHROMAX-SEE EMAR, PT FLUSHED-RESP THERAPIST PLACED PT ON BIPAP ON 100%. REPORTED TO DR. BAIG-SOLUMEDROL 40MG IV 2200 DOSE GIVEN EARLY ORDERED-SEE EMAR. WILL MONITOR.
--- NOTE | 2016-11-03 20:52 | NUR ---
02 SATS REMAIN 74-82% ON BIPAP 100%-RESP THERAPIST IN TO SEE PT-RESP TREATMENT GIVEN, REPORTED TO DR. JIMÉNEZ WHO EXAMINED PT-BENADRYL TO BE ORDERED-SEE EMAR.
--- NOTE | 2016-11-03 21:34 | NUR ---
PT IMPROVED 02 SATS TO 86-89% ON BIPAP 100% AFTER BENADRYL DOSE. EXTRA DOES OF SOLUMEDROL 40MG IV GIVEN ORDERED-SEE EMAR. ORTIZ AT 2100 410-REPORTED TO DR. FONSECA-NOVOLOG INSULIN 6 UNITS SC GIVEN ORDERED-ACCUCHECK TO BE RECHECKED IN 1HR
--- NOTE | 2016-11-03 21:34 | Event Note ---
Event Note Event Note: Patient was found to be the desaturating to high 70s on 100% BiPAP at around 9: 10 PM. She had received 1 dose of IV azithromycin (which was started today due to evidence of bronchiolitis on chest CT). Azithromycin is as listed as an allergy on patient's file, however she was unable to give me any details about the exact nature of the allergy. She reports she had a similar situation when she received IV azithromycin in the ER on 10/19/2016. Vitals were normal except oxygen saturations which were high 70s on 100% BiPAP. On examination, she appeared to be in moderate distress. Flushing of the face was noted.Breath sounds were diminished bilaterally, no wheezing was heard. Patient was administered an extra dose of Solu-Medrol 40 mg, IV Benadryl stat. Attending Dr. Simeon was updated. Azithromycin was discontinued from the medication orders. Patient improved within a few minutes with saturations going up to high 80s. We'll continue by mouth doxycycline 100 mg twice a day and IV Solu-Medrol 40 twice a day for the treatment of bronchiolitis. PS: Blood sugars were noted to be above 400. No bedtime scale of NovoLog in the system. Patient was given 6 units of NovoLog insulin and 24 units of Levemir. We will recheck blood sugar in 1 hour. BS should be closely monitored as pt is now on BID steroids.
--- NOTE | 2016-11-03 22:17 | NUR ---
DIANA 436-REPORTED TO DR. FONSECA-NOVOLOG INSULIN 6 UNITS SC TO BE ORDERED-SEE EMAR
[2016-11-03 23:56] VITALS: BP 150/74
[2016-11-04 04:00] VITALS: BP 150/70
[2016-11-04 05:53] LABS: ABSOLUTE BASOPHIL COUNT 0 /CUMM (0.0-0.2); ABSOLUTE EOSINOPHIL COUNT 0 /CUMM (0.0-0.7); ABSOLUTE GRANULOCYTE CT 6.4 /CUMM (1.4-6.5); ABSOLUTE LYMPH COUNT 0.3 /CUMM (1.2-3.4); ABSOLUTE MONOCYTE COUNT 0.1 /CUMM (0.10-0.60); BASOPHIL % 0.3 % (0.0-2.0); EOSINOPHIL % 0.4 % (0-5); GRANULOCYTE % 92.5 % (42.2-75.2); HEMATOCRIT 27.9 % (37-47); MEAN CORPUSCULAR HGB 33.7 PG (27.0-31.0); MEAN CORPUSCULAR HGB CONC 32.6 G/DL (33.0-37.0); MEAN CORPUSCULAR VOLUME 103.4 FL (81.0-99.0); MEAN PLATELET VOLUME 10.2 FL (7.4-10.4); PLATELET COUNT 211 /CUMM (130-400); RBC DISTRIBUTION WIDTH 19.1 % (11.5-14.5); WHITE BLOOD CELL COUNT 6.9 /CUMM (4.8-10.8)
--- NOTE | 2016-11-04 06:39 | NUR ---
PT SLEPT MOST OF NIGHT. ON BIPAP 100% THOUGHOUT NIGHT-02 SATS 88-96% WHILE SLEEPING-DESATURATED TO 80'S WHEN GIVEN PO LIQUIDS OR EXERTION-TOOK PT FEW MINUTES TO GET SATS BACK UP TO OVER 88%. NONPRODUCTIVE COUGH NOTED. SOB AT REST. MONITOR NSR WITH OCC PVC'S FOR SHIFT. VOIDING CLEAR YELLOW URINE ON BEDPAN. BUTTOCKS SLIGHTLY RED, BLANCHABLE, ON SIZEWISE BED. NO OTHER CHANGE IN PT ASSESSMENTS THOUGHOUT SHIFT
[2016-11-04 08:00] VITALS: BP 134/72
--- NOTE | 2016-11-04 09:08 | PN- Resident CRCU ---
Subjective HPI/CRCU Issues: Patient was seen and examined this morning, lying comfortably in bed, has high flow nasal cannula 100% saturating 90%. Patient denied chest pain, worsening respiratory situation. Reported dry cough that is chronic in nature. Denied abdominal pain, nausea, vomiting, dizziness. 24 Hour Events: Temperature 96.6, 98.4 Heart rate lowest 68, highest 99 normal sinus rhythm Blood pressure lowest 110/70, highest 150/74 Intake 1330, output 2725 overnight BIPAP 100% with sat 93% Patient had allergic reaction to IV azithromycin yesterday in form of oxygen desat to 70s and facial flushing, was given extra dose of Solu-Medrol 40 and Benadryl, and antibiotic was switched to doxycycline. Objective Vital Signs & I&O Last 8 Hrs of Vitals and I&O: 11 Exam General Appearance: no apparent distress, alert Head: atraumatic, normal appearance Ears, Nose, Throat: normal pharynx, normal ENT inspection Respiratory: decreased breath sounds Cardiovascular: regular rate/rhythm Gastrointestinal: normal bowel sounds, soft, non-tender Extremities: normal inspection, normal range of motion, bilateral trace pedal edema Right foot colder than left, positive posterior tibialis bilateral Cranial Nerves: normal hearing, normal speech, PERRL Current Medications: Current Medications Sig/Wei Start time Last Medication Dose Route Stop Time Status Admin Acetaminophen 650 MG Q6P PRN 10/20 0145 AC 10/21 PO 1839 Albuterol Sulfate 3 ML EVERY 4 HRS/AWAKE 10/20 0915 AC 11/04 INH 1210 Aspirin 81 MG DAILY 10/24 1000 AC 11/04 PO 0901 Azithromycin 500 MG 1900 11/03 1900 IL 11/03 Sodium Chloride 250 ML IV 11/07 195 1942 Diphenhydramine HCl 25 MG ONCE ONE 11/03 2100 DC 11/03 IV 11/03 2100 210 Doxycycline Hyclate 100 MG BID 11/04 1000 AC 11/04 PO 0901 Furosemide 40 MG 7:30 AM, & 4:30 PM 11/02 1630 AC 11/04 PO 0856 Guaifenesin 600 MG Q12 10/20 1000 AC 11/04 PO 0901 Insulin Aspart 6 UNITS ONCE ONE 11/03 223 DC 11/03 SC 11/03 223 222 Insulin Aspart 6 UNITS ONCE ONE 11/03 2114 DC 11/03 [place] 11/03 Insulin Aspart 0 TIDAC 10/20 0800 AC 11/04 SC 1209 Insulin Detemir 24 UNITS QPM 11/02 2199 AC 11/03 SC 212 Levothyroxine Sodium 0.15 MG DAILY AC 10/20 0700 AC 11/04 PO 0624 Lisinopril 10 MG DAILY 11/02 1024 AC 11/04 PO 0901 Melatonin 5 MG AT BEDTIME 10/24 220 AC 11/03 PO 2127 Methylprednisolone 40 MG Q8 11/04 1400 AC IV Methylprednisolone 40 MG BID 11/030 DC 11/04 IV 0902 Methylprednisolone 40 MG ONCE ONE 11/03 2114 DC 11/03 IV 11/03 Methylprednisolone 40 MG DAILY 10/31 1000 DC 11/03 IV 11/04 0000 1022 Metoprolol Tartrate 12.5 MG BID 11/01 1046 AC 11/04 PO 0901 Omeprazole 20 MG DAILY AC 10/25 0700 AC 11/04 PO 0624 Sodium Polystyrene 60 ML ONCE ONE 11/04 0800 DC 11/04 Sulfonate PO 11/04 0801 0856 Impression/Plan Impression/Problem List Impression: Ms. Bajwa is a pleasant 76 year old female with PMH hypertension, hyperlipidemia, COPD on 5 L continuous NC, type 2 diabetes mellitus on insulin, hypothyroidism, stage III B chronic kidney disease, combined systolic and diastolic heart failure, severe pulmonary hypertension, history of kidney stones in the past who presented to the [facility] ED with shortness of breath on exertion , chills, decreased oral intake, cough minimally productive of sputum and nausea for one day. Patient was admitted to telemetry initally, has received treatment for possible pneumonia and UTI, and was tranferred to the ICU due to decreased oxygen saturation to 85% requiring high flow oxygen and for closer monitoring. Below is the problem list and plan: Respiratory: 1. Acute on chronic hypoxic and hypercarbic respiratory failure * Likely 2/2 combination of COPD, heart failure and sepsis of urological origin * Treated for possible pneumonia with ceftriaxone and doxycycline (allergic to azithromycin) on admission -met criteria for sepsis on admission with possible pulmonary source acording to CXR, required high flow O2 through NC * V/Q scan negative for PE * Continue Mucinex BID, scheduled albuterol, TRC/Nebs * Follow up repeat CXR Q48 hours or if clinically indicated * Continue high flow nasal cannula and try to wean BiPAP QHS, currently titrating down FiO2, goal FiO2 50-60% * PO lasix 40 mg BID, tolerating well with net negative fluid balance * CT chest was obtained yesterday given continuous increase oxygen requirement, results revealed worsened centrallobar groundglass opacities that likely represent infectious bronchiolitis, IV azithromycin was started * Patient desat yesterday to 70s while on 100% BIPAP after allergic reaction to IV azithromycin * IV solumedrol 40 mg increased to Q8 hours based on Dr. Chatman recommendation after the patient desat to 60% while on high flow oxygen 100% today 11/04 * Patient will greatly benefit from inpatient pulmonary rehab, discussed transfer to [place], will follow up with case management for this issue ID 1. Gram-negative sepsis with pansensitive Escherichia coli due to obstructive uropathy and evidence of an 8 mm stone causing hydronephrosis. * Urinalysis suggesting UTI and blood culture positive for gram negative rods ( pansensitive ecoli) * Initial CT of [place] and pelvis showed obstructing 8 x 8 mm left ureter stone causing moderate to severe hydroureteronephrosis and left perinephric stranding. * Patient had left ureteral stent placed, tolerated procedure well, will continue follow uro rec's * Repeat CT scan showed interval decompression of left renal collecting system with multiple nonobstructing renal calculi * PO ceftin 14 day course completed * Latest urine culture negative for growth * Continue doxycycline for bronchiolitis Cardiac 1. Elevated troponins * Elevated troponins in setting of acute hypoxic respiratory failure likely represent demand ischemia, no chest pain reported, have since trended down. * Echo shows EF 40-45%, mild global hypokinesis, right ventricular systolic pressure estimated at 47 mmHg. * Cardiology is following and will continue to follow recs * Continue ASA 81 mg PO daily and lopressor 12.5 mg PO BID, tolerating well 2. Combined systolic and diastolic CHF * 40 mg PO lasix BID * Monitor renal function with continued lasix use * Follow up with cardiology within 1 week after discharge Heme 1. Chronic macrocytic anemia * Likely 2/2 CKD * Folate within normal limits and B12 is elevated * Patient with Guiac (+) stool, no pharm dvtp * Follow up daily CBC Metabolic 1. EVANS on CKD * Possibly secondary to initial sepsis with superimposed hydronephrosis * Avoid nephrotoxins * Tolerating lisinopril well which was restarted yesterday * ICU bundle daily to monitor BUN/cre 2. Hyperkalemia * Likely secondary to acute on chronic kidney injury * Follow up repeat labs in AM 3. Diabetes mellitus * Accuchecks TIDACHS * NSS (medium dose) * Continue home dose levemir 24 U SC QPM today 4. Hypothyroidism * Continue synthroid 0.15 mg PO daily AC Other 1. Cystic abnormality abutting distal body of pancreas * Follow up CT scan with pancreatic mass protocol once patient more stable or close follow up after discharge FULL CODE DVTP: ALPS CC2 diet Mild pain pathway Problem List: 1. Insulin dependent type 2 diabetes mellitus 2. Elevated troponin 3. HFrEF (heart failure with reduced ejection fraction) 4. Acute renal failure superimposed on stage 3 chronic kidney disease 5. UTI (urinary tract infection) 6. Gram negative sepsis 7. Acute and chronic respiratory failure with hypoxia 8. Hyperkalemia Pain Ratin Tomorrow's Labs & Rationales: CBc, ICU bundle Plan DVT/Prophylaxis: mechanical Code Status: Full Code
--- NOTE | 2016-11-04 10:57 | PN- CRCU ---
Subjective HPI/Critical Care Issues: pt seen and examined DNR/DNI 100% fio2 had reaction to zithromax - possibly had reaction previously worsened dyspnea with zithromax, down to 70's on bipap and 100% fio2 similar experience earlier this month flushing was noted extra solumedrol and benadryl was administered changed to doxycycline Objective Current Medications: Current Medications Sig/Wei Start time Last Medication Dose Route Stop Time Status Admin Acetaminophen 650 MG Q6P PRN 10/20 0145 AC 10/21 PO 1839 Albuterol Sulfate 3 ML EVERY 4 HRS/AWAKE 10/20 0915 AC 11/04 INH 0803 Aspirin 81 MG DAILY 10/24 1000 AC 11/04 PO 0901 Azithromycin 500 MG 1900 11/03 1900 DC 11/03 Sodium Chloride 250 ML IV 11/07 1958 194 Diphenhydramine HCl 25 MG ONCE ONE 11/03 2100 DC 11/03 IV 11/03 2100 210 Doxycycline Hyclate 100 MG BID 11/04 1000 AC 11/04 PO 0901 Furosemide 40 MG 7:30 AM, & 4:30 PM 11/02 1630 AC 11/04 PO 0856 Guaifenesin 600 MG Q12 10/20 1000 AC 11/04 PO 0901 Insulin Aspart 6 UNITS ONCE ONE 11/03 2229 DC 11/03 SC 11/03 Insulin Aspart 6 UNITS ONCE ONE 11/03 2114 DC 11/03 SC 11/03 Insulin Aspart 0 TIDAC 10/20 0800 AC 11/04 SC 0856 Insulin Detemir 24 UNITS QPM 11/02 220 AC 11/03 SC 212 Levothyroxine Sodium 0.15 MG DAILY AC 10/20 0700 AC 11/04 PO 0624 Lisinopril 10 MG DAILY 11/02 1024 AC 11/04 PO 0901 Melatonin 5 MG AT BEDTIME 10/24 2200 AC 11/03 PO 2127 Methylprednisolone 40 MG BID 11/03 2200 AC 11/04 IV 0902 Methylprednisolone 40 MG ONCE ONE 11/03 2114 DC 11/03 IV 11/03 Methylprednisolone 40 MG DAILY 10/31 1000 DC 11/03 IV 11/04 0000 1022 Metoprolol Tartrate 12.5 MG BID 11/01 1046 AC 11/04 PO 0901 Omeprazole 20 MG DAILY AC 10/25 0700 AC 11/04 PO 0624 Sodium Polystyrene 60 ML ONCE ONE 11/04 0800 DC 11/04 Sulfonate PO 11/04 0801 0856 Vital Signs & I&O Last 24 Hrs of Vitals and I&O: Vital Signs Date Time Temp Pulse Resp B/P B/P Pulse O2 O2 Flow FiO2 Mean Ox Delivery Rate 11/04 0901 94 134/72 11/04 0901 94 134/72 11/04 0806 91 BIPAP 100% 11/04 0806 84 91 11/04 0800 96.8 64 22 134/72 96 BIPAP 100% 11/04 0800 96 BIPAP 100% 11/04 0546 74 93 11/04 0410 71 94 11/04 0400 96.6 77 23 150/70 93 BIPAP 100% 11/04 0400 95 BIPAP 100% 11/04 0115 67 93 11/03 2356 90 BIPAP 100% 11/03 2356 97.0 81 22 150/74 90 BIPAP 100% 11/03 2242 86 90 11/03 2127 107 21 150/80 11/03 2012 97 82 11/04 1951 94 Nasal 100% Cannula 11/04 1951 97.2 99 16 146/82 94 Nasal 100% Cannula 11/03 1856 85 Nasal 100% Cannula 11/03 1600 98.0 86 20 130/60 90 Nasal 100% Cannula 11/03 1600 90 Nasal 100% Cannula 11/03 1200 90 Nasal 100% Cannula Intake & Output 11/04 1600 11/04 0800 11/04 0000 Intake Total 360 370 Output Total 1025 400 Balance -665 -30 Intake, IV 250 Intake, Oral 360 120 Number 0 0 Bowel Movements Output, Urine 1025 400 Exam Other Physical Findings: gen awake and alert heent ncat cvs s1, s2 lungs diminished bs abd soft bs+ ext no edema Results Last 24 Hrs of Lab Results: Laboratory Tests 11/04/16 0604: Anion Gap 6, Estimated GFR 54 L, Glucose 183 H, Calcium 8.8, Phosphorus 4.0, Magnesium 1.8, Total Bilirubin 0.8, AST 13 L, ALT 40, Albumin 3.1 L 11/04/16 0513: CBC w Diff NO MAN DIFF REQ, RBC 2.70 L, MCV 103.4 H, MCH 33.7 H, RDW 19.1 H, MPV 10.2, Gran % 92.5 H, Lymphocytes % 5.0 L, Monocytes % 1.8, Eosinophils % 0.4, Basophils % 0.3, Absolute Granulocytes 6.4, Absolute Lymphocytes 0.3 L, Absolute Monocytes 0.1 L, Absolute Eosinophils 0, Absolute Basophils 0, PUBS MCHC 32.6 L Impression/Plan Impression/Plan Impression/Plan: Impression 76 year old woman * hypoxemic respiratory failure secondary to bronchiolitis, e.coli sepsis, possibly ARDS * CKD * chronic anemia * MDS/MGUS * reaction to zithromax Plan -zithromax discontinued -currently on doxycycline -ins/outs -diuresis -cont solumedrol 40mg iv q12h -monitor glucose DVT prophylaxis - given anemia has been on ALPS, if continues to remain stable, will consider chemical prophylaxis TTS 40 min Code Status: Full Code
--- NOTE | 2016-11-04 11:47 | NUR ---
1115: Patient turned and repositioned in the bed after coming off the bed kent. Patient is visibily short of breath and states she feels short of breath. O2 sats on the monitor 65% and slowly increasing. Dr. Lange and Dr. Chatman aware. Solumedrol dosage increased to q8 hours. Patient coming up to 88% after 15 minutes. Continuing to montior and given emotional reassurance.
[2016-11-04 12:00] VITALS: BP 118/62
[2016-11-04 16:00] VITALS: BP 136/68
--- NOTE | 2016-11-04 17:00 | NUR ---
Patient is alert and oriented x's 3, able to follow commands and answer questions appropriately. NSR on tele monitor, HR= 80-90's. SBP: 140's. Episodes of paraoxsymal atrial tachycardia where heart rate ranges from 120-140's. This occured around 1700 and lasted a few minutes- Dr. Lange notified- EKG ordered and completed however patient has already converted back to a NSR with a controlled heart rate in the 80's. Patient denies chest pain and palpitations during event but did complain of some mild indegestion. She is currently on 100% high flow nasal cannula with O2 sats ranging from 86-94% at rest. She is short of breath. O2 sats dropped at low as 62% with minimal exertion in bed taking almost 5 minutes for O2 sats to increase > than 86%. Lungs diminished throughout. Dr. Chatman notified and IV solumedrol was increased to every 8 hours. A melendez catheter was also placed since patient is receiving lasix and continues to desaturate to the 60's when being placed on the bedpan- Her mental status has remained WNL. She is tolerating po well. Denies any nausea vomiting- Will desaturate to the 80's when eatting. Skin appears intact- Coccyx is red but blanchable. +1 BLE edema is noted. She continues to deny pain. Vitals currently stable. Will continue to closely monitor patient.
[2016-11-04 20:00] VITALS: BP 132/60
[2016-11-05] VITALS: BP 150/70
--- NOTE | 2016-11-05 01:16 | NUR ---
PT SLEEPY BUT EASILY AROUSABLE. DENIES PAIN AT THIS TIME. ON BIPAP AT 100% FIO2, SATURATION 87-88%. LUNGS SOUND CLEAR. ABDOMEN SOFT, NORMOACTIVE BS. FERNÁNDEZ IN PLACE,ADEQUATE UO NOTED.
[2016-11-05 04:00] VITALS: BP 140/72
[2016-11-05 05:55] LABS: ABSOLUTE BASOPHIL COUNT 0 /CUMM (0.0-0.2); ABSOLUTE EOSINOPHIL COUNT 0.1 /CUMM (0.0-0.7); ABSOLUTE GRANULOCYTE CT 6.8 /CUMM (1.4-6.5); ABSOLUTE LYMPH COUNT 0.3 /CUMM (1.2-3.4); ABSOLUTE MONOCYTE COUNT 0.1 /CUMM (0.10-0.60); BASOPHIL % 0 % (0.0-2.0); EOSINOPHIL % 0.8 % (0-5); GRANULOCYTE % 94.2 % (42.2-75.2); HEMATOCRIT 26.2 % (37-47); MEAN CORPUSCULAR HGB 33.7 PG (27.0-31.0); MEAN CORPUSCULAR HGB CONC 32.5 G/DL (33.0-37.0); MEAN CORPUSCULAR VOLUME 103.7 FL (81.0-99.0); MEAN PLATELET VOLUME 10.4 FL (7.4-10.4); PLATELET COUNT 161 /CUMM (130-400); RED BLOOD CELL CT 2.53 /CUMM (4.20-5.40); WHITE BLOOD CELL COUNT 7.2 /CUMM (4.8-10.8)
[2016-11-05 08:00] VITALS: BP 140/78
--- NOTE | 2016-11-05 09:07 | PN- CRCU ---
Subjective HPI/Critical Care Issues: pt seen and examined high flow o2 Objective Current Medications: Current Medications Sig/Wei Start time Last Medication Dose Route Stop Time Status Admin Acetaminophen 650 MG Q6P PRN 10/20 0145 AC 10/21 PO 1839 Albuterol Sulfate 3 ML EVERY 4 HRS/AWAKE 10/20 0915 AC 11/05 INH 0832 Aspirin 81 MG DAILY 10/24 1000 AC 11/05 PO 0850 Doxycycline Hyclate 100 MG BID 11/04 1000 AC 11/05 PO 0850 Furosemide 40 MG 7:30 AM, & 4:30 PM 11/02 1630 AC 11/05 PO 0850 Guaifenesin 600 MG Q12 10/20 1000 AC 11/05 PO 0850 Insulin Aspart 0 TIDAC 10/20 0800 AC 11/05 SC 0848 Insulin Detemir 24 UNITS QPM 11/02 2200 AC 11/04 SC 2130 Levothyroxine Sodium 0.15 MG DAILY AC 10/20 0700 AC 11/05 PO 0614 Lisinopril 10 MG DAILY 11/02 1024 AC 11/05 PO 0851 Magnesium Sulfate 1 GM Q2H 11/05 0700 AC 11/05 Dextrose/Water 100 ML IV 11/05 1059 0848 Melatonin 5 MG AT BEDTIME 10/24 2200 AC 11/04 PO 2207 Methylprednisolone 40 MG Q8 11/04 1400 AC 11/05 IV 0527 Methylprednisolone 40 MG BID 11/03 2200 DC 11/04 IV 0902 Metoprolol Tartrate 12.5 MG BID 11/01 1046 AC 11/05 PO 0851 Omeprazole 20 MG DAILY AC 10/25 0700 AC 11/05 PO 0614 Vital Signs & I&O Last 24 Hrs of Vitals and I&O: Vital Signs Date Time Temp Pulse Resp B/P B/P Pulse O2 O2 Flow FiO2 Mean Ox Delivery Rate 11/05 0851 84 156/70 11/05 0851 84 156/70 11/05 0838 94 Nasal 95% Cannula 11/05 0836 80 99 11/05 0608 75 92 11/05 0400 93 BIPAP 100% 11/05 0400 96.1 70 22 140/72 93 BIPAP 100% 11/05 0253 73 92 11/05 0044 79 89 11/05 0000 96.6 80 21 150/70 BIPAP 100% 11/05 0000 87 BIPAP 100% 11/04 2254 91 87 11/04 2207 96 18 136/66 11/05 1999 85 Nasal 100% Cannula 11/05 1999 98.4 98 22 132/60 85 Nasal 100% Cannula 11/04 1603 88 Nasal 100% Cannula 11/05 1599 98.2 81 20 136/68 88 Nasal 100% Cannula 11/05 1599 89 Nasal 100% Cannula 11/04 1200 92 Nasal 100% Cannula 11/04 1200 98.1 80 20 118/62 91 Nasal 100% Cannula Intake & Output 11/05 1600 11/05 0800 11/05 0000 Intake Total 400 720 Output Total 730 1440 Balance -330 -720 Intake, Oral 400 720 Output, Urine 730 1440 Exam Other Physical Findings: gen awake and alert heent ncat cvs s1, s2 lungs diminished bs abd soft bs+ ext no edema Results Last 24 Hrs of Lab Results: Laboratory Tests 11/05/16 0430: Anion Gap 11, Estimated GFR 48 L, Glucose 245 H, Calcium 8.7, Phosphorus 4.4, Magnesium 1.6, Total Bilirubin 0.7, AST 10 L, ALT 28, Albumin 2.8 L, CBC w Diff MAN DIFF ORDERED, RBC 2.53 L, MCV 103.7 H, MCH 33.7 H, RDW 19.0 H, MPV 10.4, Gran % 94.2 H, Lymphocytes % 3.9 L, Monocytes % 1.1 L, Eosinophils % 0.8, Basophils % 0 L, Absolute Granulocytes 6.8 H, Segmented Neutrophils 85 H , Band Neutrophils 9 H, Absolute Lymphocytes 0.3 L, Lymphocytes 2 L, Monocytes 4, Absolute Monocytes 0.1 L, Absolute Eosinophils 0.1, Absolute Basophils 0, Platelet Estimate VERIFIED BY SMEAR, Poikilocytosis 1+, Basophilic Stippling 1+, Anisocytosis 1+, Ovalocytes 1+, PUBS MCHC 32.5 L Impression/Plan Impression/Plan Impression/Plan: Impression 76 year old woman * hypoxemic respiratory failure secondary to bronchiolitis, e.coli sepsis, possibly ARDS * CKD * chronic anemia * MDS/MGUS * reaction to zithromax Plan -check CXR today -zithromax discontinued -currently on doxycycline -ins/outs -diuresis -cont solumedrol 40mg iv q8h -monitor glucose DVT prophylaxis - given anemia has been on ALPS, if continues to remain stable, will consider chemical prophylaxis TTS 35 min Code Status: Full Code
--- NOTE | 2016-11-05 10:02 | PN- Resident CRCU ---
Subjective HPI/CRCU Issues: Ms. Bajwa seen and examined at bedside this AM. She was resting comfortably in bed in no acute distress. She denies shortness of breath or chest pain. Of note, patient was noted to desaturate to the 70s yesterday with only slight movement and thus a melendez catheter was inserted. 24 Hour Events: Telemetry: Possible episode of multifocal atrial tachycardia around 1600 yesterday, patient out of this rhythm before EKG able to be obtained. 24 hour vital signs: T 96.1-98.4, HR 52-141, RR 18-22, BP 118-150/62-75, O2 65%-93% (O2 sat drops on patient movement/activity). Total intake: 1124 cc last 24 hours Total output: 67810 cc last 24 hours Objective Vital Signs & I&O Last 8 Hrs of Vitals and I&O: T 96.1-98.4, HR 52-141, RR 18-22, BP 118-150/62-75, O2 65%-93% (O2 sat drops on patient movement/activity). Exam General Appearance: well developed/nourished, no apparent distress, alert, awake , cachetic Head: atraumatic, normal appearance Ears, Nose, Throat: normal pharynx Neck: normal inspection, supple Respiratory: normal breath sounds, chest non-tender Cardiovascular: regular rate/rhythm Gastrointestinal: normal bowel sounds, soft, non-tender Extremities: normal inspection, normal capillary refill Cranial Nerves: normal hearing, normal speech Skin: normal color, warm/dry Nutrition Nutrition: P.O. diet Current Medications: Current Medications Sig/Wei Start time Last Medication Dose Route Stop Time Status Admin Acetaminophen 650 MG Q6P PRN 10/20 0145 AC 10/21 PO 1839 Albuterol Sulfate 3 ML EVERY 4 HRS/AWAKE 10/20 0915 AC 11/05 INH 0832 Aspirin 81 MG DAILY 10/24 1000 AC 11/05 PO 0850 Doxycycline Hyclate 100 MG BID 11/04 1000 AC 11/05 PO 0850 Furosemide 40 MG 7:30 AM, & 4:30 PM 11/02 1630 AC 11/05 PO 0850 Guaifenesin 600 MG Q12 10/20 1000 AC 11/05 PO 0850 Insulin Aspart 0 TIDAC 10/20 0800 AC 11/05 SC 0848 Insulin Detemir 24 UNITS QPM 11/02 2200 AC 11/04 SC 2130 Levothyroxine Sodium 0.15 MG DAILY AC 10/20 0700 AC 11/05 PO 0614 Lisinopril 10 MG DAILY 11/02 1024 AC 11/05 PO 0851 Magnesium Sulfate 1 GM Q2H 11/05 0700 DC 11/05 Dextrose/Water 100 ML IV 11/05 1059 1000 Melatonin 5 MG AT BEDTIME 10/24 2200 AC 11/04 PO 2207 Methylprednisolone 40 MG Q8 11/04 1400 AC 11/05 IV 0527 Metoprolol Tartrate 12.5 MG BID 11/01 1046 AC 11/05 PO 0851 Omeprazole 20 MG DAILY AC 10/25 0700 AC 11/[address] Scan Findings: Chest CT: IMPRESSION: 1. Pulmonary emphysema. 2. Centrilobular groundglass opacities in both lungs have worsened compared to 10/21/2016. This likely represents infectious bronchiolitis. 3. The precarinal/subcarinal lymphadenopathy has increased compared to 10/21/2016. 4. Mild cardiomegaly without pulmonary edema. Trace right pleural effusion has decreased in size compared to 10/21/2016. Impression/Plan Impression/Problem List Impression: Ms. Bajwa is a pleasant 76 year old female with PMH hypertension, hyperlipidemia, COPD on 5 L continuous NC, type 2 diabetes mellitus on insulin, hypothyroidism, stage III B chronic kidney disease, combined systolic and diastolic heart failure, severe pulmonary hypertension, history of kidney stones in the past who presented to the [facility] with shortness of breath on exertion , chills, decreased oral intake, cough minimally productive of sputum and nausea for one day. Patient was admitted to telemetry initally, has received treatment for possible pneumonia and UTI, and was tranferred to the ICU due to decreased oxygen saturation to 85% requiring high flow oxygen and for closer monitoring. Below is the problem list and plan: Respiratory: 1. Acute on chronic hypoxic and hypercarbic respiratory failure * Likely 2/2 combination of COPD, heart failure and sepsis of urological origin * Treated for possible pneumonia with ceftriaxone and doxycycline (allergic to azithromycin) on admission -met criteria for sepsis on admission with possible pulmonary source acording to CXR, required high flow O2 through NC * V/Q scan negative for PE * Continue Mucinex BID, scheduled albuterol, TRC/Nebs * Follow up repeat CXR Q48 hours or if clinically indicated * Continue high flow nasal cannula and try to wean BiPAP QHS, currently requiring high FiO2 90-100% * CT chest previously showed worsened centrallobar groundglass opacities that likely represent infectious bronchiolitis, IV azithromycin was started. Patient subsequently desaturated with likely allergic reaction so azithromycin discontinued. * Patient started on doxycycline 100 mg PO BID and IV solumedrol 40 mg Q8 for this infectious bronchiolitis * PO lasix 40 mg BID, tolerating well with net negative fluid balance * Patient will greatly benefit from inpatient pulmonary rehab, discussed transfer to [place], will follow up with case management for this issue ID 1. Gram-negative sepsis with pansensitive Escherichia coli due to obstructive uropathy and evidence of an 8 mm stone causing hydronephrosis. * Urinalysis suggesting UTI and blood culture positive for gram negative rods ( pansensitive ecoli) * Initial CT of [place] and pelvis showed obstructing 8 x 8 mm left ureter stone causing moderate to severe hydroureteronephrosis and left perinephric stranding. * Patient had left ureteral stent placed, tolerated procedure well, will continue follow uro rec's * Repeat CT scan showed interval decompression of left renal collecting system with multiple nonobstructing renal calculi * PO ceftin 14 day course completed * Latest urine culture negative for growth Cardiac 1. Elevated troponins * Elevated troponins in setting of acute hypoxic respiratory failure likely represent demand ischemia, no chest pain reported, have since trended down. * Echo shows EF 40-45%, mild global hypokinesis, right ventricular systolic pressure estimated at 47 mmHg. * Cardiology is following and will continue to follow recs * Continue ASA 81 mg PO daily and lopressor 12.5 mg PO BID, tolerating well 2. Combined systolic and diastolic CHF * 40 mg PO lasix BID * Monitor renal function with continued lasix use * Follow up with cardiology within 1 week after discharge Heme 1. Chronic macrocytic anemia * Likely 2/2 CKD * Folate within normal limits and B12 is elevated * Patient with Guiac (+) stool, no pharm dvtp * Follow up daily CBC Metabolic 1. EVANS on CKD * Possibly secondary to initial sepsis with superimposed hydronephrosis * Avoid nephrotoxins * Tolerating lisinopril well * ICU bundle daily to monitor BUN/cre 2. Hyperkalemia * Likely secondary to acute on chronic kidney injury * Follow up repeat labs 3. Diabetes mellitus * Accuchecks TIDACHS * NSS increased to high dose today as patient has persistently high FSGs, likely due to increased IV steroid dosage * Continue home dose levemir 24 U SC QPM today 4. Hypothyroidism * Continue synthroid 0.15 mg PO daily AC Other 1. Cystic abnormality abutting distal body of pancreas * Follow up CT scan with pancreatic mass protocol once patient more stable or close follow up after discharge DNR/DNI DVTP: ALPS CC2 diet Mild pain pathway Problem List: 1. Insulin dependent type 2 diabetes mellitus 2. HFrEF (heart failure with reduced ejection fraction) 3. Acute renal failure superimposed on stage 3 chronic kidney disease 4. Elevated troponin 5. Gram negative sepsis 6. UTI (urinary tract infection) 7. Acute and chronic respiratory failure with hypoxia 8. PNA (pneumonia) 9. Hyperkalemia Pain Ratin Tomorrow's Labs & Rationales: CBC (anemia, monitor for leukocytosis) ICU bundle (hyperkalemia, renal dysfunction) Plan DVT/Prophylaxis: mechanical Code Status: Full Code
--- NOTE | 2016-11-05 11:47 | NUR ---
PATIENT'S O2 SAT CONTINUING TO REMAIN 77-81% ON 100% HIGH FLOW O2 AND NOT INCREASING WITH REST AND DEEP BREATHING. PATIENT DENIES SOB. DR. SANTACRUZ AWARE. INFORMED RESPIRATORY THERAPIST. PATIENT PLACED BACK ON 100% AT 1105. BLOOD SUGAR CHECKED TO BE 411. DR. ESTEBAN AWARE. TO ATTEMPT TO TRY PATIENT OFF BIPAP AND PLACE HER ON THE HIGH FLOW TO EAT WITH APPROPRIATE INSULIN COVERAGE.
[2016-11-05 12:00] VITALS: BP 150/84
--- NOTE | 2016-11-05 13:11 | RADIOLOGY REPORT ---
EXAMINATION: XR PORTABLE CHEST CLINICAL INFORMATION: Pneumonia. High oxygen requirements. COMPARISON: CT chest of 11/03/16. Chest x-ray of 10/31/16 and multiple previous chest x-rays dated back to 10/19/16. TECHNIQUE: Portable frontal view of the chest was obtained. FINDINGS: Multiple cardiac leads and wires as well as external tubing are noted projecting over the chest. The lungs are mildly hyperinflated. There is mild interval improvement in the haziness at the right lung base. Please note that right basilar dependent small consolidation is noted on the previous some CT of 11/03/2016. There is attenuation of the lung markings in the left upper lung field, stable finding. No significant pleural effusions. No pleural pulmonary edema or pneumothorax. The cardiomediastinal silhouette is unchanged with mild cardiomegaly. IMPRESSION: Mild interval improvement in the haziness at the right lung base with persistent changes. No new airspace opacities. Cardiomegaly.
[2016-11-05 16:00] VITALS: BP 148/80
[2016-11-05 20:43] VITALS: BP 138/64
[2016-11-06] VITALS: BP 128/76
--- NOTE | 2016-11-06 02:33 | NUR ---
pt had 14 beat run of vtach at 0050. pt asymptomatic at time of event (pt sleeping). bp 138/80. dr. umaña aware.
[2016-11-06 04:00] VITALS: BP 140/76
[2016-11-06 05:41] LABS: ABSOLUTE BASOPHIL COUNT 0 /CUMM (0.0-0.2); ABSOLUTE EOSINOPHIL COUNT 0.2 /CUMM (0.0-0.7); ABSOLUTE GRANULOCYTE CT 7.4 /CUMM (1.4-6.5); ABSOLUTE LYMPH COUNT 0.3 /CUMM (1.2-3.4); ABSOLUTE MONOCYTE COUNT 0.2 /CUMM (0.10-0.60); BASOPHIL % 0.1 % (0.0-2.0); EOSINOPHIL % 2.3 % (0-5); GRANULOCYTE % 91.3 % (42.2-75.2); HEMATOCRIT 26.9 % (37-47); MEAN CORPUSCULAR HGB 33.6 PG (27.0-31.0); MEAN CORPUSCULAR HGB CONC 32.7 G/DL (33.0-37.0); MEAN CORPUSCULAR VOLUME 102.7 FL (81.0-99.0); MEAN PLATELET VOLUME 10.4 FL (7.4-10.4); PLATELET COUNT 164 /CUMM (130-400); RBC DISTRIBUTION WIDTH 18.4 % (11.5-14.5); RED BLOOD CELL CT 2.62 /CUMM (4.20-5.40); WHITE BLOOD CELL COUNT 8.1 /CUMM (4.8-10.8)
--- NOTE | 2016-11-06 06:51 | PN- Resident CRCU ---
Subjective HPI/CRCU Issues: Patient seen and examined at bedside this AM. She was sitting up comfortably in bed less lethargic than previous. She is asking to sit in bedside chair as she feels well. She reports she slept well throughout the night and denies fever, chills, chest pain or shortness of breath. Discussion regarding her current management held at her bedside yesterday with her nephew. Family is aware of current medication regimen and ultimate goal to go to [place] for acute pulmonary rehab. 24 Hour Events: lunchroom monitor: Patient had 14 beat VTach overnight, though she was asymptomatic at the time. Electrolytes this AM showed normal K and Mg of 1.8 which was repleted. Otherwise , Shanika was in NSR. Vital signs last 24 hours: T 97.0-98.3, HR 68-99, RR 18-22, BP 128-150/64-84, O2 80-97% on HFNC 100% transitioned to 100% BiPAP. Total input last 24 hours: 1590 cc Total output: 2590 cc last 24 hours Objective Vital Signs & I&O Last 8 Hrs of Vitals and I&O: T 97.0-98.3, HR 68-99, RR 18-22, BP 128-150/64-84, O2 80-97% on HFNC 100% transitioned to 100% BiPAP. Exam General Appearance: well developed/nourished, no apparent distress, alert, awake , comfortable Head: atraumatic, normal appearance Ears, Nose, Throat: normal ENT inspection, hearing grossly normal Neck: normal inspection, supple, No JVD, no midline tenderness Respiratory: normal breath sounds, chest non-tender, no respiratory distress Cardiovascular: regular rate/rhythm Gastrointestinal: normal bowel sounds, soft, non-tender, no organomegaly Extremities: normal inspection, normal capillary refill, no edema Cranial Nerves: normal hearing, normal speech Skin: intact, normal color, warm/dry Skin Temp/Moisture Exam: Warm/Dry Nutrition Nutrition: P.O. diet Current Medications: Current Medications Sig/Wei Start time Last Medication Dose Route Stop Time Status Admin Acetaminophen 650 MG Q6P PRN 10/20 0145 AC 10/21 PO 1839 Albuterol Sulfate 3 ML EVERY 4 HRS/AWAKE 10/20 0915 AC 11/06 INH 0755 Aspirin 81 MG DAILY 10/24 1000 AC 11/05 PO 0850 Doxycycline Hyclate 100 MG BID 11/04 1000 AC 11/05 PO 2205 Furosemide 40 MG 7:30 AM, & 4:30 PM 11/02 1630 AC 11/06 PO 0725 Guaifenesin 600 MG Q12 10/20 1000 AC 11/05 PO 2205 Insulin Aspart 0 TIDAC 10/20 0800 AC 11/05 SC 1700 Insulin Detemir 24 UNITS QPM 11/02 2200 AC 11/05 SC 2204 Levothyroxine Sodium 0.15 MG DAILY AC 10/20 0700 AC 11/06 PO 0725 Lisinopril 10 MG DAILY 11/02 1024 AC 11/05 PO 0851 Magnesium Sulfate 1 GM ONCE ONE 11/06 0715 AC Dextrose/Water 100 ML IV 11/06 1114 Magnesium Sulfate 1 GM Q2H 11/05 0700 DC 11/05 Dextrose/Water 100 ML IV 11/05 1059 1000 Melatonin 5 MG AT BEDTIME 10/24 2200 AC 11/05 PO 2205 Methylprednisolone 40 MG Q8 11/04 1400 AC 11/06 IV 0655 Metoprolol Tartrate 12.5 MG BID 11/01 1046 AC 11/05 PO 2205 Omeprazole 20 MG DAILY AC 10/25 0700 AC 11/06 PO 0725 CXR Findings: CXR 11/05/16: IMPRESSION: Mild interval improvement in the haziness at the right lung base with persistent changes. No new airspace opacities. Cardiomegaly. Impression/Plan Impression/Problem List Impression: Ms. Bajwa is a pleasant 76 year old female with PMH hypertension, hyperlipidemia, COPD on 5 L continuous NC, type 2 diabetes mellitus on insulin, hypothyroidism, stage III B chronic kidney disease, combined systolic and diastolic heart failure, severe pulmonary hypertension, history of kidney stones in the past who presented to the [facility] ED with shortness of breath on exertion , chills, decreased oral intake, cough minimally productive of sputum and nausea for one day. Patient was admitted to telemetry initally, has received treatment for possible pneumonia and UTI, and was tranferred to the ICU due to decreased oxygen saturation to 85% requiring high flow oxygen and for closer monitoring. Below is the problem list and plan: Respiratory: 1. Acute on chronic hypoxic and hypercarbic respiratory failure * Likely 2/2 combination of COPD, heart failure and sepsis of urological origin * Treated for possible pneumonia with ceftriaxone and doxycycline (allergic to azithromycin) on admission -met criteria for sepsis on admission with possible pulmonary source acording to CXR, required high flow O2 through NC * V/Q scan negative for PE * Continue Mucinex BID, scheduled albuterol, TRC/Nebs * Follow up repeat CXR Q48 hours or if clinically indicated * Continue high flow nasal cannula and try to wean BiPAP QHS, currently requiring high FiO2 90-100% * CT chest previously showed worsened central lobar groundglass opacities that likely represent infectious bronchiolitis, IV azithromycin was started. Patient subsequently desaturated with likely allergic reaction so azithromycin discontinued. * Patient now on doxycycline 100 mg PO BID (day #3) and IV solumedrol which will be reduced to 60 mg daily for this infectious bronchiolitis * PO lasix 40 mg BID, tolerating well with net negative fluid balance * Patient will greatly benefit from inpatient pulmonary rehab, discussed transfer to [place], will follow up with case management for this issue ID 1. Gram-negative sepsis with pansensitive Escherichia coli due to obstructive uropathy and evidence of an 8 mm stone causing hydronephrosis. * Urinalysis suggesting UTI and blood culture positive for gram negative rods ( pansensitive ecoli) * Initial CT of [place] and pelvis showed obstructing 8 x 8 mm left ureter stone causing moderate to severe hydroureteronephrosis and left perinephric stranding. * Patient had left ureteral stent placed, tolerated procedure well, will continue follow uro rec's * Repeat CT scan showed interval decompression of left renal collecting system with multiple nonobstructing renal calculi * PO ceftin 14 day course completed * Latest urine culture negative for growth Cardiac 1. Elevated troponins * Elevated troponins in setting of acute hypoxic respiratory failure likely represent demand ischemia, no chest pain reported, have since trended down. * Echo shows EF 40-45%, mild global hypokinesis, right ventricular systolic pressure estimated at 47 mmHg. * Cardiology is following and will continue to follow recs * Continue ASA 81 mg PO daily and lopressor 12.5 mg PO BID, tolerating well 2. Combined systolic and diastolic CHF * 40 mg PO lasix BID * Monitor renal function with continued lasix use * Follow up with cardiology within 1 week after discharge Heme 1. Chronic macrocytic anemia * Likely 2/2 CKD * Folate within normal limits and B12 is elevated * Patient with Guiac (+) stool, no pharm dvtp * Follow up daily CBC Metabolic 1. EVANS on CKD * Possibly secondary to initial sepsis with superimposed hydronephrosis * Avoid nephrotoxins * Tolerating lisinopril well * ICU bundle daily to monitor BUN/cre 2. Hyperkalemia * Likely secondary to acute on chronic kidney injury * Follow up repeat labs 3. Diabetes mellitus * Accuchecks TIDACHS * NSS increased to high dose yesterday as patient had persistently high FSGs, likely due to increased IV steroid dosage * Bedtime sliding scale added as FSGs still high * Continue home dose levemir 24 U SC QPM today 4. Hypothyroidism * Continue synthroid 0.15 mg PO daily AC Other 1. Cystic abnormality abutting distal body of pancreas * Follow up CT scan with pancreatic mass protocol once patient more stable or close follow up after discharge DNR/DNI DVTP: ALPS CC2 diet Mild pain pathway Problem List: 1. Insulin dependent type 2 diabetes mellitus 2. Acute and chronic respiratory failure with hypoxia 3. Gram negative sepsis 4. UTI (urinary tract infection) 5. Acute renal failure superimposed on stage 3 chronic kidney disease 6. HFrEF (heart failure with reduced ejection fraction) 7. Elevated troponin Pain Ratin Tomorrow's Labs & Rationales: CBC (anemia) ICU bundle (renal dysfunction) Plan DVT/Prophylaxis: mechanical Code Status: Full Code
[2016-11-06 08:00] VITALS: BP 120/70
--- NOTE | 2016-11-06 10:54 | PN- Cardiology ---
Subjective Subjective: Shortness of breath is improving, however the patient continues to have a high oxygen requirement. Objective Vital Signs and I&Os Vital Signs Date Time Temp Pulse Resp B/P B/P Pulse O2 O2 Flow FiO2 Mean Ox Delivery Rate 11/06 0814 96 Nasal 100% Cannula 11/06 0800 90 Nasal 100% Cannula 11/06 0800 98.0 92 26 120/70 90 Nasal 100% Cannula 11/06 0758 76 96 11/06 0551 64 94 11/06 0400 98.2 68 22 140/76 97 BIPAP 100% 11/06 0400 94 BIPAP 100% 11/06 0308 73 93 11/06 0010 74 89 11/06 0000 89 BIPAP 100% 11/06 0000 97.8 78 18 128/76 89 BIPAP 100% 11/05 2339 85 87 11/05 2205 96 146/70 11/05 2043 93 Nasal 100% Cannula 11/05 2043 98.3 96 20 138/64 93 Nasal 100% Cannula 11/05 1800 90 88 11/05 1624 91 Nasal 100% Cannula 11/05 1600 92 Nasal 100% Cannula 11/05 1600 97.6 99 20 148/80 92 Nasal 100% Cannula 11/05 1540 85 98 11/05 1435 85 90 11/05 1233 88 Nasal 100% Cannula 11/05 1231 88 88 11/05 1200 97.0 86 20 150/84 92 BIPAP 100% 11/05 1200 92 BIPAP 100% 11/05 1100 84 88 Intake & Output 11/06 1600 11/06 0800 11/06 0000 11/05 1600 11/05 0800 11/05 0000 Intake Total 360 420 810 400 720 Output Total 277 750 8135 730 1440 Balance -440 -370 -190 -330 -720 Intake, IV 20 260 Intake, Oral 360 400 550 400 720 Number 0 0 Bowel Movements Output, Urine 574 504 7683 730 1440 Physical Exam: Gen: NAD HEENT: normal Lungs: Decreased air movement, scattered rhonchi, normal resp. effort Heart: RRR, S1, S2, no murmurs Abdomen: Soft, nontender, no masses Extremities: No clubbing, cyanosis, or edema. Neuro: Alert and oriented x 3, cranial nerves intact Current Medications: Current Medications Sig/Wei Start time Last Medication Dose Route Stop Time Status Admin Acetaminophen 650 MG Q6P PRN 10/20 0145 AC 05/06 PO 1839 Albuterol Sulfate 3 ML EVERY 4 HRS/AWAKE 10/20 0915 AC 11/06 INH 0755 Aspirin 81 MG DAILY 10/24 1000 AC 11/05 PO 0850 Doxycycline Hyclate 100 MG BID 11/04 1000 AC 11/05 PO 2205 Furosemide 40 MG 7:30 AM, & 4:30 PM 11/02 1630 AC 11/06 PO 0725 Guaifenesin 600 MG Q12 10/20 1000 AC 11/05 PO 2205 Insulin Aspart 0 TIDAC/HS 11/06 1200 AC 11/06 SC 0909 Insulin Aspart 0 TIDAC 10/20 0800 DC 11/05 SC 1700 Insulin Detemir 24 UNITS QPM 11/02 2200 AC 11/05 SC 220 Levothyroxine Sodium 0.15 MG DAILY AC 10/20 0700 AC 11/06 PO 0725 Lisinopril 10 MG DAILY 11/02 1024 AC 11/05 PO 0851 Magnesium Sulfate 1 GM ONCE ONE 11/06 0715 AC 11/06 Dextrose/Water 100 ML IV 11/06 1114 0909 Magnesium Sulfate 1 GM Q2H 11/05 0700 DC 11/05 Dextrose/Water 100 ML IV 11/05 1059 1000 Melatonin 5 MG AT BEDTIME 10/24 2200 AC 11/05 PO 2205 Methylprednisolone 40 MG Q8 11/04 1400 AC 11/06 IV 0655 Metoprolol Tartrate 12.5 MG BID 11/01 1046 AC 11/05 PO 2205 Omeprazole 20 MG DAILY AC 10/25 0700 AC 11/06 PO 0725 Results Last 48 Hrs of Labs/Mics: Laboratory Tests 11/06/16 0430: Anion Gap 9, Estimated GFR 54 L, Glucose 177 H, Calcium 8.5, Phosphorus 4.2, Magnesium 1.8, Total Bilirubin 0.7, AST 11 L, ALT 28, Albumin 2.9 L, CBC w Diff NO MAN DIFF REQ, RBC 2.62 L, MCV 102.7 H, MCH 33.6 H, RDW 18.4 H, MPV 10.4, Gran % 91.3 H, Lymphocytes % 4.0 L, Monocytes % 2.3, Eosinophils % 2.3, Basophils % 0.1, Absolute Granulocytes 7.4 H, Absolute Lymphocytes 0.3 L, Absolute Monocytes 0.2, Absolute Eosinophils 0.2, Absolute Basophils 0, PUBS MCHC 32.7 L 11/05/16 0430: Anion Gap 11, Estimated GFR 48 L, Glucose 245 H, Calcium 8.7, Phosphorus 4.4, Magnesium 1.6, Total Bilirubin 0.7, AST 10 L, ALT 28, Albumin 2.8 L, CBC w Diff MAN DIFF ORDERED, RBC 2.53 L, MCV 103.7 H, MCH 33.7 H, RDW 19.0 H, MPV 10.4, Gran % 94.2 H, Lymphocytes % 3.9 L, Monocytes % 1.1 L, Eosinophils % 0.8, Basophils % 0 L, Absolute Granulocytes 6.8 H, Segmented Neutrophils 85 H , Band Neutrophils 9 H, Absolute Lymphocytes 0.3 L, Lymphocytes 2 L, Monocytes 4, Absolute Monocytes 0.1 L, Absolute Eosinophils 0.1, Absolute Basophils 0, Platelet Estimate VERIFIED BY SMEAR, Poikilocytosis 1+, Basophilic Stippling 1+, Anisocytosis 1+, Ovalocytes 1+, PUBS MCHC 32.5 L Recent Imaging Studies: Chest x-ray 11/05/16: Mild interval improvement in the haziness at the right lung base with persistent changes. No new airspace opacities. Cardiomegaly. Assessment/Plan Assessment/Plan 1. Community-acquired pneumonia 2. Respiratory failure 3. Gram-negative sepsis 4. Mild troponin elevation, likely secondary to pneumonia and sepsis 5. Mild left ventricular systolic dysfunction 6. Short runs of nonsustained atrial tachycardia 7. Chronic HFrEF, with mild acute exacerbation, improved 8. Chronic kidney disease, improved Plan: * Continue by mouth Lasix * Continue other cardiac medications. * Follow up in 2 weeks Continue telemetry? Yes
--- NOTE | 2016-11-06 13:37 | PN- Pulmonary ---
Subjective HPI/Critical Care Issues: Doing well afebrile Improved oxygenation while sitting Objective Current Medications: Current Medications Sig/Wei Start time Last Medication Dose Route Stop Time Status Admin Acetaminophen 650 MG Q6P PRN 10/20 0145 AC 10/21 PO 1839 Albuterol Sulfate 3 ML EVERY 4 HRS/AWAKE 10/20 0915 AC 11/06 INH 1236 Aspirin 81 MG DAILY 10/24 1000 AC 11/06 PO 1129 Doxycycline Hyclate 100 MG BID 11/04 1000 AC 11/06 PO 1129 Furosemide 40 MG 7:30 AM, & 4:30 PM 11/02 1630 AC 11/06 PO 0725 Guaifenesin 600 MG Q12 10/20 1000 AC 11/06 PO 1129 Insulin Aspart 0 TIDAC/HS 11/06 1200 AC 11/06 SC 1214 Insulin Aspart 0 TIDAC 10/20 0800 DC 11/05 SC 1700 Insulin Detemir 24 UNITS QPM 11/02 2200 AC 11/05 SC 2204 Levothyroxine Sodium 0.15 MG DAILY AC 10/20 0700 AC 11/06 PO 0725 Lisinopril 10 MG DAILY 11/02 1024 AC 11/06 PO 1129 Magnesium Sulfate 1 GM ONCE ONE 11/06 0715 GA 11/06 Dextrose/Water 100 ML IV 11/06 1114 0909 Melatonin 5 MG AT BEDTIME 10/24 2200 AC 11/05 PO 2205 Methylprednisolone 40 MG Q8 11/04 1400 AC 11/06 IV 0655 Metoprolol Tartrate 12.5 MG BID 11/01 1046 AC 11/06 PO 1130 Omeprazole 20 MG DAILY AC 10/25 0700 AC 11/06 PO 0725 Vital Signs & I&O Last 24 Hrs of Vitals and I&O: Vital Signs Date Time Temp Pulse Resp B/P B/P Pulse O2 O2 Flow FiO2 Mean Ox Delivery Rate 11/06 1130 98 120/70 11/06 1129 98 120/70 11/06 0814 96 Nasal 100% Cannula 11/06 0800 90 Nasal 100% Cannula 11/06 0800 98.0 92 26 120/70 90 Nasal 100% Cannula 11/06 0758 76 96 11/06 0551 64 94 11/06 0400 98.2 68 22 140/76 97 BIPAP 100% 11/06 0400 94 BIPAP 100% 11/06 0308 73 93 11/06 0010 74 89 11/06 0000 89 BIPAP 100% 11/06 0000 97.8 78 18 128/76 89 BIPAP 100% 11/05 2339 85 87 11/05 2205 96 146/70 11/05 2042 93 Nasal 100% Cannula 11/05 2042 98.3 96 20 138/64 93 Nasal 100% Cannula 11/05 1800 90 88 11/05 1624 91 Nasal 100% Cannula 11/05 1600 92 Nasal 100% Cannula 11/05 1600 97.6 99 20 148/80 92 Nasal 100% Cannula 11/05 1540 85 98 11/05 1435 85 90 Intake & Output 11/06 1600 11/06 0800 11/06 0000 Intake Total 360 420 Output Total 800 790 Balance -440 -370 Intake, IV 20 Intake, Oral 360 400 Number 0 0 Bowel Movements Output, Urine 800 790 Laboratory Tests 11/06 11/05 0430 0430 Chemistry Sodium (137 - 145 mmol/L) 139 139 Potassium (3.5 - 5.1 mmol/L) 4.7 5.0 Chloride (98 - 107 mmol/L) 96 L 97 L Carbon Dioxide (22 - 30 mmol/L) 34 H 32 H Anion Gap (5 - 16) 9 11 BUN (7 - 17 mg/dL) 78 H 71 H Creatinine (0.5 - 1.0 mg/dL) 1.0 1.1 H Estimated GFR (>60 ml/min) 54 L 48 L Glucose (65 - 99 mg/dL) 177 H 245 H Calcium (8.4 - 10.2 mg/dL) 8.5 8.7 Phosphorus (2.5 - 4.5 mg/dL) 4.2 4.4 Magnesium (1.6 - 2.3 mg/dL) 1.8 1.6 Total Bilirubin (0.2 - 1.3 mg/dL) 0.7 0.7 AST (14 - 36 U/L) 11 L 10 L ALT (9 - 52 U/L) 28 28 Albumin (3.5 - 5.0 g/dL) 2.9 L 2.8 L Hematology CBC w Diff NO MAN DIFF REQ MAN DIFF ORDERED WBC (4.8 - 10.8 /CUMM) 8.1 7.2 RBC (4.20 - 5.40 /CUMM) 2.62 L 2.53 L Hgb (12.0 - 16.0 G/DL) 8.8 L 8.5 L Hct (37 - 47 %) 26.9 L 26.2 L MCV (81.0 - 99.0 FL) 102.7 H 103.7 H MCH (27.0 - 31.0 PG) 33.6 H 33.7 H RDW (11.5 - 14.5 %) 18.4 H 19.0 H Plt Count (130 - 400 /CUMM) 164 161 MPV (7.4 - 10.4 FL) 10.4 10.4 Gran % (42.2 - 75.2 %) 91.3 H 94.2 H Lymphocytes % (20.5 - 51.1 %) 4.0 L 3.9 L Monocytes % (1.7 - 9.3 %) 2.3 1.1 L Eosinophils % (0 - 5 %) 2.3 0.8 Basophils % (0.0 - 2.0 %) 0.1 0 L Absolute Granulocytes (1.4 - 6.5 /CUMM) 7.4 H 6.8 H Segmented Neutrophils (42.2 - 75.2 %) 85 H Band Neutrophils (0.0 - 5.0 %) 9 H Absolute Lymphocytes (1.2 - 3.4 /CUMM) 0.3 L 0.3 L Lymphocytes (20.5 - 51.1 %) 2 L Monocytes (1.7 - 9.3 %) 4 Absolute Monocytes (0.10 - 0.60 /CUMM) 0.2 0.1 L Absolute Eosinophils (0.0 - 0.7 /CUMM) 0.2 0.1 Absolute Basophils (0.0 - 0.2 /CUMM) 0 0 Platelet Estimate (ADEQUATE) VERIFIED BY SMEAR Poikilocytosis 1+ Basophilic Stippling 1+ Anisocytosis 1+ Ovalocytes 1+ PUBS MCHC (33.0 - 37.0 G/DL) 32.7 L 32.5 L Microbiology Date/Time Procedure - Status Source Growth 11/04 1700 Urine Culture - COMP URINE ROUT Impression/Plan Impression/Plan Impression/Plan: Chest showed crackles Heart S1-S2 was heard 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 Now on steroids * REcent ct shows sig copd with bronchiolitis * REsolved Significant gram-negative sepsis pansensensitive ecoli, due to 8 mm stone with obstructive uropathy with hydronephrosis, causing sepsis S/P Stent * Improving Chronic kidney disease with acute kidney injury upon admission which is slowly improving * Significantly elevated proBNP with low ejection fraction upon admission * Chronic anemia patient has been on epo before, now with thrombocytopenia due to sepsis and pt does have macrocytosis and need to rule out myelodysplasia in the future * Heme positive stool with chronic anemia * Myelodysplasia and MGUS with Splenomegaly, 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
--- NOTE | 2016-11-06 14:10 | NUR ---
PT IS DROWSY AND WHEN SHE IS AWAKE SHE TIRES EASILY. SATS DROP WHEN TURNING IN BED, TRYING TO EAT OR DRINK, OR TALK. SHE DENIES ANY PAIN. OOB TO CHAIR THIS AFTERNOON.
[2016-11-06 20:00] VITALS: BP 116/60
[2016-11-07] VITALS: BP 112/50
--- NOTE | 2016-11-07 01:31 | NUR ---
PT PLACED ON BIPAP 100% FIO2. SATURATION 92%, LUNGS SOUND CLEAR. SOB ON EXERTION. ABDOMEN SOFT, NORMOACTIVE BS. FERNÁNDEZ IN PLACE, ADEQUATE UO AT THIS TIME. NSR 70'S, MANUAL BP 112/50.
[2016-11-07 04:13] LABS: ABSOLUTE BASOPHIL COUNT 0.1 /CUMM (0.0-0.2); ABSOLUTE EOSINOPHIL COUNT 0.8 /CUMM (0.0-0.7); ABSOLUTE GRANULOCYTE CT 12.7 /CUMM (1.4-6.5); ABSOLUTE LYMPH COUNT 0.3 /CUMM (1.2-3.4); ABSOLUTE MONOCYTE COUNT 0.1 /CUMM (0.10-0.60); BASOPHIL % 0.7 % (0.0-2.0); EOSINOPHIL % 5.5 % (0-5); GRANULOCYTE % 90.9 % (42.2-75.2); HEMATOCRIT 31.2 % (37-47); MEAN CORPUSCULAR HGB 33.1 PG (27.0-31.0); MEAN CORPUSCULAR HGB CONC 32.1 G/DL (33.0-37.0); MEAN CORPUSCULAR VOLUME 103.1 FL (81.0-99.0); MEAN PLATELET VOLUME 9.5 FL (7.4-10.4); PLATELET COUNT 188 /CUMM (130-400); RBC DISTRIBUTION WIDTH 19.5 % (11.5-14.5); RED BLOOD CELL CT 3.02 /CUMM (4.20-5.40)
--- NOTE | 2016-11-07 06:59 | PN- Housestaff ---
Subjective Follow-up For: Acute on chronic hypoxic and hypercarbic respiratory failure Sepsis 2/2 UTI with gram negative sepsis Nephrolithiasis Demand ischemia Complaints: no complaints Tele-Events Since Last Visit: No significant telemetry events. Subjective: Patient seen and examined at bedside this AM. She was laying comfortably in bed on 100% BiPAP whichs he uses at night. Patient continues to have high FiO2 requirements though her lung aeration and crackles are much improved. She was out of bed to chair yesterday and will continue to do this at least daily. Patient denies fever, chills, chest pain, shortness of breath, wheezing or weakness. Vital signs last 24 hours: 97.5-98.3, HR 64-98, RR 18-26, BP 112-146/50-76, O2 saturation 89-99% on HFNC alternating with BiPAP at night. Fluid balance: -700 cc over last 24 hours Review of Systems Constitutional: Denies: chills, fever, malaise. EENTM: Denies: double vision, visual changes, hearing changes, nasal congestion. Cardiovascular: Denies: chest pain, palpitations. Respiratory: Denies: cough, short of breath, wheezing. Gastrointestinal: Denies: abdominal pain, nausea, vomiting. Genitourinary: Denies: dysuria, hematuria. Musculoskeletal: Denies: back pain. Skin: Denies: rash. Neurological/Psychological: Denies: confusion, headache. Hematologic/Endocrine: Denies: bruising, bleeding. Immunologic/Allergic: Denies: splenectomy. Objective Last 24 Hrs of Vital Signs/I&O Vital Signs Date Time Temp Pulse Resp B/P B/P Pulse O2 O2 Flow FiO2 Mean Ox Delivery Rate 11/07 0551 69 99 11/07 0347 75 94 11/07 0005 80 90 11/07 0000 92 BIPAP 100% 11/07 0000 97.7 76 21 112/50 92 BIPAP 100% 11/06 2220 98.3 96 26 132/55 11/06 2000 97.5 98 26 116/60 90 Nasal 100% Cannula 11/06 1710 92 Nasal 100% Cannula 11/06 1600 90 Nasal 3.0L Cannula 11/06 1130 98 120/70 11/06 1129 98 120/70 11/06 0814 96 Nasal 100% Cannula Intake & Output 11/07 1600 11/07 0800 11/07 0000 Intake Total 100 310 Output Total 800 950 Balance -700 -640 Intake, IV 10 Intake, Oral 100 300 Output, Urine 800 950 Physical Exam General Appearance: Alert, Oriented X3, Cooperative, No Acute Distress Skin: No Significant Lesion Skin Temp/Moisture Exam: Warm/Dry HEENT: Atraumatic, PERRLA, EOMI, Mucous Membr. moist/pink Neck: Supple, No JVD, No thryomegaly Lymphatic: Cervical nl Cardiovascular: Regular Rate, Normal S1, Normal S2 Lungs: Normal Air Movement, Improved air movement especially at the bilateral bases; no added sounds Abdomen: Normal Bowel Sounds, Soft, No Tenderness Neurological: Normal Speech, Normal Tone Extremities: No Clubbing, No Cyanosis, No Edema Vascular: Pulses Symmetrical Current Medications: Current Medications Sig/Wei Start time Last Medication Dose Route Stop Time Status Admin Acetaminophen 650 MG Q6P PRN 10/20 0145 AC 10/21 PO 1839 Albuterol Sulfate 3 ML EVERY 4 HRS/AWAKE 10/20 0915 AC 11/06 INH 2107 Aspirin 81 MG DAILY 10/24 1000 AC 11/06 PO 1129 Doxycycline Hyclate 100 MG BID 11/04 1000 AC 11/06 PO 2225 Furosemide 40 MG 7:30 AM, & 4:30 PM 11/02 1630 AC 11/06 PO 1820 Guaifenesin 600 MG Q12 10/20 1000 AC 11/06 PO 2222 Insulin Aspart 0 TIDAC/HS 11/06 1200 AC 11/06 SC 2209 Insulin Aspart 0 TIDAC 10/20 0800 DC 11/05 SC 1700 Insulin Detemir 24 UNITS QPM 11/02 2200 AC 11/06 SC 2210 Levothyroxine Sodium 0.15 MG DAILY AC 10/20 0700 AC 11/07 PO 0607 Lisinopril 10 MG DAILY 11/02 1024 AC 11/06 PO 1129 Magnesium Sulfate 1 GM ONCE ONE 11/07 0700 AC Dextrose/Water 100 ML IV 11/07 1059 Magnesium Sulfate 1 GM ONCE ONE 11/06 0715 DC 11/06 Dextrose/Water 100 ML IV 11/06 1114 0909 Melatonin 5 MG AT BEDTIME 10/24 2200 AC 11/06 PO 2221 Methylprednisolone 30 MG BID 11/06 2200 AC 11/06 IV 2223 Methylprednisolone 40 MG Q8 11/04 1400 DC 11/06 IV 0655 Metoprolol Tartrate 12.5 MG BID 11/01 1046 AC 11/06 PO 2220 Omeprazole 20 MG DAILY AC 10/25 0700 AC 11/07 PO 0607 Polyethylene Glycol 17 GM DAILY NEEDED PRN 11/07 0000 AC PO Senna/Docusate Sodium 1 TAB Q12P PRN 11/06 2345 AC PO Last 24 Hrs of Lab/Fabian Results Last 24 Hrs of Labs/Mics: Laboratory Tests 11/07/16 0359: Anion Gap 11, Estimated GFR 48 L, Glucose 92, Calcium 8.7, Phosphorus 4.9 H, Magnesium 1.9, Total Bilirubin 1.0, AST 13 L, ALT 44, Albumin 3.3 L, CBC w Diff MAN DIFF ORDERED, RBC 3.02 L, MCV 103.1 H, MCH 33.1 H, RDW 19.5 H, MPV 9.5, Gran % 90.9 H, Lymphocytes % 2.0 L, Monocytes % 0.9 L, Eosinophils % 5.5 H, Basophils % 0.7, Absolute Granulocytes 12.7 H, Segmented Neutrophils 83 H, Band Neutrophils 6 H, Absolute Lymphocytes 0.3 L, Lymphocytes 4 L, Monocytes 2, Absolute Monocytes 0.1 L, Eosinophils 5, Absolute Eosinophils 0.8, Absolute Basophils 0.1, Nucleated RBCs 1 H, Platelet Estimate ADEQUATE, Poikilocytosis 1 +, Basophilic Stippling 1+, Ovalocytes 2+, PUBS MCHC 32.1 L Assessment/Plan Assessment: Ms. Bajwa is a pleasant 76 year old female with PMH hypertension, hyperlipidemia, COPD on 5 L continuous NC, type 2 diabetes mellitus on insulin, hypothyroidism, stage III B chronic kidney disease, combined systolic and diastolic heart failure, severe pulmonary hypertension, history of kidney stones in the past who presented to the [facility] ED with shortness of breath on exertion , chills, decreased oral intake, cough minimally productive of sputum and nausea for one day. Patient was admitted to telemetry initally, has received treatment for possible pneumonia and UTI, and was tranferred to the ICU due to decreased oxygen saturation to 85% requiring high flow oxygen and for closer monitoring. Below is the problem list and plan: Respiratory: 1. Acute on chronic hypoxic and hypercarbic respiratory failure * Likely 2/2 combination of COPD, heart failure and sepsis of urological origin * Treated for possible pneumonia with ceftriaxone and doxycycline (allergic to azithromycin) on admission -met criteria for sepsis on admission with possible pulmonary source acording to CXR, required high flow O2 through NC * V/Q scan negative for PE * Continue Mucinex BID, scheduled albuterol, TRC/Nebs * Follow up repeat CXR Q48 hours or if clinically indicated * Continue high flow nasal cannula and try to wean BiPAP QHS, currently requiring high FiO2 90-100% * CT chest previously showed worsened central lobar groundglass opacities that likely represent infectious bronchiolitis, IV azithromycin was started. Patient subsequently desaturated with likely allergic reaction so azithromycin discontinued. * Patient now on doxycycline 100 mg PO BID (day #4) and IV solumedrol 60 mg daily for this infectious bronchiolitis * PO lasix 40 mg BID, tolerating well with net negative fluid balance, if BUN rises will likely decrease dose * Patient will greatly benefit from inpatient pulmonary rehab, discussed transfer to [facility], will follow up with case management for this issue ID 1. Gram-negative sepsis with pansensitive Escherichia coli due to obstructive uropathy and evidence of an 8 mm stone causing hydronephrosis. * Urinalysis suggesting UTI and blood culture positive for gram negative rods ( pansensitive ecoli) * Initial CT of [place] and pelvis showed obstructing 8 x 8 mm left ureter stone causing moderate to severe hydroureteronephrosis and left perinephric stranding. * Patient had left ureteral stent placed, tolerated procedure well, will continue follow uro rec's * Repeat CT scan showed interval decompression of left renal collecting system with multiple nonobstructing renal calculi * PO ceftin 14 day course completed * Latest urine culture negative for growth Cardiac 1. Elevated troponins * Elevated troponins in setting of acute hypoxic respiratory failure likely represent demand ischemia, no chest pain reported, have since trended down. * Echo shows EF 40-45%, mild global hypokinesis, right ventricular systolic pressure estimated at 47 mmHg. * Cardiology is following and will continue to follow recs * Continue ASA 81 mg PO daily and lopressor 12.5 mg PO BID, tolerating well 2. Combined systolic and diastolic CHF * 40 mg PO lasix BID * Monitor renal function with continued lasix use * Follow up with cardiology within 1 week after discharge Heme 1. Chronic macrocytic anemia * Likely 2/2 CKD * Folate within normal limits and B12 is elevated * Patient with Guiac (+) stool, no pharm dvtp * Follow up daily CBC Metabolic 1. EVANS on CKD * Possibly secondary to initial sepsis with superimposed hydronephrosis * Avoid nephrotoxins * Tolerating lisinopril well * ICU bundle daily to monitor BUN/cre 2. Hyperkalemia * Likely secondary to acute on chronic kidney injury * Follow up repeat labs 3. Diabetes mellitus * Accuchecks TIDACHS * FSGs improved after increasing NSS to high dose and adding bedtime NSS * Will likely decrease scale as we titrate down steroids * Continue home dose levemir 24 U SC QPM today 4. Hypothyroidism * Continue synthroid 0.15 mg PO daily AC Other 1. Cystic abnormality abutting distal body of pancreas * Follow up CT scan with pancreatic mass protocol once patient more stable or close follow up after discharge DNR/DNI DVTP: ALPS CC2 diet Mild pain pathway Problem List: 1. Insulin dependent type 2 diabetes mellitus 2. Elevated troponin 3. HFrEF (heart failure with reduced ejection fraction) 4. Acute renal failure superimposed on stage 3 chronic kidney disease 5. UTI (urinary tract infection) 6. Gram negative sepsis 7. Acute and chronic respiratory failure with hypoxia Pain Ratin Pain Location: n/a Pain Goal: Remain pain free Pain Plan: Per pain pathway Tomorrow's Labs & Rationales: CBC (leukocytosis, anemia) ICU bundle (renal dysfunction)
[2016-11-07 08:00] VITALS: BP 116/62
--- NOTE | 2016-11-07 09:36 | PN- Pulmonary ---
Subjective HPI/Critical Care Issues: Patient seen and examined at bedside this AM. Patient continues to have high FiO2 requirements though her lung aeration and crackles are much improved. She was out of bed to chair Patient denies fever, chills, chest pain, shortness of breath, wheezing or weakness. Vital signs last 24 hours: 97.5-98.3, HR 64-98, RR 18-26, BP 112-146/50-76, O2 saturation 89-99% on HFNC alternating with BiPAP at night. Fluid balance: -700 cc over last 24 hours Review of Systems Constitutional: Denies: chills, fever, malaise. EENTM: Denies: double vision, visual changes, hearing changes, nasal congestion. Cardiovascular: Denies: chest pain, palpitations. Respiratory: Denies: cough, short of breath, wheezing. Gastrointestinal: Denies: abdominal pain, nausea, vomiting. Genitourinary: Denies: dysuria, hematuria. Musculoskeletal: Denies: back pain. Skin: Denies: rash. Neurological/Psychological: Denies: confusion, headache. Hematologic/Endocrine: Denies: bruising, bleeding. Immunologic/Allergic: Denies: splenectomy. Objective Current Medications: Current Medications Sig/Wei Start time Last Medication Dose Route Stop Time Status Admin Acetaminophen 650 MG Q6P PRN 10/20 0145 AC 10/21 PO 1839 Albuterol Sulfate 3 ML EVERY 4 HRS/AWAKE 10/20 0915 AC 11/07 INH 0823 Aspirin 81 MG DAILY 10/24 1000 AC 11/06 PO 1129 Doxycycline Hyclate 100 MG BID 11/04 1000 AC 11/06 PO 2225 Furosemide 40 MG 7:30 AM, & 4:30 PM 11/02 1630 AC 11/06 PO 1820 Guaifenesin 600 MG Q12 10/20 1000 AC 11/06 PO 2222 Insulin Aspart 0 TIDAC/HS 11/06 1200 AC 11/06 SC 2209 Insulin Detemir 24 UNITS QPM 11/02 2200 AC 11/06 SC 2210 Levothyroxine Sodium 0.15 MG DAILY AC 10/20 0700 AC 11/07 PO 0607 Lisinopril 10 MG DAILY 11/02 1024 AC 11/06 PO 1129 Magnesium Sulfate 1 GM ONCE ONE 11/07 0700 AC Dextrose/Water 100 ML IV 11/07 1059 Magnesium Sulfate 1 GM ONCE ONE 11/06 0715 DC 11/06 Dextrose/Water 100 ML IV 11/06 1114 0909 Melatonin 5 MG AT BEDTIME 10/240 AC 11/06 PO 2221 Methylprednisolone 30 MG BID 11/06 2199 AC 11/06 IV 2223 Methylprednisolone 40 MG Q8 11/04 1400 DC 11/06 IV 0655 Metoprolol Tartrate 12.5 MG BID 11/01 1046 AC 11/06 PO 2220 Omeprazole 20 MG DAILY AC 10/25 0700 AC 11/07 PO 0607 Polyethylene Glycol 17 GM DAILY NEEDED PRN 11/07 0000 AC PO Senna/Docusate Sodium 1 TAB Q12P PRN 11/06 2345 AC PO Vital Signs & I&O Last 24 Hrs of Vitals and I&O: Vital Signs Date Time Temp Pulse Resp B/P B/P Pulse O2 O2 Flow FiO2 Mean Ox Delivery Rate 11/07 0840 92 Nasal 100% Cannula 11/07 0825 83 92 11/07 0551 69 99 11/07 0347 75 94 11/07 0005 80 90 11/07 0000 92 BIPAP 100% 11/07 0000 97.7 76 21 112/50 92 BIPAP 100% 11/07 2219 98.3 96 26 132/55 11/06 2000 97.5 98 26 116/60 90 Nasal 100% Cannula 11/06 1710 92 Nasal 100% Cannula 11/06 1600 90 Nasal 3.0L Cannula 11/06 1130 98 120/70 11/06 1129 98 120/70 Intake & Output 11/07 1600 11/07 0800 11/07 0000 Intake Total 100 310 Output Total 800 950 Balance -700 -640 Intake, IV 10 Intake, Oral 100 300 Output, Urine 800 950 Laboratory Tests 11/07 11/06 0359 0430 Chemistry Sodium (137 - 145 mmol/L) 139 139 Potassium (3.5 - 5.1 mmol/L) 4.8 4.7 Chloride (98 - 107 mmol/L) 94 L 96 L Carbon Dioxide (22 - 30 mmol/L) 34 H 34 H Anion Gap (5 - 16) 11 9 BUN (7 - 17 mg/dL) 81 H 78 H Creatinine (0.5 - 1.0 mg/dL) 1.1 H 1.0 Estimated GFR (>60 ml/min) 48 L 54 L Glucose (65 - 99 mg/dL) 92 177 H Calcium (8.4 - 10.2 mg/dL) 8.7 8.5 Phosphorus (2.5 - 4.5 mg/dL) 4.9 H 4.2 Magnesium (1.6 - 2.3 mg/dL) 1.9 1.8 Total Bilirubin (0.2 - 1.3 mg/dL) 1.0 0.7 AST (14 - 36 U/L) 13 L 11 L ALT (9 - 52 U/L) 44 28 Albumin (3.5 - 5.0 g/dL) 3.3 L 2.9 L Hematology CBC w Diff MAN DIFF ORDERED NO MAN DIFF REQ WBC (4.8 - 10.8 /CUMM) 14.0 H 8.1 RBC (4.20 - 5.40 /CUMM) 3.02 L 2.62 L Hgb (12.0 - 16.0 G/DL) 10.0 L 8.8 L Hct (37 - 47 %) 31.2 L 26.9 L MCV (81.0 - 99.0 FL) 103.1 H 102.7 H MCH (27.0 - 31.0 PG) 33.1 H 33.6 H RDW (11.5 - 14.5 %) 19.5 H 18.4 H Plt Count (130 - 400 /CUMM) 188 164 MPV (7.4 - 10.4 FL) 9.5 10.4 Gran % (42.2 - 75.2 %) 90.9 H 91.3 H Lymphocytes % (20.5 - 51.1 %) 2.0 L 4.0 L Monocytes % (1.7 - 9.3 %) 0.9 L 2.3 Eosinophils % (0 - 5 %) 5.5 H 2.3 Basophils % (0.0 - 2.0 %) 0.7 0.1 Absolute Granulocytes (1.4 - 6.5 /CUMM) 12.7 H 7.4 H Segmented Neutrophils (42.2 - 75.2 %) 83 H Band Neutrophils (0.0 - 5.0 %) 6 H Absolute Lymphocytes (1.2 - 3.4 /CUMM) 0.3 L 0.3 L Lymphocytes (20.5 - 51.1 %) 4 L Monocytes (1.7 - 9.3 %) 2 Absolute Monocytes (0.10 - 0.60 /CUMM) 0.1 L 0.2 Eosinophils (0 - 5.0 %) 5 Absolute Eosinophils (0.0 - 0.7 /CUMM) 0.8 0.2 Absolute Basophils (0.0 - 0.2 /CUMM) 0.1 0 Nucleated RBCs (0.0 - 0.0 /100WBC) 1 H Platelet Estimate (ADEQUATE) ADEQUATE Poikilocytosis 1+ Basophilic Stippling 1+ Ovalocytes 2+ PUBS MCHC (33.0 - 37.0 G/DL) 32.1 L 32.7 L Microbiology Date/Time Procedure - Status Source Growth 11/04 1700 Urine Culture - COMP URINE ROUT Impression/Plan Impression/Plan Impression/Plan: Varinder eomi neck supple Chest showed crackles Heart S1-S2 was heard Abdominal exam warp scouring vat tender painful trace 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 Now on steroids with sig bronchiolitis by ct * REsolved Significant gram-negative sepsis pansensensitive ecoli, due to 8 mm stone with obstructive uropathy with hydronephrosis, causing sepsis S/P Stent * Improving Chronic kidney disease with acute kidney injury upon admission which is slowly improving * Significantly elevated proBNP with low ejection fraction upon admission * Chronic anemia patient has been on epo before, now with thrombocytopenia due to sepsis and pt does have macrocytosis and need to rule out myelodysplasia in the future * Heme positive stool with chronic anemia * Myelodysplasia and MGUS with Splenomegaly, 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 * Previous mediastinal lymphadenopathy which needs follow-up * Elevated troponin upon admission * Hypothyroid on supp RECOMMENDATION * COnt high flow, and reduce fio2 ok with resting sat of 90 and excertional sat of 85 * Follow sugars, cover with sliding scale insulin only if needed, cont long acting insulin * po ppi * Venodyne boots as she has hemepositive stool * OOB to chair * Lasix 40 mg po bid and if bun rise then will reduce * Reduce dose of steroid to 60 mg daily one mg per kg body wt
[2016-11-07 17:00] VITALS: BP 106/50
[2016-11-08] VITALS: BP 110/58
--- NOTE | 2016-11-08 06:53 | PN- Housestaff ---
Subjective Follow-up For: Acute on chronic hypoxic and hypercarbic respiratory failure Sepsis 2/2 UTI with gram negative sepsis Nephrolithiasis Demand ischemia Complaints: no complaints Tele-Events Since Last Visit: No significant telemetry events. Subjective: Patient seen and examined at bedside this AM. She was resting comfortably in bed in no acute distress. She reports she is feelin stronger, tolerating her diet well and will continue to get out of bed to chair. She denies orthopnea, wheezing, chest pain or palpitations. Vital signs last 24 hours: T 96.9-98.2, HR 60-87, RR 22-28, BP 106-120/50-70, O2 85-100% on 100% HFNC alternating with 100% BiPAP at night. Review of Systems Constitutional: Denies: chills, fever, malaise, weakness. EENTM: Denies: visual changes, hearing changes. Cardiovascular: Denies: chest pain, palpitations. Respiratory: Denies: cough, short of breath. Gastrointestinal: Denies: abdominal pain, nausea. Genitourinary: Denies: dysuria. Musculoskeletal: Denies: back pain. Skin: Denies: rash. Neurological/Psychological: Denies: confusion, headache. Hematologic/Endocrine: Denies: bruising, bleeding. Objective Last 24 Hrs of Vital Signs/I&O Vital Signs Date Time Temp Pulse Resp B/P B/P Pulse O2 O2 Flow FiO2 Mean Ox Delivery Rate 11/08 1002 97.5 60 22 120/60 11/08 1002 97.5 60 22 120/60 11/08 0816 67 100 11/08 0800 97.5 60 22 120/60 98 BIPAP 100% 11/08 0540 68 95 11/08 0322 75 93 11/08 0105 80 93 11/08 0029 85 Nasal 100% Cannula 11/08 0000 96 BIPAP 100% 11/08 0000 96.9 87 24 110/58 85 Nasal 100% Cannula 11/07 2102 95 120/60 11/08 2007 92 Nasal 100% Cannula 11/07 1700 97.9 86 28 106/50 90 Nasal 100% Cannula 11/07 1428 90 Nasal 100% Cannula 11/07 1341 Nasal 100% Cannula Intake & Output 11/08 1600 11/08 0800 11/08 0000 Intake Total 240 360 Output Total 650 1100 Balance -410 -740 Intake, IV 0 0 Intake, Oral 240 360 Number 1 0 Bowel Movements Output, Urine 650 1100 Physical Exam General Appearance: Alert, Oriented X3, Cooperative, No Acute Distress Skin: No Significant Lesion Skin Temp/Moisture Exam: Warm/Dry HEENT: Atraumatic, PERRLA, Mucous Membr. moist/pink Neck: Supple, No JVD Lymphatic: Cervical nl Cardiovascular: Regular Rate, Normal S1, Normal S2, No Murmurs Lungs: Clear to Auscultation, Decreased breath sounds bilateral bases Abdomen: Normal Bowel Sounds, Soft, No Tenderness Neurological: Normal Speech, Normal Tone, Sensation Intact Extremities: No Clubbing, No Cyanosis Vascular: Pulses Symmetrical Current Medications: Current Medications Sig/Wei Start time Last Medication Dose Route Stop Time Status Admin Acetaminophen 650 MG Q6P PRN 10/20 0145 AC 10/21 PO 1839 Albuterol Sulfate 3 ML EVERY 4 HRS/AWAKE 10/20 0915 AC 11/08 INH 0812 Aspirin 81 MG DAILY 10/24 1000 AC 11/08 PO 1001 Calcium/Vitamin D 500 MG DAILY 11/08 1033 AC PO Doxycycline Hyclate 100 MG BID 11/04 1000 AC 11/08 PO 1002 Furosemide 40 MG DAILY 11/09 1000 AC PO Furosemide 40 MG 7:30 AM, & 4:30 PM 11/02 1630 DC 11/08 PO 1001 Guaifenesin 600 MG Q12 10/20 1000 AC 11/08 PO 1002 Insulin Aspart 0 TIDAC/HS 11/06 1200 AC 11/07 SC 1653 Insulin Detemir 24 UNITS QPM 11/02 220 AC 11/07 SC 2102 Levothyroxine Sodium 0.15 MG DAILY AC 10/20 0700 AC 11/08 PO 0615 Lisinopril 10 MG DAILY 11/02 1024 AC 11/08 PO 1002 Melatonin 5 MG AT BEDTIME 10/24 220 AC 11/07 PO 2102 Methylprednisolone 30 MG BID 11/06 220 AC 11/08 IV 1002 Metoprolol Tartrate 12.5 MG BID 11/01 1046 AC 11/08 PO 1002 Omeprazole 20 MG DAILY AC 10/25 0700 AC 11/08 PO 0615 Polyethylene Glycol 17 GM DAILY NEEDED PRN 11/07 0000 AC 11/07 PO 1031 Senna/Docusate Sodium 1 TAB .STK-MED ONE 11/08 2047 DC PO 11/07 2048 Senna/Docusate Sodium 1 TAB Q12P PRN 11/06 2345 AC 11/07 PO 2046 Last 24 Hrs of Lab/Fabian Results Last 24 Hrs of Labs/Mics: Laboratory Tests 11/08/16 0625: Anion Gap 7, Estimated GFR 44 L, Glucose 130 H, Calcium 8.8, Phosphorus 5.8 H , Magnesium 2.0, Total Bilirubin 1.1, AST 14, ALT 43, Albumin 3.1 L, CBC w Diff NO MAN DIFF REQ, RBC 2.96 L, MCV 102.0 H, MCH 33.3 H, RDW 18.4 H, MPV 9.9, Gran % 87.8 H, Lymphocytes % 4.7 L, Monocytes % 5.0, Eosinophils % 2.5, Basophils % 0 L, Absolute Granulocytes 9.9 H, Absolute Lymphocytes 0.5 L, Absolute Monocytes 0.6, Absolute Eosinophils 0.3, Absolute Basophils 0, PUBS MCHC 32.7 L Assessment/Plan Assessment: Ms. Bajwa is a pleasant 76 year old female with PMH hypertension, hyperlipidemia, COPD on 5 L continuous NC, type 2 diabetes mellitus on insulin, hypothyroidism, stage III B chronic kidney disease, combined systolic and diastolic heart failure, severe pulmonary hypertension, history of kidney stones in the past who presented to the [facility] ED with shortness of breath on exertion , chills, decreased oral intake, cough minimally productive of sputum and nausea for one day. Patient was admitted to telemetry initally, has received treatment for possible pneumonia and UTI, and was tranferred to the ICU due to decreased oxygen saturation to 85% requiring high flow oxygen and for closer monitoring. Below is the problem list and plan: Respiratory: 1. Acute on chronic hypoxic and hypercarbic respiratory failure * Likely 2/2 combination of COPD, heart failure and sepsis of urological origin * Treated for possible pneumonia with ceftriaxone and doxycycline (allergic to azithromycin) on admission -met criteria for sepsis on admission with possible pulmonary source acording to CXR, required high flow O2 through NC * V/Q scan negative for PE * Continue Mucinex BID, scheduled albuterol, TRC/Nebs * Continue high flow nasal cannula and try to wean BiPAP QHS, currently requiring high FiO2 100%, attempt to taper to maintain sats 87-88% or higher * CT chest previously showed worsened central lobar groundglass opacities that likely represent infectious bronchiolitis, IV azithromycin was started. Patient subsequently desaturated with likely allergic reaction so azithromycin discontinued. * Patient now on doxycycline 100 mg PO BID (day #5) and IV solumedrol 60 mg daily for this infectious bronchiolitis * PO lasix decreased to 40 mg daily as BUN rising, tolerating well with net negative fluid balance * Patient will greatly benefit from inpatient pulmonary rehab, discussed transfer to [place], will follow up with case management for this issue * Added calcium/vitamin D today ID 1. Gram-negative sepsis with pansensitive Escherichia coli due to obstructive uropathy and evidence of an 8 mm stone causing hydronephrosis. * Urinalysis suggesting UTI and blood culture positive for gram negative rods ( pansensitive ecoli) * Initial CT of [place] and pelvis showed obstructing 8 x 8 mm left ureter stone causing moderate to severe hydroureteronephrosis and left perinephric stranding. * Patient had left ureteral stent placed, tolerated procedure well, will continue follow uro rec's * Repeat CT scan showed interval decompression of left renal collecting system with multiple nonobstructing renal calculi * PO ceftin 14 day course completed * Latest urine culture negative for growth Cardiac 1. Elevated troponins * Elevated troponins in setting of acute hypoxic respiratory failure likely represent demand ischemia, no chest pain reported, have since trended down. * Echo shows EF 40-45%, mild global hypokinesis, right ventricular systolic pressure estimated at 47 mmHg. * Cardiology is following and will continue to follow recs * Continue ASA 81 mg PO daily and lopressor 12.5 mg PO BID, tolerating well 2. Combined systolic and diastolic CHF * 40 mg PO lasix BID * Monitor renal function with continued lasix use * Follow up with cardiology within 1 week after discharge Heme 1. Chronic macrocytic anemia * Likely 2/2 CKD * Folate within normal limits and B12 is elevated * Patient with Guiac (+) stool, no pharm dvtp * Follow up daily CBC Metabolic 1. EVANS on CKD * Possibly secondary to initial sepsis with superimposed hydronephrosis * Avoid nephrotoxins * Tolerating lisinopril well * ICU bundle daily to monitor BUN/cre 2. Hyperkalemia * Likely secondary to acute on chronic kidney injury * Follow up repeat labs 3. Diabetes mellitus * Accuchecks TIDACHS * FSGs improved after increasing NSS to high dose and adding bedtime NSS * Will likely decrease scale as we titrate down steroids * Continue home dose levemir 24 U SC QPM today 4. Hypothyroidism * Continue synthroid 0.15 mg PO daily AC Other 1. Cystic abnormality abutting distal body of pancreas * Follow up CT scan with pancreatic mass protocol once patient more stable or close follow up after discharge DNR/DNI DVTP: ALPS CC2 diet Mild pain pathway Problem List: 1. Insulin dependent type 2 diabetes mellitus 2. Elevated troponin 3. HFrEF (heart failure with reduced ejection fraction) 4. Acute renal failure superimposed on stage 3 chronic kidney disease 5. UTI (urinary tract infection) 6. Gram negative sepsis 7. Acute and chronic respiratory failure with hypoxia 8. PNA (pneumonia) 9. Hyperkalemia Pain Ratin Pain Location: n/a Pain Goal: Remain pain free Pain Plan: Per pain pathway Tomorrow's Labs & Rationales: CBC (leukocytosis) BEP (renal dysfunction)
[2016-11-08 08:00] VITALS: BP 120/60
[2016-11-08 08:06] LABS: ABSOLUTE BASOPHIL COUNT 0 /CUMM (0.0-0.2); ABSOLUTE EOSINOPHIL COUNT 0.3 /CUMM (0.0-0.7); ABSOLUTE GRANULOCYTE CT 9.9 /CUMM (1.4-6.5); ABSOLUTE LYMPH COUNT 0.5 /CUMM (1.2-3.4); ABSOLUTE MONOCYTE COUNT 0.6 /CUMM (0.10-0.60); BASOPHIL % 0 % (0.0-2.0); EOSINOPHIL % 2.5 % (0-5); GRANULOCYTE % 87.8 % (42.2-75.2); HEMATOCRIT 30.2 % (37-47); MEAN CORPUSCULAR HGB 33.3 PG (27.0-31.0); MEAN CORPUSCULAR HGB CONC 32.7 G/DL (33.0-37.0); MEAN PLATELET VOLUME 9.9 FL (7.4-10.4); PLATELET COUNT 178 /CUMM (130-400); RBC DISTRIBUTION WIDTH 18.4 % (11.5-14.5); RED BLOOD CELL CT 2.96 /CUMM (4.20-5.40)
[2016-11-08 09:45] LABS: WHITE BLOOD CELL COUNT 11.3 /CUMM (4.8-10.8)
--- NOTE | 2016-11-08 11:50 | NUR ---
PT PLACED ON A 100% HFNC(HIGH FLOW NASAL CANNULA) AT 0815 TO EAT BREAKFAST THE PT'S O2 SAT WAS 98%. AT 0900 OSTEOPATHIC PHYSICIAN DECREASED THE HFNC TO 90% AND THE PT MAINTAINED AN O2 SAT OF 96%. AT 1005 DR CALLE DECREASED THE PT DUNIA 50% HFNC AND WITHIN 5 MINUTES THE O2 SAT HAD DECREASED TO 81-82%. AT 1010 THE HFNC WAS INCREASED TO 70%. THE O2 SAT DECREASED TO 82-84% THE PT WAS TAKING HER MEDS. AT 1030 THE PT'S HR HAD INCREASED TO THE 140'S AND HAD CHANGED FROM A NSR TO AN AFIB WITH THE O2 SAT DECREASED TO 81-82%. AT THAT TIME DR CALLE INCREASED THE PT TO 100% ON THE HFNC. BY 1145 THE PT HAD CONVERTED BACK TO A NSR IN THE 80'S, DR KHOI ESTEBAN NOTIFIED. REMAINS ON THE HFNC AT 100% WITH AN O2 SAT OF 88-92%. SOME SOB AT REST NOTED.
--- NOTE | 2016-11-08 13:38 | PN- Pulmonary ---
Subjective HPI/Critical Care Issues: Patient seen and examined at bedside this AM. She was resting comfortably in bed in no acute distress. She reports she is feelin stronger, tolerating her diet well and will continue to get out of bed to chair. She denies orthopnea, wheezing, chest pain or palpitations. Vital signs last 24 hours: T 96.9-98.2, HR 60-87, RR 22-28, BP 106-120/50-70, O2 85-100% on 100% HFNC alternating with 100% BiPAP at night. DId drop sats when fio2 is reduced today Review of Systems Constitutional: Denies: chills, fever, malaise, weakness. EENTM: Denies: visual changes, hearing changes. Cardiovascular: Denies: chest pain, palpitations. Respiratory: Denies: cough, short of breath. Gastrointestinal: Denies: abdominal pain, nausea. Genitourinary: Denies: dysuria. Musculoskeletal: Denies: back pain. Skin: Denies: rash. Neurological/Psychological: Denies: confusion, headache. Hematologic/Endocrine: Denies: bruising, bleeding. Objective Current Medications: Current Medications Sig/Wei Start time Last Medication Dose Route Stop Time Status Admin Acetaminophen 650 MG Q6P PRN 10/20 0145 AC 10/21 PO 1839 Albuterol Sulfate 3 ML EVERY 4 HRS/AWAKE 10/20 0915 AC 11/08 INH 1242 Aspirin 81 MG DAILY 10/24 1000 AC 11/08 PO 1001 Calcium/Vitamin D 500 MG DAILY 11/08 1033 AC PO Doxycycline Hyclate 100 MG BID 11/04 1000 AC 11/08 PO 1002 Furosemide 40 MG DAILY 11/09 1000 AC PO Furosemide 40 MG 7:30 AM, & 4:30 PM 11/02 1630 DC 11/08 PO 1001 Guaifenesin 600 MG Q12 10/20 1000 AC 11/08 PO 1002 Insulin Aspart 0 TIDAC/HS 11/06 1200 AC 11/08 SC 1147 Insulin Detemir 24 UNITS QPM 11/02 2199 AC 11/07 SC 2102 Levothyroxine Sodium 0.15 MG DAILY AC 10/20 0700 AC 11/08 PO 0615 Lisinopril 10 MG DAILY 11/02 1024 AC 11/08 PO 1002 Melatonin 5 MG AT BEDTIME 10/24 220 AC 11/07 PO 2102 Methylprednisolone 30 MG BID 11/06 2199 AC 11/08 IV 1002 Metoprolol Tartrate 12.5 MG BID 11/01 1046 AC 11/08 PO 1002 Omeprazole 20 MG DAILY AC 10/25 0700 AC 11/08 PO 0615 Polyethylene Glycol 17 GM DAILY NEEDED PRN 11/07 0000 AC 11/07 PO 1031 Senna/Docusate Sodium 1 TAB .STK-MED ONE 11/08 2047 DC PO 11/07 2048 Senna/Docusate Sodium 1 TAB Q12P PRN 11/06 2344 AC 11/07 PO 2046 Vital Signs & I&O Last 24 Hrs of Vitals and I&O: Vital Signs Date Time Temp Pulse Resp B/P B/P Pulse O2 O2 Flow FiO2 Mean Ox Delivery Rate 11/08 1240 92 86 11/08 1002 97.5 60 22 120/60 11/08 1002 97.5 60 22 120/60 11/08 0816 67 100 11/08 0800 98 BIPAP 100% 11/08 0800 97.5 60 22 120/60 98 BIPAP 100% 11/08 0540 68 95 11/08 0322 75 93 11/08 0105 80 93 11/08 0029 85 Nasal 100% Cannula 11/08 0000 96 BIPAP 100% 11/08 0000 96.9 87 24 110/58 85 Nasal 100% Cannula 11/07 2102 95 120/60 11/07 2008 92 Nasal 100% Cannula 11/07 1700 97.9 86 28 106/50 90 Nasal 100% Cannula 11/07 1428 90 Nasal 100% Cannula 11/07 1341 Nasal 100% Cannula Intake & Output 11/08 1600 11/08 0800 11/08 0000 Intake Total 240 360 Output Total 650 1100 Balance -410 -740 Intake, IV 0 0 Intake, Oral 240 360 Number 1 0 Bowel Movements Output, Urine 650 1100 Impression/Plan Impression/Plan Impression/Plan: Varinder eomi neck supple Chest showed crackles Heart S1-S2 was heard Abdominal exam liner reroll tender painful trace 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 Now on steroids with sig bronchiolitis by ct * REsolved Significant gram-negative sepsis pansensensitive ecoli, due to 8 mm stone with obstructive uropathy with hydronephrosis, causing sepsis S/P Stent * Improving Chronic kidney disease with acute kidney injury upon admission which is slowly improving * Significantly elevated proBNP with low ejection fraction upon admission * Chronic anemia patient has been on epo before, now with thrombocytopenia due to sepsis and pt does have macrocytosis and need to rule out myelodysplasia in the future * Heme positive stool with chronic anemia * Myelodysplasia and MGUS with Splenomegaly, 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
[2016-11-08 16:00] VITALS: BP 122/80
[2016-11-09] VITALS: BP 114/70
[2016-11-09 05:27] LABS: ABSOLUTE BASOPHIL COUNT 0 /CUMM (0.0-0.2); ABSOLUTE EOSINOPHIL COUNT 0.3 /CUMM (0.0-0.7); ABSOLUTE GRANULOCYTE CT 9.2 /CUMM (1.4-6.5); ABSOLUTE LYMPH COUNT 0.2 /CUMM (1.2-3.4); ABSOLUTE MONOCYTE COUNT 0.3 /CUMM (0.10-0.60); BASOPHIL % 0 % (0.0-2.0); EOSINOPHIL % 2.6 % (0-5); GRANULOCYTE % 91.7 % (42.2-75.2); HEMATOCRIT 29.5 % (37-47); MEAN CORPUSCULAR HGB 33.8 PG (27.0-31.0); MEAN CORPUSCULAR HGB CONC 32.8 G/DL (33.0-37.0); MEAN CORPUSCULAR VOLUME 103.1 FL (81.0-99.0); PLATELET COUNT 177 /CUMM (130-400); RBC DISTRIBUTION WIDTH 18.5 % (11.5-14.5); RED BLOOD CELL CT 2.87 /CUMM (4.20-5.40)
--- NOTE | 2016-11-09 06:47 | PN- Housestaff ---
Subjective Follow-up For: Acute on chronic hypoxic and hypercarbic respiratory failure Sepsis 2/2 UTI with gram negative sepsis Nephrolithiasis Demand ischemia Complaints: no complaints Tele-Events Since Last Visit: 11/08/16 episodes of atrial fibrillation to 140s with apparent atrial fibrillation as FiO2 level dropped to 70s or attempt at melendez removal. Normalization once patient was placed back on 100% FiO2. Subjective: Patient seen and examined at bedside this AM. She was on BiPAP awaiting for transition to high flow nasal cannula. She feels much the same as yesterday and is amenable to OOBTC. Vital signs last 24 hours: T96.9-97.8, HR 60-140s, RR 20-24, BP 110-124/58-80, O2 85-100% on 70-100% high flow/BiPAP. Total intake last 24 hours: 980 cc Total output last 24 hours: 2650 cc Review of Systems Constitutional: Denies: chills, fever. EENTM: Denies: visual changes, hearing changes, nasal congestion. Cardiovascular: Denies: chest pain, palpitations. Respiratory: Denies: cough, short of breath. Gastrointestinal: Denies: abdominal pain, melena, nausea. Genitourinary: Denies: dysuria, frequency. Musculoskeletal: Denies: back pain, joint pain. Skin: Denies: rash. Neurological/Psychological: Denies: confusion, headache. Hematologic/Endocrine: Denies: bruising, polyuria. Objective Last 24 Hrs of Vital Signs/I&O Vital Signs Date Time Temp Pulse Resp B/P B/P Pulse O2 O2 Flow FiO2 Mean Ox Delivery Rate 11/09 0831 64 95 11/09 0533 60 95 11/09 0342 65 94 11/09 0058 77 93 11/09 0000 91 BIPAP 100% 11/09 0000 97.8 76 20 114/70 91 BIPAP 100% 11/08 2257 83 85 11/08 2108 94 122/60 11/08 1700 96 BIPAP 90% 11/08 1650 77 96 11/08 1600 96 BIPAP 90% 11/08 1600 96.9 78 22 122/80 96 BIPAP 90% 11/08 1240 92 86 11/08 1002 97.5 60 22 120/60 11/08 1002 97.5 60 22 120/60 Intake & Output 11/09 1600 11/09 0800 11/09 0000 Intake Total 120 480 Output Total 350 1000 Balance -230 -520 Intake, Oral 120 480 Output, Urine 350 1000 Physical Exam General Appearance: Alert, Oriented X3, Cooperative, No Acute Distress Skin: No Rashes, No Significant Lesion Skin Temp/Moisture Exam: Warm/Dry HEENT: Atraumatic, PERRLA, EOMI, Mucous Membr. moist/pink Neck: Supple, No JVD, No thryomegaly Lymphatic: Cervical nl Cardiovascular: Regular Rate, Normal S1, Normal S2 Lungs: Decreased air movement but no added sounds/wheezing/rhonchi Abdomen: Normal Bowel Sounds, Soft, No Tenderness Neurological: Normal Speech, Normal Tone Extremities: No Clubbing, No Cyanosis, No Edema Vascular: Pulses Symmetrical Current Medications: Current Medications Sig/Wei Start time Last Medication Dose Route Stop Time Status Admin Acetaminophen 650 MG Q6P PRN 10/20 0145 AC 10/21 PO 1839 Albuterol Sulfate 3 ML EVERY 4 HRS/AWAKE 10/20 0915 AC 11/09 INH 0828 Aspirin 81 MG DAILY 10/24 1000 AC 11/08 PO 1001 Calcium/Vitamin D 500 MG DAILY 11/08 1033 DC PO Cholecalciferol 1,000 IU DAILY 11/09 1000 AC PO Doxycycline Hyclate 100 MG BID 11/04 1000 AC 11/08 PO 2106 Furosemide 40 MG DAILY 11/09 1000 AC PO Furosemide 40 MG 7:30 AM, & 4:30 PM 11/02 1630 DC 11/08 PO 1001 Guaifenesin 600 MG Q12 10/20 1000 AC 11/08 PO 210 Insulin Aspart 0 TIDAC/HS 11/06 1200 AC 11/08 SC 210 Insulin Detemir 24 UNITS QPM 11/02 2199 AC 11/08 SC 210 Levothyroxine Sodium 0.15 MG DAILY AC 10/20 0700 AC 11/09 PO 0644 Lisinopril 10 MG DAILY 11/02 1024 AC 11/08 PO 1002 Melatonin 5 MG AT BEDTIME 10/24 2199 AC 11/08 PO 2106 Methylprednisolone 30 MG BID 11/06 2199 AC 11/08 IV 2108 Metoprolol Tartrate 12.5 MG BID 11/01 1046 AC 11/08 PO 2108 Omeprazole 20 MG DAILY AC 10/25 0700 AC 11/09 PO 0644 Polyethylene Glycol 17 GM DAILY NEEDED PRN 11/07 0000 AC 11/07 PO 1031 Senna/Docusate Sodium 1 TAB Q12P PRN 11/06 2345 AC 11/07 PO 2046 Last 24 Hrs of Lab/Fabian Results Last 24 Hrs of Labs/Mics: Laboratory Tests 11/09/16 0455: Anion Gap 8, Estimated GFR 44 L, Glucose 97, Calcium 9.0, Phosphorus 5.4 H, Magnesium 2.1, Total Bilirubin 1.0, AST 12 L, ALT 37, Albumin 3.1 L, CBC w Diff NO MAN DIFF REQ, RBC 2.87 L, MCV 103.1 H, MCH 33.8 H, RDW 18.5 H, MPV 10.0, Gran % 91.7 H, Lymphocytes % 2.5 L, Monocytes % 3.2, Eosinophils % 2.6, Basophils % 0 L, Absolute Granulocytes 9.2 H, Absolute Lymphocytes 0.2 L, Absolute Monocytes 0.3, Absolute Eosinophils 0.3, Absolute Basophils 0, PUBS MCHC 32.8 L Assessment/Plan Assessment: Ms. Bajwa is a pleasant 76 year old female with PMH hypertension, hyperlipidemia, COPD on 5 L continuous NC, type 2 diabetes mellitus on insulin, hypothyroidism, stage III B chronic kidney disease, combined systolic and diastolic heart failure, severe pulmonary hypertension, history of kidney stones in the past who presented to the [facility] with shortness of breath on exertion , chills, decreased oral intake, cough minimally productive of sputum and nausea for one day. Patient was admitted to telemetry initally, has received treatment for possible pneumonia and UTI, and was tranferred to the ICU due to decreased oxygen saturation to 85% requiring high flow oxygen and for closer monitoring. Below is the problem list and plan: Respiratory: 1. Acute on chronic hypoxic and hypercarbic respiratory failure * Likely 2/2 combination of COPD, heart failure and sepsis of urological origin * Treated for possible pneumonia with ceftriaxone and doxycycline (allergic to azithromycin) on admission -met criteria for sepsis on admission with possible pulmonary source acording to CXR, required high flow O2 through NC * V/Q scan negative for PE * Continue Mucinex BID, scheduled albuterol, TRC/Nebs * Continue high flow nasal cannula and try to wean BiPAP QHS, currently requiring high FiO2 100%, attempt to taper to maintain sats 87-88% or higher * CT chest previously showed worsened central lobar groundglass opacities that likely represent infectious bronchiolitis, IV azithromycin was started. Patient subsequently desaturated with likely allergic reaction so azithromycin discontinued. * Patient now on doxycycline 100 mg PO BID (day #6/7) and IV solumedrol 60 mg daily for this infectious bronchiolitis * PO lasix 40 mg daily as BUN rising, tolerating well with net negative fluid balance * Patient will greatly benefit from inpatient pulmonary rehab, discussed transfer to [facility], will follow up with case management for this issue * Continue vitamin D daily ID 1. Gram-negative sepsis with pansensitive Escherichia coli due to obstructive uropathy and evidence of an 8 mm stone causing hydronephrosis. * Urinalysis suggesting UTI and blood culture positive for gram negative rods ( pansensitive ecoli) * Initial CT of [place] and pelvis showed obstructing 8 x 8 mm left ureter stone causing moderate to severe hydroureteronephrosis and left perinephric stranding. * Patient had left ureteral stent placed, tolerated procedure well, will continue follow uro rec's * Repeat CT scan showed interval decompression of left renal collecting system with multiple nonobstructing renal calculi * PO ceftin 14 day course completed * Latest urine culture negative for growth Cardiac 1. Elevated troponins * Elevated troponins in setting of acute hypoxic respiratory failure likely represent demand ischemia, no chest pain reported, have since trended down. * Echo shows EF 40-45%, mild global hypokinesis, right ventricular systolic pressure estimated at 47 mmHg. * Cardiology is following and will continue to follow recs * Continue ASA 81 mg PO daily and lopressor 12.5 mg PO BID, tolerating well 2. Combined systolic and diastolic CHF * 40 mg PO lasix BID * Monitor renal function with continued lasix use * Follow up with cardiology within 1 week after discharge 3. Episodes of tachycardia, likely atrial fibrillation * 11/08/16 noted episodes of tachycardia to 140s with irregular rhythm likely atrial fibrillation * Episodes very brief, likely secondary to hypoxia/stress * No need to anticoagulate per cardio as she is guiac + Heme 1. Chronic macrocytic anemia * Likely 2/2 CKD * Folate within normal limits and B12 is elevated * Patient with Guiac (+) stool, no pharm dvtp * Follow up daily CBC Metabolic 1. EVASN on CKD * Possibly secondary to initial sepsis with superimposed hydronephrosis * Avoid nephrotoxins * Tolerating lisinopril well * ICU bundle daily to monitor BUN/cre 2. Hyperkalemia, IMPROVED * Likely secondary to acute on chronic kidney injury * Follow up repeat labs daily 3. Diabetes mellitus * Accuchecks TIDACHS * Continue NSS to high dose and bedtime NSS * Will likely decrease scale as we titrate down steroids * Continue home dose levemir 24 U SC QPM today 4. Hypothyroidism * Continue synthroid 0.15 mg PO daily AC Other 1. Cystic abnormality abutting distal body of pancreas * Follow up CT scan with pancreatic mass protocol once patient more stable or close follow up after discharge DNR/DNI DVTP: ALPS CC2 diet Mild pain pathway Problem List: 1. Insulin dependent type 2 diabetes mellitus 2. Elevated troponin 3. HFrEF (heart failure with reduced ejection fraction) 4. Acute renal failure superimposed on stage 3 chronic kidney disease 5. UTI (urinary tract infection) 6. Gram negative sepsis 7. Acute and chronic respiratory failure with hypoxia 8. PNA (pneumonia) 9. Hyperkalemia Pain Ratin Pain Location: n/a Pain Goal: Remain pain free Pain Plan: Per pain pathway Tomorrow's Labs & Rationales: CBC (leukocytosis, anemia) ICU bundle (renal dysfunction)
[2016-11-09 08:00] VITALS: BP 122/60
--- NOTE | 2016-11-09 11:03 | PN- Pulmonary ---
Subjective HPI/Critical Care Issues: She feels much the same as yesterday and is on bipap and is amenable to OOBTC. Vital signs last 24 hours: T96.9-97.8, HR 60-140s, RR 20-24, BP 110-124/58-80, O2 85-100% on 70-100% high flow/BiPAP. Total intake last 24 hours: 980 cc Total output last 24 hours: 2650 cc Objective Current Medications: Current Medications Sig/Wei Start time Last Medication Dose Route Stop Time Status Admin Acetaminophen 650 MG Q6P PRN 10/20 0145 AC 10/21 PO 1839 Albuterol Sulfate 3 ML EVERY 4 HRS/AWAKE 10/20 0915 AC 11/09 INH 0828 Aspirin 81 MG DAILY 10/24 1000 AC 11/09 PO 0948 Calcium/Vitamin D 500 MG DAILY 11/08 1033 DC PO Cholecalciferol 1,000 IU DAILY 11/09 1000 AC PO Doxycycline Hyclate 100 MG BID 11/04 1000 AC 11/09 PO 0949 Furosemide 40 MG DAILY 11/09 1000 CAN PO Guaifenesin 600 MG Q12 10/20 1000 AC 11/09 PO 0949 Insulin Aspart 0 TIDAC/HS 11/06 1200 AC 11/08 SC 2109 Insulin Detemir 24 UNITS QPM 11/02 2199 AC 11/08 SC 210 Levothyroxine Sodium 0.15 MG DAILY AC 10/20 0700 AC 11/09 PO 0644 Lisinopril 10 MG DAILY 11/02 1024 AC 11/09 PO 0949 Melatonin 5 MG AT BEDTIME 10/24 2199 AC 11/08 PO 2106 Methylprednisolone 30 MG BID 11/06 220 AC 11/09 IV 0948 Metoprolol Tartrate 12.5 MG BID 11/01 1046 AC 11/09 PO 0949 Omeprazole 20 MG DAILY AC 10/25 0700 AC 11/09 PO 0644 Polyethylene Glycol 17 GM DAILY NEEDED PRN 11/07 0000 AC 11/07 PO 1031 Senna/Docusate Sodium 1 TAB Q12P PRN 11/06 2345 AC 11/07 PO 2047 Laboratory Tests 11/09 11/08 0455 0625 Chemistry Sodium (137 - 145 mmol/L) 141 138 Potassium (3.5 - 5.1 mmol/L) 5.1 5.1 Chloride (98 - 107 mmol/L) 93 L 93 L Carbon Dioxide (22 - 30 mmol/L) 40 H 37 H Anion Gap (5 - 16) 8 7 BUN (7 - 17 mg/dL) 89 H 95 H Creatinine (0.5 - 1.0 mg/dL) 1.2 H 1.2 H Estimated GFR (>60 ml/min) 44 L 44 L Glucose (65 - 99 mg/dL) 97 130 H Calcium (8.4 - 10.2 mg/dL) 9.0 8.8 Phosphorus (2.5 - 4.5 mg/dL) 5.4 H 5.8 H Magnesium (1.6 - 2.3 mg/dL) 2.1 2.0 Total Bilirubin (0.2 - 1.3 mg/dL) 1.0 1.1 AST (14 - 36 U/L) 12 L 14 ALT (9 - 52 U/L) 37 43 Albumin (3.5 - 5.0 g/dL) 3.1 L 3.1 L Hematology CBC w Diff NO MAN DIFF REQ NO MAN DIFF REQ WBC (4.8 - 10.8 /CUMM) 10.0 11.3 H RBC (4.20 - 5.40 /CUMM) 2.87 L 2.96 L Hgb (12.0 - 16.0 G/DL) 9.7 L 9.9 L Hct (37 - 47 %) 29.5 L 30.2 L MCV (81.0 - 99.0 FL) 103.1 H 102.0 H MCH (27.0 - 31.0 PG) 33.8 H 33.3 H RDW (11.5 - 14.5 %) 18.5 H 18.4 H Plt Count (130 - 400 /CUMM) 177 178 MPV (7.4 - 10.4 FL) 10.0 9.9 Gran % (42.2 - 75.2 %) 91.7 H 87.8 H Lymphocytes % (20.5 - 51.1 %) 2.5 L 4.7 L Monocytes % (1.7 - 9.3 %) 3.2 5.0 Eosinophils % (0 - 5 %) 2.6 2.5 Basophils % (0.0 - 2.0 %) 0 L 0 L Absolute Granulocytes (1.4 - 6.5 /CUMM) 9.2 H 9.9 H Absolute Lymphocytes (1.2 - 3.4 /CUMM) 0.2 L 0.5 L Absolute Monocytes (0.10 - 0.60 /CUMM) 0.3 0.6 Absolute Eosinophils (0.0 - 0.7 /CUMM) 0.3 0.3 Absolute Basophils (0.0 - 0.2 /CUMM) 0 0 PUBS MCHC (33.0 - 37.0 G/DL) 32.8 L 32.7 L Vital Signs & I&O Last 24 Hrs of Vitals and I&O: Vital Signs Date Time Temp Pulse Resp B/P B/P Pulse O2 O2 Flow FiO2 Mean Ox Delivery Rate 11/09 0949 70 122/60 11/09 0831 64 95 11/09 0533 60 95 11/09 0342 65 94 11/09 0058 77 93 11/09 0000 91 BIPAP 100% 11/09 0000 97.8 76 20 114/70 91 BIPAP 100% 11/08 2257 83 85 11/08 2108 94 122/60 11/08 1700 96 BIPAP 90% 11/08 1650 77 96 11/08 1600 96 BIPAP 90% 11/08 1600 96.9 78 22 122/80 96 BIPAP 90% 11/08 1240 92 86 Intake & Output 11/09 1600 11/09 0800 11/09 0000 Intake Total 120 480 Output Total 350 1000 Balance -230 -520 Intake, Oral 120 480 Output, Urine 350 1000 Impression/Plan Impression/Plan Impression/Plan: Varinder eomi neck supple Chest showed crackles Heart S1-S2 was heard 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 Now on steroids with sig bronchiolitis by ct * REsolved Significant gram-negative sepsis pansensensitive ecoli, due to 8 mm stone with obstructive uropathy with hydronephrosis, causing sepsis S/P Stent * Improving Chronic kidney disease with acute kidney injury upon admission which is slowly improving * Significantly elevated proBNP with low ejection fraction upon admission * Chronic anemia patient has been on epo before, now with thrombocytopenia due to sepsis and pt does have macrocytosis and need to rule out myelodysplasia in the future * Heme positive stool with chronic anemia * Myelodysplasia and MGUS with Splenomegaly, 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
--- NOTE | 2016-11-09 11:08 | PN- Cardiology ---
Subjective Subjective: Shortness of breath is somewhat better, but still with significant oxygen requirement. She is having brief episodes of SVT versus atrial fibrillation, and is otherwise in sinus rhythm. No chest pain. No palpitations. No nausea or vomiting. Objective Vital Signs and I&Os Vital Signs Date Time Temp Pulse Resp B/P B/P Pulse O2 O2 Flow FiO2 Mean Ox Delivery Rate 11/09 0949 70 122/60 11/09 0831 64 95 11/09 0533 60 95 11/09 0342 65 94 11/09 0058 77 93 11/09 0000 91 BIPAP 100% 11/09 0000 97.8 76 20 114/70 91 BIPAP 100% 11/08 2257 83 85 11/08 2108 94 122/60 11/08 1700 96 BIPAP 90% 11/08 1650 77 96 11/08 1600 96 BIPAP 90% 11/08 1600 96.9 78 22 122/80 96 BIPAP 90% 11/08 1240 92 86 Intake & Output 11/09 0800 11/09 0000 11/08 1600 11/08 0800 11/08 0000 Intake Total 120 480 260 240 360 Output Total 350 1000 9149 995 5502 Balance -230 -520 -740 -410 -740 Intake, IV 10 0 0 Intake, Oral 120 480 250 240 360 Number 0 1 0 Bowel Movements Output, Urine 350 1000 6753 104 5962 Physical Exam: Gen: NAD HEENT: normal Lungs: Decreased air movement, scattered rhonchi, normal resp. effort Heart: RRR, S1, S2, no murmurs Abdomen: Soft, nontender, no masses Extremities: No clubbing, cyanosis, or edema. Neuro: Alert and oriented x 3, cranial nerves intact Current Medications: Current Medications Sig/Wei Start time Last Medication Dose Route Stop Time Status Admin Acetaminophen 650 MG Q6P PRN 10/20 0145 AC 10/21 PO 1839 Albuterol Sulfate 3 ML EVERY 4 HRS/AWAKE 10/20 0915 AC 11/09 INH 0828 Aspirin 81 MG DAILY 10/24 1000 AC 11/09 PO 0948 Calcium/Vitamin D 500 MG DAILY 11/08 1033 DC PO Cholecalciferol 1,000 IU DAILY 11/09 1000 AC PO Doxycycline Hyclate 100 MG BID 11/04 1000 AC 11/09 PO 0949 Furosemide 40 MG DAILY 11/09 1000 CAN PO Guaifenesin 600 MG Q12 10/20 1000 AC 11/09 PO 0949 Insulin Aspart 0 TIDAC/HS 11/06 1200 AC 11/08 SC 2108 Insulin Detemir 24 UNITS QPM 11/02 2199 AC 11/08 SC 2108 Levothyroxine Sodium 0.15 MG DAILY AC 10/20 0700 AC 11/09 PO 06 Lisinopril 10 MG DAILY 11/02 1024 AC 11/09 PO 0949 Melatonin 5 MG AT BEDTIME 10/24 2199 AC 11/08 PO 2105 Methylprednisolone 30 MG BID 11/06 2199 AC 11/09 IV 0948 Metoprolol Tartrate 12.5 MG BID 11/01 1046 AC 11/09 PO 0949 Omeprazole 20 MG DAILY AC 10/25 07 AC 11/09 PO 44 Polyethylene Glycol 17 GM DAILY NEEDED PRN 11/07 0000 AC 11/07 PO 1031 Senna/Docusate Sodium 1 TAB Q12P PRN 11/06 2345 AC 11/07 PO 7 Results Last 48 Hrs of Labs/Mics: Laboratory Tests 11/09/16 0455: Anion Gap 8, Estimated GFR 44 L, Glucose 97, Calcium 9.0, Phosphorus 5.4 H, Magnesium 2.1, Total Bilirubin 1.0, AST 12 L, ALT 37, Albumin 3.1 L, CBC w Diff NO MAN DIFF REQ, RBC 2.87 L, MCV 103.1 H, MCH 33.8 H, RDW 18.5 H, MPV 10.0, Gran % 91.7 H, Lymphocytes % 2.5 L, Monocytes % 3.2, Eosinophils % 2.6, Basophils % 0 L, Absolute Granulocytes 9.2 H, Absolute Lymphocytes 0.2 L, Absolute Monocytes 0.3, Absolute Eosinophils 0.3, Absolute Basophils 0, PUBS MCHC 32.8 L 11/08/16 0625: Anion Gap 7, Estimated GFR 44 L, Glucose 130 H, Calcium 8.8, Phosphorus 5.8 H , Magnesium 2.0, Total Bilirubin 1.1, AST 14, ALT 43, Albumin 3.1 L, CBC w Diff NO MAN DIFF REQ, RBC 2.96 L, MCV 102.0 H, MCH 33.3 H, RDW 18.4 H, MPV 9.9, Gran % 87.8 H, Lymphocytes % 4.7 L, Monocytes % 5.0, Eosinophils % 2.5, Basophils % 0 L, Absolute Granulocytes 9.9 H, Absolute Lymphocytes 0.5 L, Absolute Monocytes 0.6, Absolute Eosinophils 0.3, Absolute Basophils 0, PUBS MCHC 32.7 L Assessment/Plan Assessment/Plan 1. Community-acquired pneumonia 2. Respiratory failure 3. Gram-negative sepsis 4. Mild troponin elevation, likely secondary to pneumonia and sepsis 5. Mild left ventricular systolic dysfunction 6. Short runs of nonsustained atrial tachycardia 7. Chronic HFrEF, with mild acute exacerbation, improved 8. Chronic kidney disease, improved Plan: * No need for treatment of the brief episodes of tachycardia at this time. * Would hold off on anticoagulation for the possible brief episodes of possible atrial fibrillation considering that the patient is guaiac positive. * Continue other cardiac medications. * Lasix 40 mg by mouth daily. Continue telemetry? Yes
[2016-11-09 16:00] VITALS: BP 110/60
[2016-11-10] VITALS: BP 110/60
[2016-11-10 05:09] LABS: ABSOLUTE BASOPHIL COUNT 0 /CUMM (0.0-0.2); ABSOLUTE EOSINOPHIL COUNT 0.3 /CUMM (0.0-0.7); ABSOLUTE GRANULOCYTE CT 8.8 /CUMM (1.4-6.5); ABSOLUTE LYMPH COUNT 0.3 /CUMM (1.2-3.4); ABSOLUTE MONOCYTE COUNT 0.3 /CUMM (0.10-0.60); BASOPHIL % 0 % (0.0-2.0); EOSINOPHIL % 3.5 % (0-5); GRANULOCYTE % 90.5 % (42.2-75.2); HEMATOCRIT 29.2 % (37-47); MEAN CORPUSCULAR HGB 33.7 PG (27.0-31.0); MEAN CORPUSCULAR HGB CONC 32.7 G/DL (33.0-37.0); MEAN CORPUSCULAR VOLUME 103.2 FL (81.0-99.0); MEAN PLATELET VOLUME 10.3 FL (7.4-10.4); PLATELET COUNT 170 /CUMM (130-400); RBC DISTRIBUTION WIDTH 19.1 % (11.5-14.5); RED BLOOD CELL CT 2.83 /CUMM (4.20-5.40); WHITE BLOOD CELL COUNT 9.7 /CUMM (4.8-10.8)
--- NOTE | 2016-11-10 06:54 | PN- Housestaff ---
Subjective Follow-up For: Acute on chronic hypoxic and hypercarbic respiratory failure Sepsis 2/2 UTI with gram negative sepsis Nephrolithiasis Demand ischemia Complaints: no complaints Tele-Events Since Last Visit: Yesterday, Ms. Bajwa was tachycardic to the 160s for a very brief episode but otherwise was in NSR without events. Subjective: Patient seen and examined at bedside this AM. SHe was laying comfortably in no acute distress and reports no significant overnight events. She denies chest pain, shortness of breath, cough or dysuria. Yesterday evening family discussed wishes to have psychiatry see her as she appears depressed by her current condition. She is amenable. Vital signs last 24 hours: T 97.0-98.1, HR 60-91, RR 19-22, BP 110-138/60-70, O2 87-99% 90-100% FIO2/BiPAP. Review of Systems Constitutional: Denies: chills, fever, malaise. EENTM: Denies: visual changes, hearing changes. Cardiovascular: Denies: chest pain, palpitations. Respiratory: Denies: cough, wheezing. Gastrointestinal: Denies: abdominal pain, nausea. Genitourinary: Denies: dysuria. Skin: Denies: rash. Neurological/Psychological: Denies: confusion, headache. Hematologic/Endocrine: Denies: bruising, bleeding. Objective Last 24 Hrs of Vital Signs/I&O Vital Signs Date Time Temp Pulse Resp B/P B/P Pulse O2 O2 Flow FiO2 Mean Ox Delivery Rate 11/10 0947 90 19 138/60 11/10 0947 90 138/60 11/10 0859 59 98 11/10 0533 78 995 11/10 0349 77 98 11/10 0105 79 94 11/10 0000 97.0 72 20 110/60 90 BIPAP 100% 11/10 0000 90 BIPAP 100% 11/09 2300 83 87 11/09 2210 92 128/60 11/09 2030 90 Nasal 100% Cannula 11/09 1630 96 BIPAP 100% 11/09 1630 77 96 11/09 1600 98 BIPAP 100% 11/09 1600 97.1 84 20 110/60 98 BIPAP 100% 11/09 1530 BIPAP 90% 11/09 1419 91 87 Intake & Output 11/10 1600 11/10 0800 11/10 0000 Intake Total 240 480 Output Total 550 450 Balance -310 30 Intake, Oral 240 480 Output, Urine 550 450 Physical Exam General Appearance: Alert, Oriented X3, Cooperative, No Acute Distress Skin: No Rashes, No Significant Lesion Skin Temp/Moisture Exam: Warm/Dry HEENT: Atraumatic, PERRLA, Mucous Membr. moist/pink Neck: Supple, No JVD Lymphatic: Cervical nl Cardiovascular: Regular Rate, Normal S1, Normal S2 Lungs: Decreased air movement bilateral bases, no wheezing Abdomen: Normal Bowel Sounds, Soft Neurological: Normal Speech, Normal Tone Extremities: No Clubbing, No Cyanosis, No Edema Vascular: Pulses Symmetrical Current Medications: Current Medications Sig/Wei Start time Last Medication Dose Route Stop Time Status Admin Acetaminophen 650 MG Q6P PRN 10/20 0145 AC 10/21 PO 1839 Albuterol Sulfate 3 ML EVERY 4 HRS/AWAKE 10/20 0915 AC 11/10 INH 0901 Aspirin 81 MG DAILY 10/24 1000 AC 11/10 PO 0947 Cholecalciferol 1,000 IU DAILY 11/09 1000 AC 11/10 PO 0947 Doxycycline Hyclate 100 MG BID 11/04 1000 AC 11/10 PO 11/10 2300 0947 Furosemide 40 MG DAILY 11/09 1130 AC 11/10 PO 0947 Guaifenesin 600 MG Q12 10/20 1000 AC 11/10 PO 0947 Insulin Aspart 0 TIDAC/HS 11/06 1200 AC 11/09 SC 2208 Insulin Detemir 24 UNITS QPM 11/02 2200 AC 11/09 SC 2208 Levothyroxine Sodium 0.15 MG DAILY AC 10/20 0700 AC 11/10 PO 0610 Lisinopril 10 MG DAILY 11/02 1024 AC 11/10 PO 0947 Magnesium Oxide 400 MG ONE ONE 11/10 0700 DC 11/10 PO 11/10 0701 0703 Melatonin 5 MG AT BEDTIME 10/24 2200 AC 11/09 PO 2208 Methylprednisolone 30 MG BID 11/06 2200 AC 11/10 IV 0944 Metoprolol Tartrate 12.5 MG BID 11/01 1046 AC 11/10 PO 0947 Omeprazole 20 MG DAILY AC 10/25 0700 AC 11/10 PO 0609 Polyethylene Glycol 17 GM DAILY NEEDED PRN 11/07 0000 AC 11/07 PO 1031 Senna/Docusate Sodium 1 TAB Q12P PRN 052344 AC 11/07 PO 2047 Last 24 Hrs of Lab/Fabian Results Last 24 Hrs of Labs/Mics: Laboratory Tests 11/10/16 0425: Anion Gap 8, Estimated GFR 48 L, Glucose 123 H, Calcium 8.8, Phosphorus 4.4, Magnesium 1.9, Total Bilirubin 1.0, AST 11 L, ALT 32, Albumin 2.9 L, CBC w Diff NO MAN DIFF REQ, RBC 2.83 L, MCV 103.2 H, MCH 33.7 H, RDW 19.1 H, MPV 10.3, Gran % 90.5 H, Lymphocytes % 2.9 L, Monocytes % 3.1, Eosinophils % 3.5, Basophils % 0 L, Absolute Granulocytes 8.8 H, Absolute Lymphocytes 0.3 L, Absolute Monocytes 0.3, Absolute Eosinophils 0.3, Absolute Basophils 0, PUBS MCHC 32.7 L Assessment/Plan Assessment: Ms. Bajwa is a pleasant 76 year old female with PMH hypertension, hyperlipidemia, COPD on 5 L continuous NC, type 2 diabetes mellitus on insulin, hypothyroidism, stage III B chronic kidney disease, combined systolic and diastolic heart failure, severe pulmonary hypertension, history of kidney stones in the past who presented to the [place] ED with shortness of breath on exertion , chills, decreased oral intake, cough minimally productive of sputum and nausea for one day. Patient was admitted to telemetry initally, has received treatment for possible pneumonia and UTI, and was tranferred to the ICU due to decreased oxygen saturation to 85% requiring high flow oxygen and for closer monitoring. Below is the problem list and plan: Respiratory: 1. Acute on chronic hypoxic and hypercarbic respiratory failure * Likely 2/2 combination of COPD, heart failure and sepsis of urological origin * Treated for possible pneumonia with ceftriaxone and doxycycline (allergic to azithromycin) on admission -met criteria for sepsis on admission with possible pulmonary source acording to CXR, required high flow O2 through NC * V/Q scan negative for PE * Continue Mucinex BID, scheduled albuterol, TRC/Nebs * Continue high flow nasal cannula and try to wean BiPAP QHS, currently requiring high FiO2 90-100%, attempt to taper to maintain sats 87-88% or higher * CT chest previously showed worsened central lobar groundglass opacities that likely represent infectious bronchiolitis, IV azithromycin was started. Patient subsequently desaturated with likely allergic reaction so azithromycin discontinued. * Patient now on doxycycline 100 mg PO BID (day #7/) and IV solumedrol 60 mg daily for this infectious bronchiolitis * PO lasix 40 mg daily, tolerating well with net negative fluid balance * Patient will greatly benefit from inpatient pulmonary rehab, will follow up with case management for this issue * Continue vitamin D daily ID 1. Gram-negative sepsis with pansensitive Escherichia coli due to obstructive uropathy and evidence of an 8 mm stone causing hydronephrosis. * Urinalysis suggesting UTI and blood culture positive for gram negative rods ( pansensitive ecoli) * Initial CT of [place] and pelvis showed obstructing 8 x 8 mm left ureter stone causing moderate to severe hydroureteronephrosis and left perinephric stranding. * Patient had left ureteral stent placed, tolerated procedure well, will continue follow uro rec's * Repeat CT scan showed interval decompression of left renal collecting system with multiple nonobstructing renal calculi * PO ceftin 14 day course completed * Latest urine culture negative for growth Cardiac 1. Elevated troponins * Elevated troponins in setting of acute hypoxic respiratory failure likely represent demand ischemia, no chest pain reported, have since trended down. * Echo shows EF 40-45%, mild global hypokinesis, right ventricular systolic pressure estimated at 47 mmHg. 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 Combined systolic and diastolic CHF * Lasix 40 mg PO daily to maintain euvolemic status * Monitor renal function with continued lasix use * Follow up with cardiology within 1 week after discharge 3. Episodes of tachycardia, likely atrial fibrillation * 11/08/16 noted episodes of tachycardia to 140s with irregular rhythm likely atrial fibrillation * Episodes very brief, likely secondary to hypoxia/stress * No need to anticoagulate per cardio as she is guiac + Heme 1. Chronic macrocytic anemia * Likely 2/2 CKD * Folate within normal limits and B12 is elevated * Patient with Guiac (+) stool, no pharm dvtp * Follow up daily CBC Metabolic 1. EVANS on CKD * Possibly secondary to initial sepsis with superimposed hydronephrosis * Avoid nephrotoxins * Tolerating lisinopril well * ICU bundle daily to monitor BUN/cre 2. Hyperkalemia, IMPROVED * Likely secondary to acute on chronic kidney injury * Follow up repeat labs daily 3. Diabetes mellitus * Accuchecks TIDACHS * Continue NSS to high dose and bedtime NSS * Will likely decrease scale as we titrate down steroids * Continue home dose levemir 24 U SC QPM 4. Hypothyroidism * Continue synthroid 0.15 mg PO daily AC Other 1. Cystic abnormality abutting distal body of pancreas * Follow up CT scan with pancreatic mass protocol once patient more stable or close follow up after discharge DNR/DNI DVTP: ALPS CC2 diet Mild pain pathway Problem List: 1. Insulin dependent type 2 diabetes mellitus 2. Elevated troponin 3. HFrEF (heart failure with reduced ejection fraction) 4. Acute renal failure superimposed on stage 3 chronic kidney disease 5. UTI (urinary tract infection) 6. Gram negative sepsis 7. Acute and chronic respiratory failure with hypoxia 8. PNA (pneumonia) 9. Hyperkalemia Pain Ratin Pain Location: n/a Pain Goal: Remain pain free Pain Plan: Per pain pathway Tomorrow's Labs & Rationales: CBC (anemia, Leukocytosis) ICU bundle (renal dysfunction)
--- NOTE | 2016-11-10 11:02 | PN- Pulmonary ---
Subjective HPI/Critical Care Issues: Doing about the same afebrile Objective Current Medications: Current Medications Sig/Wei Start time Last Medication Dose Route Stop Time Status Admin Acetaminophen 650 MG Q6P PRN 10/20 0145 AC 10/21 PO 1839 Albuterol Sulfate 3 ML EVERY 4 HRS/AWAKE 10/20 0915 AC 11/10 INH 0901 Aspirin 81 MG DAILY 10/24 1000 AC 11/10 PO 0947 Cholecalciferol 1,000 IU DAILY 11/09 1000 AC 11/10 PO 0947 Doxycycline Hyclate 100 MG BID 11/04 1000 AC 11/10 PO 11/10 2300 0947 Furosemide 40 MG DAILY 11/09 1130 AC 11/10 PO 0947 Guaifenesin 600 MG Q12 10/20 1000 AC 11/10 PO 0947 Insulin Aspart 0 TIDAC/HS 11/06 1200 AC 11/09 SC 2208 Insulin Detemir 24 UNITS QPM 11/02 2200 AC 11/09 SC 2208 Levothyroxine Sodium 0.15 MG DAILY AC 10/20 0700 AC 11/10 PO 0610 Lisinopril 10 MG DAILY 11/02 1024 AC 11/10 PO 0947 Magnesium Oxide 400 MG ONE ONE 11/10 0700 DC 11/10 PO 11/10 0701 0703 Melatonin 5 MG AT BEDTIME 10/24 2200 AC 11/09 PO 2208 Methylprednisolone 30 MG BID 11/06 220 AC 11/10 IV 0944 Metoprolol Tartrate 12.5 MG BID 11/01 1046 AC 11/10 PO 0947 Omeprazole 20 MG DAILY AC 10/25 0700 AC 11/10 PO 0609 Polyethylene Glycol 17 GM DAILY NEEDED PRN 11/07 0000 AC 11/07 PO 1031 Senna/Docusate Sodium 1 TAB Q12P PRN 11/06 2345 AC 11/07 PO 2047 Vital Signs & I&O Last 24 Hrs of Vitals and I&O: Vital Signs Date Time Temp Pulse Resp B/P B/P Pulse O2 O2 Flow FiO2 Mean Ox Delivery Rate 11/10 0947 90 19 138/60 11/10 0947 90 138/60 11/10 0859 59 98 11/10 0533 78 995 11/10 0349 77 98 11/10 0105 79 94 11/10 0000 97.0 72 20 110/60 90 BIPAP 100% 11/10 0000 90 BIPAP 100% 11/09 2300 83 87 11/09 2210 92 128/60 11/09 2030 90 Nasal 100% Cannula 11/09 1630 96 BIPAP 100% 11/09 1630 77 96 11/09 1600 98 BIPAP 100% 11/09 1600 97.1 84 20 110/60 98 BIPAP 100% 11/09 1530 BIPAP 90% 11/09 1419 91 87 Intake & Output 11/10 1600 11/10 0800 11/10 0000 Intake Total 240 480 Output Total 550 450 Balance -310 30 Intake, Oral 240 480 Output, Urine 550 450 Impression/Plan Impression/Plan Impression/Plan: Varinder eomi neck supple Chest showed crackles Heart S1-S2 was heard 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 Now on steroids with sig bronchiolitis by ct * REsolved Significant gram-negative sepsis pansensensitive ecoli, due to 8 mm stone with obstructive uropathy with hydronephrosis, causing sepsis S/P Stent * Improving Chronic kidney disease with acute kidney injury upon admission which is slowly improving * Significantly elevated proBNP with low ejection fraction upon admission * Chronic anemia patient has been on epo before, now with thrombocytopenia due to sepsis and pt does have macrocytosis and need to rule out myelodysplasia in the future * Heme positive stool with chronic anemia * Myelodysplasia and MGUS with Splenomegaly, 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
--- NOTE | 2016-11-10 13:37 | Cons- Psychiatry ---
Psychiatric Consult Date of Consult: 11/10/16 Reason for Consult: "Patient saddend by current condition" Ordered by Dr. Fab Simeon attending History of Present Illness: Identifying Info: 76-year-old female presents to [facility] on 10/19/2016 with chief complaint of shortness of breath. Subsequently diagnosed with acute on chronic hypoxic and hypercarbic respiratory failure and sepsis secondary to UTI. CC: "In the beginning I just wanted to but I changed my mind." HPI: Patient denies any history of issues with depression or anxiety during childhood or as an adult. 13 years ago her and since then she has experienced some sadness but it has not impacted her ability to function. Since hospitalization 3 weeks the patient has had very low mood. She was initially passively suicidal but this is resolved and she now expresses hope for the future. Low mood persists at present but the patient does not describe herself as depressed. She denies any issues with anxiety but does state when she feels shortness of breath she feels scared. Would be agreeable to medication for mood. PMH: Please see the H&P for a complete listing Hypertension, hyperlipidemia, COPD on 5 L continuous NC, type 2 diabetes mellitus on insulin, hypothyroidism, stage III B chronic kidney disease, combined systolic and diastolic heart failure and severe pulmonary hypertension Past Psych History: Denies Family Psych History: Mother - anxiety, responded well to Zoloft Substance History Denies Former smoker, quit 20 years ago Family Substance History: Niece -PSA Social: . [place]. Formerly worked at a [employer] then at a [employer]. No children. Abuse/Trauma: Denies Current Home Psychotropic Medications: None Current Hospital Psychotropic Medications: None Allergies: Coded Allergies: azithromycin (Intermediate, DYSPNEA 11/03/16) oxycodone (From PERCOCET) (Intermediate, NAUSEA 08/23/16) Current Medications: Current Medications Sig/Wei Start time Last Medication Dose Route Stop Time Status Admin Acetaminophen 650 MG Q6P PRN 10/20 0145 AC 10/21 PO 1839 Albuterol Sulfate 3 ML EVERY 4 HRS/AWAKE 10/20 0915 AC 11/10 INH 1214 Aspirin 81 MG DAILY 10/24 1000 AC 11/10 PO 0947 Cholecalciferol 1,000 IU DAILY 11/09 1000 AC 11/10 PO 09 Doxycycline Hyclate 100 MG BID 11/04 1000 AC 11/10 PO 11/10 2300 0947 Furosemide 40 MG DAILY 11/09 1130 AC 11/10 PO 0947 Guaifenesin 600 MG Q12 10/20 1000 AC 11/10 PO 0947 Insulin Aspart 0 TIDAC/HS 11/06 1200 AC 11/09 SC 220 Insulin Detemir 24 UNITS QPM 11/02 2200 AC 11/09 SC 220 Levothyroxine Sodium 0.15 MG DAILY AC 10/20 0700 AC 11/10 PO 0610 Lisinopril 10 MG DAILY 11/02 1024 AC 11/10 PO 0947 Magnesium Oxide 400 MG ONE ONE 11/10 0700 DC 11/10 PO 11/10 0701 0703 Melatonin 5 MG AT BEDTIME 10/24 220 AC 11/09 PO 220 Methylprednisolone 30 MG BID 11/06 220 AC 11/10 IV 0944 Metoprolol Tartrate 12.5 MG BID 11/01 1046 AC 11/10 PO 0947 Omeprazole 20 MG DAILY AC 10/25 0700 AC 11/10 PO 0609 Polyethylene Glycol 17 GM DAILY NEEDED PRN 11/07 0000 AC 11/07 PO 1031 Senna/Docusate Sodium 1 TAB Q12P PRN 11/06 2345 AC 11/07 PO 2047 Past History Past Medical History Neurological: NONE EENT: CATARACTS (R) MACULAR DEGENERATION (L) Cardiovascular: CHF, hypertension Respiratory: COPD Gastrointestinal: NONE Hepatic: NONE Renal: nephrolithiasis Musculoskeletal: NONE Psychiatric: NONE Endocrine: diabetes, hypothyroidism Blood Disorders: NONE, IRON DEF/TAKES PROCRIT Cancer(s): NONE 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 Substance Use/Abuse History Drug Use/Abuse Substances Used/Abused No Substance Abuse Treatment Substance Abuse Treatment Past Substance Abuse [place] No Assessment/Plan Mental Status Mental Status Exam: Presentation/Appearance: Cooperative with evaluation. [facility] gar. Orientation: x4 Sensorium: Awake and alert Eye contact: Appropriate Affect: Full range, congruent Mood: "Pretty comfortable" Depression: Endorses Anxiety: Denies Thought Content: - Denies SI/HI, AH/VH, PI. States and also believes they will not kill themselves. - Denies Hopeless/Helpless Thoughts Thought Process: Linear, goal directed Associations: Appropriate Speech: WNL Judgment: Intact Insight: Intact Cognition: Memory: Grossly intact Attention/Concentration: Grossly intact Fund of Knowledge: Adequate Abstractions: Abstract MMSE: Did not complete Lab Results: Laboratory Tests 11/10/16 0425: Anion Gap 8, Estimated GFR 48 L, Glucose 123 H, Calcium 8.8, Phosphorus 4.4, Magnesium 1.9, Total Bilirubin 1.0, AST 11 L, ALT 32, Albumin 2.9 L, CBC w Diff NO MAN DIFF REQ, RBC 2.83 L, MCV 103.2 H, MCH 33.7 H, RDW 19.1 H, MPV 10.3, Gran % 90.5 H, Lymphocytes % 2.9 L, Monocytes % 3.1, Eosinophils % 3.5, Basophils % 0 L, Absolute Granulocytes 8.8 H, Absolute Lymphocytes 0.3 L, Absolute Monocytes 0.3, Absolute Eosinophils 0.3, Absolute Basophils 0, PUBS MCHC 32.7 L 11/09/16 0455: Anion Gap 8, Estimated GFR 44 L, Glucose 97, Calcium 9.0, Phosphorus 5.4 H, Magnesium 2.1, Total Bilirubin 1.0, AST 12 L, ALT 37, Albumin 3.1 L, CBC w Diff NO MAN DIFF REQ, RBC 2.87 L, MCV 103.1 H, MCH 33.8 H, RDW 18.5 H, MPV 10.0, Gran % 91.7 H, Lymphocytes % 2.5 L, Monocytes % 3.2, Eosinophils % 2.6, Basophils % 0 L, Absolute Granulocytes 9.2 H, Absolute Lymphocytes 0.2 L, Absolute Monocytes 0.3, Absolute Eosinophils 0.3, Absolute Basophils 0, PUBS MCHC 32.8 L 11/08/16 0625: Anion Gap 7, Estimated GFR 44 L, Glucose 130 H, Calcium 8.8, Phosphorus 5.8 H , Magnesium 2.0, Total Bilirubin 1.1, AST 14, ALT 43, Albumin 3.1 L, CBC w Diff NO MAN DIFF REQ, RBC 2.96 L, MCV 102.0 H, MCH 33.3 H, RDW 18.4 H, MPV 9.9, Gran % 87.8 H, Lymphocytes % 4.7 L, Monocytes % 5.0, Eosinophils % 2.5, Basophils % 0 L, Absolute Granulocytes 9.9 H, Absolute Lymphocytes 0.5 L, Absolute Monocytes 0.6, Absolute Eosinophils 0.3, Absolute Basophils 0, PUBS MCHC 32.7 L Diffential Diagnosis: 76-year-old female endorses depression in the context of chronic and serious medical illness. She has no psychiatric history prior to this. She would benefit from medication for depression and anxiety. She is agreeable to Zoloft which her mother had previously had a good response to. Impression: Depressive disorder due to another medical condition Provisional Treatment Plan: 1. Please start Zoloft 25mg daily. Increase to 50mg daily on 11/13/16. 2. Please utilize alternative therapies available Hospital including aroma, music, and animal therapy. Thank you for including psychiatry in this case we will continue to follow. A total of 60 minutes was spent with the patient with more than 50% of the time spent in counseling and/or coordination of care.
[2016-11-10 16:00] VITALS: BP 136/62
--- NOTE | 2016-11-10 16:14 | RADIOLOGY REPORT ---
EXAMINATION: XR PORTABLE CHEST CLINICAL INFORMATION: Shortness of breath. COMPARISON: CXR from 10/31/2016 and 11/05/2016. Chest CT from 11/03/2016. TECHNIQUE: Portable AP view of the chest was obtained. FINDINGS: Lungs are hyperexpanded from emphysematous disease. The subtle groundglass opacities observed on the recent chest CT are difficult to radiographically detect. There appears to be some residual hazy opacity in lower lung zones. However, this is improved compared to the radiograph of 10/31/2016. No evidence of new, evolving consolidation. No peripheral interstitial edema, pleural effusion or pneumothorax. Again noted is the large cardiac silhouette and the calcified thoracic aorta. Bone density appears diffusely decreased. IMPRESSION: 1. Pulmonary emphysema. 2. Cardiomegaly without acute pulmonary edema or other significant interval change compared to the radiograph from 11/05/2016.
--- NOTE | 2016-11-10 20:45 | NUR ---
@2000 PT SATURATING ON 100% HIGH FLOW 81-82% PT NOTED TO BE HAVING MORE DIFFICULTY BREATHING, REQUESTED TO GO ON BIPAP. RESPIRATORY CALLED, TO BEDSIDE PT DESATURATED TO 70%, TOOK ABOUT 20 MINUTES TO RECOVER AND IS NOW 93% ON 100% BIPAP. PT RESTING COMFORTABLY.
--- NOTE | 2016-11-10 23:13 | NUR ---
@2130 DURING MEDICATION ADMINISTRATION PT PLACED ON HIGH FLOW 100% AND PT DESATURATED TO LOW 80'S AMD HR INCREASED TO 130'S, PT ABLE TO TAKE ALL MEDS WITHOUT DIFFICULTY, PLACED BACK ON BIPAP AND RECOVER TIME SLOW BUT BACK UP TO 88%.
--- NOTE | 2016-11-10 23:20 | NUR ---
PT BEGAN TO DESAT TO 85% ON 100% BIPAP, PT RESTING COMFORTABLY WITH NO COMPLAINTS AT THIS TIME, MD RAE AT BEDSIDE. NO FURTHER ORDERS.
[2016-11-11] VITALS: BP 148/86
[2016-11-11 04:31] LABS: ABSOLUTE BASOPHIL COUNT 0 /CUMM (0.0-0.2); ABSOLUTE EOSINOPHIL COUNT 0.3 /CUMM (0.0-0.7); ABSOLUTE GRANULOCYTE CT 11.1 /CUMM (1.4-6.5); ABSOLUTE LYMPH COUNT 0.3 /CUMM (1.2-3.4); ABSOLUTE MONOCYTE COUNT 0.3 /CUMM (0.10-0.60); BASOPHIL % 0 % (0.0-2.0); EOSINOPHIL % 2.7 % (0-5); GRANULOCYTE % 92.5 % (42.2-75.2); MEAN CORPUSCULAR HGB 33.5 PG (27.0-31.0); MEAN CORPUSCULAR HGB CONC 32.5 G/DL (33.0-37.0); MEAN CORPUSCULAR VOLUME 103.3 FL (81.0-99.0); MEAN PLATELET VOLUME 10.2 FL (7.4-10.4); PLATELET COUNT 171 /CUMM (130-400); RBC DISTRIBUTION WIDTH 18.8 % (11.5-14.5); RED BLOOD CELL CT 2.71 /CUMM (4.20-5.40)
[2016-11-11 08:00] VITALS: BP 120/70
--- NOTE | 2016-11-11 08:09 | PN- Housestaff ---
Subjective Follow-up For: 1. Acute on chronic hypoxic and hypercarbic respiratory failure 2. Sepsis 2/2 UTI with gram negative sepsis - resolved 3. Nephrolithiasis s/p left ureter stent placement Complaints: no complaints Tele-Events Since Last Visit: sinus rhythm, tachycardic to 155 around 9 pm last night. Subjective: I saw and examined Ms. Bajwa this am, she is alert and oriented, is in slight respiratory distress, is switched to high flow NC (100%). Does not state any complaints and had no overnight events. Review of Systems Constitutional: Denies: chills, fever. EENTM: Reports: no symptoms. Cardiovascular: Denies: chest pain, palpitations, peripheral edema. Respiratory: Reports: short of breath. Denies: cough, sputum production, wheezing. Gastrointestinal: Denies: abdominal pain, changes in stool. Genitourinary: Reports: no symptoms. Musculoskeletal: Reports: no symptoms. Skin: Reports: no symptoms. Objective Last 24 Hrs of Vital Signs/I&O Vital Signs Date Time Temp Pulse Resp B/P B/P Pulse O2 O2 Flow FiO2 Mean Ox Delivery Rate 11/11 0814 91 Nasal 100% Cannula 11/11 0814 80 91 11/11 0800 92 Nasal 100% Cannula 11/11 0800 96.8 76 20 120/70 98 Nasal 100% Cannula 11/11 0556 66 96 11/11 0300 77 94 11/11 0058 84 91 11/11 0000 88 BIPAP 100% 11/11 0000 97.2 83 21 148/86 88 BIPAP 100% 11/10 2019 94 92 11/10 1934 85 Nasal 100% Cannula 11/10 1600 88 Nasal 100% Cannula 11/10 1600 99.1 100 18 136/62 88 Nasal 100% Cannula 11/10 1548 85 Nasal 100% Cannula 11/10 1227 92 Nasal 100% Cannula Intake & Output 11/11 1600 11/11 0800 11/11 0000 Intake Total 240 Output Total 550 400 Balance -550 -160 Intake, Oral 240 Number 0 Bowel Movements Output, Urine 550 400 Physical Exam General Appearance: Alert, Oriented X3, Cooperative, Mild Distress Skin: No Significant Lesion Skin Temp/Moisture Exam: Warm/Dry Sepsis Skin Exam (color): Normal for Ethnicity HEENT: Atraumatic, Mucous Membr. moist/pink Neck: Supple Cardiovascular: Normal S1, Normal S2, No Murmurs Lungs: decreased breath sounds bilaterlly, no crackles, rhonchi, wheezing. Abdomen: Normal Bowel Sounds, Soft, No Tenderness Neurological: Normal Speech, Normal Tone Extremities: No Edema, Normal Pulses, No Tenderness/Swelling Vascular: Pulses Symmetrical Current Medications: Current Medications Sig/Wei Start time Last Medication Dose Route Stop Time Status Admin Acetaminophen 650 MG Q6P PRN 10/20 0145 AC 10/21 PO 1839 Albuterol Sulfate 3 ML EVERY 4 HRS/AWAKE 10/20 0915 AC 11/11 INH 0812 Aspirin 81 MG DAILY 10/24 1000 AC 11/11 PO 0902 Cholecalciferol 1,000 IU DAILY 11/09 1000 AC 11/11 PO 0902 Doxycycline Hyclate 100 MG BID 11/04 1000 DC 11/10 PO 11/10 2300 212 Furosemide 40 MG DAILY 11/09 1130 AC 11/11 PO 0902 Guaifenesin 600 MG Q12 10/20 1000 AC 11/11 PO 0902 Insulin Aspart 0 TIDAC/HS 11/06 1200 AC 11/11 SC 0800 Insulin Detemir 24 UNITS QPM 11/02 2200 AC 11/10 SC 2127 Levothyroxine Sodium 0.15 MG DAILY AC 10/20 0700 AC 11/11 PO 0641 Lisinopril 10 MG DAILY 11/02 1024 AC 11/11 PO 0902 Melatonin 5 MG AT BEDTIME 10/24 2200 AC 11/10 PO 2126 Methylprednisolone 30 MG BID 11/06 2200 AC 11/11 IV 0903 Metoprolol Tartrate 12.5 MG BID 11/01 1046 AC 11/11 PO 0902 Omeprazole 20 MG DAILY AC 10/25 0700 AC 11/11 PO 0641 Polyethylene Glycol 17 GM DAILY NEEDED PRN 11/07 0000 AC 11/07 PO 1031 Senna/Docusate Sodium 1 TAB Q12P PRN 11/06 2345 AC 11/07 PO 2047 Sertraline HCl 25 MG DAILY 11/10 1445 AC 11/11 PO 0902 Last 24 Hrs of Lab/Fabian Results Last 24 Hrs of Labs/Mics: Laboratory Tests 11/11/16 0341: Anion Gap 10, Estimated GFR 54 L, Glucose 202 H, Calcium 8.7, Phosphorus 3.8, Magnesium 1.9, Total Bilirubin 0.8, AST 12 L, ALT 37, Albumin 3.1 L, CBC w Diff NO MAN DIFF REQ, RBC 2.71 L, MCV 103.3 H, MCH 33.5 H, RDW 18.8 H, MPV 10.2, Gran % 92.5 H, Lymphocytes % 2.2 L, Monocytes % 2.6, Eosinophils % 2.7, Basophils % 0 L, Absolute Granulocytes 11.1 H, Absolute Lymphocytes 0.3 L, Absolute Monocytes 0.3, Absolute Eosinophils 0.3, Absolute Basophils 0, PUBS MCHC 32.5 L Assessment/Plan Assessment: Ms. Bajwa is a pleasant 76 year old female with PMH hypertension, hyperlipidemia, COPD on 5 L continuous NC, type 2 diabetes mellitus on insulin, hypothyroidism, stage III B chronic kidney disease, combined systolic and diastolic heart failure, severe pulmonary hypertension, history of kidney stones in the past who presented to the [place] ED with shortness of breath on exertion , chills, decreased oral intake, cough minimally productive of sputum and nausea for one day. Patient was admitted to telemetry initally, has received treatment for possible pneumonia and UTI, and was tranferred to the ICU due to decreased oxygen saturation to 85% requiring high flow oxygen and for closer monitoring. Below is the problem list and plan: Respiratory: 1. Acute on chronic hypoxic and hypercarbic respiratory failure * Resolved- Likely 2/2 combination of COPD, heart failure and sepsis of urological origin * Treated for possible pneumonia with ceftriaxone and doxycycline (allergic to azithromycin) on admission -met criteria for sepsis on admission with possible pulmonary source acording to CXR, required high flow O2 through NC * V/Q scan negative for PE * Continue Mucinex BID, scheduled albuterol, TRC/Nebs * Continue high flow nasal cannula and try to wean BiPAP QHS, currently continues to require high FiO2 90-100%, attempting to taper to maintain sats 87- 88% or higher * CT chest previously showed worsened central lobar groundglass opacities that likely represent infectious bronchiolitis, IV azithromycin was started. Patient subsequently desaturated with likely allergic reaction so azithromycin discontinued. * Patient completed 7 days of doxycycline 100 mg PO BID (day #7/7), is continued on IV solumedrol 60 mg daily * Continue PO lasix 40 mg daily, tolerating well with net negative fluid balance * Patient will greatly benefit from inpatient pulmonary rehab, will follow up with case management for this issue * Continue vitamin D daily ID 1. Gram-negative sepsis with pansensitive Escherichia coli due to obstructive uropathy and evidence of an 8 mm stone causing hydronephrosis. * Urinalysis suggesting UTI and blood culture positive for gram negative rods ( pansensitive ecoli) * Initial CT of [place] and pelvis showed obstructing 8 x 8 mm left ureter stone causing moderate to severe hydroureteronephrosis and left perinephric stranding. * Patient had left ureteral stent placed, tolerated procedure well, will continue follow uro rec's * Repeat CT scan showed interval decompression of left renal collecting system with multiple nonobstructing renal calculi * PO ceftin 14 day course completed * Latest urine culture negative Cardiac 1. Elevated troponins * Elevated troponins in setting of acute hypoxic respiratory failure likely represent demand ischemia, no chest pain reported, have since trended down. * Echo shows EF 40-45%, mild global hypokinesis, right ventricular systolic pressure estimated at 47 mmHg. * Cardiology is following and will continue to follow recs * Continue ASA 81 mg PO daily and lopressor 12.5 mg PO BID, tolerating well * Continue compliance monitor, downgrade to tele when bed available 2. Combined systolic and diastolic CHF * Lasix 40 mg PO daily to maintain euvolemic status * Monitor renal function with continued lasix use * Follow up with cardiology within 1 week after discharge 3. Episodes of tachycardia, likely atrial fibrillation * 11/08/16 noted episodes of tachycardia to 140s with irregular rhythm likely atrial fibrillation * Episodes very brief, likely secondary to hypoxia/stress * No need to anticoagulate per cardio as she is guiac + Heme 1. Chronic macrocytic anemia * Likely 2/2 CKD * Folate within normal limits and B12 is elevated * Patient with Guiac (+) stool, no pharm dvtp * Follow up daily CBC Metabolic 1. EVANS on CKD * Possibly secondary to initial sepsis with superimposed hydronephrosis * Avoid nephrotoxins * Tolerating lisinopril well * ICU bundle daily to monitor BUN/cre 2. Hyperkalemia, IMPROVED * Likely secondary to acute on chronic kidney injury * Follow up repeat labs daily 3. Diabetes mellitus * Accuchecks TIDACHS * Continue NSS to high dose and bedtime NSS * Will likely decrease scale as we titrate down steroids * Continue home dose levemir 24 U SC QPM 4. Hypothyroidism * Continue synthroid 0.15 mg PO daily AC Other 1. Cystic abnormality abutting distal body of pancreas * Follow up CT scan with pancreatic mass protocol once patient more stable or close follow up after discharge DNR/DNI DVTP: ALPS CC2 diet Mild pain pathway Problem List: 1. Elevated troponin 2. Chronic respiratory failure with hypoxia 3. Hyperkalemia 4. PNA (pneumonia) 5. Acute and chronic respiratory failure with hypoxia 6. Gram negative sepsis 7. UTI (urinary tract infection) 8. Acute renal failure superimposed on stage 3 chronic kidney disease 9. HFrEF (heart failure with reduced ejection fraction) 10. Insulin dependent type 2 diabetes mellitus Pain Ratin Pain Location: no pain Pain Goal: Pain 4 or less Pain Plan: Per pain pathway Tomorrow's Labs & Rationales: CBC (anemia, Leukocytosis) ICU bundle (renal dysfunction)
--- NOTE | 2016-11-11 10:55 | PN- Pulmonary ---
Subjective HPI/Critical Care Issues: RElatively stable afebrile Objective Current Medications: Current Medications Sig/Wei Start time Last Medication Dose Route Stop Time Status Admin Acetaminophen 650 MG Q6P PRN 10/20 0145 AC 10/21 PO 1839 Albuterol Sulfate 3 ML EVERY 4 HRS/AWAKE 10/20 0915 AC 11/11 INH 0812 Aspirin 81 MG DAILY 10/24 1000 AC 11/11 PO 0902 Cholecalciferol 1,000 IU DAILY 11/09 1000 AC 11/11 PO 0902 Doxycycline Hyclate 100 MG BID 11/04 1000 DC 11/10 PO 11/10 2300 2126 Furosemide 40 MG DAILY 11/09 1130 AC 11/11 PO 0902 Guaifenesin 600 MG Q12 10/20 1000 AC 11/11 PO 0902 Insulin Aspart 0 TIDAC/HS 11/06 1200 AC 11/11 SC 0800 Insulin Detemir 24 UNITS QPM 11/02 2200 AC 11/10 SC 2127 Levothyroxine Sodium 0.15 MG DAILY AC 10/20 0700 AC 11/11 PO 0641 Lisinopril 10 MG DAILY 11/02 1024 AC 11/11 PO 0902 Melatonin 5 MG AT BEDTIME 10/24 2200 AC 11/10 PO 2126 Methylprednisolone 30 MG BID 11/06 2200 AC 11/11 IV 0903 Metoprolol Tartrate 12.5 MG BID 11/01 1046 AC 11/11 PO 0902 Omeprazole 20 MG DAILY AC 10/25 0700 AC 11/11 PO 0641 Polyethylene Glycol 17 GM DAILY NEEDED PRN 11/07 0000 AC 11/07 PO 1031 Senna/Docusate Sodium 1 TAB Q12P PRN 11/06 2345 AC 11/07 PO 2047 Sertraline HCl 25 MG DAILY 11/10 1445 AC 11/11 PO 0902 Vital Signs & I&O Last 24 Hrs of Vitals and I&O: Vital Signs Date Time Temp Pulse Resp B/P B/P Pulse O2 O2 Flow FiO2 Mean Ox Delivery Rate 11/11 0814 91 Nasal 100% Cannula 11/11 0814 80 91 11/11 0556 66 96 11/11 0300 77 94 11/11 0058 84 91 11/11 0000 88 BIPAP 100% 11/11 0000 97.2 83 21 148/86 88 BIPAP 100% 11/10 2019 94 92 11/10 1934 85 Nasal 100% Cannula 11/10 1600 88 Nasal 100% Cannula 11/10 1600 99.1 100 18 136/62 88 Nasal 100% Cannula 11/10 1548 85 Nasal 100% Cannula 11/10 1227 92 Nasal 100% Cannula Intake & Output 11/11 1600 11/11 0800 11/11 0000 Intake Total 240 Output Total 550 400 Balance -550 -160 Intake, Oral 240 Number 0 Bowel Movements Output, Urine 550 400 Impression/Plan Impression/Plan Impression/Plan: Varinder eomi neck supple Chest showed crackles Heart S1-S2 was heard Abdominal exam normal trace 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 Now on steroids with sig bronchiolitis by ct * REsolved Significant gram-negative sepsis pansensensitive ecoli, due to 8 mm stone with obstructive uropathy with hydronephrosis, causing sepsis S/P Stent * Improving Chronic kidney disease with acute kidney injury upon admission which is slowly improving * Significantly elevated proBNP with low ejection fraction upon admission * Chronic anemia patient has been on epo before, now with thrombocytopenia due to sepsis and pt does have macrocytosis and need to rule out myelodysplasia in the future * Heme positive stool with chronic anemia * Myelodysplasia and MGUS with Splenomegaly, 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
--- NOTE | 2016-11-11 13:25 | PN- Cardiology ---
Subjective Subjective: Cllinically about the same. Cardiac status unchanged. Rhythm stable. Objective Vital Signs and I&Os Vital Signs Date Time Temp Pulse Resp B/P B/P Pulse O2 O2 Flow FiO2 Mean Ox Delivery Rate 11/11 0814 91 Nasal 100% Cannula 11/11 0814 80 91 11/11 0800 92 Nasal 100% Cannula 11/11 0800 96.8 76 20 120/70 98 Nasal 100% Cannula 11/11 0556 66 96 11/11 0300 77 94 11/11 0058 84 91 11/11 0000 88 BIPAP 100% 11/11 0000 97.2 83 21 148/86 88 BIPAP 100% 11/10 2019 94 92 11/10 1934 85 Nasal 100% Cannula 11/10 1600 88 Nasal 100% Cannula 11/10 1600 99.1 100 18 136/62 88 Nasal 100% Cannula 11/10 1548 85 Nasal 100% Cannula Intake & Output 11/11 1600 11/11 0800 11/11 0000 11/10 1600 11/10 0800 11/10 0000 Intake Total 240 240 480 Output Total 550 400 550 450 Balance -550 -160 -310 30 Intake, Oral 240 240 480 Number 0 Bowel Movements Output, Urine 550 400 550 450 Physical Exam: General: NAD; VSS HEENT: normal Lungs: Decreased air movement, bilateral scattered rhonchi Heart: RRR, S1, S2, 1/6 systolic murmur Abdomen: Soft, nontender, no masses Extremities: No clubbing, cyanosis, or edema. Neuro: Alert and oriented x 3, cranial nerves intact Current Medications: Current Medications Sig/Wei Start time Last Medication Dose Route Stop Time Status Admin Acetaminophen 650 MG Q6P PRN 10/20 0145 AC 10/21 PO 1839 Albuterol Sulfate 3 ML EVERY 4 HRS/AWAKE 10/20 0915 AC 11/11 INH 1155 Aspirin 81 MG DAILY 10/24 1000 AC 11/11 PO 0902 Cholecalciferol 1,000 IU DAILY 11/09 1000 AC 11/11 PO 0902 Doxycycline Hyclate 100 MG BID 11/04 1000 DC 11/10 PO 11/10 2300 2126 Furosemide 40 MG DAILY 11/09 1130 AC 11/11 PO 0902 Guaifenesin 600 MG Q12 10/20 1000 AC 11/11 PO 0902 Insulin Aspart 0 TIDAC/HS 11/06 1200 AC 11/11 SC 0800 Insulin Detemir 24 UNITS QPM 11/02 2199 AC 11/10 SC 2127 Levothyroxine Sodium 0.15 MG DAILY AC 10/20 07 AC 11/11 PO 0641 Lisinopril 10 MG DAILY 11/02 1024 AC 11/11 PO 0902 Melatonin 5 MG AT BEDTIME 10/24 2199 AC 11/10 PO 2126 Methylprednisolone 30 MG BID 11/06 220 AC 11/11 IV 0903 Metoprolol Tartrate 12.5 MG BID 11/01 1046 AC 11/11 PO 0902 Omeprazole 20 MG DAILY AC 10/25 07 AC 11/11 PO 0641 Polyethylene Glycol 17 GM DAILY NEEDED PRN 11/07 0000 AC 11/07 PO 1031 Senna/Docusate Sodium 1 TAB Q12P PRN 11/06 2345 AC 11/07 PO 204 Sertraline HCl 25 MG DAILY 11/10 1445 AC 11/11 PO 09 Results Last 48 Hrs of Labs/Mics: Laboratory Tests 11/11/16 0341: Anion Gap 10, Estimated GFR 54 L, Glucose 202 H, Calcium 8.7, Phosphorus 3.8, Magnesium 1.9, Total Bilirubin 0.8, AST 12 L, ALT 37, Albumin 3.1 L, CBC w Diff NO MAN DIFF REQ, RBC 2.71 L, MCV 103.3 H, MCH 33.5 H, RDW 18.8 H, MPV 10.2, Gran % 92.5 H, Lymphocytes % 2.2 L, Monocytes % 2.6, Eosinophils % 2.7, Basophils % 0 L, Absolute Granulocytes 11.1 H, Absolute Lymphocytes 0.3 L, Absolute Monocytes 0.3, Absolute Eosinophils 0.3, Absolute Basophils 0, PUBS MCHC 32.5 L 11/10/16 0425: Anion Gap 8, Estimated GFR 48 L, Glucose 123 H, Calcium 8.8, Phosphorus 4.4, Magnesium 1.9, Total Bilirubin 1.0, AST 11 L, ALT 32, Albumin 2.9 L, CBC w Diff NO MAN DIFF REQ, RBC 2.83 L, MCV 103.2 H, MCH 33.7 H, RDW 19.1 H, MPV 10.3, Gran % 90.5 H, Lymphocytes % 2.9 L, Monocytes % 3.1, Eosinophils % 3.5, Basophils % 0 L, Absolute Granulocytes 8.8 H, Absolute Lymphocytes 0.3 L, Absolute Monocytes 0.3, Absolute Eosinophils 0.3, Absolute Basophils 0, PUBS MCHC 32.7 L Assessment/Plan Assessment/Plan Assessment: 1. Community Acquired pneumonia 2. Respiratory failure 3. Gram-negative sepsis 4. Mild troponin elevation, likely secondary to pneumonia and sepsis 5. Mild left ventricular systolic dysfunction 6. Short runs of nonsustained atrial tachycardia 7. Mild acute on Chronic HFrEF Recommendations: -Continue current management as per the medical/ICU team. -Continue current cardiac medications. 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 -Follow-up labs pending. Continue telemetry? Yes
[2016-11-11 16:00] VITALS: BP 140/80
[2016-11-12] VITALS: BP 100/60
[2016-11-12 08:00] VITALS: BP 110/60
[2016-11-12 08:05] LABS: ABSOLUTE BASOPHIL COUNT 0 /CUMM (0.0-0.2); ABSOLUTE EOSINOPHIL COUNT 0.3 /CUMM (0.0-0.7); ABSOLUTE GRANULOCYTE CT 9.2 /CUMM (1.4-6.5); ABSOLUTE LYMPH COUNT 0.6 /CUMM (1.2-3.4); ABSOLUTE MONOCYTE COUNT 0.4 /CUMM (0.10-0.60); BASOPHIL % 0.1 % (0.0-2.0); EOSINOPHIL % 3.1 % (0-5); GRANULOCYTE % 87.7 % (42.2-75.2); HEMATOCRIT 29.3 % (37-47); MEAN CORPUSCULAR HGB 34.1 PG (27.0-31.0); MEAN CORPUSCULAR HGB CONC 33.1 G/DL (33.0-37.0); MEAN CORPUSCULAR VOLUME 103.1 FL (81.0-99.0); PLATELET COUNT 177 /CUMM (130-400); RBC DISTRIBUTION WIDTH 18.9 % (11.5-14.5); RED BLOOD CELL CT 2.85 /CUMM (4.20-5.40); WHITE BLOOD CELL COUNT 10.4 /CUMM (4.8-10.8)
--- NOTE | 2016-11-12 08:49 | PN- Resident CRCU ---
Impression/Plan Impression/Problem List Impression: Ms. Bajwa is a pleasant 76 year old female with PMH hypertension, hyperlipidemia, COPD on 5 L continuous NC, type 2 diabetes mellitus on insulin, hypothyroidism, stage III B chronic kidney disease, combined systolic and diastolic heart failure, severe pulmonary hypertension, history of kidney stones in the past who presented to the [place] ED with shortness of breath on exertion , chills, decreased oral intake, cough minimally productive of sputum and nausea for one day. Patient was admitted to telemetry initally, has received treatment for possible pneumonia and UTI, and was tranferred to the ICU due to decreased oxygen saturation to 85% requiring high flow oxygen and for closer monitoring. Below is the problem list and plan: Respiratory: 1. Acute on chronic hypoxic and hypercarbic respiratory failure * Likely 2/2 combination of COPD, heart failure and sepsis of urological origin * Treated for possible pneumonia with ceftriaxone and doxycycline (allergic to azithromycin) on admission -met criteria for sepsis on admission with possible pulmonary source acording to CXR, required high flow O2 through NC * V/Q scan negative for PE * Continue Mucinex BID, scheduled albuterol, TRC/Nebs * Follow up repeat CXR Q48 hours or if clinically indicated * Continue high flow nasal cannula and try to wean BiPAP QHS, currently titrating down FiO2, goal FiO2 50-60% * PO lasix 40 mg BID, tolerating well with net negative fluid balance * CT chest was obtained yesterday given continuous increase oxygen requirement, results revealed worsened centrallobar groundglass opacities that likely represent infectious bronchiolitis, IV azithromycin was started * Patient desat yesterday to 70s while on 100% BIPAP after allergic reaction to IV azithromycin * IV solumedrol 40 mg increased to Q8 hours based on Dr. Chatman recommendation after the patient desat to 60% while on high flow oxygen 100% today 11/04 * Patient will greatly benefit from inpatient pulmonary rehab, discussed transfer to [place], will follow up with case management for this issue ID 1. Gram-negative sepsis with pansensitive Escherichia coli due to obstructive uropathy and evidence of an 8 mm stone causing hydronephrosis. * Urinalysis suggesting UTI and blood culture positive for gram negative rods ( pansensitive ecoli) * Initial CT of [facility] and pelvis showed obstructing 8 x 8 mm left ureter stone causing moderate to severe hydroureteronephrosis and left perinephric stranding. * Patient had left ureteral stent placed, tolerated procedure well, will continue follow uro rec's * Repeat CT scan showed interval decompression of left renal collecting system with multiple nonobstructing renal calculi * PO ceftin 14 day course completed * Latest urine culture negative for growth * Continue doxycycline for bronchiolitis Cardiac 1. Elevated troponins * Elevated troponins in setting of acute hypoxic respiratory failure likely represent demand ischemia, no chest pain reported, have since trended down. * Echo shows EF 40-45%, mild global hypokinesis, right ventricular systolic pressure estimated at 47 mmHg. * Cardiology is following and will continue to follow recs * Continue ASA 81 mg PO daily and lopressor 12.5 mg PO BID, tolerating well 2. Combined systolic and diastolic CHF * 40 mg PO lasix BID * Monitor renal function with continued lasix use * Follow up with cardiology within 1 week after discharge Heme 1. Chronic macrocytic anemia * Likely 2/2 CKD * Folate within normal limits and B12 is elevated * Patient with Guiac (+) stool, no pharm dvtp * Follow up daily CBC Metabolic 1. EVANS on CKD * Possibly secondary to initial sepsis with superimposed hydronephrosis * Avoid nephrotoxins * Tolerating lisinopril well which was restarted yesterday * ICU bundle daily to monitor BUN/cre 2. Hyperkalemia * Likely secondary to acute on chronic kidney injury * Follow up repeat labs in AM 3. Diabetes mellitus * Accuchecks TIDACHS * NSS (medium dose) * Continue home dose levemir 24 U SC QPM today 4. Hypothyroidism * Continue synthroid 0.15 mg PO daily AC Other 1. Cystic abnormality abutting distal body of pancreas * Follow up CT scan with pancreatic mass protocol once patient more stable or close follow up after discharge FULL CODE DVTP: ALPS CC2 diet Mild pain pathway Plan DVT/Prophylaxis: mechanical Code Status: Full Code
--- NOTE | 2016-11-12 10:26 | PN- Pulmonary ---
Subjective HPI/Critical Care Issues: Continues to be on high flow Afebrile Saturating 89% On daily Lasix diuresing appropriately SIGNIFICANT DATA Blood work reviewed. Hemoglobin and hematocrit relatively stable cultures negative previous chest x- ray no change Objective Current Medications: Current Medications Sig/Wei Start time Last Medication Dose Route Stop Time Status Admin Acetaminophen 650 MG Q6P PRN 10/20 0145 AC 10/21 PO 1839 Albuterol Sulfate 3 ML EVERY 4 HRS/AWAKE 10/20 0915 AC 11/12 INH 0820 Aspirin 81 MG DAILY 10/24 1000 AC 11/11 PO 0902 Cholecalciferol 1,000 IU DAILY 11/09 1000 AC 11/11 PO 0902 Furosemide 40 MG DAILY 11/09 1130 AC 11/11 PO 0902 Guaifenesin 600 MG Q12 10/20 1000 AC 11/11 PO 2200 Insulin Aspart 0 TIDAC/HS 11/06 1200 AC 11/11 SC 2200 Insulin Detemir 24 UNITS QPM 11/02 2200 AC 11/11 SC 2200 Levothyroxine Sodium 0.15 MG DAILY AC 10/20 0700 AC 11/12 PO 0827 Lisinopril 10 MG DAILY 11/02 1024 AC 11/11 PO 0902 Melatonin 5 MG AT BEDTIME 10/24 2200 AC 11/11 PO 2200 Methylprednisolone 30 MG BID 11/06 2200 AC 11/11 IV 2200 Metoprolol Tartrate 12.5 MG BID 11/01 1046 AC 11/11 PO 2200 Omeprazole 20 MG DAILY AC 10/25 0700 AC 11/12 PO 0827 Polyethylene Glycol 17 GM DAILY NEEDED PRN 11/07 0000 AC 11/07 PO 1031 Senna/Docusate Sodium 1 TAB Q12P PRN 11/06 2345 AC 11/07 PO 2047 Sertraline HCl 25 MG DAILY 11/10 1445 AC 11/11 PO 0902 Vital Signs & I&O Last 24 Hrs of Vitals and I&O: Vital Signs Date Time Temp Pulse Resp B/P B/P Pulse O2 O2 Flow FiO2 Mean Ox Delivery Rate 11/12 0818 69 100 11/12 0553 69 95 11/12 0331 66 89 11/12 0030 75 83 11/12 0000 83 BIPAP 100% 11/12 0000 96.7 76 22 100/60 83 BIPAP 100% 11/11 2200 102 05/27 2034 87 Nasal 100% Cannula 11/11 1600 90 Nasal 100% Cannula 11/11 1600 97.7 78 18 140/80 90 Nasal 100% Cannula 11/11 1405 92 Nasal 100% Cannula Intake & Output 11/12 1600 11/12 0800 11/12 0000 Intake Total 120 Output Total 200 Balance -80 Intake, Oral 120 Number 0 Bowel Movements Output, Urine 200 Impression/Plan Impression/Plan Impression/Plan: Varinder eomi neck supple Chest showed crackles Heart S1-S2 was heard Abdominal exam normal trace 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 Now on steroids with sig bronchiolitis by ct * REsolved Significant gram-negative sepsis pansensensitive ecoli, due to 8 mm stone with obstructive uropathy with hydronephrosis, causing sepsis S/P Stent * Improving Chronic kidney disease with acute kidney injury upon admission which is slowly improving * Significantly elevated proBNP with low ejection fraction upon admission * Chronic anemia patient has been on epo before, now with thrombocytopenia due to sepsis and pt does have macrocytosis and need to rule out myelodysplasia in the future * Heme positive stool with chronic anemia * Myelodysplasia and MGUS with Splenomegaly, 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 * Previous mediastinal lymphadenopathy which needs follow-up * Elevated troponin upon admission * Hypothyroid on supp * Mild depression RECOMMENDATION * COnt high flow, and reduce fio2 bedtime BiPAP * Follow sugars, cover with sliding scale insulin only if needed, cont long acting insulin * po ppi * lasix to 40 daily * Venodyne boots as she has hemepositive stool * OOB to chair * Steroid to 60 mg daily * Start Bactrim one Double strength tab three times a week * vit d 1000 units daily
--- NOTE | 2016-11-12 12:02 | NUR ---
PT REPORTS FEELING VERY WEAK. OOB WITH ASSIST OF 2. SHE WAS ABLE TO REMAIN OOB ON 100% HIGHFLOW FOR 2 HOURS, SATS DROPPED TO 70'S AND SHE WAS PLACED BACK ON BIPAP AND ASSISTED TO BED, DR. CALLE IN. MONITOR IS NSR.
--- NOTE | 2016-11-12 13:09 | PN- Cardiology ---
Subjective Subjective: No new significant clinical changes. Remains on high flow oxygen supplementation. Brief nonsustained supraventricular tachycardia noted. No other significant arrhythmias detected. No new cardiac symptoms. Objective Vital Signs and I&Os Vital Signs Date Time Temp Pulse Resp B/P B/P Pulse O2 O2 Flow FiO2 Mean Ox Delivery Rate 11/12 1205 100 BIPAP 100% 11/12 1149 68 107/70 11/12 1149 68 107/70 11/12 1058 89 96 11/12 0818 69 100 11/12 0800 99 BIPAP 100% 11/12 0800 97.1 66 28 110/60 99 BIPAP 100% 11/12 0553 69 95 11/12 0331 66 89 11/12 0030 75 83 11/12 0000 83 BIPAP 100% 11/12 0000 96.7 76 22 100/60 83 BIPAP 100% 11/11 2200 102 11/11 2034 87 Nasal 100% Cannula 11/11 1600 90 Nasal 100% Cannula 11/11 1600 97.7 78 18 140/80 90 Nasal 100% Cannula 11/11 1405 92 Nasal 100% Cannula Intake & Output 11/12 1600 11/12 0800 11/12 0000 11/11 1600 11/11 0800 11/11 0000 Intake Total 120 830 240 Output Total 200 1100 550 400 Balance -80 -270 -550 -160 Intake, IV 30 Intake, Oral 120 800 240 Number 0 1 0 Bowel Movements Output, Urine 200 1100 550 400 Physical Exam: General: NAD; VSS HEENT: normal Lungs: Decreased air movement, bilateral scattered rhonchi Heart: RRR, distant S1, S2, 1/6 systolic murmur Abdomen: Soft, nontender, no masses Extremities: No clubbing, cyanosis, or edema. Neuro: Alert and oriented x 3, cranial nerves intact Current Medications: Current Medications Sig/Wei Start time Last Medication Dose Route Stop Time Status Admin Acetaminophen 650 MG Q6P PRN 10/20 0145 AC 10/21 PO 1839 Albuterol Sulfate 3 ML EVERY 4 HRS/AWAKE 10/20 0915 AC 11/12 INH 1202 Aspirin 81 MG DAILY 10/24 1000 AC 11/12 PO 1149 Cholecalciferol 1,000 IU DAILY 11/09 1000 AC 11/12 PO 1149 Furosemide 40 MG DAILY 11/09 1130 AC 11/12 PO 1149 Guaifenesin 600 MG Q12 10/20 1000 AC 11/12 PO 1149 Insulin Aspart 0 TIDAC/HS 11/06 1200 AC 11/12 SC 1201 Insulin Detemir 24 UNITS QPM 11/02 2199 AC 11/11 SC 220 Levothyroxine Sodium 0.15 MG DAILY AC 10/20 0700 AC 11/12 PO 0827 Lisinopril 10 MG DAILY 11/02 1024 AC 11/12 PO 1149 Melatonin 5 MG AT BEDTIME 10/24 2199 AC 11/11 PO 220 Methylprednisolone 30 MG BID 11/06 220 AC 11/12 IV 1150 Metoprolol Tartrate 12.5 MG BID 11/01 1046 AC 11/12 PO 1149 Omeprazole 20 MG DAILY AC 10/25 0700 AC 11/12 PO 0827 Polyethylene Glycol 17 GM DAILY NEEDED PRN 11/07 0000 AC 11/07 PO 1031 Senna/Docusate Sodium 1 TAB Q12P PRN 11/06 2345 AC 11/07 PO 2047 Sertraline HCl 25 MG DAILY 11/10 1445 AC 11/12 PO 1149 Results Last 48 Hrs of Labs/Mics: Laboratory Tests 11/12/16 0500: Anion Gap 10, Estimated GFR 54 L, Glucose 127 H, Calcium 9.2, Phosphorus 4.3, Magnesium 1.9, Total Bilirubin 1.0, AST 13 L, ALT 41, Albumin 3.0 L, CBC w Diff NO MAN DIFF REQ, RBC 2.85 L, MCV 103.1 H, MCH 34.1 H, RDW 18.9 H, MPV 10.0, Gran % 87.7 H, Lymphocytes % 5.6 L, Monocytes % 3.5, Eosinophils % 3.1, Basophils % 0.1, Absolute Granulocytes 9.2 H, Absolute Lymphocytes 0.6 L, Absolute Monocytes 0.4, Absolute Eosinophils 0.3, Absolute Basophils 0, PUBS MCHC 33.1 11/11/16 0341: Anion Gap 10, Estimated GFR 54 L, Glucose 202 H, Calcium 8.7, Phosphorus 3.8, Magnesium 1.9, Total Bilirubin 0.8, AST 12 L, ALT 37, Albumin 3.1 L, CBC w Diff NO MAN DIFF REQ, RBC 2.71 L, MCV 103.3 H, MCH 33.5 H, RDW 18.8 H, MPV 10.2, Gran % 92.5 H, Lymphocytes % 2.2 L, Monocytes % 2.6, Eosinophils % 2.7, Basophils % 0 L, Absolute Granulocytes 11.1 H, Absolute Lymphocytes 0.3 L, Absolute Monocytes 0.3, Absolute Eosinophils 0.3, Absolute Basophils 0, PUBS MCHC 32.5 L Assessment/Plan Assessment/Plan Assessment: 1. Community Acquired pneumonia 2. Respiratory failure 3. Gram-negative sepsis 4. Mild troponin elevation, likely secondary to pneumonia and sepsis/demand ischemia 5. Mild left ventricular systolic dysfunction 6. Short runs of nonsustained atrial tachycardia 7. Mild acute on Chronic HFrEF Recommendations: -Continue current management as per the medical/ICU team. -Continue current cardiac medications. -Please keep the patient on project program manager for now. -Follow-up labs pending. Continue telemetry? Yes
--- NOTE | 2016-11-12 14:04 | PN- Housestaff ---
Subjective Follow-up For: 1. Acute on chronic hypoxic and hypercarbic respiratory failure 2. Sepsis 2/2 UTI with gram negative sepsis - resolved 3. Nephrolithiasis s/p left ureter stent placement Subjective: Patient was seen and examined this morning, vital signs are stable, no new complaint. No overnight events reported by the nurse of the patient. Review of Systems Constitutional: Reports: see HPI. Objective Last 24 Hrs of Vital Signs/I&O Vital Signs Date Time Temp Pulse Resp B/P B/P Pulse O2 O2 Flow FiO2 Mean Ox Delivery Rate 11/12 1205 100 BIPAP 100% 11/12 1149 68 107/70 11/12 1149 68 107/70 11/12 1058 89 96 11/12 0818 69 100 11/12 0800 99 BIPAP 100% 11/12 0800 97.1 66 28 110/60 99 BIPAP 100% 11/12 0553 69 95 11/12 0331 66 89 11/12 0030 75 83 11/12 0000 83 BIPAP 100% 11/12 0000 96.7 76 22 100/60 83 BIPAP 100% 11/11 2200 102 11/11 2034 87 Nasal 100% Cannula 11/11 1600 90 Nasal 100% Cannula 11/11 1600 97.7 78 18 140/80 90 Nasal 100% Cannula Intake & Output 11/12 1600 11/12 0800 11/12 0000 Intake Total 120 Output Total 200 Balance -80 Intake, Oral 120 Number 0 Bowel Movements Output, Urine 200 Physical Exam General Appearance: Alert, Oriented X3, Cooperative, No Acute Distress Skin: No Rashes, No Breakdown, No Significant Lesion Skin Temp/Moisture Exam: Warm/Dry HEENT: Atraumatic, PERRLA, EOMI, Mucous Membr. moist/pink Neck: Supple, No JVD Cardiovascular: Regular Rate, Normal S1, Normal S2, No Murmurs Lungs: bilateral decrease air entery Abdomen: Normal Bowel Sounds, Soft, No Tenderness Neurological: Normal Gait, Normal Speech, Strength at 5/5 X4 Ext, Normal Tone, Sensation Intact, Cranial Nerves 3-12 NL, Reflexes 2+ Extremities: No Clubbing, No Cyanosis, No Edema, Normal Pulses, No Tenderness/ Swelling Assessment/Plan Assessment: Ms. Bajwa is a pleasant 76 year old female with PMH hypertension, hyperlipidemia, COPD on 5 L continuous NC, type 2 diabetes mellitus on insulin, hypothyroidism, stage III B chronic kidney disease, combined systolic and diastolic heart failure, severe pulmonary hypertension, history of kidney stones in the past who presented to the [facility] ED with shortness of breath on exertion , chills, decreased oral intake, cough minimally productive of sputum and nausea for one day. Patient was admitted to telemetry initally, has received treatment for possible pneumonia and UTI, and was tranferred to the ICU due to decreased oxygen saturation to 85% requiring high flow oxygen and for closer monitoring. Below is the problem list and plan: Respiratory: 1. Acute on chronic hypoxic and hypercarbic respiratory failure * Resolved- Likely 2/2 combination of COPD, heart failure and sepsis of urological origin * Treated for possible pneumonia with ceftriaxone and doxycycline (allergic to azithromycin) on admission -met criteria for sepsis on admission with possible pulmonary source acording to CXR, required high flow O2 through NC * V/Q scan negative for PE * Continue Mucinex BID, scheduled albuterol, TRC/Nebs * Continue high flow nasal cannula and try to wean BiPAP QHS, currently continues to require high FiO2 90-100%, attempting to taper to maintain sats 87- 88% or higher * CT chest previously showed worsened central lobar groundglass opacities that likely represent infectious bronchiolitis, IV azithromycin was started. Patient subsequently desaturated with likely allergic reaction so azithromycin discontinued. * Patient completed 7 days of doxycycline 100 mg PO BID (day #7/7), is continued on IV solumedrol 60 mg daily * Continue PO lasix 40 mg daily, tolerating well with net negative fluid balance * Patient will greatly benefit from inpatient pulmonary rehab, will follow up with case management for this issue * Continue vitamin D daily * Will start Bactrim double strength 1 tab 3 times a week ID 1. Gram-negative sepsis with pansensitive Escherichia coli due to obstructive uropathy and evidence of an 8 mm stone causing hydronephrosis. * Urinalysis suggesting UTI and blood culture positive for gram negative rods ( pansensitive ecoli) * Initial CT of [place] and pelvis showed obstructing 8 x 8 mm left ureter stone causing moderate to severe hydroureteronephrosis and left perinephric stranding. * Patient had left ureteral stent placed, tolerated procedure well, will continue follow uro rec's * Repeat CT scan showed interval decompression of left renal collecting system with multiple nonobstructing renal calculi * PO ceftin 14 day course completed * Latest urine culture negative Cardiac 1. Elevated troponins * Elevated troponins in setting of acute hypoxic respiratory failure likely represent demand ischemia, no chest pain reported, have since trended down. * Echo shows EF 40-45%, mild global hypokinesis, right ventricular systolic pressure estimated at 47 mmHg. 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 Combined systolic and diastolic CHF * Lasix 40 mg PO daily to maintain euvolemic status * Monitor renal function with continued lasix use * Follow up with cardiology within 1 week after discharge 3. Episodes of tachycardia, likely atrial fibrillation * 11/08/16 noted episodes of tachycardia to 140s with irregular rhythm likely atrial fibrillation * Episodes very brief, likely secondary to hypoxia/stress * No need to anticoagulate per cardio as she is guiac + Heme 1. Chronic macrocytic anemia * Likely 2/2 CKD * Folate within normal limits and B12 is elevated * Patient with Guiac (+) stool, no pharm dvtp * Follow up daily CBC Metabolic 1. EVANS on CKD * Possibly secondary to initial sepsis with superimposed hydronephrosis * Avoid nephrotoxins * Tolerating lisinopril well * ICU bundle daily to monitor BUN/cre 2. Hyperkalemia, IMPROVED * Likely secondary to acute on chronic kidney injury * Follow up repeat labs daily 3. Diabetes mellitus * Accuchecks TIDACHS * Continue NSS to high dose and bedtime NSS * Will likely decrease scale as we titrate down steroids * Continue home dose levemir 24 U SC QPM 4. Hypothyroidism * Continue synthroid 0.15 mg PO daily AC Other 1. Cystic abnormality abutting distal body of pancreas * Follow up CT scan with pancreatic mass protocol once patient more stable or close follow up after discharge DNR/DNI DVTP: ALPS CC2 diet Mild pain pathway Problem List: 1. Elevated troponin 2. Chronic respiratory failure with hypoxia Pain Ratin Pain Location: none Pain Goal: Pain 4 or less Pain Plan: Mild pain pathway Tomorrow's Labs & Rationales: CBC, ICU bundle
[2016-11-12 16:00] VITALS: BP 112/70
--- NOTE | 2016-11-12 17:53 | NUR ---
PT ACCUCHECK 1600 LESS THAN 50. SHE IS ASYMPTOMATIC, BUT HAD NOT EATEN LUNCH AFTER BEING COVERED FOR HER ACCUCHECK AT 12 NOON. ICU MD NOTIFIED. STAT BLOOD SUGAR DRAWN. 06/19 AMP D50 GIVEN. REPEAT ACCUCHECK 112. BLOOD SUGAR WAS 45. PT IS UNABLE TO EAT SHE FEELS SHE CANNOT COME OFF BIAPAP.
[2016-11-13] VITALS: BP 102/54
--- NOTE | 2016-11-13 04:37 | NUR ---
PT WAS ON BIPAP AT 100%, REQUESTED TO BE PUT ON HIFLO AT 1999 SO SHE COULD DRINK GLUCERNA SHAKE. WAS ON HI ESTRADA 100% FOR 10 MIN AND DE-SATTED TO 70S AND REQUESTED TO BE PUT BACK ON BIPAP. WHILE SLEEPING HR WAS IN 130S WITH PVCS AND PACS FOR 15 MIN, DR MARCOS BARFIELD NOTIFIED. PT CONVERTED BACK TO NSR IN 60S AND REMAINED WITH THAT HR FOR RAMAINDER OF SHIFT. ON BIPAP O2 SAT WAS 85-98%.
[2016-11-13 05:32] LABS: ABSOLUTE BASOPHIL COUNT 0.2 /CUMM (0.0-0.2); ABSOLUTE EOSINOPHIL COUNT 0.2 /CUMM (0.0-0.7); ABSOLUTE GRANULOCYTE CT 9.2 /CUMM (1.4-6.5); ABSOLUTE LYMPH COUNT 0.4 /CUMM (1.2-3.4); ABSOLUTE MONOCYTE COUNT 0.3 /CUMM (0.10-0.60); GRANULOCYTE % 89.1 % (42.2-75.2); MEAN CORPUSCULAR HGB 33.5 PG (27.0-31.0); MEAN CORPUSCULAR HGB CONC 32.5 G/DL (33.0-37.0); MEAN PLATELET VOLUME 10.3 FL (7.4-10.4); PLATELET COUNT 173 /CUMM (130-400); RBC DISTRIBUTION WIDTH 18.6 % (11.5-14.5); RED BLOOD CELL CT 3.01 /CUMM (4.20-5.40); WHITE BLOOD CELL COUNT 10.3 /CUMM (4.8-10.8)
--- NOTE | 2016-11-13 07:52 | PN- Housestaff ---
Subjective Follow-up For: 1. Acute on chronic hypoxic and hypercarbic respiratory failure 2. Sepsis 2/2 UTI with gram negative sepsis - resolved 3. Nephrolithiasis s/p left ureter stent placement Complaints: no complaints Tele-Events Since Last Visit: No overnight events. Subjective: Patient seen and examined at bedside this AM. She was laying comfortably in bed in no acute distress and reports she is sleeping well with the BiPAP. She has no respiratory complaints and has been getting out of bed to chair daily. Review of Systems Constitutional: Denies: chills, fever, malaise. EENTM: Denies: blurred vision, visual changes, hearing changes, nasal congestion. Cardiovascular: Denies: chest pain, palpitations. Respiratory: Denies: cough, short of breath, sputum production. Gastrointestinal: Denies: abdominal pain, nausea, vomiting. Genitourinary: Denies: dysuria. Musculoskeletal: Denies: back pain, joint pain. Skin: Denies: rash. Neurological/Psychological: Denies: confusion, tingling, tremors. Hematologic/Endocrine: Denies: bruising, bleeding. Objective Last 24 Hrs of Vital Signs/I&O Vital Signs Date Time Temp Pulse Resp B/P B/P Pulse O2 O2 Flow FiO2 Mean Ox Delivery Rate 11/13 0906 99 BIPAP 100% 11/13 0905 64 100 11/13 0600 75 95 11/13 0316 63 93 11/13 0100 75 88 11/13 0000 89 BIPAP 100% 11/13 0000 97.1 71 22 102/54 89 BIPAP 100% 11/12 2246 90 89 11/12 2121 96 122/68 11/12 1918 106 92 11/12 1627 101 86 11/12 1623 86 BIPAP 100% 11/12 1600 99 BIPAP 100% 11/12 1600 97.0 88 26 112/70 99 BIPAP 100% 11/12 1443 84 100 11/12 1205 100 BIPAP 100% 11/12 1149 68 107/70 11/12 1149 68 107/70 11/12 1058 89 96 Intake & Output 11/13 1600 11/13 0800 11/13 0000 Intake Total 480 480 Output Total 900 450 Balance -420 30 Intake, Oral 480 480 Output, Urine 900 450 Physical Exam General Appearance: Alert, Oriented X3, Cooperative, No Acute Distress Skin: No Rashes, No Significant Lesion Skin Temp/Moisture Exam: Warm/Dry HEENT: Atraumatic, PERRLA, EOMI, Mucous Membr. moist/pink Neck: Supple, No JVD Lymphatic: Cervical nl Cardiovascular: Regular Rate Lungs: Clear to Auscultation, Normal Air Movement Abdomen: Normal Bowel Sounds, Soft, No Tenderness Neurological: Normal Speech, Normal Tone Extremities: No Clubbing, No Cyanosis, No Edema Vascular: Pulses Symmetrical Current Medications: Current Medications Sig/Wei Start time Last Medication Dose Route Stop Time Status Admin Acetaminophen 650 MG Q6P PRN 10/20 0145 AC 10/21 PO 1839 Albuterol Sulfate 3 ML EVERY 4 HRS/AWAKE 10/20 0915 AC 11/13 INH 0854 Aspirin 81 MG DAILY 10/24 1000 AC 11/12 PO 1149 Cholecalciferol 1,000 IU DAILY 11/09 1000 AC 11/12 PO 1149 Dextrose 25 GM ONCE ONE 11/12 1715 DC 11/12 IV 11/12 1716 1700 Dextrose 25 GM ONCE ONE 11/12 1600 DC 11/12 IV 11/12 1601 1600 Furosemide 40 MG DAILY 11/09 1130 AC 11/12 PO 1149 Guaifenesin 600 MG Q12 10/20 1000 AC 11/12 PO 2122 Insulin Aspart 0 TIDAC 11/13 0800 AC SC Insulin Aspart 0 TIDAC/HS 11/06 1200 DC 11/12 SC 1201 Insulin Detemir 20 UNITS QPM 11/13 2200 UNVr SC Insulin Detemir 24 UNITS QPM 11/02 2200 DC 11/12 SC 2122 Levothyroxine Sodium 0.15 MG DAILY AC 10/20 0700 AC 11/13 PO 0618 Lisinopril 5 MG DAILY 11/13 1000 UNVr PO Lisinopril 10 MG DAILY 11/02 1024 DC 11/12 PO 1149 Magnesium Oxide 400 MG ONE ONE 11/12 1415 DC 11/12 PO 11/12 1416 1756 Melatonin 5 MG AT BEDTIME 10/24 2200 AC 11/12 PO 2122 Methylprednisolone 30 MG BID 11/06 2200 AC 11/12 IV 2122 Metoprolol Tartrate 12.5 MG BID 11/01 1046 AC 11/12 PO 2121 Omeprazole 20 MG DAILY AC 10/25 0700 AC 11/13 PO 0618 Polyethylene Glycol 17 GM DAILY NEEDED PRN 11/07 0000 AC 11/07 PO 1031 Senna/Docusate Sodium 1 TAB Q12P PRN 11/06 2345 AC 11/07 PO 2047 Sertraline HCl 25 MG DAILY 11/10 1445 AC 11/12 PO 1149 Trimethoprim/ 1 TAB 11/13 1000 AC Sulfamethoxazole PO Last 24 Hrs of Lab/Fabian Results Last 24 Hrs of Labs/Mics: Laboratory Tests 11/13/16 0500: Anion Gap 7, Estimated GFR > 60, Glucose 120 H, Calcium 8.8, Phosphorus 4.9 H, Magnesium 1.9, Total Bilirubin 1.2, AST 20, ALT 41, Albumin 3.1 L, CBC w Diff NO MAN DIFF REQ, RBC 3.01 L, MCV 103.0 H, MCH 33.5 H, RDW 18.6 H, MPV 10.3, Gran % 89.1 H, Lymphocytes % 4.3 L, Monocytes % 2.6, Eosinophils % 2.0, Basophils % 2.0, Absolute Granulocytes 9.2 H, Absolute Lymphocytes 0.4 L, Absolute Monocytes 0.3, Absolute Eosinophils 0.2, Absolute Basophils 0.2, PUBS MCHC 32.5 L 11/12/16 1608: Glucose 45 *L Assessment/Plan Assessment: Ms. Bajwa is a pleasant 76 year old female with PMH hypertension, hyperlipidemia, COPD on 5 L continuous NC, type 2 diabetes mellitus on insulin, hypothyroidism, stage III B chronic kidney disease, combined systolic and diastolic heart failure, severe pulmonary hypertension, history of kidney stones in the past who presented to the [facility] with shortness of breath on exertion , chills, decreased oral intake, cough minimally productive of sputum and nausea for one day. Patient was admitted to telemetry initally, has received treatment for possible pneumonia and UTI, and was tranferred to the ICU due to decreased oxygen saturation to 85% requiring high flow oxygen and for closer monitoring. Below is the problem list and plan: Respiratory: 1. Acute on chronic hypoxic and hypercarbic respiratory failure * Resolved- Likely 2/2 combination of COPD, heart failure and sepsis of urological origin * Treated for possible pneumonia with ceftriaxone and doxycycline (allergic to azithromycin) on admission -met criteria for sepsis on admission with possible pulmonary source acording to CXR, required high flow O2 through NC * V/Q scan negative for PE * Continue Mucinex BID, scheduled albuterol, TRC/Nebs * Continue high flow nasal cannula and try to wean BiPAP QHS, currently continues to require high FiO2 90-100%, attempting to taper to maintain sats 87- 88% or higher * CT chest previously showed worsened central lobar groundglass opacities that likely represent infectious bronchiolitis, IV azithromycin was started. Patient subsequently desaturated with likely allergic reaction so azithromycin discontinued. * Patient completed 7 days of doxycycline 100 mg PO BID * IV solumedrol 60 mg daily continued * Patient stated on three-days a week double-strength bactrim * Continue PO lasix 40 mg daily, tolerating well with net negative fluid balance * Continue vitamin D daily ID 1. Gram-negative sepsis with pansensitive Escherichia coli due to obstructive uropathy and evidence of an 8 mm stone causing hydronephrosis. RESOLVED. * Urinalysis suggesting UTI and blood culture positive for gram negative rods ( pansensitive ecoli) * Initial CT of [place] and pelvis showed obstructing 8 x 8 mm left ureter stone causing moderate to severe hydroureteronephrosis and left perinephric stranding. * Patient had left ureteral stent placed, tolerated procedure well, will continue follow uro rec's * Repeat CT scan showed interval decompression of left renal collecting system with multiple nonobstructing renal calculi * PO ceftin 14 day course completed * Latest urine culture negative Cardiac 1. Elevated troponins * Elevated troponins in setting of acute hypoxic respiratory failure likely represent demand ischemia, no chest pain reported, have since trended down. * Echo shows EF 40-45%, mild global hypokinesis, right ventricular systolic pressure estimated at 47 mmHg. 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 2. Combined systolic and diastolic CHF * Lasix 40 mg PO daily to maintain euvolemic status * Monitor renal function with continued lasix use * Follow up with cardiology within 1 week after discharge 3. Episodes of tachycardia, likely atrial fibrillation * 11/08/16 noted episodes of tachycardia to 140s with irregular rhythm likely atrial fibrillation * Episodes very brief, likely secondary to hypoxia/stress * No need to anticoagulate per cardio as she is guiac + 4. HTN * Decrease lisinopril to 5 mg daily Heme 1. Chronic macrocytic anemia * Likely 2/2 CKD * Folate within normal limits and B12 is elevated * Patient with Guiac (+) stool, no pharm dvtp * Follow up daily CBC Metabolic 1. EVANS on CKD * Possibly secondary to initial sepsis with superimposed hydronephrosis * Avoid nephrotoxins * Tolerating lisinopril well * ICU bundle daily to monitor BUN/cre 2. Hyperkalemia, IMPROVED * Likely secondary to acute on chronic kidney injury * Follow up repeat labs daily 3. Diabetes mellitus * Accuchecks TIDACHS * Continue NSS to high dose and bedtime NSS * Will likely decrease scale as we titrate down steroids * Levemir decreased to 20 U SC QPM (noted hypoglycemic episodes yesterday to FSG 50 and 45, possibly 2/2 decreased PO intake?) 4. Hypothyroidism * Continue synthroid 0.15 mg PO daily AC Other 1. Cystic abnormality abutting distal body of pancreas * Follow up CT scan with pancreatic mass protocol once patient more stable or close follow up after discharge DNR/DNI DVTP: ALPS CC2 diet Mild pain pathway Problem List: 1. Elevated troponin 2. Insulin dependent type 2 diabetes mellitus 3. HFrEF (heart failure with reduced ejection fraction) 4. Acute renal failure superimposed on stage 3 chronic kidney disease 5. UTI (urinary tract infection) 6. Gram negative sepsis 7. Acute and chronic respiratory failure with hypoxia 8. PNA (pneumonia) 9. Hyperkalemia Pain Ratin Pain Location: n/a Pain Goal: Remain pain free Pain Plan: Per pain pathway Tomorrow's Labs & Rationales: CBC (anemia, leukocytosis) ICU bundle (hyperkalemia, elevated BUN)
[2016-11-13 08:00] VITALS: BP 108/60
--- NOTE | 2016-11-13 09:08 | PN- Pulmonary ---
Subjective HPI/Critical Care Issues: Continues to be on BiPAP Did have worsening hypoxemia yesterday Afebrile Sleeping when I saw her Objective Current Medications: Current Medications Sig/Wei Start time Last Medication Dose Route Stop Time Status Admin Acetaminophen 650 MG Q6P PRN 10/20 0145 AC 10/21 PO 1839 Albuterol Sulfate 3 ML EVERY 4 HRS/AWAKE 10/20 0915 AC 11/13 INH 0854 Aspirin 81 MG DAILY 10/24 1000 AC 11/12 PO 1149 Cholecalciferol 1,000 IU DAILY 11/09 1000 AC 11/12 PO 1149 Dextrose 25 GM ONCE ONE 11/12 1715 DC 11/12 IV 11/12 1716 1700 Dextrose 25 GM ONCE ONE 11/12 1600 DC 11/12 IV 11/12 1601 1600 Furosemide 40 MG DAILY 11/09 1130 AC 11/12 PO 1149 Guaifenesin 600 MG Q12 10/20 1000 AC 11/12 PO 2122 Insulin Aspart 0 TIDAC 11/13 0800 AC SC Insulin Aspart 0 TIDAC/HS 11/06 1200 DC 11/12 SC 1201 Insulin Detemir 24 UNITS QPM 11/02 2200 AC 11/12 SC 2122 Levothyroxine Sodium 0.15 MG DAILY AC 10/20 0700 AC 11/13 PO 0618 Lisinopril 10 MG DAILY 11/02 1024 AC 11/12 PO 1149 Magnesium Oxide 400 MG ONE ONE 11/12 1415 DC 11/12 PO 11/12 1416 1756 Melatonin 5 MG AT BEDTIME 10/24 2200 AC 11/12 PO 2122 Methylprednisolone 30 MG BID 11/06 2200 AC 11/12 IV 2122 Metoprolol Tartrate 12.5 MG BID 11/01 1046 AC 11/12 PO 2121 Omeprazole 20 MG DAILY AC 10/25 0700 AC 11/13 PO 0618 Polyethylene Glycol 17 GM DAILY NEEDED PRN 11/07 0000 AC 11/07 PO 1031 Senna/Docusate Sodium 1 TAB Q12P PRN 11/06 2345 AC 11/07 PO 2047 Sertraline HCl 25 MG DAILY 11/10 1445 AC 11/12 PO 1149 Trimethoprim/ 1 TAB 11/13 1000 AC Sulfamethoxazole PO Vital Signs & I&O Last 24 Hrs of Vitals and I&O: Vital Signs Date Time Temp Pulse Resp B/P B/P Pulse O2 O2 Flow FiO2 Mean Ox Delivery Rate 11/13 0600 75 95 11/13 0316 63 93 11/13 0100 75 88 11/13 0000 89 BIPAP 100% 11/13 0000 97.1 71 22 102/54 89 BIPAP 100% 11/12 2246 90 89 11/12 2121 96 122/68 11/12 1918 106 92 11/12 1627 101 86 11/12 1623 86 BIPAP 100% 11/12 1600 99 BIPAP 100% 11/12 1600 97.0 88 26 112/70 99 BIPAP 100% 11/12 1443 84 100 11/12 1205 100 BIPAP 100% 11/12 1149 68 107/70 11/12 1149 68 107/70 11/12 1058 89 96 Intake & Output 11/13 1600 11/13 0800 11/13 0000 Intake Total 480 480 Output Total 900 450 Balance -420 30 Intake, Oral 480 480 Output, Urine 900 450 Laboratory Tests 11/13 11/12 0500 1608 Chemistry Sodium (137 - 145 mmol/L) 141 Potassium (3.5 - 5.1 mmol/L) 5.3 H Chloride (98 - 107 mmol/L) 99 Carbon Dioxide (22 - 30 mmol/L) 34 H Anion Gap (5 - 16) 7 BUN (7 - 17 mg/dL) 87 H Creatinine (0.5 - 1.0 mg/dL) 0.8 Estimated GFR (>60 ml/min) > 60 Glucose (65 - 99 mg/dL) 120 H 45 *L Calcium (8.4 - 10.2 mg/dL) 8.8 Phosphorus (2.5 - 4.5 mg/dL) 4.9 H Magnesium (1.6 - 2.3 mg/dL) 1.9 Total Bilirubin (0.2 - 1.3 mg/dL) 1.2 AST (14 - 36 U/L) 20 ALT (9 - 52 U/L) 41 Albumin (3.5 - 5.0 g/dL) 3.1 L Hematology CBC w Diff NO MAN DIFF REQ WBC (4.8 - 10.8 /CUMM) 10.3 RBC (4.20 - 5.40 /CUMM) 3.01 L Hgb (12.0 - 16.0 G/DL) 10.1 L Hct (37 - 47 %) 31.0 L MCV (81.0 - 99.0 FL) 103.0 H MCH (27.0 - 31.0 PG) 33.5 H RDW (11.5 - 14.5 %) 18.6 H Plt Count (130 - 400 /CUMM) 173 MPV (7.4 - 10.4 FL) 10.3 Gran % (42.2 - 75.2 %) 89.1 H Lymphocytes % (20.5 - 51.1 %) 4.3 L Monocytes % (1.7 - 9.3 %) 2.6 Eosinophils % (0 - 5 %) 2.0 Basophils % (0.0 - 2.0 %) 2.0 Absolute Granulocytes (1.4 - 6.5 /CUMM) 9.2 H Absolute Lymphocytes (1.2 - 3.4 /CUMM) 0.4 L Absolute Monocytes (0.10 - 0.60 /CUMM) 0.3 Absolute Eosinophils (0.0 - 0.7 /CUMM) 0.2 Absolute Basophils (0.0 - 0.2 /CUMM) 0.2 PUBS MCHC (33.0 - 37.0 G/DL) 32.5 L 11/12 0500 Chemistry Sodium (137 - 145 mmol/L) 143 Potassium (3.5 - 5.1 mmol/L) 4.8 Chloride (98 - 107 mmol/L) 99 Carbon Dioxide (22 - 30 mmol/L) 34 H Anion Gap (5 - 16) 10 BUN (7 - 17 mg/dL) 86 H Creatinine (0.5 - 1.0 mg/dL) 1.0 Estimated GFR (>60 ml/min) 54 L Glucose (65 - 99 mg/dL) 127 H Calcium (8.4 - 10.2 mg/dL) 9.2 Phosphorus (2.5 - 4.5 mg/dL) 4.3 Magnesium (1.6 - 2.3 mg/dL) 1.9 Total Bilirubin (0.2 - 1.3 mg/dL) 1.0 AST (14 - 36 U/L) 13 L ALT (9 - 52 U/L) 41 Albumin (3.5 - 5.0 g/dL) 3.0 L Hematology CBC w Diff NO MAN DIFF REQ WBC (4.8 - 10.8 /CUMM) 10.4 RBC (4.20 - 5.40 /CUMM) 2.85 L Hgb (12.0 - 16.0 G/DL) 9.7 L Hct (37 - 47 %) 29.3 L MCV (81.0 - 99.0 FL) 103.1 H MCH (27.0 - 31.0 PG) 34.1 H RDW (11.5 - 14.5 %) 18.9 H Plt Count (130 - 400 /CUMM) 177 MPV (7.4 - 10.4 FL) 10.0 Gran % (42.2 - 75.2 %) 87.7 H Lymphocytes % (20.5 - 51.1 %) 5.6 L Monocytes % (1.7 - 9.3 %) 3.5 Eosinophils % (0 - 5 %) 3.1 Basophils % (0.0 - 2.0 %) 0.1 Absolute Granulocytes (1.4 - 6.5 /CUMM) 9.2 H Absolute Lymphocytes (1.2 - 3.4 /CUMM) 0.6 L Absolute Monocytes (0.10 - 0.60 /CUMM) 0.4 Absolute Eosinophils (0.0 - 0.7 /CUMM) 0.3 Absolute Basophils (0.0 - 0.2 /CUMM) 0 PUBS MCHC (33.0 - 37.0 G/DL) 33.1 Impression/Plan Impression/Plan Impression/Plan: Varinder eomi neck supple Chest showed crackles Heart S1-S2 was heard Abdominal exam normal trace 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 Now on steroids with sig bronchiolitis by ct * REsolved Significant gram-negative sepsis pansensensitive ecoli, due to 8 mm stone with obstructive uropathy with hydronephrosis, causing sepsis S/P Stent * Improving Chronic kidney disease with acute kidney injury upon admission which is slowly improving * Significantly elevated proBNP with low ejection fraction upon admission * Chronic anemia patient has been on epo before, now with thrombocytopenia due to sepsis and pt does have macrocytosis and need to rule out myelodysplasia in the future * Heme positive stool with chronic anemia * Myelodysplasia and MGUS with Splenomegaly, 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 If the potassium continues to be by tomorrow we'll discontinue lisinopril * po ppi * lasix to 40 daily * Venodyne boots as she has hemepositive stool * OOB to chair * Steroid to 60 mg daily * Bactrim one Double strength tab three times a week * vit d 1000 units daily
--- NOTE | 2016-11-13 11:31 | NUR ---
THE PT WAS PLACED ON A 100% HIGH FLOW NASAL CANNULA(HFNC) AT 0915. TOLERATED WITH SATS IN THE 90'S UNTIL ATTEMPTED TO EAT BREAKFAST AT 1015, THE O2 SAT DROPPED TO 81-83%. BY 1055 THE PT REQUESTED TO RETURN TO THE BIPAP AT 100%, WITH WHICH INSOLE TAPER COMPLIED. O2 SAT IS NOW 90%.
--- NOTE | 2016-11-13 13:40 | PN- Cardiology ---
Subjective Subjective: Cardiac status unchanged. Remains on high flow supplemental oxygen. No significant arrhythmias detected over the last 24 hours Objective Vital Signs and I&Os Vital Signs Date Time Temp Pulse Resp B/P B/P Pulse O2 O2 Flow FiO2 Mean Ox Delivery Rate 11/13 1050 82 85 11/13 0925 96.8 77 16 108/60 11/13 0924 96.8 77 16 108/60 11/13 0906 99 BIPAP 100% 11/13 0905 64 100 11/13 0800 98 BIPAP 100% 11/13 0800 96.8 77 22 108/60 93 BIPAP 100% 11/13 0600 75 95 11/13 0316 63 93 11/13 0100 75 88 11/13 0000 89 BIPAP 100% 11/13 0000 97.1 71 22 102/54 89 BIPAP 100% 11/12 2246 90 89 11/12 2121 96 122/68 11/12 1918 106 92 11/12 1627 101 86 11/12 1623 86 BIPAP 100% 11/12 1600 99 BIPAP 100% 11/12 1600 97.0 88 26 112/70 99 BIPAP 100% 11/12 1443 84 100 Intake & Output 11/13 1600 11/13 0800 11/13 0000 11/12 1600 11/12 0800 11/12 0000 Intake Total 480 480 300 120 Output Total 900 450 800 200 Balance -420 30 -500 -80 Intake, Oral 480 480 300 120 Number 1 0 Bowel Movements Output, Urine 900 450 800 200 Physical Exam: General: NAD; VSS HEENT: normal Lungs: Decreased air movement, bilateral scattered rhonchi Heart: RRR, distant S1, S2, 1/6 systolic murmur Abdomen: Soft, nontender, no masses Extremities: No clubbing, cyanosis, or edema. Neuro: Alert and oriented x 3, cranial nerves intact Current Medications: Current Medications Sig/Wei Start time Last Medication Dose Route Stop Time Status Admin Acetaminophen 650 MG Q6P PRN 10/20 0145 AC 10/21 PO 1839 Albuterol Sulfate 3 ML EVERY 4 HRS/AWAKE 10/20 0915 AC 11/13 INH 1201 Aspirin 81 MG DAILY 10/24 1000 AC 11/13 PO 0925 Cholecalciferol 1,000 IU DAILY 11/09 1000 AC 11/13 PO 0924 Dextrose 25 GM ONCE ONE 11/12 1715 DC 11/12 IV 11/12 1716 1700 Dextrose 25 GM ONCE ONE 11/12 1600 DC 11/12 IV 11/12 1601 1600 Furosemide 40 MG DAILY 11/09 1130 AC 11/13 PO 0924 Guaifenesin 600 MG Q12 10/20 1000 AC 11/13 PO 0924 Insulin Aspart 0 TIDAC 11/13 0800 AC SC Insulin Aspart 0 TIDAC/HS 11/06 1200 DC 11/12 SC 1201 Insulin Detemir 20 UNITS QPM 11/13 2200 AC SC Insulin Detemir 24 UNITS QPM 11/02 2200 DC 11/12 SC 2122 Levothyroxine Sodium 0.15 MG DAILY AC 10/20 0700 AC 11/13 PO 0618 Lisinopril 5 MG DAILY 11/13 1000 AC 11/13 PO 0925 Lisinopril 10 MG DAILY 11/02 1024 DC 11/12 PO 1149 Magnesium Oxide 400 MG ONE ONE 11/12 1415 DC 11/12 PO 11/12 1416 1756 Melatonin 5 MG AT BEDTIME 10/24 2200 AC 11/12 PO 2122 Methylprednisolone 30 MG BID 11/06 2200 AC 11/13 IV 0924 Metoprolol Tartrate 12.5 MG BID 11/01 1046 AC 11/13 PO 0924 Omeprazole 20 MG DAILY AC 10/25 0700 AC 11/13 PO 0618 Polyethylene Glycol 17 GM DAILY NEEDED PRN 11/07 0000 AC 11/07 PO 1031 Senna/Docusate Sodium 1 TAB Q12P PRN 11/06 2345 AC 11/07 PO 2047 Sertraline HCl 25 MG DAILY 11/10 1445 AC 11/13 PO 0924 Trimethoprim/ 1 TAB 11/13 1000 AC 11/13 Sulfamethoxazole PO 0925 Results Last 48 Hrs of Labs/Mics: Laboratory Tests 11/13/16 0500: Anion Gap 7, Estimated GFR > 60, Glucose 120 H, Calcium 8.8, Phosphorus 4.9 H, Magnesium 1.9, Total Bilirubin 1.2, AST 20, ALT 41, Albumin 3.1 L, CBC w Diff NO MAN DIFF REQ, RBC 3.01 L, MCV 103.0 H, MCH 33.5 H, RDW 18.6 H, MPV 10.3, Gran % 89.1 H, Lymphocytes % 4.3 L, Monocytes % 2.6, Eosinophils % 2.0, Basophils % 2.0, Absolute Granulocytes 9.2 H, Absolute Lymphocytes 0.4 L, Absolute Monocytes 0.3, Absolute Eosinophils 0.2, Absolute Basophils 0.2, PUBS MCHC 32.5 L 11/12/16 1608: Glucose 45 *L 11/12/16 0500: Anion Gap 10, Estimated GFR 54 L, Glucose 127 H, Calcium 9.2, Phosphorus 4.3, Magnesium 1.9, Total Bilirubin 1.0, AST 13 L, ALT 41, Albumin 3.0 L, CBC w Diff NO MAN DIFF REQ, RBC 2.85 L, MCV 103.1 H, MCH 34.1 H, RDW 18.9 H, MPV 10.0, Gran % 87.7 H, Lymphocytes % 5.6 L, Monocytes % 3.5, Eosinophils % 3.1, Basophils % 0.1, Absolute Granulocytes 9.2 H, Absolute Lymphocytes 0.6 L, Absolute Monocytes 0.4, Absolute Eosinophils 0.3, Absolute Basophils 0, PUBS MCHC 33.1 Assessment/Plan Assessment/Plan Assessment: 1. Community Acquired pneumonia 2. Respiratory failure 3. Gram-negative sepsis 4. Mild troponin elevation, likely secondary to pneumonia and sepsis/demand ischemia 5. Mild left ventricular systolic dysfunction 6. Short runs of nonsustained atrial tachycardia-over the last 24 hours, the patient had one brief run of nonsustained supraventricular tachycardia. No other significant tachycardias detected. 7. Mild acute on Chronic HFrEF Recommendations: -Continue current management as per the medical/ICU team. -Continue current cardiac medications. -Please keep the patient on nuclear monitoring technician for now. -Follow-up labs pending. Continue telemetry? Yes
[2016-11-13 16:00] VITALS: BP 98/60
[2016-11-14] VITALS: BP 110/76
--- NOTE | 2016-11-14 00:21 | NUR ---
AT APPROXIMATELY 0 RT AT BEDSIDE TO TITRATE BIPAP FROM 90% TO 75%; PT C/O "NEEDING MORE AIR" BUT REASSURED THAT O2 SATS WERE OK 90-92%. AT 2129 HR INCREASED TO 130'S AND PT WAS FOUND TO BE IN SVT, NO C/O CP OR PALPITATIONS. JULIA FONSECA MD MADE AWARE AND SAID TO CONTINUE TO MONITOR PT HAD A SIMILAR INCIDENCE THE PREVIOUS NIGHT. HR SUSTAINED 120-140'S FOR THE REMAINDER OF MY SHIFT. REPORT GIVEN TO LISA HER. NO NEW ORDERS AT THIS TIME.
[2016-11-14 05:04] LABS: ABSOLUTE BASOPHIL COUNT 0 /CUMM (0.0-0.2); ABSOLUTE EOSINOPHIL COUNT 0.3 /CUMM (0.0-0.7); ABSOLUTE GRANULOCYTE CT 12.4 /CUMM (1.4-6.5); ABSOLUTE LYMPH COUNT 0.4 /CUMM (1.2-3.4); ABSOLUTE MONOCYTE COUNT 0.3 /CUMM (0.10-0.60); BASOPHIL % 0 % (0.0-2.0); EOSINOPHIL % 2.2 % (0-5); GRANULOCYTE % 93.1 % (42.2-75.2); MEAN CORPUSCULAR HGB 33.4 PG (27.0-31.0); MEAN CORPUSCULAR HGB CONC 32.5 G/DL (33.0-37.0); MEAN CORPUSCULAR VOLUME 102.9 FL (81.0-99.0); MEAN PLATELET VOLUME 9.9 FL (7.4-10.4); PLATELET COUNT 180 /CUMM (130-400); RBC DISTRIBUTION WIDTH 18.9 % (11.5-14.5); RED BLOOD CELL CT 3.01 /CUMM (4.20-5.40); WHITE BLOOD CELL COUNT 13.3 /CUMM (4.8-10.8)
--- NOTE | 2016-11-14 06:43 | PN- Housestaff ---
Subjective Follow-up For: 1. Acute on chronic hypoxic and hypercarbic respiratory failure 2. Sepsis 2/2 UTI with gram negative sepsis - resolved 3. Nephrolithiasis s/p left ureter stent placement 4. End stage COPD Tele-Events Since Last Visit: Atrial fibrillation with RVR HR 110s-130s early this AM but has since returned to NSR. Subjective: Patient seen and examined at bedside this AM. She reported reflux and constipation for which she is requesting laxatives. She is also requesting antiemetic for which we are giving tigan. She appears more lethargic this AM and would like to stay on the BiPAP at she feels tired. Review of Systems Constitutional: Denies: chills, fever. EENTM: Denies: blurred vision, visual changes, hearing changes, nasal congestion. Cardiovascular: Denies: chest pain, palpitations. Respiratory: Denies: cough, wheezing. Gastrointestinal: Reports: see HPI, nausea. Genitourinary: Denies: dysuria. Musculoskeletal: Denies: back pain. Skin: Denies: rash. Neurological/Psychological: Denies: confusion. Hematologic/Endocrine: Denies: bruising, bleeding. Objective Last 24 Hrs of Vital Signs/I&O Vital Signs Date Time Temp Pulse Resp B/P B/P Pulse O2 O2 Flow FiO2 Mean Ox Delivery Rate 11/14 0852 76 90 11/14 0840 90 Nasal 100% Cannula 11/14 0800 90 BIPAP 75% 11/14 0800 98.4 80 20 120/70 90 BIPAP 75% 11/14 0700 130 140/78 11/14 0552 85 91 11/14 0247 76 92 11/14 0057 75 91 11/14 0000 98.6 78 22 110/76 91 BIPAP 75% 11/14 0000 92 BIPAP 75% 11/13 2300 116 91 11/13 2110 77 94 11/13 2000 BIPAP 90% 11/13 1830 97 BIPAP 100% 11/13 1710 88 95 11/13 1709 97.3 78 20 98/60 11/13 1600 93 BIPAP 100% 11/13 1600 97.3 78 20 98/60 93 BIPAP 100% 11/13 1445 80 95 / 1050 82 85 Intake & Output 11/14 1600 11/14 0800 11/14 0000 Intake Total 120 515 Output Total 350 1050 Balance -230 -535 Intake, Oral 120 515 Output, Urine 350 1050 Physical Exam General Appearance: Alert, Oriented X3, Cooperative, No Acute Distress Skin: No Significant Lesion Skin Temp/Moisture Exam: Warm/Dry HEENT: Atraumatic, EOMI Neck: Supple, No JVD Lymphatic: Cervical nl Cardiovascular: Regular Rate, Normal S1, Normal S2 Lungs: Decreased air movement bilateral bases Abdomen: Normal Bowel Sounds, Soft, No Tenderness, No Hepatospenomegaly Neurological: Normal Speech, Normal Tone Extremities: No Clubbing, No Cyanosis Vascular: Pulses Symmetrical Current Medications: Current Medications Sig/Wei Start time Last Medication Dose Route Stop Time Status Admin Acetaminophen 650 MG Q6P PRN 10/20 0145 AC 10/21 PO 1839 Albuterol Sulfate 3 ML EVERY 4 HRS/AWAKE 10/20 0915 AC 11/14 INH 0824 Aspirin 81 MG DAILY 10/24 1000 AC 11/14 PO 0811 Cholecalciferol 1,000 IU DAILY 11/09 1000 AC 11/14 PO 0812 Docusate Sodium 100 MG DAILY NEEDED PRN 11/14 0945 UNVr PO Furosemide 40 MG DAILY 11/09 1130 DC 11/13 PO 0924 Guaifenesin 600 MG Q12 10/20 1000 AC 11/14 PO 0811 Insulin Aspart 0 TIDAC 11/13 0800 AC 11/13 SC 1703 Insulin Detemir 20 UNITS QPM 11/13 2199 AC 11/13 SC 2123 Levothyroxine Sodium 0.15 MG DAILY AC 10/20 0700 AC 11/14 PO 0558 Lisinopril 5 MG DAILY 11/13 1000 DC 11/13 PO 0925 Melatonin 10 MG AT BEDTIME 11/14 2199 UNVr PO Melatonin 5 MG AT BEDTIME 10/24 2200 DC 11/13 PO 2124 Methylprednisolone 30 MG BID 11/06 2199 AC 11/14 IV 0812 Metoprolol Tartrate 12.5 MG BID 11/01 1046 AC 11/14 PO 0700 Omeprazole 20 MG DAILY AC 10/25 07 AC 11/14 PO 0558 Polyethylene Glycol 17 GM DAILY NEEDED PRN 11/07 0000 AC 11/07 PO 1031 Senna/Docusate Sodium 1 TAB Q12P PRN 11/06 2345 AC 11/14 PO 0833 Sertraline HCl 50 MG DAILY 11/14 1000 UNVr PO Sertraline HCl 25 MG DAILY 11/10 1445 DC 11/14 PO 0812 Trimethobenzamide HCl 200 MG ONCE ONE 11/14 0815 DC 11/14 IM 11/14 08 08 Trimethoprim/ 1 TAB 11/13 1000 DC 11/13 Sulfamethoxazole PO 0925 Last 24 Hrs of Lab/Fabian Results Last 24 Hrs of Labs/Mics: Laboratory Tests 11/14/16 0440: Anion Gap 10, Estimated GFR 40 L, Glucose 124 H, Calcium 9.1, Phosphorus 5.2 H, Magnesium 2.1, Total Bilirubin 1.2, AST 14, ALT 38, Albumin 3.3 L, CBC w Diff MAN DIFF ORDERED, RBC 3.01 L, MCV 102.9 H, MCH 33.4 H, RDW 18.9 H, MPV 9.9, Gran % 93.1 H, Lymphocytes % 2.7 L, Monocytes % 2.0, Eosinophils % 2.2, Basophils % 0 L, Absolute Granulocytes 12.4 H, Segmented Neutrophils 86 H, Band Neutrophils 5, Absolute Lymphocytes 0.4 L, Lymphocytes 2 L, Monocytes 5, Absolute Monocytes 0.3, Eosinophils 2, Absolute Eosinophils 0.3, Absolute Basophils 0, Platelet Estimate ADEQUATE, Poikilocytosis 1+, Basophilic Stippling 1+, Anisocytosis 1+, Ovalocytes 1+, PUBS MCHC 32.5 L Assessment/Plan Assessment: Ms. Bajwa is a pleasant 76 year old female with PMH hypertension, hyperlipidemia, COPD on 5 L continuous NC, type 2 diabetes mellitus on insulin, hypothyroidism, stage III B chronic kidney disease, combined systolic and diastolic heart failure, severe pulmonary hypertension, history of kidney stones in the past who presented to the [facility] with shortness of breath on exertion , chills, decreased oral intake, cough minimally productive of sputum and nausea for one day. Patient was admitted to telemetry initally, has received treatment for possible pneumonia and UTI, and was tranferred to the ICU due to decreased oxygen saturation to 85% requiring high flow oxygen and for closer monitoring. Below is the problem list and plan: Respiratory: 1. Acute on chronic hypoxic and hypercarbic respiratory failure * Likely 2/2 combination of COPD, heart failure and sepsis of urological origin * Treated for possible pneumonia with ceftriaxone and doxycycline (allergic to azithromycin) on admission -met criteria for sepsis on admission with possible pulmonary source acording to CXR, required high flow O2 through NC * V/Q scan on 10/27 negative for PE * Continue Mucinex BID, TRC/Nebs * Continue high flow nasal cannula and try to wean BiPAP QHS, currently continues to require high FiO2 75-100% on BiPAP/HFNC, attempting to taper down to maintain sats 87-88% or higher * CT chest previously showed worsened central lobar groundglass opacities that likely represent infectious bronchiolitis, IV azithromycin was started. Patient subsequently desaturated with likely allergic reaction so azithromycin discontinued. * Patient completed 7 days of doxycycline 100 mg PO BID * IV solumedrol 60 mg daily continued * Patient stated on three-days a week double-strength bactrim but this has been discontinued in the setting of hyperkalemia * PO lasix 40 mg daily also discontinued as patient noted to hace worsening renal function * Repeat CXR today * Continue vitamin D daily ID 1. Gram-negative sepsis with pansensitive Escherichia coli due to obstructive uropathy and evidence of an 8 mm stone causing hydronephrosis. RESOLVED. * Urinalysis suggesting UTI and blood culture positive for gram negative rods ( pansensitive ecoli) * Initial CT of [place] and pelvis showed obstructing 8 x 8 mm left ureter stone causing moderate to severe hydroureteronephrosis and left perinephric stranding. * Patient had left ureteral stent placed, tolerated procedure well, will continue follow uro rec's * Repeat CT scan showed interval decompression of left renal collecting system with multiple nonobstructing renal calculi * PO ceftin 14 day course completed * Latest urine culture on 11/04 negative for growth Cardiac 1. Elevated troponins * Elevated troponins in setting of acute hypoxic respiratory failure likely represent demand ischemia, no chest pain reported, have since trended down. * Echo shows EF 40-45%, mild global hypokinesis, right ventricular systolic pressure estimated at 47 mmHg. * Cardiology is following and will continue to follow recs * Continue ASA 81 mg PO daily and lopressor 12.5 mg PO BID, tolerating well * Continue perioperative tech, downgrade to tele. 2. Combined systolic and diastolic CHF * Lasix 40 mg PO daily on hold secondary to renal dysfuntion * Strict Is/Os, daily weights * Follow up with cardiology within 1 week after discharge 3. Episodes of tachycardia, likely atrial fibrillation * Noted episodes of tachycardia to 140s intermittently with irregular rhythm likely atrial fibrillation * Episodes very brief, likely secondary to hypoxia/stress * No need to anticoagulate per cardio as she is guiac + * May give additional dose of home metoprol to maintain adequate HR 4. HTN * DC lisinopril today due to hyperkalemia/renal dysfunction, restart once normalized Heme 1. Chronic macrocytic anemia * Likely 2/2 CKD * Folate within normal limits and B12 is elevated * Patient with Guiac (+) stool, no pharm dvtp * Follow up daily CBC Metabolic 1. EVANS on CKD * Possibly secondary to initial sepsis with superimposed hydronephrosis * Avoid nephrotoxins * DC lisinopril * ICU bundle daily to monitor BUN/cre 2. Hyperkalemia, IMPROVED * Likely secondary to acute on chronic kidney injury along with lisinopril/ bactrim use * Follow up repeat labs daily 3. Diabetes mellitus * Accuchecks TIDACHS * Continue NSS to high dose and bedtime NSS * Will likely decrease scale as we titrate down steroids * Levemir decreased to 18 U SC QPM 4. Hypothyroidism * Continue synthroid 0.15 mg PO daily AC Neuro 1. Depressive disorder due to another medical condition * Psych consult appreciated, continue to follow recommendations * Increased sertraline to 50 mg PO daily today * Increased melatonin to 10 mg PO daily Other 1. Cystic abnormality abutting distal body of pancreas * Follow up CT scan with pancreatic mass protocol once patient more stable or close follow up after discharge DNR/DNI DVTP: ALPS CC2 diet Mild pain pathway Problem List: 1. Insulin dependent type 2 diabetes mellitus 2. Elevated troponin 3. HFrEF (heart failure with reduced ejection fraction) 4. Acute renal failure superimposed on stage 3 chronic kidney disease 5. UTI (urinary tract infection) 6. Gram negative sepsis 7. Acute and chronic respiratory failure with hypoxia 8. PNA (pneumonia) 9. Hyperkalemia Pain Ratin Pain Location: n/a Pain Goal: Remain pain free Pain Plan: Per pain pathway Tomorrow's Labs & Rationales: CBC (leukocytosis) ICU bundle (hyperkalemia, renal dysfunction)
--- NOTE | 2016-11-14 06:50 | NUR ---
PT WAS IN AFIB AT 2300 W/ HR IN THE 130S. WENT BACK DOWN TO 70S AT 0000, STILL IRREGULAR. MD SUTTON AWARE. HEART RATE ELEVATED AT 0600 AGAIN. PT ASYMPTOMATIC EKG ORDERED AND COMPLETED. WILL CONTINUE TO MONITOR.
[2016-11-14 08:00] VITALS: BP 120/70
--- NOTE | 2016-11-14 09:31 | PN- Pulmonary ---
Subjective HPI/Critical Care Issues: Patient seen and examined at bedside this AM. She reported reflux and constipation for which she is requesting laxatives. She is also requesting antiemetic for which we are giving tigan. She appears more lethargic this AM and would like to stay on the BiPAP at she feels tired. Objective Current Medications: Current Medications Sig/Wei Start time Last Medication Dose Route Stop Time Status Admin Acetaminophen 650 MG Q6P PRN 10/20 0145 AC 10/21 PO 1839 Albuterol Sulfate 3 ML EVERY 4 HRS/AWAKE 10/20 0915 AC 11/14 INH 0824 Aspirin 81 MG DAILY 10/24 1000 AC 11/14 PO 0811 Cholecalciferol 1,000 IU DAILY 11/09 1000 AC 11/14 PO 0812 Furosemide 40 MG DAILY 11/09 1130 DC 11/13 PO 0924 Guaifenesin 600 MG Q12 10/20 1000 AC 11/14 PO 0811 Insulin Aspart 0 TIDAC 11/13 0800 AC 11/13 SC 1703 Insulin Detemir 20 UNITS QPM 11/13 2200 AC 11/13 SC 2123 Levothyroxine Sodium 0.15 MG DAILY AC 10/20 0700 AC 11/14 PO 0558 Lisinopril 5 MG DAILY 11/13 1000 DC 11/13 PO 0925 Melatonin 5 MG AT BEDTIME 10/24 2200 AC 11/13 PO 2124 Methylprednisolone 30 MG BID 11/06 2200 AC 11/14 IV 0812 Metoprolol Tartrate 12.5 MG BID 11/01 1046 AC 11/14 PO 0700 Omeprazole 20 MG DAILY AC 10/25 0700 AC 11/14 PO 0558 Polyethylene Glycol 17 GM DAILY NEEDED PRN 11/07 0000 AC 11/07 PO 1031 Senna/Docusate Sodium 1 TAB Q12P PRN 11/06 2345 AC 11/14 PO 0833 Sertraline HCl 25 MG DAILY 11/10 1445 AC 11/14 PO 0812 Trimethobenzamide HCl 200 MG ONCE ONE 11/14 0815 DC 11/14 IM 11/14 0816 0824 Trimethoprim/ 1 TAB SUNDAY WED MONDAY 11/13 1000 DC 11/13 Sulfamethoxazole PO 0925 Laboratory Tests 11/14 11/13 0440 0500 Chemistry Sodium (137 - 145 mmol/L) 142 141 Potassium (3.5 - 5.1 mmol/L) 5.3 H 5.3 H Chloride (98 - 107 mmol/L) 96 L 99 Carbon Dioxide (22 - 30 mmol/L) 35 H 34 H Anion Gap (5 - 16) 10 7 BUN (7 - 17 mg/dL) 88 H 87 H Creatinine (0.5 - 1.0 mg/dL) 1.3 H 0.8 Estimated GFR (>60 ml/min) 40 L > 60 Glucose (65 - 99 mg/dL) 124 H 120 H Calcium (8.4 - 10.2 mg/dL) 9.1 8.8 Phosphorus (2.5 - 4.5 mg/dL) 5.2 H 4.9 H Magnesium (1.6 - 2.3 mg/dL) 2.1 1.9 Total Bilirubin (0.2 - 1.3 mg/dL) 1.2 1.2 AST (14 - 36 U/L) 14 20 ALT (9 - 52 U/L) 38 41 Albumin (3.5 - 5.0 g/dL) 3.3 L 3.1 L Hematology CBC w Diff MAN DIFF ORDERED NO MAN DIFF REQ WBC (4.8 - 10.8 /CUMM) 13.3 H 10.3 RBC (4.20 - 5.40 /CUMM) 3.01 L 3.01 L Hgb (12.0 - 16.0 G/DL) 10.1 L 10.1 L Hct (37 - 47 %) 31.0 L 31.0 L MCV (81.0 - 99.0 FL) 102.9 H 103.0 H MCH (27.0 - 31.0 PG) 33.4 H 33.5 H RDW (11.5 - 14.5 %) 18.9 H 18.6 H Plt Count (130 - 400 /CUMM) 180 173 MPV (7.4 - 10.4 FL) 9.9 10.3 Gran % (42.2 - 75.2 %) 93.1 H 89.1 H Lymphocytes % (20.5 - 51.1 %) 2.7 L 4.3 L Monocytes % (1.7 - 9.3 %) 2.0 2.6 Eosinophils % (0 - 5 %) 2.2 2.0 Basophils % (0.0 - 2.0 %) 0 L 2.0 Absolute Granulocytes (1.4 - 6.5 /CUMM) 12.4 H 9.2 H Segmented Neutrophils (42.2 - 75.2 %) 86 H Band Neutrophils (0.0 - 5.0 %) 5 Absolute Lymphocytes (1.2 - 3.4 /CUMM) 0.4 L 0.4 L Lymphocytes (20.5 - 51.1 %) 2 L Monocytes (1.7 - 9.3 %) 5 Absolute Monocytes (0.10 - 0.60 /CUMM) 0.3 0.3 Eosinophils (0 - 5.0 %) 2 Absolute Eosinophils (0.0 - 0.7 /CUMM) 0.3 0.2 Absolute Basophils (0.0 - 0.2 /CUMM) 0 0.2 Platelet Estimate (ADEQUATE) ADEQUATE Poikilocytosis 1+ Basophilic Stippling 1+ Anisocytosis 1+ Ovalocytes 1+ PUBS MCHC (33.0 - 37.0 G/DL) 32.5 L 32.5 L 11/12 1608 Chemistry Glucose (65 - 99 mg/dL) 45 *L Vital Signs & I&O Last 24 Hrs of Vitals and I&O: Vital Signs Date Time Temp Pulse Resp B/P B/P Pulse O2 O2 Flow FiO2 Mean Ox Delivery Rate 11/14 0852 76 90 05 0800 98.4 80 20 120/70 90 BIPAP 75% 11/14 0700 130 140/78 11/14 0552 85 91 11/14 0247 76 92 11/14 0057 75 91 05/ 0000 98.6 78 22 110/76 91 BIPAP 75% 11/14 0000 92 BIPAP 75% 11/13 2300 116 91 11/13 2110 77 94 11/13 2000 BIPAP 90% 11/13 1830 97 BIPAP 100% 11/13 1710 88 95 11/13 1709 97.3 78 20 98/60 11/13 1600 93 BIPAP 100% 11/13 1600 97.3 78 20 98/60 93 BIPAP 100% 11/13 1445 80 95 11/13 1050 82 85 05/ 0925 96.8 77 16 108/60 05/ 0924 96.8 77 16 108/60 Intake & Output / 1600 0530 0800 05 0000 Intake Total 120 515 Output Total 350 1050 Balance -230 -535 Intake, Oral 120 515 Output, Urine 350 1050 Impression/Plan Impression/Plan Impression/Plan: Varinder eomi neck supple Chest showed crackles Heart S1-S2 was heard Abdominal exam normal trace 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 Now on steroids with sig bronchiolitis by ct * REsolved Significant gram-negative sepsis pansensensitive ecoli, due to 8 mm stone with obstructive uropathy with hydronephrosis, causing sepsis S/P Stent * Improving Chronic kidney disease with acute kidney injury upon admission which is slowly improving * Significantly elevated proBNP with low ejection fraction upon admission * Chronic anemia patient has been on epo before, now with thrombocytopenia due to sepsis and pt does have macrocytosis and need to rule out myelodysplasia in the future * Heme positive stool with chronic anemia * Myelodysplasia and MGUS with Splenomegaly, 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 * Previous mediastinal lymphadenopathy which needs follow-up * Elevated troponin upon admission * Hypothyroid on supp * Mild depression RECOMMENDATION * COnt high flow, and reduce fio2 bedtime BiPAP * Follow sugars, cover with sliding scale insulin only if needed, cont long acting insulin, reduce the dose again if the patient is not eating * DC lisinopril, bactrim and lasix for now * agg bowel regimen * po ppi * Venodyne boots as she has hemepositive stool * OOB to chair * Steroid to 60 mg daily * vit d 1000 units daily Rpt cxr Pts prog poor She wishes to continue conservative care for now IF worse she is willing to consider further more conservative options
--- NOTE | 2016-11-14 09:32 | PN- Psychiatry ---
Assessment/Plan Impression: Identifying Info: 76-year-old female presents to [facility] on 10/19/2016 with chief complaint of shortness of breath. No known psych hx. Subsequently diagnosed with acute on chronic hypoxic and hypercarbic respiratory failure and sepsis secondary to UTI. Consult requested for depressive symptoms. SUBJECTIVE Patient describes mood as "alright," but later states "I don't feel like I'm getting any better if its my time I just want to ." She denies depression or anxiety but appears quite sad. She does smile when speaking of family and family plans to visit, she states these are very helpful to her mood. She states she is unsure what led to her mood becoming poor again. Is agreeable to an increase in medication. She is agreeable to visit from therapy dog. Brief ROS Gait: Did not observe Sleep: "On and off" Appetite: Poor OBJECTIVE Mental Status Exam Presentation/Appearance: Cooperative with evaluation. Hospital garb. Lying in bed. Orientation: x4 Sensorium: Awake and alert Eye contact: Appropriate Affect: Full range, congruent Mood: "Alright" Depression: Denies Anxiety: Denies Thought Content: - Denies HI, AH/VH, PI. - Endorses passive SI in the context of feeling if she is not going to improve she may as well . No plan, no intent, would like to live. States and also believes they will not kill themselves. - Endorses Hopeless/Helpless Thoughts Thought Process: Linear, goal directed Associations: Appropriate Speech: WNL Judgment: Intact Insight: Intact Cognition: Memory: Grossly intact Attention/Concentration: Grossly intact Fund of Knowledge: Adequate Abstractions: Abstract MMSE: Did not complete ASSESSMENT 76-year-old female endorses depression in the context of chronic and serious medical illness. She has no psychiatric history prior to this. Today she presents as demoralized related to her continued physical illness and wish to a longer be in the hospital. She would benefit from increased antidepressant as well as alternative therapies. Diagnosis Depressive disorder due to another medical condition A total of 30 minutes was spent with the patient with more than 50% of the time spent in counseling and/or coordination of care. Suggestion: 1. We have increased her sertraline dose to 50 mg. 2. We have contacted volunteer services to arrange for visit with therapy animal if appropriate. 3. Consider increasing melatonin to 10 mg at bedtime to improve sleep. Thank you for including psychiatry in this case we'll continue to follow. Subjective Subjective: as above Objective Last 24 Hrs of Vital Signs/I&O Current Medications Sig/Wei Start time Last Medication Dose Route Stop Time Status Admin Acetaminophen 650 MG Q6P PRN 10/20 0145 AC 10/21 PO 1839 Albuterol Sulfate 3 ML EVERY 4 HRS/AWAKE 10/20 0915 AC 11/14 INH 0824 Aspirin 81 MG DAILY 10/24 1000 AC 11/14 PO 0811 Cholecalciferol 1,000 IU DAILY 11/09 1000 AC 11/14 PO 0812 Furosemide 40 MG DAILY 11/09 1130 DC 11/13 PO 0924 Guaifenesin 600 MG Q12 10/20 1000 AC 11/14 PO 0811 Insulin Aspart 0 TIDAC 11/13 0800 AC 11/13 SC 1703 Insulin Detemir 20 UNITS QPM 11/13 2200 AC 11/13 SC 2123 Levothyroxine Sodium 0.15 MG DAILY AC 10/20 0700 AC 11/14 PO 0558 Lisinopril 5 MG DAILY 11/13 1000 DC 11/13 PO 0925 Melatonin 5 MG AT BEDTIME 10/24 2200 AC 11/13 PO 2124 Methylprednisolone 30 MG BID 11/06 2200 AC 11/14 IV 0812 Metoprolol Tartrate 12.5 MG BID 11/01 1046 AC 11/14 PO 0700 Omeprazole 20 MG DAILY AC 10/25 0700 AC 11/14 PO 0558 Polyethylene Glycol 17 GM DAILY NEEDED PRN 11/07 0000 AC 11/07 PO 1031 Senna/Docusate Sodium 1 TAB Q12P PRN 11/06 2345 AC 11/14 PO 0833 Sertraline HCl 50 MG DAILY 11/14 1000 UNVr PO Sertraline HCl 25 MG DAILY 11/10 1445 DC 11/14 PO 0812 Trimethobenzamide HCl 200 MG ONCE ONE 11/15 0715 DC 11/14 IM 11/14 08 0824 Trimethoprim/ 1 TAB SUNDAY WED MONDAY 11/13 1000 DC 11/13 Sulfamethoxazole PO 0925 Laboratory Tests 11/14/16 0440: Anion Gap 10, Estimated GFR 40 L, Glucose 124 H, Calcium 9.1, Phosphorus 5.2 H, Magnesium 2.1, Total Bilirubin 1.2, AST 14, ALT 38, Albumin 3.3 L, CBC w Diff MAN DIFF ORDERED, RBC 3.01 L, MCV 102.9 H, MCH 33.4 H, RDW 18.9 H, MPV 9.9, Gran % 93.1 H, Lymphocytes % 2.7 L, Monocytes % 2.0, Eosinophils % 2.2, Basophils % 0 L, Absolute Granulocytes 12.4 H, Segmented Neutrophils 86 H, Band Neutrophils 5, Absolute Lymphocytes 0.4 L, Lymphocytes 2 L, Monocytes 5, Absolute Monocytes 0.3, Eosinophils 2, Absolute Eosinophils 0.3, Absolute Basophils 0, Platelet Estimate ADEQUATE, Poikilocytosis 1+, Basophilic Stippling 1+, Anisocytosis 1+, Ovalocytes 1+, PUBS MCHC 32.5 L Vital Signs Date Time Temp Pulse Resp B/P B/P Pulse O2 O2 Flow FiO2 Mean Ox Delivery Rate 11/14 0852 76 90 11/14 0840 90 Nasal 100% Cannula 11/14 0800 90 BIPAP 75% 11/14 0800 98.4 80 20 120/70 90 BIPAP 75% 11/14 0700 130 140/78 11/14 0552 85 91 11/14 0247 76 92 11/14 0057 75 91 11/14 0000 98.6 78 22 110/76 91 BIPAP 75% 11/14 0000 92 BIPAP 75% 11/13 2300 116 91 11/13 2110 77 94 11/13 2000 BIPAP 90% 11/13 1830 97 BIPAP 100% 11/13 1710 88 95 11/13 1709 97.3 78 20 98/60 11/13 1600 93 BIPAP 100% 11/13 1600 97.3 78 20 98/60 93 BIPAP 100% 11/13 1445 80 95 11/13 1050 82 85 Intake & Output 11/14 1600 11/14 0800 11/14 0000 Intake Total 120 515 Output Total 350 1050 Balance -230 -535 Intake, Oral 120 515 Output, Urine 350 1050
--- NOTE | 2016-11-14 13:21 | PN- Cardiology ---
Subjective Subjective: The patient continues to be on BiPAP for respiratory failure. She complains of nausea. No chest pain. No palpitations. Objective Vital Signs and I&Os Vital Signs Date Time Temp Pulse Resp B/P B/P Pulse O2 O2 Flow FiO2 Mean Ox Delivery Rate 11/14 1200 68 91 11/14 0852 76 90 11/14 0840 90 Nasal 100% Cannula 11/14 0800 90 BIPAP 75% 11/14 0800 98.4 80 20 120/70 90 BIPAP 75% 11/14 0700 130 140/78 11/14 0552 85 91 11/14 0247 76 92 11/14 0057 75 91 11/14 0000 98.6 78 22 110/76 91 BIPAP 75% 11/14 0000 92 BIPAP 75% 11/13 2300 116 91 11/13 2110 77 94 11/13 2000 BIPAP 90% 11/13 1830 97 BIPAP 100% 11/13 1710 88 95 11/13 1709 97.3 78 20 98/60 11/13 1600 93 BIPAP 100% 11/13 1600 97.3 78 20 98/60 93 BIPAP 100% 11/13 1445 80 95 Intake & Output 11/14 1600 11/14 0800 11/14 0000 11/13 1600 11/13 0800 11/13 0000 Intake Total 120 515 500 480 480 Output Total 350 1050 700 900 450 Balance -230 -535 -200 -420 30 Intake, Oral 120 515 500 480 480 Number 1 Bowel Movements Output, Urine 350 1050 700 900 450 Physical Exam: Gen: NAD HEENT: normal Lungs: Decreased air movement, scattered rhonchi, normal resp. effort Heart: RRR, S1, S2, no murmurs Abdomen: Soft, nontender, no masses Extremities: No clubbing, cyanosis, or edema. Neuro: Alert and oriented x 3, cranial nerves intact Current Medications: Current Medications Sig/Wei Start time Last Medication Dose Route Stop Time Status Admin Acetaminophen 650 MG Q6P PRN 10/20 0145 AC 10/21 PO 1839 Albuterol Sulfate 3 ML EVERY 4 HRS/AWAKE 10/20 0915 AC 11/14 INH 1220 Aspirin 81 MG DAILY 10/24 1000 AC 11/14 PO 0811 Cholecalciferol 1,000 IU DAILY 11/09 1000 AC 11/14 PO 0812 Docusate Sodium 100 MG DAILY NEEDED PRN 11/14 0945 AC PO Furosemide 40 MG DAILY 11/09 1130 DC 11/13 PO 0924 Guaifenesin 600 MG Q12 10/20 1000 AC 11/14 PO 0811 Insulin Aspart 0 TIDAC 11/13 0800 AC 11/13 SC 1703 Insulin Detemir 18 UNITS QPM 11/14 2200 AC SC Insulin Detemir 20 UNITS QPM 11/13 2200 DC 11/13 SC 2123 Levothyroxine Sodium 0.15 MG DAILY AC 10/20 0700 AC 11/14 PO 0558 Lisinopril 5 MG DAILY 11/13 1000 DC 11/13 PO 0925 Melatonin 10 MG AT BEDTIME 11/14 2199 AC PO Melatonin 5 MG AT BEDTIME 10/24 2200 DC 11/13 PO 2124 Methylprednisolone 30 MG BID 11/06 220 AC 11/14 IV 0812 Metoprolol Tartrate 12.5 MG BID 11/01 1046 AC 11/14 PO 0700 Omeprazole 20 MG DAILY AC 10/25 0700 AC 11/14 PO 0558 Polyethylene Glycol 17 GM DAILY NEEDED PRN 11/07 0000 AC 11/07 PO 1031 Senna/Docusate Sodium 1 TAB Q12P PRN 11/06 2345 AC 11/14 PO 0833 Sertraline HCl 50 MG DAILY 11/14 1000 AC 11/14 PO 1053 Sertraline HCl 25 MG DAILY 11/10 1445 DC 11/14 PO 0812 Trimethobenzamide HCl 200 MG ONCE ONE 11/14 0815 DC 11/14 IM 11/14 0816 0824 Trimethoprim/ 1 TAB 11/13 1000 DC 11/13 Sulfamethoxazole PO 0925 Results Last 48 Hrs of Labs/Mics: Laboratory Tests 11/14/16 0440: Anion Gap 10, Estimated GFR 40 L, Glucose 124 H, Calcium 9.1, Phosphorus 5.2 H, Magnesium 2.1, Total Bilirubin 1.2, AST 14, ALT 38, Albumin 3.3 L, CBC w Diff MAN DIFF ORDERED, RBC 3.01 L, MCV 102.9 H, MCH 33.4 H, RDW 18.9 H, MPV 9.9, Gran % 93.1 H, Lymphocytes % 2.7 L, Monocytes % 2.0, Eosinophils % 2.2, Basophils % 0 L, Absolute Granulocytes 12.4 H, Segmented Neutrophils 86 H, Band Neutrophils 5, Absolute Lymphocytes 0.4 L, Lymphocytes 2 L, Monocytes 5, Absolute Monocytes 0.3, Eosinophils 2, Absolute Eosinophils 0.3, Absolute Basophils 0, Platelet Estimate ADEQUATE, Poikilocytosis 1+, Basophilic Stippling 1+, Anisocytosis 1+, Ovalocytes 1+, PUBS MCHC 32.5 L 11/13/16 0500: Anion Gap 7, Estimated GFR > 60, Glucose 120 H, Calcium 8.8, Phosphorus 4.9 H, Magnesium 1.9, Total Bilirubin 1.2, AST 20, ALT 41, Albumin 3.1 L, CBC w Diff NO MAN DIFF REQ, RBC 3.01 L, MCV 103.0 H, MCH 33.5 H, RDW 18.6 H, MPV 10.3, Gran % 89.1 H, Lymphocytes % 4.3 L, Monocytes % 2.6, Eosinophils % 2.0, Basophils % 2.0, Absolute Granulocytes 9.2 H, Absolute Lymphocytes 0.4 L, Absolute Monocytes 0.3, Absolute Eosinophils 0.2, Absolute Basophils 0.2, PUBS MCHC 32.5 L 11/12/16 1608: Glucose 45 *L Recent Imaging Studies: Chest x-ray: 1. Pulmonary emphysema. 2. Cardiomegaly without acute pulmonary edema or other significant interval change compared to the radiograph from 11/05/2016. Assessment/Plan Assessment/Plan 1. Community-acquired pneumonia 2. Respiratory failure 3. Gram-negative sepsis 4. Mild troponin elevation, likely secondary to pneumonia and sepsis 5. Mild left ventricular systolic dysfunction 6. Short runs of nonsustained atrial tachycardia 7. Chronic HFrEF, with mild acute exacerbation, improved 8. Chronic kidney disease, improved Plan: * Continue current cardiac medications. * MKonitor for further arrhythmias Continue telemetry? Yes
--- NOTE | 2016-11-14 14:40 | Event Note ---
Event Note Event Note: Patient noted to be irregular and tachycardic to the 140s. Dr. Katerina MD notified and evaluated surveillance system monitor. Suggested giving a one time dose of additional 12.5 mg PO metoprolol and increasing her BID dosing of metoprolol to 25 mg daily. If patient does not improve with the additional 12.5 mg PO metoprolol, he suggested giving 5 mg IV cardizem.
--- NOTE | 2016-11-14 15:01 | RADIOLOGY REPORT ---
EXAMINATION: XR PORTABLE CHEST CLINICAL INFORMATION: Severe COPD. Persistent high FiO2 requirements. COMPARISON: Several prior chest x-rays, most recent of which is dated 11/10/2016. TECHNIQUE: Portable frontal view of the chest was obtained. FINDINGS: The cardiomediastinal silhouette is within normal limits in size. Calcification of the aortic arch is seen. Lungs are hyperinflated, consistent with obstructive lung disease. There is increased opacity seen medially within the right mid and lower lung, slightly progressive when compared to the prior study from 11/10/2016 but similar to 10/30/2016. No other focal opacity is noted. There is some artifactual blunting of the CP angles, related to technical factors. No significant pleural effusion is seen. No pneumothorax is noted. Degenerative changes are noted in the shoulder joints bilaterally and in the mid and lower thoracic spine. IMPRESSION: Obstructive lung disease with persistent increased opacity in the right mid and lower lung, likely related to subsegmental atelectasis. Clinical correlation and follow-up chest x-ray is recommended. No significant evolving pneumonia or pneumothorax or effusion.
[2016-11-14 16:00] VITALS: BP 126/76
[2016-11-15] VITALS: BP 120/60
--- NOTE | 2016-11-15 02:00 | NUR ---
PT WAS WEANED BY RT DOWN TO 70% BIPAP WITH O2 SATS IN THE 90S. THEN WHILE SLEEPING PT WAS NOTED TO BE DESATTING TO 79% O2. RT INCREASED BIPAP BACK TO 100% FIO2. PT'S O2 SATS INCREASING TO THE 80S. PT DENIED ANY SOB. WILL CONTINUE TO MONITOR.
[2016-11-15 06:16] LABS: ABSOLUTE BASOPHIL COUNT 0 /CUMM (0.0-0.2); ABSOLUTE EOSINOPHIL COUNT 0.2 /CUMM (0.0-0.7); ABSOLUTE GRANULOCYTE CT 13.2 /CUMM (1.4-6.5); ABSOLUTE LYMPH COUNT 0.3 /CUMM (1.2-3.4); ABSOLUTE MONOCYTE COUNT 0.2 /CUMM (0.10-0.60); BASOPHIL % 0 % (0.0-2.0); EOSINOPHIL % 1.4 % (0-5); GRANULOCYTE % 95.3 % (42.2-75.2); HEMATOCRIT 30.1 % (37-47); MEAN CORPUSCULAR HGB 33.6 PG (27.0-31.0); MEAN CORPUSCULAR HGB CONC 32.6 G/DL (33.0-37.0); MEAN CORPUSCULAR VOLUME 103.2 FL (81.0-99.0); MEAN PLATELET VOLUME 10.1 FL (7.4-10.4); PLATELET COUNT 172 /CUMM (130-400); RBC DISTRIBUTION WIDTH 18.9 % (11.5-14.5); RED BLOOD CELL CT 2.92 /CUMM (4.20-5.40); WHITE BLOOD CELL COUNT 13.8 /CUMM (4.8-10.8)
--- NOTE | 2016-11-15 07:00 | PN- Housestaff ---
Subjective Follow-up For: 1. Acute on chronic hypoxic and hypercarbic respiratory failure 2. Sepsis 2/2 UTI with gram negative sepsis - resolved 3. Nephrolithiasis s/p left ureter stent placement 4. End stage COPD Complaints: no complaints Tele-Events Since Last Visit: Short runs of atrial tachycardia to HR 150s, otherwise NSR with appropriate HR. Subjective: Patient seen and examined at bedside this AM. She was laying comfortably in bed on BiPAP saturating >95%. She requested the fan be turned on as she was slightly warm and she endorses occasional nausea that has been occuring for little more than 24 hours now. Tigan was administered as well as reglan and she reports both helped. Otherwise, she offers no complaints. Review of Systems Constitutional: Denies: chills, fever. EENTM: Denies: blurred vision, visual changes, hearing changes. Cardiovascular: Denies: chest pain. Respiratory: Denies: cough, short of breath. Gastrointestinal: Reports: nausea. Denies: abdominal pain, vomiting. Genitourinary: Denies: dysuria, frequency. Musculoskeletal: Denies: back pain. Skin: Denies: rash. Neurological/Psychological: Denies: confusion. Hematologic/Endocrine: Denies: bruising, bleeding. Objective Last 24 Hrs of Vital Signs/I&O Vital Signs Date Time Temp Pulse Resp B/P B/P Pulse O2 O2 Flow FiO2 Mean Ox Delivery Rate 11/15 08 92 BIPAP 100% 11/15 0800 98.1 66 20 116/70 92 BIPAP 100% 11/15 0547 85 85 11/15 0320 78 82 11/15 0039 74 82 11/15 0036 76 77 11/15 0000 79 BIPAP 70% 11/15 0000 97.8 80 24 120/60 79 BIPAP 70% 11/14 2255 83 142/80 11/14 2230 92 96 11/14 1915 80 94 11/14 1655 83 90 11/14 1655 90 BIPAP 100% 11/14 1600 97.3 79 21 126/76 96 BIPAP 11/14 1600 96 BIPAP 100% 11/14 1438 144 120/70 05/ 1200 68 91 / 0852 76 90 11/14 0840 90 Nasal 100% Cannula Intake & Output 11/15 1600 11/15 0800 11/15 0000 Intake Total 480 480 Output Total 650 920 Balance -170 -440 Intake, Oral 480 480 Number 1 1 Bowel Movements Output, Urine 650 920 Physical Exam General Appearance: Alert, Oriented X3, Cooperative, No Acute Distress Skin: No Significant Lesion Skin Temp/Moisture Exam: Warm/Dry HEENT: Atraumatic, PERRLA, EOMI, Mucous Membr. moist/pink Neck: Supple, No JVD Lymphatic: Cervical nl Cardiovascular: Regular Rate, Normal S1, Normal S2 Lungs: Decreased air movement bilateral bases, occasional wheeze right lung field Abdomen: Normal Bowel Sounds, Soft, No Tenderness Neurological: Normal Speech, Normal Tone Extremities: No Clubbing, No Cyanosis, No Edema, No Tenderness/Swelling Current Medications: Current Medications Sig/Wei Start time Last Medication Dose Route Stop Time Status Admin Acetaminophen 650 MG Q6P PRN 10/20 0145 AC 10/21 PO 1839 Albuterol Sulfate 3 ML EVERY 4 HRS/AWAKE 10/20 0915 AC 11/15 INH 0843 Aspirin 81 MG DAILY 10/24 1000 AC 11/14 PO 0811 Cholecalciferol 1,000 IU DAILY 11/09 1000 AC 11/14 PO 0812 Docusate Sodium 100 MG DAILY NEEDED PRN 11/14 0945 AC PO Guaifenesin 600 MG Q12 10/20 1000 AC 11/14 PO 2254 Insulin Aspart 0 TIDAC 11/13 0800 AC 11/13 SC 1703 Insulin Detemir 18 UNITS QPM 11/14 220 AC 11/14 SC 2254 Insulin Detemir 20 UNITS QPM 11/13 220 DC 11/13 SC 2123 Levothyroxine Sodium 0.15 MG DAILY AC 10/20 0700 AC 11/15 PO 0621 Melatonin 10 MG AT BEDTIME 11/14 2199 AC 11/14 PO 2253 Melatonin 5 MG AT BEDTIME 10/24 2200 DC 11/13 PO 2124 Methylprednisolone 30 MG BID 11/06 220 AC 11/14 IV 2253 Metoclopramide HCl 10 MG ONCE ONE 11/14 223 DC 11/14 IV 11/14 2231 2222 Metoprolol Tartrate 25 MG BID 11/14 220 AC 11/14 PO 2255 Metoprolol Tartrate 12.5 MG ONCE ONE 11/14 1445 DC 11/14 PO 11/14 1446 1438 Metoprolol Tartrate 12.5 MG BID 11/01 1046 DC 11/14 PO 0700 Omeprazole 20 MG DAILY AC 10/25 0700 AC 11/15 PO 0621 Ondansetron HCl 4 MG Q6P PRN 11/14 2114 CAN IV Polyethylene Glycol 17 GM DAILY NEEDED PRN 11/07 0000 AC 11/07 PO 1031 Senna/Docusate Sodium 1 TAB Q12P PRN 11/06 2345 AC 11/14 PO 0833 Sertraline HCl 50 MG DAILY 11/14 1000 AC 11/14 PO 1053 Sertraline HCl 25 MG DAILY 11/10 1445 DC 11/14 PO 0812 Sodium Polystyrene 60 ML ONCE ONE 11/15 0715 DC Sulfonate PO 11/15 0716 Trimethobenzamide HCl 200 MG 4 TIMES/DAY PRN 11/14 2114 AC 11/14 IM 2114 Last 24 Hrs of Lab/Fabian Results Last 24 Hrs of Labs/Mics: Laboratory Tests 11/15/16 0555: Anion Gap 10, Estimated GFR 31 L, Glucose 207 H, Calcium 8.7, Phosphorus 6.1 H, Magnesium 2.2, Total Bilirubin 1.3, AST 19, ALT 32, Albumin 3.1 L, CBC w Diff NO MAN DIFF REQ, RBC 2.92 L, MCV 103.2 H, MCH 33.6 H, RDW 18.9 H, MPV 10.1, Gran % 95.3 H, Lymphocytes % 2.2 L, Monocytes % 1.1 L, Eosinophils % 1.4, Basophils % 0 L, Absolute Granulocytes 13.2 H, Absolute Lymphocytes 0.3 L, Absolute Monocytes 0.2, Absolute Eosinophils 0.2, Absolute Basophils 0, PUBS MCHC 32.6 L Orders Radiology Findings: 11/14/16 CXR: IMPRESSION: Obstructive lung disease with persistent increased opacity in the right mid and lower lung, likely related to subsegmental atelectasis. Clinical correlation and follow-up chest x-ray is recommended. No significant evolving pneumonia or pneumothorax or effusion. Assessment/Plan Assessment: Ms. Bajwa is a pleasant 76 year old female with PMH hypertension, hyperlipidemia, COPD on 5 L continuous NC, type 2 diabetes mellitus on insulin, hypothyroidism, stage III B chronic kidney disease, combined systolic and diastolic heart failure, severe pulmonary hypertension, history of kidney stones in the past who presented to the [place] ED with shortness of breath on exertion , chills, decreased oral intake, cough minimally productive of sputum and nausea for one day. Patient was admitted to telemetry initally, has received treatment for possible pneumonia and UTI, and was tranferred to the ICU due to decreased oxygen saturation to 85% requiring high flow oxygen and for closer monitoring. Below is the problem list and plan: Respiratory: 1. Acute on chronic hypoxic and hypercarbic respiratory failure * Likely 2/2 combination of COPD, heart failure and sepsis of urological origin * Treated for possible pneumonia with ceftriaxone and doxycycline (allergic to azithromycin) on admission -met criteria for sepsis on admission with possible pulmonary source acording to CXR, required high flow O2 through NC * V/Q scan on 10/27 negative for PE * Continue Mucinex BID, TRC/Nebs * Continue high flow nasal cannula and try to wean BiPAP QHS, currently continues to require high FiO2 70-100% on BiPAP/HFNC, attempting to taper down to maintain sats 87-88% or higher * CT chest previously showed worsened central lobar groundglass opacities that likely represent infectious bronchiolitis, IV azithromycin was started. Patient subsequently desaturated with likely allergic reaction so azithromycin discontinued. * Patient completed 7 days of doxycycline 100 mg PO BID * IV solumedrol 60 mg daily continued * Patient started on three-days a week double-strength bactrim but this has been held in the setting of hyperkalemia; she has been given kayexalate for this elevated K * PO lasix 40 mg daily also discontinued as patient noted to have worsening renal function * Repeat CXR yesterday showed worsening opacity in the right middle/lower lung likely representing atelectasis ID 1. Gram-negative sepsis with pansensitive Escherichia coli due to obstructive uropathy and evidence of an 8 mm stone causing hydronephrosis. RESOLVED. * Urinalysis suggesting UTI and blood culture positive for gram negative rods ( pansensitive ecoli) * Initial CT of [place] and pelvis showed obstructing 8 x 8 mm left ureter stone causing moderate to severe hydroureteronephrosis and left perinephric stranding. * Patient had left ureteral stent placed, tolerated procedure well, will continue follow uro rec's * Repeat CT scan showed interval decompression of left renal collecting system with multiple nonobstructing renal calculi * PO ceftin 14 day course completed * Latest urine culture on 11/04 negative for growth Cardiac 1. Elevated troponins * Elevated troponins in setting of acute hypoxic respiratory failure likely represent demand ischemia, no chest pain reported, have since trended down. * Echo shows EF 40-45%, mild global hypokinesis, right ventricular systolic pressure estimated at 47 mmHg. * Cardiology is following and will continue to follow recs * Continue ASA 81 mg PO daily and lopressor increased to 25 mg PO BID, tolerating well * Continue nailing machine feeder, downgrade to tele. 2. Combined systolic and diastolic CHF * Lasix 40 mg PO daily continued to be on hold secondary to renal dysfuntion * Strict Is/Os, daily weights * Follow up with cardiology within 1 week after discharge 3. Episodes of tachycardia, likely atrial fibrillation * Noted episodes of tachycardia to 140s intermittently (likely atrial tachycardia) * Episodes very brief, likely secondary to hypoxia/stress * No need to anticoagulate per cardio as she is guiac + * Increased metoprolol to 25 mg PO BID yesterday per cardio recommendations for nonsustained tachycardia 4. HTN * DC lisinopril yesterday due to hyperkalemia/renal dysfunction, restart once normalized Heme 1. Chronic macrocytic anemia * Likely 2/2 CKD * Folate within normal limits and B12 is elevated * Patient with Guiac (+) stool, no pharm dvtp * Follow up daily CBC Metabolic 1. EVANS on CKD * Possibly secondary to initial sepsis with superimposed hydronephrosis * Avoid nephrotoxins * Hold lisinopril * ICU bundle daily to monitor BUN/cre 2. Hyperkalemia * Likely secondary to acute on chronic kidney injury along with lisinopril/ bactrim use * Patient s/p kayexalate today, once patient has BM will obtain follow up K level * Continue to hold bactrim/lisinopril * Follow up repeat labs daily 3. Diabetes mellitus * Accuchecks TIDACHS * Continue NSS to high dose and bedtime NSS * Will likely decrease scale as we titrate down steroids * Levemir decreased to 18 U SC QPM yesterday 4. Hypothyroidism * Continue synthroid 0.15 mg PO daily AC Neuro 1. Depressive disorder due to another medical condition * Psych consult appreciated, continue to follow recommendations * Continue sertraline to 50 mg PO daily * Continue melatonin to 10 mg PO daily Other 1. Cystic abnormality abutting distal body of pancreas * Follow up CT scan with pancreatic mass protocol once patient more stable or close follow up after discharge DNR/DNI DVTP: ALPS CC2 diet Mild pain pathway Problem List: 1. Insulin dependent type 2 diabetes mellitus 2. Elevated troponin 3. HFrEF (heart failure with reduced ejection fraction) 4. Acute renal failure superimposed on stage 3 chronic kidney disease 5. Gram negative sepsis 6. UTI (urinary tract infection) 7. Acute and chronic respiratory failure with hypoxia 8. PNA (pneumonia) 9. Hyperkalemia Pain Ratin Pain Location: n/a Pain Goal: Remain pain free Pain Plan: Per pain pathway Tomorrow's Labs & Rationales: CBC (leukocytosis, anemia) ICU bundle (hyperkalemia, renal dysfunction)
[2016-11-15 08:00] VITALS: BP 116/70
--- NOTE | 2016-11-15 14:12 | PN- Pulmonary ---
Subjective HPI/Critical Care Issues: Patient seen and examined at bedside this AM. She was laying comfortably in bed on BiPAP saturating >95%. She requested the fan be turned on as she was slightly warm and she endorses occasional nausea that has been occuring for little more than 24 hours now. Tigan was administered as well as reglan and she reports both helped. Otherwise, she offers no complaints. Review of Systems Constitutional: Denies: chills, fever. EENTM: Denies: blurred vision, visual changes, hearing changes. Cardiovascular: Denies: chest pain. Respiratory: Denies: cough, short of breath. Gastrointestinal: Reports: nausea. Denies: abdominal pain, vomiting. Genitourinary: Denies: dysuria, frequency. Musculoskeletal: Denies: back pain. Skin: Denies: rash. Neurological/Psychological: Denies: confusion. Hematologic/Endocrine: Denies: bruising, bleeding. Objective Current Medications: Current Medications Sig/Wei Start time Last Medication Dose Route Stop Time Status Admin Acetaminophen 650 MG Q6P PRN 10/20 0145 AC 10/21 PO 1839 Albuterol Sulfate 3 ML EVERY 4 HRS/AWAKE 10/20 0915 AC 11/15 INH 1217 Aspirin 81 MG DAILY 10/24 1000 AC 11/15 PO 0957 Cholecalciferol 1,000 IU DAILY 11/09 1000 AC 11/15 PO 0957 Docusate Sodium 100 MG DAILY NEEDED PRN 11/14 0945 AC PO Guaifenesin 600 MG Q12 10/20 1000 AC 11/15 PO 0957 Insulin Aspart 0 TIDAC 11/13 0800 AC 11/15 SC 0958 Insulin Detemir 18 UNITS QPM 11/14 2200 AC 11/14 SC 2254 Levothyroxine Sodium 0.15 MG DAILY AC 10/20 0700 AC 11/15 PO 0621 Melatonin 10 MG AT BEDTIME 11/14 2200 AC 11/14 PO 2253 Methylprednisolone 30 MG BID 11/06 2199 AC 11/15 IV 0957 Metoclopramide HCl 10 MG ONCE ONE 11/14 2229 DC 11/14 IV 11/14 2231 2222 Metoprolol Tartrate 25 MG BID 11/14 2200 AC 11/15 PO 0957 Metoprolol Tartrate 12.5 MG ONCE ONE 11/14 1445 DC 11/14 PO 11/14 1446 1438 Metoprolol Tartrate 12.5 MG BID 11/01 1046 DC 11/14 PO 0700 Omeprazole 20 MG DAILY AC 10/25 0700 AC 11/15 PO 0621 Ondansetron HCl 4 MG Q6P PRN 11/14 2114 CAN IV Polyethylene Glycol 17 GM DAILY NEEDED PRN 11/07 0000 AC 11/07 PO 1031 Senna/Docusate Sodium 1 TAB Q12P PRN 11/06 2345 AC 11/14 PO 0833 Sertraline HCl 50 MG DAILY 11/14 1000 AC 11/15 PO 0957 Sodium Polystyrene 60 ML ONCE ONE 11/15 0715 DC 11/15 Sulfonate PO 11/15 0716 0957 Trimethobenzamide HCl 200 MG 4 TIMES/DAY PRN 11/14 2114 AC 11/14 IM 2114 Vital Signs & I&O Last 24 Hrs of Vitals and I&O: Vital Signs Date Time Temp Pulse Resp B/P B/P Pulse O2 O2 Flow FiO2 Mean Ox Delivery Rate 11/15 1137 76 11/15 0957 98.1 88 20 116/70 11/15 0845 91 BIPAP 100% 11/15 0845 88 91 11/15 0800 92 BIPAP 100% 11/15 0800 98.1 66 20 116/70 92 BIPAP 100% 11/15 0547 85 85 11/15 0320 78 82 11/15 0039 74 82 11/15 0036 76 77 11/15 0000 79 BIPAP 70% 11/15 0000 97.8 80 24 120/60 79 BIPAP 70% 11/14 2255 83 142/80 11/14 2230 92 96 11/14 1915 80 94 11/14 1655 83 90 11/14 1655 90 BIPAP 100% 11/14 1600 97.3 79 21 126/76 96 BIPAP 11/14 1600 96 BIPAP 100% 11/14 1438 144 120/70 Intake & Output 11/15 1600 11/15 0800 11/15 0000 Intake Total 360 480 480 Output Total 400 650 920 Balance -40 -170 -440 Intake, Oral 360 480 480 Number 1 1 1 Bowel Movements Output, Urine 400 650 920 Laboratory Tests 11/15 11/14 0555 0440 Chemistry Sodium (137 - 145 mmol/L) 140 142 Potassium (3.5 - 5.1 mmol/L) 5.4 H 5.3 H Chloride (98 - 107 mmol/L) 95 L 96 L Carbon Dioxide (22 - 30 mmol/L) 35 H 35 H Anion Gap (5 - 16) 10 10 BUN (7 - 17 mg/dL) 97 H 88 H Creatinine (0.5 - 1.0 mg/dL) 1.6 H 1.3 H Estimated GFR (>60 ml/min) 31 L 40 L Glucose (65 - 99 mg/dL) 207 H 124 H Calcium (8.4 - 10.2 mg/dL) 8.7 9.1 Phosphorus (2.5 - 4.5 mg/dL) 6.1 H 5.2 H Magnesium (1.6 - 2.3 mg/dL) 2.2 2.1 Total Bilirubin (0.2 - 1.3 mg/dL) 1.3 1.2 AST (14 - 36 U/L) 19 14 ALT (9 - 52 U/L) 32 38 Albumin (3.5 - 5.0 g/dL) 3.1 L 3.3 L Hematology CBC w Diff NO MAN DIFF REQ MAN DIFF ORDERED WBC (4.8 - 10.8 /CUMM) 13.8 H 13.3 H RBC (4.20 - 5.40 /CUMM) 2.92 L 3.01 L Hgb (12.0 - 16.0 G/DL) 9.8 L 10.1 L Hct (37 - 47 %) 30.1 L 31.0 L MCV (81.0 - 99.0 FL) 103.2 H 102.9 H MCH (27.0 - 31.0 PG) 33.6 H 33.4 H RDW (11.5 - 14.5 %) 18.9 H 18.9 H Plt Count (130 - 400 /CUMM) 172 180 MPV (7.4 - 10.4 FL) 10.1 9.9 Gran % (42.2 - 75.2 %) 95.3 H 93.1 H Lymphocytes % (20.5 - 51.1 %) 2.2 L 2.7 L Monocytes % (1.7 - 9.3 %) 1.1 L 2.0 Eosinophils % (0 - 5 %) 1.4 2.2 Basophils % (0.0 - 2.0 %) 0 L 0 L Absolute Granulocytes (1.4 - 6.5 /CUMM) 13.2 H 12.4 H Segmented Neutrophils (42.2 - 75.2 %) 86 H Band Neutrophils (0.0 - 5.0 %) 5 Absolute Lymphocytes (1.2 - 3.4 /CUMM) 0.3 L 0.4 L Lymphocytes (20.5 - 51.1 %) 2 L Monocytes (1.7 - 9.3 %) 5 Absolute Monocytes (0.10 - 0.60 /CUMM) 0.2 0.3 Eosinophils (0 - 5.0 %) 2 Absolute Eosinophils (0.0 - 0.7 /CUMM) 0.2 0.3 Absolute Basophils (0.0 - 0.2 /CUMM) 0 0 Platelet Estimate (ADEQUATE) ADEQUATE Poikilocytosis 1+ Basophilic Stippling 1+ Anisocytosis 1+ Ovalocytes 1+ PUBS MCHC (33.0 - 37.0 G/DL) 32.6 L 32.5 L Impression/Plan Impression/Plan Impression/Plan: Varinder eomi neck supple Chest showed crackles Heart S1-S2 was heard Abdominal exam normal trace 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 Now on steroids with sig bronchiolitis by ct * REsolved Significant gram-negative sepsis pansensensitive ecoli, due to 8 mm stone with obstructive uropathy with hydronephrosis, causing sepsis S/P Stent * Worsening Chronic kidney disease with acute kidney injury upon admission * Significantly elevated proBNP with low ejection fraction upon admission * Chronic anemia patient has been on epo before, now with thrombocytopenia due to sepsis and pt does have macrocytosis and need to rule out myelodysplasia in the future * Heme positive stool with chronic anemia * Myelodysplasia and MGUS with Splenomegaly, 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 * Previous mediastinal lymphadenopathy which needs follow-up * Elevated troponin upon admission * Hypothyroid on supp * Mild depression RECOMMENDATION * COnt high flow, and reduce fio2 bedtime BiPAP if marce * Follow sugars, cover with sliding scale insulin only if needed, cont long acting insulin, reduce the dose again if the patient is not eating * WIll check labs this pm * agg bowel regimen * po ppi * Venodyne boots as she has hemepositive stool * OOB to chair * Steroid to 60 mg daily * vit d 1000 units daily Rpt cxr Pts prog poor She wishes to continue conservative care for now IF worse she is willing to consider further more conservative options like hospice, will discuss with the patient in am
--- NOTE | 2016-11-15 18:03 | NUR ---
PT HAS BEEN SATING 93-98% ON 100% BIPAP. MOSTLY IN THE HIGH 90S. STAYING STABLE DURING TURNING. DR.SAMAH ROBBINS WAS UPDATED. PT ALSO HAS REFUSED TO TURN ON HER SIDE DESPITE EDUCATION ON RISK FOR PRESSURE ULCERS, "IT'S OK"
[2016-11-16] VITALS: BP 120/60
[2016-11-16 05:14] LABS: ABSOLUTE BASOPHIL COUNT 0 /CUMM (0.0-0.2); ABSOLUTE EOSINOPHIL COUNT 0.1 /CUMM (0.0-0.7); ABSOLUTE GRANULOCYTE CT 11.2 /CUMM (1.4-6.5); ABSOLUTE LYMPH COUNT 0.3 /CUMM (1.2-3.4); ABSOLUTE MONOCYTE COUNT 0.2 /CUMM (0.10-0.60); BASOPHIL % 0 % (0.0-2.0); EOSINOPHIL % 1.2 % (0-5); GRANULOCYTE % 94.6 % (42.2-75.2); MEAN CORPUSCULAR HGB 33.6 PG (27.0-31.0); MEAN CORPUSCULAR HGB CONC 32.5 G/DL (33.0-37.0); MEAN CORPUSCULAR VOLUME 103.4 FL (81.0-99.0); MEAN PLATELET VOLUME 10.2 FL (7.4-10.4); PLATELET COUNT 157 /CUMM (130-400); RBC DISTRIBUTION WIDTH 18.1 % (11.5-14.5); WHITE BLOOD CELL COUNT 11.8 /CUMM (4.8-10.8)
--- NOTE | 2016-11-16 07:08 | PN- Housestaff ---
Subjective Follow-up For: 1. Acute on chronic hypoxic and hypercarbic respiratory failure 2. Sepsis 2/2 UTI with gram negative sepsis - resolved 3. Nephrolithiasis s/p left ureter stent placement 4. End stage COPD Complaints: no complaints Tele-Events Since Last Visit: No overnight events. Subjective: Patient seen and examined at bedside this AM. She continues to report that she feels weak. She reports she didn't sleep much last night. Her nausea has improved though she has no desire to eat. She remained afebrile overnight with a good blood pressure but her O2 saturations over the last 24 hours were variable and as low as 76%. She continues to require high FiO2 requirements at 70-100%. Review of Systems Constitutional: Reports: malaise, weakness. Denies: chills, fever. EENTM: Denies: visual changes. Cardiovascular: Denies: chest pain. Respiratory: Reports: short of breath. Denies: wheezing. Gastrointestinal: Denies: abdominal pain, nausea. Genitourinary: Denies: hematuria. Musculoskeletal: Denies: back pain. Skin: Denies: rash. Neurological/Psychological: Denies: confusion. Hematologic/Endocrine: Denies: bruising, bleeding. Objective Last 24 Hrs of Vital Signs/I&O Vital Signs Date Time Temp Pulse Resp B/P B/P Pulse O2 O2 Flow FiO2 Mean Ox Delivery Rate 11/16 0832 83 93 11/16 0800 BIPAP 100% 11/16 0800 96.9 74 16 120/66 98 BIPAP 100% 11/16 0521 75 90 11/16 0327 76 88 11/16 0026 77 81 11/16 0024 69 75 06/ 0000 96.9 72 34 120/60 86 BIPAP 85% 11/16 0000 84 BIPAP 100% 11/15 2223 90 94 11/15 2219 90 140/68 11/15 1929 81 92 11/15 1610 86 BIPAP 100% 11/15 1609 74 86 11/15 1600 93 BIPAP 100% 11/15 1345 88 11/15 1137 76 11/15 0957 98.1 88 20 116/70 Intake & Output 11/16 1600 11/16 0800 06 0000 Intake Total 400 180 Output Total 325 625 Balance 75 -445 Intake, Oral 400 180 Number 1 1 Bowel Movements Output, Urine 325 625 Physical Exam General Appearance: Alert, Oriented X3, Cooperative Skin: No Significant Lesion Skin Temp/Moisture Exam: Warm/Dry HEENT: Atraumatic, PERRLA, EOMI Neck: Supple, No JVD Lymphatic: Cervical nl Cardiovascular: Regular Rate, Normal S1, Normal S2 Lungs: Decreased air movement bilateral bases Abdomen: Normal Bowel Sounds, Soft, No Tenderness Neurological: Normal Speech, Normal Tone Extremities: No Clubbing, No Cyanosis, No Edema Vascular: Pulses Symmetrical Current Medications: Current Medications Sig/Wei Start time Last Medication Dose Route Stop Time Status Admin Acetaminophen 650 MG Q6P PRN 10/20 0145 AC 10/21 PO 1839 Albuterol Sulfate 3 ML EVERY 4 HRS/AWAKE 10/20 0915 AC 11/16 INH 0833 Aspirin 81 MG DAILY 10/24 1000 AC 11/15 PO 0957 Cholecalciferol 1,000 IU DAILY 11/09 1000 AC 11/15 PO 0957 Docusate Sodium 100 MG DAILY NEEDED PRN 11/14 0945 AC PO Guaifenesin 600 MG Q12 10/20 1000 AC 11/15 PO 2219 Insulin Aspart 0 TIDAC 11/13 0800 AC 11/15 SC 0958 Insulin Detemir 18 UNITS QPM 11/14 2200 AC 11/15 SC 2221 Levothyroxine Sodium 0.15 MG DAILY AC 10/20 0700 AC 11/16 PO 0635 Melatonin 10 MG AT BEDTIME 11/14 220 AC 11/15 PO 2219 Methylprednisolone 30 MG BID 11/06 2200 AC 11/15 IV 2219 Metoprolol Tartrate 25 MG BID 11/14 220 AC 11/15 PO 2219 Omeprazole 20 MG DAILY AC 10/25 0700 AC 11/16 PO 0635 Polyethylene Glycol 17 GM DAILY NEEDED PRN 11/07 0000 AC 11/07 PO 1031 Senna/Docusate Sodium 1 TAB Q12P PRN 11/06 2345 AC 11/14 PO 0833 Sertraline HCl 50 MG DAILY 11/14 1000 AC 11/15 PO 0957 Sodium Polystyrene 60 ML ONCE ONE 11/15 183 DC 11/15 Sulfonate PO 11/15 183 1828 Trimethobenzamide HCl 200 MG 4 TIMES/DAY PRN 11/14 2115 AC 11/14 IM 2115 Last 24 Hrs of Lab/Fabian Results Last 24 Hrs of Labs/Mics: Laboratory Tests 11/16/16 0455: Anion Gap 10, Estimated GFR 34 L, Glucose 135 H, Calcium 8.6, Phosphorus 5.9 H, Magnesium 2.4 H, Total Bilirubin 1.3, AST 20, ALT 34, Albumin 3.1 L, CBC w Diff NO MAN DIFF REQ, RBC 2.80 L, MCV 103.4 H, MCH 33.6 H, RDW 18.1 H, MPV 10.2, Gran % 94.6 H, Lymphocytes % 2.5 L, Monocytes % 1.7, Eosinophils % 1.2, Basophils % 0 L, Absolute Granulocytes 11.2 H, Absolute Lymphocytes 0.3 L, Absolute Monocytes 0.2, Absolute Eosinophils 0.1, Absolute Basophils 0, PUBS MCHC 32.5 L 11/15/162058: 11/15/161999: Potassium Cancelled 11/15/16 1645: Anion Gap 9, Estimated GFR 44 L, Glucose 105 H, Calcium 8.6, Phosphorus 6.1 H , Magnesium 2.3, Total Bilirubin 1.3, AST 30, ALT 39, Albumin 3.1 L Orders Radiology Findings: CXR: IMPRESSION: Obstructive lung disease with persistent increased opacity in the right mid and lower lung, likely related to subsegmental atelectasis. Clinical correlation and follow-up chest x-ray is recommended. No significant evolving pneumonia or pneumothorax or effusion. Assessment/Plan Assessment: Ms. Bajwa is a pleasant 76 year old female with PMH hypertension, hyperlipidemia, COPD on 5 L continuous NC, type 2 diabetes mellitus on insulin, hypothyroidism, stage III B chronic kidney disease, combined systolic and diastolic heart failure, severe pulmonary hypertension, history of kidney stones in the past who presented to the [place] ED with shortness of breath on exertion , chills, decreased oral intake, cough minimally productive of sputum and nausea for one day. Patient was admitted to telemetry initally, has received treatment for possible pneumonia and UTI, and was tranferred to the ICU due to decreased oxygen saturation to 85% requiring high flow oxygen and for closer monitoring. Below is the problem list and plan: Respiratory: 1. Acute on chronic hypoxic and hypercarbic respiratory failure * Likely 2/2 combination of COPD, heart failure and sepsis of urological origin * Treated for possible pneumonia with ceftriaxone and doxycycline (allergic to azithromycin) on admission -met criteria for sepsis on admission with possible pulmonary source acording to CXR, required high flow O2 through NC * V/Q scan on 10/27 negative for PE * Continue high flow nasal cannula and try to wean BiPAP to only as needed, currently continues to require high FiO2 75-100% on BiPAP/HFNC, attempting to taper down to maintain sats 87-88% or higher * CT chest previously showed worsened central lobar groundglass opacities that likely represent infectious bronchiolitis, IV azithromycin was started. Patient subsequently desaturated with likely allergic reaction so azithromycin discontinued. * Patient subsequently completed 7 days of doxycycline 100 mg PO BID. * IV solumedrol 60 mg daily continued. * Patient started on three-days a week double-strength bactrim but this was held in the setting of hyperkalemia; continue to hold. * PO lasix 40 mg daily discontinued as patient noted to have worsening renal function ID 1. Gram-negative sepsis with pansensitive Escherichia coli due to obstructive uropathy and evidence of an 8 mm stone causing hydronephrosis. RESOLVED. * Urinalysis suggesting UTI and blood culture positive for gram negative rods ( pansensitive ecoli) * Initial CT of [place] and pelvis showed obstructing 8 x 8 mm left ureter stone causing moderate to severe hydroureteronephrosis and left perinephric stranding. * Patient had left ureteral stent placed, tolerated procedure well. * Repeat CT scan showed interval decompression of left renal collecting system with multiple nonobstructing renal calculi * PO ceftin 14 day course completed * Latest urine culture on 11/04 negative for growth * Follow up with urology upon discharge. Cardiac 1. Elevated troponins * Elevated troponins in setting of acute hypoxic respiratory failure likely represent demand ischemia, no chest pain reported, have since trended down. * Echo shows EF 40-45%, mild global hypokinesis, right ventricular systolic pressure estimated at 47 mmHg. * Cardiology is following and will continue to follow recs * Continue ASA 81 mg PO daily and lopressor increased to 25 mg PO BID, tolerating well * Continue supervisor prep, downgrade to tele. 2. Combined systolic and diastolic CHF * Lasix 40 mg PO daily continues to be on hold secondary to renal dysfuntion * Strict Is/Os, daily weights * Follow up with cardiology within 1 week after discharge 3. Episodes of tachycardia, likely atrial fibrillation * Noted episodes of tachycardia to 140s intermittently (likely atrial tachycardia) * Episodes very brief, likely secondary to hypoxia/stress * No need to anticoagulate per cardio as she is guiac + * Continue metoprolol to 25 mg PO BID per cardio recommendations for nonsustained tachycardia. 4. HTN * Continue to hold lisinopril due to hyperkalemia/renal dysfunction, restart once normalized. Heme 1. Chronic macrocytic anemia * Likely 2/2 CKD * Folate within normal limits and B12 is elevated * Patient with Guiac (+) stool, no pharm dvtp * Follow up daily CBC Metabolic 1. EVANS on CKD * Possibly secondary to initial sepsis with superimposed hydronephrosis * Avoid nephrotoxins * Continue to hold lisinopril and lasix as renal function worsening again today * ICU bundle daily to monitor BUN/cre 2. Hyperkalemia * Likely secondary to acute on chronic kidney injury along with lisinopril/ bactrim use * Patient s/p kayexalate yesterday, K level has since come down to 5 * Continue to hold bactrim/lisinopril * Follow up repeat labs daily 3. Diabetes mellitus * Accuchecks TIDAC/HS * Continue NSS to high dose and bedtime NSS * Will likely decrease scale as we titrate down steroids * Levemir 18 U SC QPM 4. Hypothyroidism * Continue synthroid 0.15 mg PO daily AC Neuro 1. Depressive disorder due to another medical condition * Psych consult appreciated, continue to follow recommendations * Continue sertraline to 50 mg PO daily * Continue melatonin to 10 mg PO daily Other 1. Cystic abnormality abutting distal body of pancreas * Follow up CT scan with pancreatic mass protocol once patient more stable or close follow up after discharge DNR/DNI DVTP: ALPS CC2 diet Mild pain pathway Problem List: 1. Insulin dependent type 2 diabetes mellitus 2. Elevated troponin 3. HFrEF (heart failure with reduced ejection fraction) 4. Acute renal failure superimposed on stage 3 chronic kidney disease 5. UTI (urinary tract infection) 6. Gram negative sepsis 7. Acute and chronic respiratory failure with hypoxia 8. PNA (pneumonia) 9. Hyperkalemia Pain Ratin Pain Location: n/a Pain Goal: Remain pain free Pain Plan: Per pain pathway Tomorrow's Labs & Rationales: CBC (leukocytosis) ICU bundle (renal dysfunction, hyperkalemia) Per pain pathway Tomorrow's Labs & Rationales: CBC (leukocytosis) ICU bundle (renal dysfunction, hyperkalemia)
[2016-11-16 08:00] VITALS: BP 120/66
--- NOTE | 2016-11-16 09:13 | PN- Pulmonary ---
Subjective HPI/Critical Care Issues: Patient seen and examined at bedside this AM. She continues to report that she feels weak. She reports she didn't sleep much last night. Her nausea has improved though she has no desire to eat. She remained afebrile overnight with a good blood pressure but her O2 saturations over the last 24 hours were variable and as low as 76%. She continues to require high FiO2 requirements at 70-100%. Review of Systems Constitutional: Reports: malaise, weakness. Denies: chills, fever. EENTM: Denies: visual changes. Cardiovascular: Denies: chest pain. Respiratory: Reports: short of breath. Denies: wheezing. Gastrointestinal: Denies: abdominal pain, nausea. Genitourinary: Denies: hematuria. Musculoskeletal: Denies: back pain. Skin: Denies: rash. Neurological/Psychological: Denies: confusion. Hematologic/Endocrine: Denies: bruising, bleeding. Objective Current Medications: Current Medications Sig/Wei Start time Last Medication Dose Route Stop Time Status Admin Acetaminophen 650 MG Q6P PRN 10/20 0145 AC 10/21 PO 1839 Albuterol Sulfate 3 ML EVERY 4 HRS/AWAKE 10/20 0915 AC 11/16 INH 0833 Aspirin 81 MG DAILY 10/24 1000 AC 11/15 PO 0957 Cholecalciferol 1,000 IU DAILY 11/09 1000 AC 11/15 PO 0957 Docusate Sodium 100 MG DAILY NEEDED PRN 11/14 0945 AC PO Guaifenesin 600 MG Q12 10/20 1000 AC 11/15 PO 2219 Insulin Aspart 0 TIDAC 11/13 0800 AC 11/15 SC 0958 Insulin Detemir 18 UNITS QPM 11/14 2200 AC 11/15 SC 2221 Levothyroxine Sodium 0.15 MG DAILY AC 10/20 0700 AC 11/16 PO 0635 Melatonin 10 MG AT BEDTIME 11/14 2199 AC 11/15 PO 2219 Methylprednisolone 30 MG BID 11/06 2199 AC 11/15 IV 2219 Metoprolol Tartrate 25 MG BID 11/14 220 AC 11/15 PO 2219 Omeprazole 20 MG DAILY AC 10/25 0700 AC 11/16 PO 0635 Polyethylene Glycol 17 GM DAILY NEEDED PRN 11/07 0000 AC 11/07 PO 1031 Senna/Docusate Sodium 1 TAB Q12P PRN 11/06 2345 AC 11/14 PO 0833 Sertraline HCl 50 MG DAILY 11/14 1000 AC 11/15 PO 0957 Sodium Polystyrene 60 ML ONCE ONE 11/150 DC 11/15 Sulfonate PO 11/15 1830 1828 Trimethobenzamide HCl 200 MG 4 TIMES/DAY PRN 11/14 2114 AC 11/14 IM 2114 Vital Signs & I&O Last 24 Hrs of Vitals and I&O: Vital Signs Date Time Temp Pulse Resp B/P B/P Pulse O2 O2 Flow FiO2 Mean Ox Delivery Rate 11/16 0832 83 93 11/16 0800 BIPAP 100% 11/16 0800 96.9 74 16 120/66 98 BIPAP 100% 11/16 0521 75 90 11/16 0327 76 88 11/16 0026 77 81 11/16 0024 69 75 06/ 0000 96.9 72 34 120/60 86 BIPAP 85% 11/16 0000 84 BIPAP 100% 11/15 2223 90 94 11/15 2219 90 140/68 11/15 1929 81 92 11/15 1610 86 BIPAP 100% 11/15 1609 74 86 11/15 1600 93 BIPAP 100% 11/15 1345 88 11/15 1137 76 11/15 0957 98.1 88 20 116/70 Intake & Output 11/16 1600 11/16 0800 11/16 0000 Intake Total 400 180 Output Total 325 625 Balance 75 -445 Intake, Oral 400 180 Number 1 1 Bowel Movements Output, Urine 325 625 Impression/Plan Impression/Plan Impression/Plan: Varinder eomi neck supple Chest showed crackles Heart S1-S2 was heard Abdominal exam normal trace 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
[2016-11-16 09:27] VITALS: BP 120/66
--- NOTE | 2016-11-16 10:30 | NUR ---
DR CALLE AT BEDSIDE SPOKE WITH PATIENT REGARDING CODE STATUS. HOSPICE CONSULT THIS AFTERNOON WHEN FAMILY CAN ARRIVE TO HOSPITAL. CASE MANAGEMENT CHANDLER GNOZALEZ NOTIFIED.
--- NOTE | 2016-11-16 11:08 | PN- Cardiology ---
Subjective Subjective: The patient continues to complain of significant shortness of breath. No chest pain. She notes weakness and fatigue. Objective Vital Signs and I&Os Vital Signs Date Time Temp Pulse Resp B/P B/P Pulse O2 O2 Flow FiO2 Mean Ox Delivery Rate 11/16 0927 83 120/66 / 0832 83 93 11/16 0800 BIPAP 100% 11/16 0800 96.9 74 16 120/66 98 BIPAP 100% 11/16 0521 75 90 11/16 0327 76 88 11/16 0026 77 81 11/16 0024 69 75 / 0000 96.9 72 34 120/60 86 BIPAP 85% 11/16 0000 84 BIPAP 100% 11/15 2223 90 94 11/15 2219 90 140/68 11/15 1929 81 92 11/15 1610 86 BIPAP 100% 11/15 1609 74 86 11/15 1600 93 BIPAP 100% 11/15 1345 88 11/15 1137 76 Intake & Output 11/16 1600 11/16 0800 11/16 0000 11/15 1600 11/15 0800 11/15 0000 Intake Total 400 180 360 480 480 Output Total 300 325 625 400 650 920 Balance -300 75 -445 -40 -170 -440 Intake, Oral 400 180 360 480 480 Number 1 1 1 1 1 Bowel Movements Output, Urine 300 325 625 400 650 920 Physical Exam: Gen: NAD HEENT: normal Lungs: Decreased air movement, scattered rhonchi, normal resp. effort Heart: RRR, S1, S2, no murmurs Abdomen: Soft, nontender, no masses Extremities: No clubbing, cyanosis, or edema. Neuro: Alert and oriented x 3, cranial nerves intact Current Medications: Current Medications Sig/Wei Start time Last Medication Dose Route Stop Time Status Admin Acetaminophen 650 MG Q6P PRN 10/20 0145 AC 10/21 PO 1839 Albuterol Sulfate 3 ML EVERY 4 HRS/AWAKE 10/20 0915 AC 11/16 INH 0833 Aspirin 81 MG DAILY 10/24 999 AC 11/16 PO 09 Cholecalciferol 1,000 IU DAILY 11/09 999 AC 11/16 PO 926 Docusate Sodium 100 MG DAILY NEEDED PRN 11/14 0945 AC PO Guaifenesin 600 MG Q12 10/20 1000 AC 11/16 PO 926 Insulin Aspart 0 TIDAC 11/13 0800 AC 11/16 SC 09 Insulin Detemir 18 UNITS QPM 11/14 2199 AC 11/15 SC 222 Levothyroxine Sodium 0.15 MG DAILY AC 10/20 07 AC 11/16 PO 0635 Melatonin 10 MG AT BEDTIME 11/14 2199 AC 11/15 PO 2219 Methylprednisolone 30 MG BID 11/06 2199 AC 11/16 IV 0933 Metoprolol Tartrate 25 MG BID 11/14 2199 AC 11/16 PO 0927 Omeprazole 20 MG DAILY AC 10/25 07 AC 11/16 PO 0635 Polyethylene Glycol 17 GM DAILY NEEDED PRN 11/07 0000 AC 11/07 PO 1031 Senna/Docusate Sodium 1 TAB Q12P PRN 11/06 2345 AC 11/14 PO 0833 Sertraline HCl 50 MG DAILY 11/14 1000 AC 11/16 PO 0927 Sodium Polystyrene 60 ML ONCE ONE 11/15 1830 DC 11/15 Sulfonate PO 11/15 183 1828 Trimethobenzamide HCl 200 MG 4 TIMES/DAY PRN 11/14 2114 AC 11/14 IM 2114 Results Last 48 Hrs of Labs/Mics: Laboratory Tests 11/16/16 0455: Anion Gap 10, Estimated GFR 34 L, Glucose 135 H, Calcium 8.6, Phosphorus 5.9 H, Magnesium 2.4 H, Total Bilirubin 1.3, AST 20, ALT 34, Albumin 3.1 L, CBC w Diff NO MAN DIFF REQ, RBC 2.80 L, MCV 103.4 H, MCH 33.6 H, RDW 18.1 H, MPV 10.2, Gran % 94.6 H, Lymphocytes % 2.5 L, Monocytes % 1.7, Eosinophils % 1.2, Basophils % 0 L, Absolute Granulocytes 11.2 H, Absolute Lymphocytes 0.3 L, Absolute Monocytes 0.2, Absolute Eosinophils 0.1, Absolute Basophils 0, PUBS MCHC 32.5 L 11/15/169: 11/15/161999: Potassium Cancelled 11/15/16 1645: Anion Gap 9, Estimated GFR 44 L, Glucose 105 H, Calcium 8.6, Phosphorus 6.1 H , Magnesium 2.3, Total Bilirubin 1.3, AST 30, ALT 39, Albumin 3.1 L 11/15/16 0555: Anion Gap 10, Estimated GFR 31 L, Glucose 207 H, Calcium 8.7, Phosphorus 6.1 H, Magnesium 2.2, Total Bilirubin 1.3, AST 19, ALT 32, Albumin 3.1 L, CBC w Diff NO MAN DIFF REQ, RBC 2.92 L, MCV 103.2 H, MCH 33.6 H, RDW 18.9 H, MPV 10.1, Gran % 95.3 H, Lymphocytes % 2.2 L, Monocytes % 1.1 L, Eosinophils % 1.4, Basophils % 0 L, Absolute Granulocytes 13.2 H, Absolute Lymphocytes 0.3 L, Absolute Monocytes 0.2, Absolute Eosinophils 0.2, Absolute Basophils 0, PUBS MCHC 32.6 L Recent Imaging Studies: Chest x-ray 11/14/16: Obstructive lung disease with persistent increased opacity in the right mid and lower lung, likely related to subsegmental atelectasis. Clinical correlation and follow-up chest x-ray is recommended. No significant evolving pneumonia or pneumothorax or effusion. Assessment/Plan Assessment/Plan 1. Community-acquired pneumonia 2. Respiratory failure 3. Gram-negative sepsis 4. Mild troponin elevation, likely secondary to pneumonia and sepsis 5. Mild left ventricular systolic dysfunction 6. Short runs of nonsustained atrial tachycardia 7. Chronic HFrEF, with mild acute exacerbation, improved 8. Chronic kidney disease, improved Plan: * Continue current cardiac medications. * Monitor for further arrhythmias * The patient wishes to continue conservative management. A hospice evaluation is planned. Continue telemetry? Yes
--- NOTE | 2016-11-16 14:32 | Event Note ---
Event Note Event Note: Family meeting held with attending physician today. As patient expressed wishes to be evaluated by hospice, family was notified and Dr. Blanco MD answered all questions/addressed their concerns. Hospice evaluation has taken place and patient will be discharged to inpatient hospice.
== END 2016-11-16 14:41 | disposition hospice, home (50) | DRG 871 ==
LOC: ERH 18:36 → 1NO 19:37 → ERHI 19:37 → CRI 19:37 → ENRESERV 21:09 → 1NO 22:19 → CRI 10-21 13:19
PROVIDERS: Emergency Medicine; Internal Medicine; Ophthalmology; Student in an Organized Health Care Education/Training Program; ADMIT Internal Medicine
PROC: 0T778DZ Dilation of Left Ureter with Intraluminal Device, Via Natural or Artificial Opening Endoscopic (ICD-10-PCS; principal; 2016-10-22)
PROC: 5A09357 Assistance with Respiratory Ventilation, Less than 24 Consecutive Hours, Continuous Positive Airway Pressure (ICD-10-PCS; 2016-10-24)
DX: A41.51 Sepsis due to Escherichia coli [E. coli] (principal); J96.21 Acute and chronic respiratory failure with hypoxia; I50.43 Acute on chronic combined systolic (congestive) and diastolic (congestive) heart failure; E87.2 Acidosis; I47.1 Supraventricular tachycardia; E11.22 Type 2 diabetes mellitus with diabetic chronic kidney disease; I24.8 Other forms of acute ischemic heart disease; N39.0 Urinary tract infection, site not specified; N13.2 Hydronephrosis with renal and ureteral calculous obstruction; I13.0 Hypertensive heart and chronic kidney disease with heart failure and stage 1 through stage 4 chronic kidney disease, or unspecified chronic kidney disease; E78.5 Hyperlipidemia, unspecified; E03.9 Hypothyroidism, unspecified; I27.2 Other secondary pulmonary hypertension; Z87.891 Personal history of nicotine dependence; E87.5 Hyperkalemia; E66.9 Obesity, unspecified; Z68.30 Body mass index [BMI] 30.0-30.9, adult; Z99.81 Dependence on supplemental oxygen; R65.20 Severe sepsis without septic shock; D46.9 Myelodysplastic syndrome, unspecified; N18.3 Chronic kidney disease, stage 3 (moderate); Z79.4 Long term (current) use of insulin; F32.9 Major depressive disorder, single episode, unspecified; J44.9 Chronic obstructive pulmonary disease, unspecified; Z51.5 Encounter for palliative care
CPT/HCPCS: 1NSP; CCU; 36415; 74000; 74176; 76775; 78582; 81001; 82436; 84425; 87040; 87070; 87086; 87449; 87450; 87804; 87804-59; 93005; 93010; 93306; 93970; 94799; 96374; A9540; A9558; C2617; J0131; J0456; J0610; J0696; J0713; J1200; J1644; J1940; J2765; J2920; J3250; J3490; J7040; J7042; J8515

== ENCOUNTER 2016-11-16 14:42 | Inpatient (IN) | payer OTHER ==
[~2016-11-16 14:42] MED LIST changes: +ACETAMINOPHEN500 M4 PO; +HYDROCORTISO453.6 G2 TOP; +ICAPS TABLET1 EACH PO; +LANTUS SOL100 UNIT/1 SC; +METRONIDAZOLE60 GM TOP; +PROCRIT10000 UNIT
[2016-11-16 16:00] VITALS: BP 110/58
--- NOTE | 2016-11-16 16:08 | History & Physical ---
General Information and HPI Chief Complaint: admit to hospice Source of Information: patient, old records Exam Limitations: no limitations Associated Symptoms: anxiety, dyspnea History of Present Illness: 76-year-old female with past history of O2 dependent COPD, DMII, CKD St. 3, severe pulmonary HTN with heart failure presents to [facility] on 10/19/2016 with chief complaint of shortness of breath. Subsequently diagnosed with acute on chronic hypoxic and hypercarbic respiratory failure and sepsis secondary to UTI. She has been on bipap with high oxygen requirements with failed attempts to decrease/discontinue, despite IV steroids, antibiotic tx and diuresis. She has been nauseous and with poor appetite. At this point pt wants to stop bipap and above all else be comfortable. She is asking for hospice care. Allergies/Medications Allergies: Coded Allergies: azithromycin (Intermediate, DYSPNEA 11/03/16) oxycodone (From PERCOCET) (Intermediate, NAUSEA 08/23/16) Past History Medical History Neurological: NONE EENT: CATARACTS (R) MACULAR DEGENERATION (L) Cardiovascular: CHF, hypertension Respiratory: COPD Gastrointestinal: NONE Hepatic: NONE Renal: nephrolithiasis Musculoskeletal: NONE Psychiatric: NONE Endocrine: diabetes, hypothyroidism Blood Disorders: NONE, IRON DEF/TAKES PROCRIT Cancer(s): NONE CHIEF EXECUTIVE/Reproductive: NONE History of MRSA: No History of VRE: No History of CDIFF: No Surgical History Surgical History: cholecystectomy, hip replacement Past Family/Social History Family History: non contributory Psychosocial History: Pt is , her brother is POA. Former smoker Functional Ability: assistance with adls/IADls Review of Systems Review of Systems Constitutional: Reports: see HPI. Exam & Diagnostic Data Last 24 Hrs of Vital Signs/I&O T-96.9, HR-82, RR-16, BP-120/66 O2 sat 91% on 100% O2@ via Bipap Physical Exam General Appearance Alert, Cooperative, Mild Distress Skin No Rashes, ecchymosis to bilat UEs HEENT Atraumatic, PERRLA, bipap mask on Cardiovascular Regular Rate, Normal S1, Normal S2, No Murmurs Lungs Decreased air movement, scattered rhonchi Abdomen Normal Bowel Sounds, Soft, No Tenderness Neurological able to move all extremities, follows commands, alert Extremities No Clubbing, No Cyanosis, No Edema Last 24 Hrs of Labs/Fabian: WBC 11.8, Hgb 9.4, HCT 29 BUN 1021, Cr 1.5, Gfr 34, Cl 97, CO2 35 Diagnostic Data CXR Results 11/14/16: IMPRESSION: Obstructive lung disease with persistent increased opacity in the right mid and lower lung, likely related to subsegmental atelectasis. Clinical correlation and follow-up chest x-ray is recommended. No significant evolving pneumonia or pneumothorax or effusion. Assessment/Plan Assessment: 76 year-old female with history of COPD, O2 dependent, with acute on chronic hypoxic and hypercarbic respiratory failure being admitted to hospice for symptom management of dyspnea and anxiety with removal of bipap. Plan to medicate with ativan 1mg IV every 4 hours and Q2hrs as needed for anxiety. Morphine 2mg bolus and then morphine drip 2mg/hr IV with titration protocol. At least 1 hour after ativan and morphine, discontinue bipap with respiratory therapy, who can help to determine appropriate oxygen set up. Will add compazine 10mg IV every 6 hrs as needed for nausea. Discussed plan with /dr. Simeon, pt and family, nursing. nursing will discuss with respiratory therapy.
--- NOTE | 2016-11-16 21:35 | NUR ---
PT UP TO FLOOR AT 2104. PT APNEIC WITH RR OF 4 . BP 62/20 HR 58 UNABLE TO READ 02 SAT. PT ON 100% NRB. MORPHINE INFUSING AT 4MG/HR VIA IV IN LAC. PT SITUATED IN BED. AT 2119 THIS RN NOTICED RR DECREASED AND LONGER PERIODS OF APNEA. PT PROUNCED AT 2125. PT WITHOUT RESPIRATIONS. PUPILS FIXED AND DILATED. NONREACTIBE TO LIGHT. NO AUDIBLE HEART RATE. FAMILY AT BEDSIDE AND EMOTIONAL SUPPORT PROVIDED. ALL APPROPRIATE PERSONNEL AWARE. DIE OUT WORKER CALLED AND AWAITING [employer] ARRIVAL. WILL MONITOR
--- NOTE | 2016-11-21 13:44 | Discharge Summary ---
Visit Information Visit Dates Admission Date: 11/16/16 Discharge Date: 11/16/16 Hospital Course Course Attending Physician: LUC THOMPSON,ERLIN Walden Primary Care Physician: UNKNOWN Hospital Course: 76 year-old female with history of COPD, O2 dependent, with acute on chronic hypoxic and hypercarbic respiratory failure being admitted to hospice for symptom management of dyspnea and anxiety with removal of bipap. Morphine drip was initiated after bolus for management of dyspnea and ativan was given prior to and after removal of bipap for anxiety. Bipap was removed and respiratory therapy assisted in management of oxygen for comfort. Pt. was kept comfortable until she , with her family at her bedside. Allergies: Coded Allergies: azithromycin (Intermediate, DYSPNEA 11/03/16) oxycodone (From PERCOCET) (Intermediate, NAUSEA 08/23/16) Disposition Summary Disposition Principal Diagnosis: Acute on chronic hypoxic and hypercarbic respiratory failure Chronic obstructive pulmonary disease Additional Diagnosis: None Discharge Disposition: Discharge Instructions General Discharge Information Code Status: Hospice Patient's Diet: N/A Patient's Activity: N/A Follow-Up Instructions/Appts: N/A Copies To: LAZARO THOMPSON,BRAD Holloway
== END 2016-11-16 21:26 | disposition expired | DRG 189 ==
LOC: CRI 14:42 → 2NA 21:02
PROVIDERS: ADMIT Internal Medicine Pulmonary Disease
DX: J96.21 Acute and chronic respiratory failure with hypoxia (principal); Z51.5 Encounter for palliative care; I27.2 Other secondary pulmonary hypertension; I13.0 Hypertensive heart and chronic kidney disease with heart failure and stage 1 through stage 4 chronic kidney disease, or unspecified chronic kidney disease; N18.3 Chronic kidney disease, stage 3 (moderate); J44.9 Chronic obstructive pulmonary disease, unspecified; E11.22 Type 2 diabetes mellitus with diabetic chronic kidney disease; I50.9 Heart failure, unspecified; J96.22 Acute and chronic respiratory failure with hypercapnia; F41.9 Anxiety disorder, unspecified; E03.9 Hypothyroidism, unspecified; Z87.891 Personal history of nicotine dependence
CPT/HCPCS: 2NAP; J0780; J2270